=== PATIENT | male | born 1935 | race Caucasian/White ===

== ENCOUNTER 2017-03-30 08:31 | Outpatient (CLI) | payer MEDICARE, OTHER | END 2017-03-30 08:32 | disposition critical access hospital (66) | LOC: EMS 08:31 | PROVIDERS: ATTEND Surgery | DX: R53.1 Weakness (principal) | CPT/HCPCS: A0425; A0429 ==

== ENCOUNTER 2017-03-30 08:58 | Inpatient (IN) | payer MEDICARE, OTHER ==
--- NOTE | 2017-03-30 09:31 | ED Physician Documentation ---
History of Present Illness - Stated complaint Stated Complaint: GLF/WEAKNESS - Chief complaint Chief Complaint: General - Additonal information Additional information: hx from pt 81 male with chronic balance issues on coumadin for a fib fell a week ago this AM awoke on floor beside his bed and does not recall what happened crawled to wall but too weak to get up on his own so slep in the floor until his family found him this AM denies [facility]LIN [facility] OUTSOLE CP AP no fever cough NVD urinary sx bruise to RUE is from prior fall Review of Systems Constitutional: denies: Fever, Chills Throat: denies: Sore throat Cardiac: denies: Chest pain / pressure Respiratory: denies: Dyspnea, Cough GI: denies: Abdominal Pain, Nausea, Vomiting, Diarrhea Neurologic: reports: Generalized weakness. denies: Headache, Head injury Endocrine: reports: Easy bruising / bleeding Immunocompromised: denies: Immunocompromised PD PAST MEDICAL HISTORY - Past Medical History Cardiovascular: Congestive heart failure, Hypertension, Atrial fibrillation Respiratory: Pneumonia Neuro: Peripheral neuropathy Endocrine/Autoimmune: Type 2 diabetes GI: C.difficile : Nocturia Musculoskeletal: Osteoarthritis - Past Surgical History Past Surgical History: Yes General: Cholecystectomy - Present Medications Home Medications: Ambulatory Orders Medication Instructions Recorded Confirmed Atenolol [Tenormin] 50 mg PO QPM 02/25/13 03/30/17 Losartan/Hydrochlorothiazide 1 each PO DAILY 02/25/13 03/30/17 [Losartan-Hctz 100-25 mg Tab] Metformin HCl [Metformin 500 gm PO BID 02/25/13 03/30/17 Hydrochloride] Spironolactone [Aldactone] 25 mg PO DAILY 02/25/13 03/30/17 Warfarin Sodium 5 mg PO SUMOWEFRSA 02/25/13 03/30/17 cloNIDine [Catapres] 0.1 mg PO BID 02/25/13 03/30/17 Atorvastatin [Lipitor] 20 mg ORAL QPM 09/08/14 03/30/17 Aspirin 162.5 mg PO DAILY 03/30/17 03/30/17 Warfarin Sodium [Warfarin Sodium] 7.5 mg PO TUTH 03/30/17 03/30/17 - Allergies Allergies/Adverse Reactions: Allergies Allergy/AdvReac Type Severity Reaction Status Date / Time No Known Drug Allergies Allergy Verified 03/30/17 09:04 - Social History Does the pt smoke?: No Smoking Status: Former smoker Does the pt drink ETOH?: Yes Does the pt have substance abuse?: No - Immunizations Immunizations are current?: No Immunizations: TDAP >10years/unknown - POLST Patient has POLST: No PD ED PE NORMAL - Vitals Vital signs reviewed: Yes - General General: Alert and oriented X 3 - HEENT HEENT: Atraumatic, PERRL - Neck Neck: No bony TTP - Cardiac Cardiac: RRR - Respiratory Respiratory: No respiratory distress, Clear bilaterally - Abdomen Abdomen: Soft, Non tender - Derm Derm: Other (aged bruise to posterior right upper arm no deformity, erythema to elbows from trying to hget up) - Extremities Extremities: No deformity, Other (pelvis stable no hip pain) - Neuro Neuro: Alert and oriented X 3, No motor deficit, No sensory deficit, Normal speech, Other (NIHSS zero) Results - Vitals Vitals: Vital Signs - 24 hr 03/30/17 03/30/17 08:58 12:11 Temperature 36.8 C Heart Rate 84 81 Respiratory 16 18 Rate Blood Pressure 127/68 126/68 O2 Saturation 100 100 Oxygen O2 Source Room air - Labs Labs: Laboratory Tests 03/30/17 03/30/17 03/30/17 09:38 09:38 09:38 WBC 17.2 H RBC 4.17 L Hgb 12.6 L Hct 36.9 L MCV 88.7 MCH 30.2 MCHC 34.0 RDW 13.3 Plt Count 150 MPV 7.7 Neut # 16.2 H Lymph # 0.2 L [place] # 0.7 Eos # 0.0 Baso # 0.1 Absolute Nucleated RBC 0.00 Nucleated RBCs 0.0 PT 26.5 H INR 2.3 H Sodium 134 L Potassium 3.4 L Chloride 98 L Carbon Dioxide 26 Anion Gap 10.0 BUN 24 H Creatinine 1.3 H Estimated GFR (MDRD) 53 L Glucose 165 H Glycated Hemoglobin Estim Average Glucose Calcium 9.0 Total Creatine Kinase 419 H Urine Color Urine Clarity Urine pH Ur Specific [place] Urine Protein Urine Glucose (UA) Urine Ketones Urine Occult Blood Urine Nitrite Urine Bilirubin Urine Urobilinogen Ur Leukocyte Esterase Urine RBC Urine WBC Ur Squamous Epith Cells Urine Bacteria Ur Microscopic Review Urine Culture Comments 03/30/17 03/30/17 09:38 11:50 WBC RBC Hgb Hct MCV MCH MCHC RDW Plt Count MPV Neut # Lymph # [place] # Eos # Baso # Absolute Nucleated RBC Nucleated RBCs PT INR Sodium Potassium Chloride Carbon Dioxide Anion Gap BUN Creatinine Estimated GFR (MDRD) Glucose Glycated Hemoglobin 6.2 Estim Average Glucose 131 H Calcium Total Creatine Kinase Urine Color YELLOW Urine Clarity CLOUDY Urine pH 6.5 Ur Specific [place] 1.020 Urine Protein TRACE Urine Glucose (UA) NEGATIVE Urine Ketones NEGATIVE Urine Occult Blood TRACE-INTA Urine Nitrite POSITIVE H Urine Bilirubin NEGATIVE Urine Urobilinogen 0.2 (NORMAL) Ur Leukocyte Esterase LARGE H Urine RBC 0-5 Urine WBC >25 H Ur Squamous Epith Cells RARE Squamous Urine Bacteria Many H Ur Microscopic Review INDICATED Urine Culture Comments INDICATED - Rads (name of study) CTH Radiology: See rad report (no acute) CXR Radiology: See rad report (no acute) PD MEDICAL DECISION MAKING - ED course ED course: 81 male on coumadin with a UTI and new weakness and several recent falls thankfully without sig injury yet will admit for antibitoics and hopefully pt will be stronger as the infection improves and able to safely return home Departure - Departure Disposition: 66 [facility] DC/Xfer Clinical Impression: Weakness Urinary tract infection Qualifiers: Urinary tract infection type: site unspecified Hematuria presence: without hematuria Qualified Code(s): N39.0 - Urinary tract infection, site not specified Fall Qualifiers: Encounter type: initial encounter Qualified Code(s): W19.XXXA - Unspecified fall, initial encounter Condition: Fair Discharge Date/Time: 03/30/17 14:17
[2017-03-30 09:44] LABS: BASOPHILS # (AUTO) 0.1 10^3/uL (0.0-0.1); BASOPHILS % (AUTO) 0.3 %; HCT - HEMATOCRIT 36.9 % (42.0-52.0); HGB - HEMOGLOBIN 12.6 g/dL (14.0-18.0); LYMPHOCYTES # (AUTO) 0.2 10^3/uL (1.5-3.5); LYMPHOCYTES % (AUTO) 1.4 %; MEAN CORPUSCULAR HEMOGLOBIN 30.2 pg (27.0-31.0); MEAN CORPUSCULAR VOLUME 88.7 fL (80.0-94.0); MEAN PLATELET VOLUME 7.7 fL (7.4-11.4); MONOCYTES # (AUTO) 0.7 10^3/uL (0.0-1.0); MONOCYTES % (AUTO) 4.3 %; NEUTROPHILS # (AUTO) 16.2 10^3/uL (1.5-6.6); RED BLOOD COUNT 4.17 10^6/uL (4.70-6.10); RED CELL DISTRIBUTION WIDTH 13.3 % (12.0-15.0); UNCORRECTED WHITE BLOOD COUNT 17.2 x10^3/uL; WHITE BLOOD COUNT 17.2 x10^3/uL (4.8-10.8)
[2017-03-30 09:51] LABS: INR 2.3 (0.8-1.2); PT - PROTHROMBIN TIME 26.5 secs (9.9-12.6)
[2017-03-30 09:56] LABS: CREATININE 1.3 mg/dL (0.6-1.2); POTASSIUM 3.4 mmol/L (3.5-5.0)
[2017-03-30] MEDS ORDERED: SODIUM CHLORIDE 0.9% 1,000 ML IV ONE (11:19)
--- NOTE | 2017-03-30 11:55 | XRAY Preliminary Report ---
Exam: XR Chest 1 View IMPRESSION: No focal consolidation. [facility] SITE ID: [id number]
--- NOTE | 2017-03-30 11:55 | CT Preliminary Report ---
Exam: CT Head W/O IMPRESSION: Generalized age-related cortical atrophic changes without evidence of acute intracranial abnormality. [facility] SITE ID: [id number]
[2017-03-30 11:57] LABS: BILIRUBIN,URINE NEGATIVE (NEGATIVE); PH,URINE 6.5 PH (5.0-7.5)
--- NOTE | 2017-03-30 11:57 | XRAY Report ---
EXAM: CHEST RADIOGRAPHY EXAM DATE: 03/30/2017 11:28 AM. CLINICAL HISTORY: Weak elevated WBC. COMPARISON: Chest radiograph dated 09/12/2014. TECHNIQUE: 1 view. FINDINGS: Lungs/Pleura: No focal opacities evident. No pleural effusion. No pneumothorax. Mediastinum: Within exam limitations, cardiomediastinal contour is normal. Other: None. IMPRESSION: No focal consolidation. [facility] Referring Provider Line: [phone] SITE ID: [id number]
--- NOTE | 2017-03-30 11:57 | CT Report ---
EXAM: CT HEAD EXAM DATE: 03/30/2017 11:24 AM. CLINICAL HISTORY: Fell on floor on coumadin. COMPARISON: 11/09/2015. TECHNIQUE: Multiaxial CT images were obtained from the foramen magnum to the vertex. IV contrast: Non e. Reformats: Coronal. In accordance with CT protocol optimization, one or more of the following dose reduction techniques w ere utilized for this exam: automated exposure control, adjustment of mA and/or KV based on patient s ize, or use of iterative reconstructive technique. FINDINGS: Parenchyma: No intraparenchymal hemorrhage. No evidence of mass, midline shift, or CT findings of acu te infarction. Black-white differentiation is distinct. Extraaxial Spaces: Normal for age. No subdural or epidural collections identified. Ventricles: The ventricles and cortical sulci are enlarged, consistent with age-related tissue loss. Sinuses: Right maxillary probable retention cyst redemonstrated. There are mild soft tissue thickenin g within some ethmoid air cells bilaterally. Otherwise, the imaged paranasal sinuses, temporal bones and orbits are unremarkable. Bones: No evidence of fracture or calvarial defect. Other: Diffuse chronic microangiopathic white matter changes are evident. IMPRESSION: Generalized age-related cortical atrophic changes without evidence of acute intracranial abnormality. [facility] Referring Provider Line: [phone] SITE ID: [id number]
[2017-03-30 11:59] LABS: UA w/ MICROSCOPIC CHARGE YES
[2017-03-30 12:04] LABS: UR CULTURE IF IND INDICATED; WBC,URINE >25 /HPF (0-3)
[2017-03-30] MEDS ORDERED: CIPROFLOXACIN 400 MG/200 ML 200 ML IV ONE ×2 (12:27→12:37)
[2017-03-30] MEDS ORDERED: SODIUM CHLORIDE FLUSH 0.9% 10 ML SYRINGE IVP PRN (13:42)
[2017-03-30] MEDS ORDERED: ONDANSETRON 4 MG/2 ML VIAL IVP PRN (13:47)
[2017-03-30] MEDS ORDERED: HYDROcod/ACETAM 5/325 MG TABLET PO PRN (13:47)
[2017-03-30] MEDS ORDERED: HYDROcod/ACETAM 10 MG/325 MG TABLET PO PRN (13:47)
[2017-03-30] MEDS: cefTRIAXone 1 GM in SODIUM CHLORIDE 0.9% MINIBAG 100 ML IV SCH (15:13)
[2017-03-30] MEDS: SODIUM CHLORIDE FLUSH 0.9% 10 ML SYRINGE IVP SCH ×2 (15:13→21:34)
[2017-03-30] MEDS: NS W/20 MEQ KCL 1,000 ML IV SCH (15:13)
[2017-03-30 16:22] LABS: HEMOGLOBIN A1C 0.56 g/dL
[2017-03-30] MEDS: ACETAMINOPHEN 325 MG TABLET PO PRN (18:23)
[2017-03-30] MEDS: INSULIN ASPART 300 UNIT/3 ML PEN SUBQ SCH ×2 (18:25→21:34)
[2017-03-30] MEDS: ATENOLOL 25 MG TABLET PO SCH (21:33)
[2017-03-30] MEDS: cloNIDine 0.1 MG TABLET PO SCH (21:34)
[2017-03-30] MEDS: ATORVASTATIN 10 MG TABLET PO SCH (21:34)
[2017-03-31] MEDS: NS W/20 MEQ KCL 1,000 ML IV SCH ×3 (00:55→21:12)
[2017-03-31] MEDS: SODIUM CHLORIDE FLUSH 0.9% 10 ML SYRINGE IVP SCH ×3 (07:20→21:13)
--- NOTE | 2017-03-31 07:30 | HISTORY & PHYSICAL EXAMINATION ---
DATE OF ADMISSION: 03/30/2017 PRIMARY CARE PHYSICIAN: Darwin Salmeron MD CHIEF COMPLAINT: Weakness. IDENTIFYING INFORMATION: The patient is the primary source of his history and is a fair historian. He has some deficits in memory of the night before and minimizes his symptoms. The patient's is darlene mcdaniels, who is also sick but appears to add additional information. Also, there is information obtaincm d in the handoff from Dr. Higuera, the emergency department physician. There was personal review of [facility] medical records, which are summarized below, and data from this visit. All were used in addition t o the examination and evaluation of this person in preparation of this document. HISTORY OF PRESENT ILLNESS: The patient said he felt okay yesterday evening. He went to bed last nigh t and he woke up at 4:00 in the morning. He states that he actually went to the bathroom, sat at the side of the bed, and then he slid down onto the floor. He was too weak to get off the bed so he used the covers to wrap himself up in bed and woke up. The patient denied any breathing problems, fever, h eadache, chest pain. He did say he had a cough, but it was slight. The patient's memory of the event is poor. REVIEW OF SYSTEMS: A complete review of systems is queried. The only significant problem is the gener alized weakness. He also bruises easily. The patient had no diarrhea, no vomiting, no nausea. PAST MEDICAL HISTORY Remarkable for: 1. Diabetes. 2. Hypertension. 3. Atrial fibrillation, on medication for rate control and on Coumadin. 4. Hyperlipidemia. 5. Pneumonia. 6. Peripheral neuropathy. 7. C difficile. 8. Nocturia from BPH. PAST SURGERIES: Cholecystectomy. MEDICATIONS 1. Aspirin half-tab a day. 2. Atenolol 50 mg a day. 3. Losartan/hydrochlorothiazide 100/25 a day. 4. Metformin 500 b.i.d. 5. Aldactone 25 mg a day. 6. Warfarin 5 mg alternating with 7.5 mg a day. 7. Clonidine 0.1 b.i.d. 8. Lipitor 20 mg a day. ALLERGIES: NONE KNOWN. SOCIAL HISTORY: The patient smoked in the past. He does continue to drink alcohol, 1-3 shots of whisk ey and a glass of wine. The patient lives with his in [place]. FAMILY HISTORY: Negative for diabetes, cancer or heart disease. Children are healthy. PHYSICAL EXAMINATION VITAL SIGNS: 36.8, 84, 16, 127/68, O2 saturation is 100% on room air. CONSTITUTIONAL: Appears stated age, interactive. NEURO: Cranial nerves intact as tested. Motor normal. Cognitive intact. Gait was not tested. The katty ent states he is still too weak to be able to stand on his own although it has not been attempted. EYES: EOMs within normal limits. PERRLA. Nonicteric. MOUTH AND THROAT: Somewhat dry mucus membranes. NECK: No lymphadenopathy. No thyromegaly. No bruits. No JVD. CHEST WALL: Nontender, symmetric. HEART: Atrial fibrillation with a 2/6 murmur in the left sternal border. LUNGS: Clear with good air movement bilaterally. ABDOMEN: Thick abdominal wall, soft, nontender. Normal bowel sounds. No hepatosplenomegaly appreciate d. RECTAL/GENITAL: Not done. EXTREMITIES: Trace edema up to the ankles. VASCULAR: Palpable pulses bilaterally posterior tibial. No cyanosis. SKIN: No suspicious lesions or dermatitis. LABORATORY DATA: White count 17,000, 12 and 37 hemoglobin and hematocrit, platelets 150, INR 2.3. Sod ium 134, potassium 3.4, chloride 98, CO2 of 26, BUN 24, creatinine 1.3, glucose 165, CK 419. The urin e is positive for leukocyte esterase, greater than 25 WBCs, rare squamous, many bacteria. Culture is pending. Chest x-ray shows no acute changes. Patient will be given first dose of Cipro. SUMMARY: An 81-year-old gentleman who awoke in the middle of the night, slid out of bed and was unabl e to get back in bed, slept on the floor with blankets around him and was found by . EMS was call ed. The patient's past medical history includes hypertension, diabetes, atrial fibrillation. The [facility] ent was found to have a urinary tract infection and profound weakness, and he was admitted to the [facility]. DIAGNOSES 1. Urinary tract infection. 2. Acute kidney injury on chronic kidney disease. 3. Generalized weakness. 4. Diabetes, type 2, uncertain control. 5. Atrial fibrillation, rate control on Coumadin. 6. Hypertension. DISCUSSION AND DECISION MAKING 1. Urinary tract infection. Will be treated with Rocephin initially and change antibiotics if needed dependent on culture results. 2. Acute kidney injury. Patient will be given additional fluids as he appears dehydrated and kidney f unction will be monitored. If deteriorates, will do further diagnostic interventions. 3. Generalized weakness. Presumed to be part of the clinical findings associated with the urinary tra ct infection, and sepsis is ruled out as he does not have tachypnea, tachycardia or lactate elevation . 4. Diabetes type 2. He has hyperglycemia now and will be started on a diabetic diet with monitoring o f sugars and sliding scale. Metformin will not be continued during his hospitalization. 5. Atrial fibrillation. His rate control medications will be continued. His Coumadin will also be con tinued. 6. Hypertension. Medication will be monitored and medication given from home. HOSPITAL ISSUES 1. Code status. He is FULL CODE. 2. VTE. He is therapeutic on Coumadin and will be maintained. 3. Diet. Will be carb-controlled, four choice. 4. Activity. He will have Physical Therapy guiding his activity and try to get him to be functional a gain hopefully with the receding of his symptoms from his urinary tract infection this will occur. 5. Tubes and lines. He will be on a peripheral IV. No March catheter at this time. 6. Hospital status. Given his complex comorbidities with the generalized weakness and urinary tract i nfection, will take at least 2 nights hospitalization to determine if he is going to be able to be di scharged home or need to go to a [facility] facility. 7. Length of stay is estimated 2 nights. DISPOSITION: Expected to be home but uncertain at this time. JOB #: [id number] EXT JOB #:[id number]
[2017-03-31] MEDS: cloNIDine 0.1 MG TABLET PO SCH ×2 (08:42→21:12)
[2017-03-31] MEDS: ASPIRIN 325 MG TABLET PO SCH (08:42)
[2017-03-31] MEDS: LOSARTAN 50 MG TABLET PO SCH (08:43)
[2017-03-31] MEDS: SPIRONOLACTONE 25 MG TABLET PO SCH (08:43)
[2017-03-31] MEDS: INSULIN ASPART 300 UNIT/3 ML PEN SUBQ SCH ×4 (08:44→21:12)
[2017-03-31] MEDS: hydroCHLOROthiazide 25 MG TABLET PO SCH (08:44)
[2017-03-31] MEDS: POLYETHYLENE GLYCOL 3350 17 GM PACKET PO SCH (08:44)
[2017-03-31] MEDS ORDERED: cefTRIAXone 1 GM VIAL IVP SCH (09:00)
[2017-03-31] MEDS: WARFARIN 5 MG TABLET PO SCH (14:18)
[2017-03-31] MEDS: cefTRIAXone 1 GM in SODIUM CHLORIDE 0.9% MINIBAG 100 ML IV SCH (17:03)
[2017-03-31] MEDS: ATORVASTATIN 10 MG TABLET PO SCH (21:12)
[2017-03-31] MEDS: ATENOLOL 25 MG TABLET PO SCH (21:12)
[2017-04-01] MEDS: ACETAMINOPHEN 325 MG TABLET PO PRN (00:48)
[2017-04-01] MEDS: SODIUM CHLORIDE FLUSH 0.9% 10 ML SYRINGE IVP SCH ×3 (05:47→21:40)
[2017-04-01] MEDS: NS W/20 MEQ KCL 1,000 ML IV SCH ×2 (06:32→18:39)
[2017-04-01] MEDS: LOSARTAN 50 MG TABLET PO SCH (10:11)
[2017-04-01] MEDS: ASPIRIN 325 MG TABLET PO SCH (10:11)
[2017-04-01] MEDS: SPIRONOLACTONE 25 MG TABLET PO SCH (10:12)
[2017-04-01] MEDS: hydroCHLOROthiazide 25 MG TABLET PO SCH (10:12)
[2017-04-01] MEDS: INSULIN ASPART 300 UNIT/3 ML PEN SUBQ SCH ×4 (10:12→21:40)
[2017-04-01] MEDS: POLYETHYLENE GLYCOL 3350 17 GM PACKET PO SCH (10:12)
[2017-04-01] MEDS: cloNIDine 0.1 MG TABLET PO SCH ×2 (10:12→20:17)
[2017-04-01] MEDS: WARFARIN 5 MG TABLET PO SCH (13:04)
[2017-04-01] MEDS ORDERED: WARFARIN 2.5 MG TABLET PO SCH (14:00)
--- NOTE | 2017-04-01 16:42 | PROVIDER PROGRESS NOTE ---
Subjective - Prog Note Date Prog Note Date: 03/31/17 Prog Note Time: 13:00 - Subjective Pt reports feeling: Improved Objective - Vital Signs/Intake & Output Reviewed Vital Signs: Yes Intake & Output: Intake & Output 03/29/17 03/30/17 03/31/17 04/01/17 23:59 23:59 23:59 23:59 Intake Total 240 3064 2078 Output Total 400 Balance 240 3064 1678 - Objective General Appearance: positive: No acute distress, Alert Eyes Bilateral: positive: Normal inspection, PERRL, EOMI ENT: positive: ENT inspection nml, Pharynx nml Neck: positive: Nml inspection, Thyroid nml, No JVD Respiratory: positive: Chest non-tender, No respiratory distress, Breath sounds nml Cardiovascular: positive: Regular rate & rhythm Abdomen: positive: Non-tender Skin: positive: Color nml, No rash, Warm Neurologic/Psychiatric: positive: Oriented x3, CN's nml (2-12), Motor nml - Lab Results Fish Bones: 03/30/17 09:38 03/30/17 09:38 Other Labs: Lab Results x24hrs 04/01/17 04/01/17 03/31/17 Range/Units 16:37 11:35 11:40 POC Whole Bld Glucose 129 H 145 H 180 H (70 - 100) mg/dL 03/31/17 03/30/17 03/30/17 Range/Units 07:49 20:46 17:09 POC Whole Bld Glucose 124 H 125 H 112 H (70 - 100) mg/dL Assessment/Plan - Problem List (1) Urinary tract infection Impression: Orly has UTI and generalized weakness. It may be more chronic than one day. He is to have PT eval today. The culture is pending. He is on Rocephin. Qualifiers: Urinary tract infection type: site unspecified Hematuria presence: without hematuria Qualified Code(s): N39.0 - Urinary tract infection, site not specified (2) Weakness Impression: His PT eval is pending. He may need SNF
--- NOTE | 2017-04-01 16:50 | PROVIDER PROGRESS NOTE ---
Assessment/Plan - Problem List (1) Urinary tract infection Qualifiers: Urinary tract infection type: site unspecified Hematuria presence: without hematuria Qualified Code(s): N39.0 - Urinary tract infection, site not specified Assessment/Plan: He has Gm(-) rods growing. Sens out tomorrow. will change antibiotics if needed. (2) Weakness Assessment/Plan: He has improved modestly. Very impulsive and poor balance. He is agreeable to go to a SNF - Current Meds Current Meds: Current Medications Generic Name Dose Route Start Last Admin Trade Name Freq PRN Reason Stop Dose Admin Acetaminophen 650 mg 03/30/17 13:47 04/01/17 00:48 Tylenol PO 650 mg Q4HR PRN Administration Pain 1 to 4 Aspirin 162.5 mg 03/31/17 08:00 04/01/17 10:11 Arnaud PO 162.5 mg DAILYWM CASANDRA Administration Atenolol 50 mg 03/30/17 21:00 03/31/17 21:12 Tenormin PO 50 mg QPM CASANDRA Administration Atorvastatin Calcium 20 mg 03/30/17 21:00 03/31/17 21:12 Lipitor PO 20 mg QPM CASANDRA Administration Clonidine HCl 0.1 mg 03/30/17 21:00 04/01/17 10:12 Catapres PO 0.1 mg BID CASANDRA Administration Hydrochlorothiazide 25 mg 03/31/17 09:00 04/01/17 10:12 Hydrodiuril PO 25 mg DAILY CASANDRA Administration Potassium Chloride/Sodium Chloride 1,000 mls @ 100 mls/hr 03/30/17 14:00 06:32 Normal Saline 0.9% W/20 Meq Kcl IV 100 mls/hr .Q10H CASANDRA Administration Ceftriaxone Sodium 1 gm/ 100 mls @ 200 mls/hr 03/30/17 16:00 03/31/17 17:03 Sodium Chloride IV 200 mls/hr Q24H CASANDRA Administration Insulin Aspart 1 - 9 unit 03/30/17 17:00 04/01/17 13:03 Novolog SUBQ 1 unit 0800,1200,1700,2100 CASANDRA Administration Protocol Losartan Potassium 100 mg 03/31/17 09:00 04/01/17 10:11 Cozaar PO 100 mg DAILY CASANDRA Administration Polyethylene Glycol 17 gm 03/31/17 09:00 07/20/17 10:12 Miralax PO Not Given DAILY [facility] Sodium Chloride 10 ml 03/30/17 14:00 04/01/17 10:17 Normal Saline Flush 0.9% IVP 10 ml Q8HR CASANDRA Administration Spironolactone 25 mg 03/31/17 09:00 04/01/17 10:12 Aldactone PO 25 mg DAILY CASANDRA Administration Warfarin Sodium 5 mg 03/31/17 14:00 04/01/17 13:04 Coumadin PO 5 mg QDWARFARIN CASANDRA Administration Warfarin Sodium 2.5 mg 04/01/17 14:00 04/01/17 13:04 Coumadin PO 2.5 mg TuTh@1400 CASANDRA Administration - Lab Result Fish Bone Diagrams: 03/30/17 09:38 03/30/17 09:38 - Additional Planning My Orders: My Active Orders 04/01/17 14:00 Warfarin [Coumadin] 2.5 mg PO TuTh@1400 Subjective - Subjective Patient Reports: Feeling Better, Fatigue Nursing Reports: Pain Objective Vital Signs: Vital Signs - 24 hr 03/31/17 04/01/17 04/01/17 21:52 01:26 08:18 Temperature 37.2 C 37.7 C H 37.1 C Heart Rate [ 99 79 76 Brachial] Respiratory 18 16 19 Rate Blood Pressure 160/91 H 154/76 H 175/86 H [Left Brachial artery] O2 Saturation 96 95 98 Oxygen O2 Source Room air I&O (Last 24 Hrs): Intake and Output Totals x24h 03/30/17 03/31/17 04/01/17 23:59 23:59 23:59 Intake Total 240 3064 2078 Output Total 400 Balance 240 3064 1678 General: Alert, Oriented x3, Cooperative HEENT: Atraumatic, PERRLA Neck: Supple, No JVD, No thyromegaly Neuro: Alert, Oriented Times 3 Cardiovascular: Regular rate, No murmurs Respiratory: No respiratory distress, Breath sounds nml Abdomen: Normal bowel sounds, Soft, No tenderness Skin: No rashes, No breakdown - Results Results: Laboratory Results WBC 17.2 x10^3/uL (4.8-10.8) H 03/30/17 09:38 RBC 4.17 10^6/uL (4.70-6.10) L 03/30/17 09:38 Hgb 12.6 g/dL (14.0-18.0) L 03/30/17 09:38 Hct 36.9 % (42.0-52.0) L 03/30/17 09:38 MCV 88.7 fL (80.0-94.0) 03/30/17 09:38 MCH 30.2 pg (27.0-31.0) 03/30/17 09:38 MCHC 34.0 g/dL (32.0-36.0) 03/30/17 09:38 RDW 13.3 % (12.0-15.0) 03/30/17 09:38 Plt Count 150 10^3/uL (130-450) 03/30/17 09:38 MPV 7.7 fL (7.4-11.4) 03/30/17 09:38 Neut # 16.2 10^3/uL (1.5-6.6) H 03/30/17 09:38 Lymph # 0.2 10^3/uL (1.5-3.5) L 03/30/17 09:38 [place] # 0.7 10^3/uL (0.0-1.0) 03/30/17 09:38 Eos # 0.0 10^3/uL (0.0-0.7) 03/30/17 09:38 Baso # 0.1 10^3/uL (0.0-0.1) 03/30/17 09:38 Absolute Nucleated RBC 0.00 x10^3/uL 03/30/17 09:38 Nucleated RBCs 0.0 /100WBC 03/30/17 09:38 PT 26.5 secs (9.9-12.6) H 03/30/17 09:38 INR 2.3 (0.8-1.2) H 03/30/17 09:38 Sodium 134 mmol/L (135-145) L 03/30/17 09:38 Potassium 3.4 mmol/L (3.5-5.0) L 03/30/17 09:38 Chloride 98 mmol/L (101-111) L 03/30/17 09:38 Carbon Dioxide 26 mmol/L (21-32) 03/30/17 09:38 Anion Gap 10.0 (6-13) 03/30/17 09:38 BUN 24 mg/dL (6-20) H 03/30/17 09:38 Creatinine 1.3 mg/dL (0.6-1.2) H 03/30/17 09:38 Estimated GFR (MDRD) 53 (>89) L 03/30/17 09:38 Glucose 165 mg/dL (70-100) H 03/30/17 09:38 POC Whole Bld Glucose 129 mg/dL (70 - 100) H 04/01/17 16:37 Glycated Hemoglobin 6.2 % (4.6-6.2) 03/30/17 09:38 Estim Average Glucose 131 (70-100) H 03/30/17 09:38 Calcium 9.0 mg/dL (8.5-10.3) 03/30/17 09:38 Total Creatine Kinase 419 IU/L (22-269) H 03/30/17 09:38 Urine Color YELLOW 03/30/17 11:50 Urine Clarity CLOUDY (CLEAR) 03/30/17 11:50 Urine pH 6.5 PH (5.0-7.5) 03/30/17 11:50 Ur Specific [place] 1.020 (1.002-1.030) 03/30/17 11:50 Urine Protein TRACE mg/dL (NEGATIVE) 03/30/17 11:50 Urine Glucose (UA) NEGATIVE mg/dL (NEGATIVE) 03/30/17 11:50 Urine Ketones NEGATIVE mg/dL (NEGATIVE) 03/30/17 11:50 Urine Occult Blood TRACE-INTA (NEGATIVE) 03/30/17 11:50 Urine Nitrite POSITIVE (NEGATIVE) H 03/30/17 11:50 Urine Bilirubin NEGATIVE (NEGATIVE) 03/30/17 11:50 Urine Urobilinogen 0.2 (NORMAL) E.U./dL (NORMAL) 03/30/17 11:50 Ur Leukocyte Esterase LARGE (NEGATIVE) H 03/30/17 11:50 Urine RBC 0-5 /HPF (0-5) 03/30/17 11:50 Urine WBC >25 /HPF (0-3) H 03/30/17 11:50 Ur Squamous Epith Cells RARE Squamous (<= Few) 03/30/17 11:50 Urine Bacteria Many /HPF (None Seen) H 03/30/17 11:50 Ur Microscopic Review INDICATED 03/30/17 11:50 Urine Culture Comments INDICATED 03/30/17 11:50
[2017-04-01] MEDS: cefTRIAXone 1 GM in SODIUM CHLORIDE 0.9% MINIBAG 100 ML IV SCH (16:52)
[2017-04-01] MEDS: ATORVASTATIN 10 MG TABLET PO SCH (20:17)
[2017-04-01] MEDS: ATENOLOL 25 MG TABLET PO SCH (20:17)
[2017-04-02] MEDS: NS W/20 MEQ KCL 1,000 ML IV SCH ×2 (02:00→12:09)
[2017-04-02] MEDS: SODIUM CHLORIDE FLUSH 0.9% 10 ML SYRINGE IVP SCH ×3 (08:56→20:44)
[2017-04-02] MEDS: ASPIRIN 325 MG TABLET PO SCH (08:58)
[2017-04-02] MEDS: LOSARTAN 50 MG TABLET PO SCH (08:59)
[2017-04-02] MEDS: SPIRONOLACTONE 25 MG TABLET PO SCH (08:59)
[2017-04-02] MEDS: cloNIDine 0.1 MG TABLET PO SCH ×2 (08:59→20:44)
[2017-04-02] MEDS: hydroCHLOROthiazide 25 MG TABLET PO SCH (08:59)
[2017-04-02] MEDS: POLYETHYLENE GLYCOL 3350 17 GM PACKET PO SCH (09:00)
[2017-04-02] MEDS: INSULIN ASPART 300 UNIT/3 ML PEN SUBQ SCH ×4 (10:11→20:44)
--- NOTE | 2017-04-02 13:27 | PROVIDER PROGRESS NOTE ---
Assessment/Plan - Problem List (1) Urinary tract infection Qualifiers: Urinary tract infection type: site unspecified Hematuria presence: without hematuria Qualified Code(s): N39.0 - Urinary tract infection, site not specified Assessment/Plan: Nitin is growing Klebsiella. The Rocephin is in the sens pattern. He will need 10 day course due to the systemic context of the infection. (2) Weakness Assessment/Plan: Nitin's weakness has improved. He is still limited with bed transfers, and balance. He would benefit with SBF and PT. Will do PT through his PCP. He does not want to go to a SNF - Current Meds Current Meds: Current Medications Generic Name Dose Route Start Last Admin Trade Name Freq PRN Reason Stop Dose Admin Acetaminophen 650 mg 03/30/17 13:47 04/01/17 00:48 Tylenol PO 650 mg Q4HR PRN Administration Pain 1 to 4 Aspirin 162.5 mg 03/31/17 08:00 04/02/17 08:58 Arnaud PO 162.5 mg DAILYWM CASANDRA Administration Atenolol 50 mg 03/30/17 21:00 04/01/17 20:17 Tenormin PO 50 mg QPM CASANDRA Administration Atorvastatin Calcium 20 mg 03/30/17 21:00 04/01/17 20:17 Lipitor PO 20 mg QPM CASANDRA Administration Clonidine HCl 0.1 mg 03/30/17 21:00 04/02/17 08:59 Catapres PO 0.1 mg BID CASANDRA Administration Hydrochlorothiazide 25 mg 03/31/17 09:00 04/02/17 08:59 Hydrodiuril PO 25 mg DAILY CASANDRA Administration Potassium Chloride/Sodium Chloride 1,000 mls @ 100 mls/hr 03/30/17 14:00 12:09 Normal Saline 0.9% W/20 Meq Kcl IV 100 mls/hr .Q10H CASANDRA Administration Ceftriaxone Sodium 1 gm/ 100 mls @ 200 mls/hr 03/30/17 16:00 04/01/17 16:52 Sodium Chloride IV 200 mls/hr Q24H CASANDRA Administration Insulin Aspart 1 - 9 unit 03/30/17 17:00 04/02/17 12:08 Novolog SUBQ 1 unit 0800,1200,1700,2100 CASANDRA Administration Protocol Losartan Potassium 100 mg 03/31/17 09:00 04/02/17 08:59 Cozaar PO 100 mg DAILY CASANDRA Administration Polyethylene Glycol 17 gm 03/31/17 09:00 04/02/17 09:00 Miralax PO Not Given DAILY [facility] Sodium Chloride 10 ml 03/30/17 14:00 04/02/17 08:56 Normal Saline Flush 0.9% IVP Not Given Q8HR [facility] Spironolactone 25 mg 03/31/17 09:00 04/02/17 08:59 Aldactone PO 25 mg DAILY CASANDRA Administration Warfarin Sodium 5 mg 03/31/17 14:00 04/01/17 13:04 Coumadin PO 5 mg QDWARFARIN CASANDRA Administration Warfarin Sodium 2.5 mg 04/01/17 14:00 04/01/17 13:04 Coumadin PO 2.5 mg TuTh@1400 CASANDRA Administration - Lab Result Fish Bone Diagrams: 03/30/17 09:38 03/30/17 09:38 - Additional Planning My Orders: My Active Orders 04/01/17 14:00 Warfarin [Coumadin] 2.5 mg PO TuTh@1400 Subjective - Subjective Patient Reports: Feeling Better, Resting Comfortably Nursing Reports: No Complaints Objective Vital Signs: Vital Signs - 24 hr 04/01/17 04/02/17 20:48 00:30 Temperature 37.1 C 36.9 C Heart Rate [ 68 62 Brachial] Respiratory 18 16 Rate Blood Pressure 159/92 H 132/88 H [Left Brachial artery] O2 Saturation 97 95 Oxygen O2 Source Room air I&O (Last 24 Hrs): Intake and Output Totals x24h 03/31/17 04/01/17 04/02/17 23:59 23:59 23:59 Intake Total 3064 2278 2372 Output Total 700 1250 Balance 3064 1578 1122 General: Alert, Oriented x3, Cooperative HEENT: PERRLA, EOMI Neck: No JVD, No thyromegaly Neuro: Alert, Oriented Times 3 Cardiovascular: Regular rate, No murmurs Respiratory: Chest non-tender, No respiratory distress, Breath sounds nml Extremities: No clubbing, No cyanosis Skin: No rashes, No breakdown - Results Results: Laboratory Results WBC 17.2 x10^3/uL (4.8-10.8) H 03/30/17 09:38 RBC 4.17 10^6/uL (4.70-6.10) L 03/30/17 09:38 Hgb 12.6 g/dL (14.0-18.0) L 03/30/17 09:38 Hct 36.9 % (42.0-52.0) L 03/30/17 09:38 MCV 88.7 fL (80.0-94.0) 03/30/17 09:38 MCH 30.2 pg (27.0-31.0) 03/30/17 09:38 MCHC 34.0 g/dL (32.0-36.0) 03/30/17 09:38 RDW 13.3 % (12.0-15.0) 03/30/17 09:38 Plt Count 150 10^3/uL (130-450) 03/30/17 09:38 MPV 7.7 fL (7.4-11.4) 03/30/17 09:38 Neut # 16.2 10^3/uL (1.5-6.6) H 03/30/17 09:38 Lymph # 0.2 10^3/uL (1.5-3.5) L 03/30/17 09:38 [place] # 0.7 10^3/uL (0.0-1.0) 03/30/17 09:38 Eos # 0.0 10^3/uL (0.0-0.7) 03/30/17 09:38 Baso # 0.1 10^3/uL (0.0-0.1) 03/30/17 09:38 Absolute Nucleated RBC 0.00 x10^3/uL 03/30/17 09:38 Nucleated RBCs 0.0 /100WBC 03/30/17 09:38 PT 26.5 secs (9.9-12.6) H 03/30/17 09:38 INR 2.3 (0.8-1.2) H 03/30/17 09:38 Sodium 134 mmol/L (135-145) L 03/30/17 09:38 Potassium 3.4 mmol/L (3.5-5.0) L 03/30/17 09:38 Chloride 98 mmol/L (101-111) L 03/30/17 09:38 Carbon Dioxide 26 mmol/L (21-32) 03/30/17 09:38 Anion Gap 10.0 (6-13) 03/30/17 09:38 BUN 24 mg/dL (6-20) H 03/30/17 09:38 Creatinine 1.3 mg/dL (0.6-1.2) H 03/30/17 09:38 Estimated GFR (MDRD) 53 (>89) L 03/30/17 09:38 Glucose 165 mg/dL (70-100) H 03/30/17 09:38 POC Whole Bld Glucose 159 mg/dL (70 - 100) H 04/02/17 11:31 Glycated Hemoglobin 6.2 % (4.6-6.2) 03/30/17 09:38 Estim Average Glucose 131 (70-100) H 03/30/17 09:38 Calcium 9.0 mg/dL (8.5-10.3) 03/30/17 09:38 Total Creatine Kinase 419 IU/L (22-269) H 03/30/17 09:38 Urine Color YELLOW 03/30/17 11:50 Urine Clarity CLOUDY (CLEAR) 03/30/17 11:50 Urine pH 6.5 PH (5.0-7.5) 03/30/17 11:50 Ur Specific [place] 1.020 (1.002-1.030) 03/30/17 11:50 Urine Protein TRACE mg/dL (NEGATIVE) 03/30/17 11:50 Urine Glucose (UA) NEGATIVE mg/dL (NEGATIVE) 03/30/17 11:50 Urine Ketones NEGATIVE mg/dL (NEGATIVE) 03/30/17 11:50 Urine Occult Blood TRACE-INTA (NEGATIVE) 03/30/17 11:50 Urine Nitrite POSITIVE (NEGATIVE) H 03/30/17 11:50 Urine Bilirubin NEGATIVE (NEGATIVE) 03/30/17 11:50 Urine Urobilinogen 0.2 (NORMAL) E.U./dL (NORMAL) 03/30/17 11:50 Ur Leukocyte Esterase LARGE (NEGATIVE) H 03/30/17 11:50 Urine RBC 0-5 /HPF (0-5) 03/30/17 11:50 Urine WBC >25 /HPF (0-3) H 03/30/17 11:50 Ur Squamous Epith Cells RARE Squamous (<= Few) 03/30/17 11:50 Urine Bacteria Many /HPF (None Seen) H 03/30/17 11:50 Ur Microscopic Review INDICATED 03/30/17 11:50 Urine Culture Comments INDICATED 03/30/17 11:50
[2017-04-02] MEDS: WARFARIN 5 MG TABLET PO SCH (13:47)
[2017-04-02] MEDS: cefTRIAXone 1 GM in SODIUM CHLORIDE 0.9% MINIBAG 100 ML IV SCH (16:23)
[2017-04-02] MEDS: ATORVASTATIN 10 MG TABLET PO SCH (20:44)
[2017-04-02] MEDS: ATENOLOL 25 MG TABLET PO SCH (20:44)
[2017-04-03 06:17] LABS: BASOPHILS % (AUTO) 0.5 %; EOSINOPHILS # (AUTO) 0.3 10^3/uL (0.0-0.7); EOSINOPHILS % (AUTO) 3.7 %; HCT - HEMATOCRIT 35.8 % (42.0-52.0); HGB - HEMOGLOBIN 12.1 g/dL (14.0-18.0); LYMPHOCYTES # (AUTO) 0.7 10^3/uL (1.5-3.5); LYMPHOCYTES % (AUTO) 8.3 %; MEAN CORPUSCULAR HEMOGLOBIN 30.3 pg (27.0-31.0); MEAN CORPUSCULAR HGB CONC 33.8 g/dL (32.0-36.0); MEAN CORPUSCULAR VOLUME 89.6 fL (80.0-94.0); MEAN PLATELET VOLUME 7.5 fL (7.4-11.4); MONOCYTES # (AUTO) 0.8 10^3/uL (0.0-1.0); MONOCYTES % (AUTO) 9.9 %; NEUTROPHILS # (AUTO) 6.3 10^3/uL (1.5-6.6); NEUTROPHILS % (AUTO) 77.6 %; RED BLOOD COUNT 3.99 10^6/uL (4.70-6.10); RED CELL DISTRIBUTION WIDTH 13.3 % (12.0-15.0); UNCORRECTED WHITE BLOOD COUNT 8.1 x10^3/uL; WHITE BLOOD COUNT 8.1 x10^3/uL (4.8-10.8)
[2017-04-03 06:28] LABS: PT - PROTHROMBIN TIME 22.6 secs (9.9-12.6)
[2017-04-03 06:33] LABS: ALBUMIN/GLOBULIN RATIO 1.1 (1.0-2.2); BILIRUBIN,TOTAL 1.6 mg/dL (0.2-1.0); CALCIUM 8.6 mg/dL (8.5-10.3); CREATININE 0.7 mg/dL (0.6-1.2); POTASSIUM 3.9 mmol/L (3.5-5.0); TOTAL PROTEIN 6.1 g/dL (6.7-8.2)
[2017-04-03] MEDS: SODIUM CHLORIDE FLUSH 0.9% 10 ML SYRINGE IVP SCH ×2 (06:45→12:11)
[2017-04-03] MEDS: INSULIN ASPART 300 UNIT/3 ML PEN SUBQ SCH ×2 (08:51→12:17)
[2017-04-03] MEDS: hydroCHLOROthiazide 25 MG TABLET PO SCH (08:52)
[2017-04-03] MEDS: SPIRONOLACTONE 25 MG TABLET PO SCH (08:52)
[2017-04-03] MEDS: LOSARTAN 50 MG TABLET PO SCH (08:52)
[2017-04-03] MEDS: cloNIDine 0.1 MG TABLET PO SCH (08:52)
[2017-04-03] MEDS: POLYETHYLENE GLYCOL 3350 17 GM PACKET PO SCH (08:53)
[2017-04-03] MEDS ORDERED: ASPIRIN 325 MG TABLET PO SCH (09:00)
--- NOTE | 2017-04-03 10:54 | Discharge Plan ---
Discharge Plan Disposition: 01 Home, Self Care Condition: Good Prescriptions: Ciprofloxacin [Cipro] 500 mg PO BID #14 ml Diet: Regular Activity Restrictions: Activity as Tolerated Shower Restrictions: No Driving Restrictions: Yes (need to be cleared by the PCP Dr. Salmeron) Assistance Devices: Walker Weight Bearing: Full Weight Additional Instructions or Follow Up instructions: Slowly increase your exercise each day doing a small amount more. Make an appt to see Dr. Salmeron. Drink at least 2 pints of water a day. Thank you, Dr. Mccullough No Smoking: If you smoke, Please STOP! Call for help. Follow-up with: Levy Salmeron MD [Primary Care Provider] - 2 Weeks
[2017-04-03 12:10] VITALS: BP 152/73
--- NOTE | 2017-05-01 21:12 | DISCHARGE SUMMARY ---
DATE OF ADMISSION: 03/30/2017 DATE OF DISCHARGE: 04/03/2017 PRIMARY CARE PHYSICIAN: Darwin Salmeron MD DIAGNOSES: 1. Acute urinary tract infection. 2. Acute kidney injury on chronic kidney illness. 3. Generalized weakness. 4. Diabetes type 2, uncertain control. 5. Atrial fibrillation, rate controlled, on Coumadin. 6. Hypertension. SPECIAL PROCEDURES: None. CONSULTATIONS: None. HOSPITAL COURSE AND MANAGEMENT: The initial presentation, hospital evaluation, and hospitalist plan are well described in the history and physical, see copy of same. SUMMARY: The patient is an 81-year-old gentleman who awoke in the middle of the night, slid out of bed and was unable to get back in the bed. He slept on the floor with blankets around him, was found by his in the a.m. EMS was called. The patient's past medical history includes hypertension, diabetes, atrial fibrillation. The patient was found in the emergency department to have a urinary tract infection and profound weakness. He was admitted to the hospital. The patient slowly improved over the next 4 days with the help of physical therapy and nursing. Despite a number of family conferences with Case Management, the patient, his son, his and this physician, he was unwilling to go to a correction facility. The patient has had no fevers. He got some improvement, but clearly was compromised with gait, balance and lower extremity weakness. DISCHARGE PHYSICAL EXAMINATION VITAL SIGNS: On the day of discharge: 36.9, 69, 138/73, 16, 98% room air saturation. EYES: EOM within normal limits, PERRL, nonicteric. GENERAL: Well-developed, well-nourished male. MOUTH AND THROAT: Moist mucous membranes. No other pathology noted. NECK: No lymphadenopathy, no thyromegaly. CHEST WALL: Nontender. Symmetric. HEART: Normal sinus rhythm without murmur. LUNGS: Clear to auscultation. ABDOMEN: Soft, nontender. EXTREMITIES: No suspicious lesions or dermatitis. LABORATORY DATA: On the day of discharge, white count 8.1, 12 and 35 hemoglobin and hematocrit, and 174 is the platelet count. The INR is 2.0. Sodium 132, potassium 3.9, chloride 101, CO2 of 22, BUN 12, creatinine 0.7. The patient's glucose is 144. The calcium is 8.6. Normal liver enzymes. Albumin is 3.2. The urine grew out Klebsiella oxytoca with multiple sensitivities. DISCHARGE MEDICATIONS: The patient is discharged home with the following medications: 1. Warfarin sodium 7.5 Wednesday and , and warfarin the other days of the week. 2. Lipitor 20 mg a day. 3. Atenolol 50 mg q.p.m. 4. Aspirin 162.5 daily. 5. Catapres 0.1 mg b.i.d. 6. Spironolactone 25 mg a day. 7. Metformin 500 mg twice a day. 8. Losartan/HCTZ 100/25 one a day. 9. Ciprofloxacin 500 mg b.i.d. for a week. The patient is to follow up with Dr. Salmeron, repeat urine culture and address blood pressure, blood sugars and his progressing weakness of his lower extremities compromising his ADLs. Time spent in discharge activity was 45 minutes including the family conference noted above, collaboration with nurses and Case Management. The patient was examined on day of discharge. 20:9:00 JOB #: [id number] [facility] JOB #:[id number] MARKOS
== END 2017-04-03 12:57 | disposition home or self-care (01) | DRG 690 ==
LOC: EDUNIT# → ED 08:58 → MS 13:42
PROVIDERS: ADMIT Internal Medicine; ATTEND Internal Medicine
DX: R26.0 Ataxic gait (principal); N39.0 Urinary tract infection, site not specified; I11.0 Hypertensive heart disease with heart failure; I50.9 Heart failure, unspecified; N17.9 Acute kidney failure, unspecified; R26.2 Difficulty in walking, not elsewhere classified; M19.90 Unspecified osteoarthritis, unspecified site; B96.89 Other specified bacterial agents as the cause of diseases classified elsewhere; R53.1 Weakness; R26.89 Other abnormalities of gait and mobility; E11.65 Type 2 diabetes mellitus with hyperglycemia; E11.22 Type 2 diabetes mellitus with diabetic chronic kidney disease; N18.9 Chronic kidney disease, unspecified; E11.42 Type 2 diabetes mellitus with diabetic polyneuropathy; I12.9 Hypertensive chronic kidney disease with stage 1 through stage 4 chronic kidney disease, or unspecified chronic kidney disease; I48.91 Unspecified atrial fibrillation; E86.0 Dehydration; E78.5 Hyperlipidemia, unspecified; N40.1 Benign prostatic hyperplasia with lower urinary tract symptoms; R35.1 Nocturia; Z91.81 History of falling; Z79.01 Long term (current) use of anticoagulants; Z79.84 Long term (current) use of oral hypoglycemic drugs; Z79.82 Long term (current) use of aspirin; Z79.899 Other long term (current) drug therapy; Z87.891 Personal history of nicotine dependence
CPT/HCPCS: 36415; 70450; 71010; 80048; 80053; 81001; 81003; 82550; 83036; 85025; 85610; 87077; 87086; 96361; 96374; 99284

== ENCOUNTER 2017-04-30 10:48 | Outpatient (CLI) | payer MEDICARE, OTHER | END 2017-04-30 10:49 | disposition home or self-care (01) | LOC: LAB.F 10:48 | PROVIDERS: ATTEND Family Medicine | DX: I48.0 Paroxysmal atrial fibrillation (principal) ==

== ENCOUNTER 2017-05-11 11:20 | Outpatient (CLI) | payer MEDICARE, OTHER | END 2017-05-11 11:21 | disposition home or self-care (01) | LOC: LAB.F 11:20 | PROVIDERS: ATTEND Family Medicine | DX: Z79.01 Long term (current) use of anticoagulants (principal) | CPT/HCPCS: 85610 ==

== ENCOUNTER 2017-06-08 19:30 | Outpatient (CLI) | payer MEDICARE, OTHER | END 2017-06-08 19:31 | disposition critical access hospital (66) | LOC: EMS 19:30 | PROVIDERS: ATTEND Surgery | DX: M79.662 Pain in left lower leg (principal); M79.89 Other specified soft tissue disorders | CPT/HCPCS: A0425; A0429 ==

== ENCOUNTER 2017-06-08 19:58 | Emergency (ER) | payer MEDICARE, OTHER ==
[2017-06-08] MEDS ORDERED: HYDROcod/ACETAM 5/325 MG TABLET ONE (22:17)
--- NOTE | 2017-06-08 22:47 | ED Physician Documentation ---
History of Present Illness - Stated complaint Stated Complaint: LOWER EXT PAIN - Chief complaint Chief Complaint: Ext Problem - Additonal information Additional information: SEE PAPER CHART ([facility]) PD PAST MEDICAL HISTORY - Past Medical History Cardiovascular: Congestive heart failure, Hypertension, Atrial fibrillation Respiratory: Pneumonia Neuro: Peripheral neuropathy Endocrine/Autoimmune: Type 2 diabetes GI: C.difficile : Nocturia Musculoskeletal: Osteoarthritis - Past Surgical History Past Surgical History: Yes General: Cholecystectomy - Present Medications Home Medications: Ambulatory Orders Medication Instructions Recorded Confirmed Atenolol [Tenormin] 50 mg PO QPM 02/25/13 06/08/17 Metformin HCl [Metformin 500 gm PO BID 02/25/13 06/08/17 Hydrochloride] Spironolactone [Aldactone] 25 mg PO DAILY 02/25/13 06/08/17 Warfarin Sodium 5 mg PO QPM 02/25/13 06/08/17 cloNIDine [Catapres] 0.1 mg PO BID 02/25/13 06/08/17 Atorvastatin [Lipitor] 20 mg ORAL QPM 09/08/14 06/08/17 Aspirin 162.5 mg PO DAILY 03/30/17 06/08/17 Losartan/Hydrochlorothiazide 1 tab PO DAILY 06/08/17 06/08/17 [Losartan-Hctz 100-25 mg Tab] oxyCODONE/ACET 5/325 [Percocet 5 1 - 2 each PO Q6H PRN #20 tablet 06/09/17 mg/325 mg] - Allergies Allergies/Adverse Reactions: Allergies Allergy/AdvReac Type Severity Reaction Status Date / Time No Known Drug Allergies Allergy Verified 06/08/17 23:47 - Social History Does the pt smoke?: No Smoking Status: Former smoker Does the pt drink ETOH?: Yes Does the pt have substance abuse?: No - Immunizations Immunizations are current?: No Immunizations: TDAP >10years/unknown - POLST Patient has POLST: No Results - Vitals Vitals: Vital Signs - 24 hr 06/08/17 06/08/17 06/09/17 19:59 23:00 00:40 Temperature 36.3 C L 37.2 C 36.7 C Heart Rate 65 83 85 Respiratory 16 16 16 Rate Blood Pressure 169/81 H 186/89 H 160/86 H O2 Saturation 97 98 97 Oxygen O2 Source Room air - Labs Labs: Laboratory Tests 06/08/17 06/08/17 06/08/17 21:55 21:55 21:55 WBC 10.2 RBC 4.52 L Hgb 13.6 L Hct 39.4 L MCV 87.1 MCH 30.1 MCHC 34.6 RDW 13.5 Plt Count 156 MPV 7.6 Neut # 8.3 H Lymph # 1.1 L [place] # 0.6 Eos # 0.1 Baso # 0.0 Absolute Nucleated RBC 0.00 Nucleated RBC % 0.0 ESR 5 PT INR Sodium 134 L Potassium 3.6 Chloride 95 L Carbon Dioxide 28 Anion Gap 11.0 BUN 18 Creatinine 1.0 Estimated GFR (MDRD) 71 L Glucose 130 H Calcium 9.3 C-Reactive Protein < 1.0 06/08/17 21:55 WBC RBC Hgb Hct MCV MCH MCHC RDW Plt Count MPV Neut # Lymph # [place] # Eos # Baso # Absolute Nucleated RBC Nucleated RBC % ESR PT 25.1 H INR 2.2 H Sodium Potassium Chloride Carbon Dioxide Anion Gap BUN Creatinine Estimated GFR (MDRD) Glucose Calcium C-Reactive Protein Departure - Departure Disposition: 01 Home, Self Care Clinical Impression: Swollen L knee Condition: Good Instructions: ED Knee Pain UKO, ED Effusion Knee Follow-Up: Levy Salmeron MD [Primary Care Provider] - (Call to arrange next available appointment) Prescriptions: oxyCODONE/ACET 5/325 [Percocet 5 mg/325 mg] 1 - 2 each PO Q6H PRN #20 tablet PRN Reason: Pain Discharge Date/Time: 06/09/17 00:45
[2017-06-09 00:15] LABS: BASOPHILS % (AUTO) 0.4 %; EOSINOPHILS # (AUTO) 0.1 10^3/uL (0.0-0.7); EOSINOPHILS % (AUTO) 1.4 %; HCT - HEMATOCRIT 39.4 % (42.0-52.0); HGB - HEMOGLOBIN 13.6 g/dL (14.0-18.0); LYMPHOCYTES # (AUTO) 1.1 10^3/uL (1.5-3.5); LYMPHOCYTES % (AUTO) 10.8 %; MEAN CORPUSCULAR HEMOGLOBIN 30.1 pg (27.0-31.0); MEAN CORPUSCULAR HGB CONC 34.6 g/dL (32.0-36.0); MEAN CORPUSCULAR VOLUME 87.1 fL (80.0-94.0); MEAN PLATELET VOLUME 7.6 fL (7.4-11.4); MONOCYTES # (AUTO) 0.6 10^3/uL (0.0-1.0); MONOCYTES % (AUTO) 5.7 %; NEUTROPHILS # (AUTO) 8.3 10^3/uL (1.5-6.6); NEUTROPHILS % (AUTO) 81.7 %; RED BLOOD COUNT 4.52 10^6/uL (4.70-6.10); RED CELL DISTRIBUTION WIDTH 13.5 % (12.0-15.0); UNCORRECTED WHITE BLOOD COUNT 10.2 x10^3/uL; WHITE BLOOD COUNT 10.2 x10^3/uL (4.8-10.8)
[2017-06-09 00:17] LABS: INR 2.2 (0.8-1.2); PT - PROTHROMBIN TIME 25.1 secs (9.9-12.6)
[2017-06-09 00:20] LABS: BUN - BLOOD UREA NITROGEN 18 mg/dL (6-20); CALCIUM 9.3 mg/dL (8.5-10.3); CARBON DIOXIDE - CO2 28 mmol/L (21-32); CHLORIDE 95 mmol/L (101-111); GFR - MDRD 71 (>89); GLUCOSE 130 mg/dL (70-100); POTASSIUM 3.6 mmol/L (3.5-5.0); SODIUM 134 mmol/L (135-145)
[2017-06-09] MEDS ORDERED: oxyCODONE/ACET 5/325 Prepack 4 PO STA (00:35)
[2017-06-09] MEDS ORDERED: oxyCODONE/ACET 5/325 Prepack 4 PO ONE (00:46)
[2017-06-09 00:50] VITALS: BP 160/86
== END 2017-06-09 00:45 | disposition home or self-care (01) ==
LOC: EDUNIT# → ED 19:58
DX: M25.462 Effusion, left knee (principal); E11.42 Type 2 diabetes mellitus with diabetic polyneuropathy; Z79.84 Long term (current) use of oral hypoglycemic drugs; I11.0 Hypertensive heart disease with heart failure; I50.9 Heart failure, unspecified; I48.91 Unspecified atrial fibrillation; Z79.01 Long term (current) use of anticoagulants; M19.90 Unspecified osteoarthritis, unspecified site; Z79.82 Long term (current) use of aspirin; Z87.891 Personal history of nicotine dependence
CPT/HCPCS: 36415; 80048; 85025; 85610; 85651; 86140; 99283; 99284; A9270

== ENCOUNTER 2017-08-12 13:11 | Outpatient (CLI) | payer MEDICARE, OTHER | END 2017-08-12 13:12 | disposition home or self-care (01) | LOC: LAB.F 13:11 | PROVIDERS: ATTEND Family Medicine | DX: Z79.01 Long term (current) use of anticoagulants (principal) | CPT/HCPCS: 85610 ==

== ENCOUNTER 2017-09-17 10:50 | Outpatient (CLI) | payer MEDICARE, OTHER | END 2017-09-17 10:51 | disposition home or self-care (01) | LOC: LAB.F 10:50 | PROVIDERS: ATTEND Family Medicine | DX: Z79.01 Long term (current) use of anticoagulants (principal) | CPT/HCPCS: 85610 ==

== ENCOUNTER 2017-10-01 11:54 | Outpatient (CLI) | payer MEDICARE, OTHER | END 2017-10-01 11:55 | disposition critical access hospital (66) | LOC: EMS 11:54 | PROVIDERS: ATTEND Surgery | DX: R53.1 Weakness (principal) | CPT/HCPCS: A0425; A0429 ==

== ENCOUNTER 2017-10-01 12:24 | Observation (INO) | payer MEDICARE, OTHER ==
[2017-10-01] MEDS ORDERED: SODIUM CHLORIDE 0.9% 1,000 ML IV ONE ×2 (12:46→14:49)
[2017-10-01 13:00] LABS: BASOPHILS # (AUTO) 0.1 10^3/uL (0.0-0.1); BASOPHILS % (AUTO) 0.4 %; EOSINOPHILS % (AUTO) 0.3 %; HGB - HEMOGLOBIN 13.9 g/dL (14.0-18.0); LYMPHOCYTES # (AUTO) 0.4 10^3/uL (1.5-3.5); MEAN CORPUSCULAR HEMOGLOBIN 30.7 pg (27.0-31.0); MEAN CORPUSCULAR HGB CONC 35.1 g/dL (32.0-36.0); MEAN CORPUSCULAR VOLUME 87.3 fL (80.0-94.0); MEAN PLATELET VOLUME 7.4 fL (7.4-11.4); MONOCYTES # (AUTO) 0.6 10^3/uL (0.0-1.0); MONOCYTES % (AUTO) 5.2 %; NEUTROPHILS # (AUTO) 11.2 10^3/uL (1.5-6.6); NEUTROPHILS % (AUTO) 91.1 %; PLT - PLATELET COUNT 154 10^3/uL (130-450); RED BLOOD COUNT 4.54 10^6/uL (4.70-6.10); WHITE BLOOD COUNT 12.3 x10^3/uL (4.8-10.8)
[2017-10-01 13:14] LABS: ALBUMIN 4.1 g/dL (3.2-5.5); ALBUMIN/GLOBULIN RATIO 1.5 (1.0-2.2); BILIRUBIN,TOTAL 2.1 mg/dL (0.2-1.0); CREATININE 0.9 mg/dL (0.6-1.2); TOTAL PROTEIN 6.8 g/dL (6.7-8.2)
--- NOTE | 2017-10-01 13:31 | XRAY Report ---
EXAM: CHEST RADIOGRAPHY EXAM DATE: 10/01/2017 01:06 PM. CLINICAL HISTORY: Fever. COMPARISON: 02/25/2013. 03/30/2017. TECHNIQUE: 1 view. FINDINGS: Lungs/Pleura: No focal opacities evident. No pleural effusion. No pneumothorax. Mediastinum: Heart size upper normal. Aortic tortuosity. Aortic atherosclerosis. Other: No acute osseous abnormalities. Degenerative changes of both shoulders. IMPRESSION: 1. Borderline cardiomegaly. 2. No acute disease. [facility] Referring Provider Line: [phone] SITE ID: [id number]
[2017-10-01 13:48] LABS: BILIRUBIN,URINE NEGATIVE (NEGATIVE); GLUCOSE, URINE (UA) NEGATIVE (NEGATIVE); KETONES,URINE (UA) NEGATIVE (NEGATIVE); LEUKOCYTE ESTERASE, URINE NEGATIVE (NEGATIVE); NITRITE,URINE NEGATIVE (NEGATIVE); OCCULT BLOOD,URINE NEGATIVE (NEGATIVE); PROTEIN,URINE NEGATIVE (NEGATIVE); UROBILINOGEN,URINE 0.2 (NORMAL) E.U./dL (NORMAL)
[2017-10-01 13:50] LABS: CLARITY,URINE CLEAR (CLEAR)
--- NOTE | 2017-10-01 14:51 | ED Physician Documentation ---
History of Present Illness - Stated complaint Stated Complaint: WEAKNESS - Chief complaint Chief Complaint: Neuro - History obtained from History obtained from: Patient, EMS - History of Present Illness Timing: Today Pain level max: 0 Pain level now: 0 Improved by: nothing Worsened by: nothing - Additonal information Additional information: states shaking earlier today and just not feeling well. no cough, fevers, vomiting, diarrhea, urinary symptoms, abd pain, chest pain, shortness of breath. Review of Systems Ten Systems: 10 systems reviewed and negative Constitutional: reports: Chills, Myalgias. denies: Fever Ears: denies: Ear pain Nose: denies: Rhinorrhea / runny nose, Congestion Throat: denies: Sore throat Cardiac: denies: Chest pain / pressure Respiratory: denies: Cough, Wheezing GI: denies: Abdominal Pain, Nausea, Vomiting, Diarrhea : denies: Dysuria, Frequency, Hesitancy Skin: denies: Rash Musculoskeletal: denies: Neck pain, Back pain Neurologic: denies: Headache PD PAST MEDICAL HISTORY - Past Medical History Cardiovascular: Congestive heart failure, Hypertension, Atrial fibrillation Respiratory: Pneumonia Neuro: Peripheral neuropathy Endocrine/Autoimmune: Type 2 diabetes GI: C.difficile : Nocturia Musculoskeletal: Osteoarthritis - Past Surgical History Past Surgical History: Yes General: Cholecystectomy - Present Medications Home Medications: Ambulatory Orders Medication Instructions Recorded Confirmed Metformin HCl [Metformin 500 gm PO BIDWM 02/25/13 10/01/17 Hydrochloride] Spironolactone [Aldactone] 25 mg PO DAILY 02/25/13 10/01/17 Warfarin Sodium 5 mg PO QPM 02/25/13 10/01/17 cloNIDine [Catapres] 0.1 mg PO BID 02/25/13 10/01/17 Atorvastatin [Lipitor] 20 mg PO QPM 09/08/14 10/01/17 Aspirin 162.5 mg PO DAILY 03/30/17 10/01/17 Losartan/Hydrochlorothiazide 1 tab PO DAILY 06/08/17 10/01/17 [Losartan-Hctz 100-25 mg Tab] Metoprolol Succinate [Toprol Xl] 50 mg PO DAILY 10/01/17 10/01/17 - Allergies Allergies/Adverse Reactions: Allergies Allergy/AdvReac Type Severity Reaction Status Date / Time No Known Drug Allergies Allergy Verified 10/01/17 12:40 - Social History Does the pt smoke?: No Smoking Status: Never smoker Does the pt drink ETOH?: Yes Does the pt have substance abuse?: No - Immunizations Immunizations are current?: No Immunizations: TDAP >10years/unknown - POLST Patient has POLST: No PD ED PE NORMAL - Vitals Vital signs reviewed: Yes - General General: Alert and oriented X 3, No acute distress - HEENT HEENT: PERRL, Ears normal, Pharynx benign, Other (dry lips) - Neck Neck: Supple, no meningeal sign, No adenopathy - Cardiac Cardiac: RRR, Strong equal pulses - Respiratory Respiratory: No respiratory distress, Clear bilaterally - Abdomen Abdomen: Soft, Non tender, Non distended - Back Back: No CVA TTP, No spinal TTP - Derm Derm: Warm and dry, No rash - Extremities Extremities: No edema, No calf tenderness / cord - Neuro Neuro: Alert and oriented X 3 - Psych Psych: Normal mood, Normal affect Results - Vitals Vitals: Vital Signs - 24 hr 10/01/17 10/01/17 12:39 15:35 Temperature 38.3 C H 38.0 C H Heart Rate 92 82 Respiratory 18 16 Rate Blood Pressure 147/74 H 165/75 H O2 Saturation 99 99 Oxygen O2 Source Room air - Labs Labs: Laboratory Tests 10/01/17 10/01/17 10/01/17 12:48 12:48 12:48 WBC 12.3 H RBC 4.54 L Hgb 13.9 L Hct 39.7 L MCV 87.3 MCH 30.7 MCHC 35.1 RDW 14.0 Plt Count 154 MPV 7.4 Neut # 11.2 H Lymph # 0.4 L [place] # 0.6 Eos # 0.0 Baso # 0.1 Absolute Nucleated RBC 0.01 Nucleated RBC % 0.1 PT 25.2 H INR 2.3 H Sodium 134 L Potassium 3.7 Chloride 100 L Carbon Dioxide 24 Anion Gap 10.0 BUN 20 Creatinine 0.9 Estimated GFR (MDRD) 81 L Glucose 132 H Lactic Acid Calcium 9.0 Phosphorus Magnesium Total Bilirubin 2.1 H AST 21 ALT 21 Alkaline Phosphatase 59 Total Protein 6.8 Albumin 4.1 Globulin 2.7 Albumin/Globulin Ratio 1.5 Lipase 29 Urine Color Urine Clarity Urine pH Ur Specific [place] Urine Protein Urine Glucose (UA) Urine Ketones Urine Occult Blood Urine Nitrite Urine Bilirubin Urine Urobilinogen Ur Leukocyte Esterase Ur Microscopic Review Urine Culture Comments Influenza A (Rapid) Influenza B (Rapid) Influenza Types A,B Ag 10/01/17 10/01/17 10/01/17 12:48 12:58 13:25 WBC RBC Hgb Hct MCV MCH MCHC RDW Plt Count MPV Neut # Lymph # [place] # Eos # Baso # Absolute Nucleated RBC Nucleated RBC % PT INR Sodium Potassium Chloride Carbon Dioxide Anion Gap BUN Creatinine Estimated GFR (MDRD) Glucose Lactic Acid Calcium Phosphorus 2.9 Magnesium 1.8 Total Bilirubin AST ALT Alkaline Phosphatase Total Protein Albumin Globulin Albumin/Globulin Ratio Lipase Urine Color YELLOW Urine Clarity CLEAR Urine pH 6.0 Ur Specific [place] 1.025 Urine Protein NEGATIVE Urine Glucose (UA) NEGATIVE Urine Ketones NEGATIVE Urine Occult Blood NEGATIVE Urine Nitrite NEGATIVE Urine Bilirubin NEGATIVE Urine Urobilinogen 0.2 (NORMAL) Ur Leukocyte Esterase NEGATIVE Ur Microscopic Review NOT INDICATED Urine Culture Comments NOT INDICATED Influenza A (Rapid) Negative Influenza B (Rapid) Negative Influenza Types A,B Ag - 10/01/17 13:52 WBC RBC Hgb Hct MCV MCH MCHC RDW Plt Count MPV Neut # Lymph # [place] # Eos # Baso # Absolute Nucleated RBC Nucleated RBC % PT INR Sodium Potassium Chloride Carbon Dioxide Anion Gap BUN Creatinine Estimated GFR (MDRD) Glucose Lactic Acid 1.1 Calcium Phosphorus Magnesium Total Bilirubin AST ALT Alkaline Phosphatase Total Protein Albumin Globulin Albumin/Globulin Ratio Lipase Urine Color Urine Clarity Urine pH Ur Specific [place] Urine Protein Urine Glucose (UA) Urine Ketones Urine Occult Blood Urine Nitrite Urine Bilirubin Urine Urobilinogen Ur Leukocyte Esterase Ur Microscopic Review Urine Culture Comments Influenza A (Rapid) Influenza B (Rapid) Influenza Types A,B Ag - Rads (name of study) cxr Radiology: Prelim report reviewed, EMP read contemporaneously, See rad report ( Borderline cardiomegaly. No acute disease) PD MEDICAL DECISION MAKING - ED course Complexity details: reviewed results, re-evaluated patient, considered differential, d/w patient, d/w family, d/w senior analytic consultant ED course: Patient is an 82-year-old gentleman who lives at home with his . He has not had any fevers prior to today, but when he arrived in the emergency department did have a fever. He also had rigors. He continued to feel better in the emergency department after IV fluids, but was unable to stand independently. He does have a cane that he occasionally uses at home, but even with the cane he could not take 1 step in the emergency department. This was after Tylenol and IV fluids. Unclear etiology of his fever, likely viral syndrome. Abdomen was soft, nontender nondistended on serial exam. Due to his inability to stand and care for himself, will place him in observation to see how he progresses overnight. Possible that he is early in his illness and the etiology of his fever will present itself. Discussed the case with Dr. Mena , hospitalist who accepts. This document was made in part using voice recognition software. While efforts are made to proofread this document, sound alike and grammatical errors may occur. Departure - Departure Disposition: ED Place in Observation Clinical Impression: Viral syndrome, Weakness Fever Qualifiers: Fever type: unspecified Qualified Code(s): R50.9 - Fever, unspecified Condition: Stable Discharge Date/Time: 10/01/17 16:49
[2017-10-01] MEDS ORDERED: ACETAMINOPHEN 325 MG TABLET PO STA (15:21)
[2017-10-01] MEDS ORDERED: SODIUM CHLORIDE FLUSH 0.9% 10 ML SYRINGE IVP PRN (16:31)
--- NOTE | 2017-10-01 16:33 | HISTORY & PHYSICAL EXAMINATION ---
Chief Complaint - Chief Complaint Chief Complaint: weakness History of Present Illness - Admitted From Admitted From:: ED - History Obtained From Records Reviewed: yes History obtained from: chart review, patient Exam Limitations: none - History of Present Illness HPI Comment/Other: Nitin Serrano is a well-appearing 82-year old male with a past medical history of DM type 2, HTN, atrial fibrillation, peripheral neuropathy, c-diff, nocturia, chronic BLE ulcers, and osteoarthritis. He woke up feeling "shaky and generally sick". He did not have any other symptoms, but his called 911, so he was brought to the ED for further work up. He was given IVFs, labs show a slightly elevated WBC count. He will be admitted to our observation unit for further investigation as to the cause of his symptoms including continuous telemetry monitoring, echocardiogram, medication review and electrolyte monitoring. 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 - Substance History Use: Uses substance without health or social issues: NONE Abuse: Recurrent use of substance despite neg consequences: NONE Dependence: Experiences withdrawal or developed tolerances: NONE Tobacco Details: Cigarettes (+smoking history from age [age]) - POLST Patient has POLST: No POLST Status: Full Code Meds/Allgy - Home Medications Home Medications: Ambulatory Orders Medication Instructions Recorded Confirmed Metformin HCl [Metformin 500 gm PO BIDWM 02/25/13 10/01/17 Hydrochloride] Spironolactone [Aldactone] 25 mg PO DAILY 02/25/13 10/01/17 Warfarin Sodium 5 mg PO QPM 02/25/13 10/01/17 cloNIDine [Catapres] 0.1 mg PO BID 02/25/13 10/01/17 Atorvastatin [Lipitor] 20 mg PO QPM 09/08/14 10/01/17 Aspirin 162.5 mg PO DAILY 03/30/17 10/01/17 Losartan/Hydrochlorothiazide 1 tab PO DAILY 06/08/17 10/01/17 [Losartan-Hctz 100-25 mg Tab] Metoprolol Succinate [Toprol Xl] 50 mg PO DAILY 10/01/17 10/01/17 Cilostazol [Pletal] 100 mg PO BID #60 tablet 10/02/17 - Allergies Allergies/Adverse Reactions: Allergies Allergy/AdvReac Type Severity Reaction Status Date / Time No Known Drug Allergies Allergy Verified 10/01/17 12:40 Review of Systems - Constitutional Constitutional: reports: Fatigue, Weakness, Poor appetite - Eyes Eyes: reports: Corrective lenses - Ears, Nose & Throat Ears, Nose & Throat: reports: Hearing loss, Dentures - Cardiovascular Cariovascular: reports: Irregular heart rate, Edema, Lightheadedness, Decr. exercise tolerance - Gastrointestinal Gastrointestinal: reports: Nausea, Reflux/heartburn - Genitourinary Genitourinary: reports: Frequency, Urgency, Nocturia - Musculoskeletal Musculoskeletal: reports: Joint swelling - Integumentary Integumentary: reports: Dryness - Neurological Neurological: reports: General weakness - All Other Systems All Other Systems: reports: Reviewed and negative Exam - Vital Signs Reviewed Vital Signs: Yes Vital Signs: Vital Signs x48h Temp Pulse Resp BP Pulse Ox 10/01/17 15:35 38.0 C H 82 16 165/75 H 99 10/01/17 12:39 38.3 C H 92 18 147/74 H 99 - Physical Exam General Appearance: positive: No acute distress, Alert Eyes Bilateral: positive: Normal inspection ENT: positive: ENT inspection nml, Pharynx nml, Dry mucous membranes Neck: positive: Nml inspection, Thyroid nml, No JVD, Trachea midline Respiratory: positive: Chest non-tender, No respiratory distress, Other (slight crackles) Cardiovascular: positive: No gallop, Irregularly irregular, Systolic murmur, Decreased pulse(s) Peripheral Pulses: positive: 1+ Abdomen: positive: Non-tender, Nml bowel sounds, Other (rounded, soft) Back: positive: Nml inspection Skin: positive: No rash, Warm, Dry Extremities: positive: Non-tender, Pedal edema, Joint swelling, Other (chronic wounds BLE, thickened nail beds. Discoloration of BLE) Neurologic/Psychiatric: positive: Oriented x3, CN's nml (2-12), Motor nml, Weakness, Depressed mood/affect Reflexes: Bicep (R): 3+, Bicep (L): 3+ Conclusion/Plan - Problem List (1) Chronic atrial fibrillation Conclusion/Plan: Patient is noted to continue in atrial fibrillation and a controlled rate in the 80's. He is anticoagulated on coumadin. He continues on atenolol for rate control. Plan: Continue with current medications and monitor on telemetry overnight. (2) Type II diabetes mellitus Conclusion/Plan: Patient has been diabetic for several years and has complicating factors of hyperlipidemia, hypertension, and perpiheral neuropathy with chronic small ulcers. He is non-insulin dependent and takes metformin at home. Plan: Continue to monitor blood sugars, put on SSI with lantus coverage and resume metformin upon discharge. Qualifiers: Diabetes mellitus complication status: with circulatory complication Diabetes mellitus complication detail: with peripheral angiopathy without gangrene (3) Polyneuropathy, unspecified Conclusion/Plan: Patient has thickened skin to his BLE, with very little sensation in toes and bottoms of feet. Faint pulses are also noted. Plan: Start cilastizol medication to improve circulation and improve wounds. 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 This is likely due to acute illness and presenting symptoms. Plan: Continue with full work up in observation status. (5) Tremor, unspecified Conclusion/Plan: Patient has never noticed a baseline tremor. This is very mild upon exam today and likely a side effect from electrolyte abnormalities. Exam indicates neuro- intact. Patient denies a history of CVA/TIA. Plan: Monitor mental status. - Lab Results Lab results reviewed: Yes Fish Bones: 10/02/17 05:05 10/02/17 05:05 - Diagnostic Imaging Results Diagnostic Imaging Results: positive: Final report reviewed - EKG Results EKG Interpreted Independently: Yes Core Measures - Anticipated LOS I expect patient to be DC'd or transferred within 96 hours.: Yes - DVT/VTE - Prophylaxis VTE/DVT Device ordered at admit?: Yes VTE/DVT Prophylaxis med ordered at admit?: Yes - Stroke - Rehab Assessment Rehab services assessment to be ordered?: Yes - AMI - Statin at Admit Aspirin Prescribed on Admit: Yes
[2017-10-01 16:41] LABS: MAGNESIUM 1.8 mg/dL (1.7-2.8); PHOSPHORUS 2.9 mg/dL (2.5-4.6)
[2017-10-01 16:42] LABS: INR 2.3 (0.8-1.2); PT - PROTHROMBIN TIME 25.2 secs (9.9-12.6)
[2017-10-01] MEDS: SODIUM CHLORIDE 0.9% 1,000 ML IV SCH (17:47)
[2017-10-01] MEDS ORDERED: WARFARIN 5 MG TABLET PO SCH (21:00)
[2017-10-01] MEDS ORDERED: INSULIN GLARGINE 300 UNIT/3 ML PEN SUBQ SCH (21:00)
[2017-10-01] MEDS: cloNIDine 0.1 MG TABLET PO SCH (21:20)
[2017-10-01] MEDS: INSULIN ASPART 300 UNIT/3 ML PEN SUBQ SCH (21:29)
[2017-10-01] MEDS: SODIUM CHLORIDE FLUSH 0.9% 10 ML SYRINGE IVP SCH (21:32)
[2017-10-02] MEDS: SODIUM CHLORIDE 0.9% 1,000 ML IV SCH (04:12)
[2017-10-02 05:21] LABS: HGB - HEMOGLOBIN 12.8 g/dL (14.0-18.0); LYMPHOCYTES # (AUTO) 0.4 10^3/uL (1.5-3.5); WHITE BLOOD COUNT 6.3 x10^3/uL (4.8-10.8)
[2017-10-02 05:29] LABS: ALBUMIN 3.3 g/dL (3.2-5.5); ALBUMIN/GLOBULIN RATIO 1.4 (1.0-2.2); BILIRUBIN,TOTAL 2.7 mg/dL (0.2-1.0); CALCIUM 8.6 mg/dL (8.5-10.3); MAGNESIUM 1.7 mg/dL (1.7-2.8); PHOSPHORUS 2.9 mg/dL (2.5-4.6); TOTAL PROTEIN 5.7 g/dL (6.7-8.2)
[2017-10-02 05:35] LABS: BASOPHILS % (AUTO) 0.7 %; EOSINOPHILS % (AUTO) 0.7 %; LYMPHOCYTES % (AUTO) 7.1 %; MEAN CORPUSCULAR HEMOGLOBIN 30.1 pg (27.0-31.0); MEAN CORPUSCULAR HGB CONC 33.1 g/dL (32.0-36.0); MEAN CORPUSCULAR VOLUME 90.9 fL (80.0-94.0); MEAN PLATELET VOLUME 7.9 fL (7.4-11.4); MONOCYTES # (AUTO) 0.4 10^3/uL (0.0-1.0); MONOCYTES % (AUTO) 6.3 %; NEUTROPHILS # (AUTO) 5.4 10^3/uL (1.5-6.6); NEUTROPHILS % (AUTO) 85.2 %; PLT - PLATELET COUNT 144 10^3/uL (130-450); RED BLOOD COUNT 4.26 10^6/uL (4.70-6.10); RED CELL DISTRIBUTION WIDTH 13.8 % (12.0-15.0)
[2017-10-02 05:53] LABS: HB2 TOTAL 13.6 g/dL; HEMOGLOBIN A1C 0.58 g/dL; HEMOGLOBIN A1C % 6.1 % (4.6-6.2)
[2017-10-02 06:04] LABS: INR 1.6 (0.8-1.2); PT - PROTHROMBIN TIME 18.2 secs (9.9-12.6)
[2017-10-02] MEDS: SODIUM CHLORIDE FLUSH 0.9% 10 ML SYRINGE IVP SCH (06:12)
[2017-10-02 07:08] LABS: % IRON SATURATION 10 % (20-50); IRON 30 ug/dL (45-182); TOTAL IRON BINDING CAPACITY 300 ug/dL (250-450); TRANSFERRIN 214 mg/dL (180-329)
[2017-10-02 07:57] VITALS: BP 146/82
[2017-10-02] MEDS ORDERED: FUROSEMIDE 40 MG TABLET PO ONE (08:48)
--- NOTE | 2017-10-02 08:52 | Discharge Plan ---
Discharge Plan Disposition: Home, Self Care Condition: Good Prescriptions: Cilostazol [Pletal] 100 mg PO BID #60 tablet Diet: Diabetic Activity Restrictions: No Restrictions Shower Restrictions: No Driving Restrictions: No Weight Bearing: Full Weight Additional Instructions or Follow Up instructions: You came to the hospital after you had complaints of feeling shaky at home. A few explanations for this is electrolyte abnormalities, changes in blood sugar, low fluid status or a viral cause. Your INR today was too low at 1.2. I gave you a blood thinner injection into your stomach fat to keep your blood a little thinner during the time you are low. Please increase your dose by 1/2 for Wednesday and Wednesday's dose. (7.5mg from 5mg). Get your INR checked on Wednesday to make sure your levels are headed in the right direction. Your bilirubin lab is elevated, which could be a result of your heart failure, or liver disease. All of your other liver lab tests were normal. A blood test called BNP was elevated, which indicated heart failure worsening. You received a one time dose of lasix to take care of fluid overload. An Echocardiogram was obtained-results are that there are no significant changes from your previous exam. During your admission exam, I noticed you had thickened skin on both of your lower legs, and a few very slow healing sores. Also your sensation was not very good, so I have started you on cilastizol, which will directly help out with improved blood flow to your legs and feet. You may notice improved sensation and improved wound healing. Rest when you are tired and take of your medications as directed. Please see you PCP within one week as a follow up to this hospital stay. No Smoking: If you smoke, Please STOP! Call for help. Follow-up with: Levy Salmeron MD [Primary Care Provider] -
[2017-10-02] MEDS ORDERED: SPIRONOLACTONE 25 MG TABLET PO SCH (09:00)
[2017-10-02] MEDS ORDERED: ENOXAPARIN 100 MG/ML SYRINGE SUBQ SCH (09:00)
[2017-10-02] MEDS ORDERED: MAGNESIUM OXIDE 400 MG TABLET PO SCH (09:00)
[2017-10-02] MEDS ORDERED: METOPROLOL SUCCINATE 50 MG TABLET PO SCH (09:00)
[2017-10-02] MEDS ORDERED: POLYETHYLENE GLYCOL 3350 17 GM PACKET PO SCH (09:00)
[2017-10-02] MEDS ORDERED: FUROSEMIDE 40 MG/4 ML VIAL IVP SCH (09:00)
[2017-10-02] MEDS ORDERED: CILOSTAZOL 100 MG TABLET PO SCH (10:00)
[2017-10-02] MEDS: INSULIN ASPART 300 UNIT/3 ML PEN SUBQ SCH (10:26)
[2017-10-02] MEDS: cloNIDine 0.1 MG TABLET PO SCH (10:28)
--- NOTE | 2017-10-02 10:59 | DISCHARGE SUMMARY ---
Discharge Summary Admit Date: 10/01/17 Discharge Date: 10/02/17 Discharging Provider: LATRICE Shaikh Primary Care Provider: Darwin Salmeron Code Status: Attempt Resuscitation Condition at Discharge: Good Discharge Disposition: Home, Self Care - DIAGNOSES Admission Diagnoses: Atrial fibrillation, chronic (I48.2) Diabetes mellitus type 2 with complications (E11.8) Peripheral neuropathy (G62.9) Weakness (R53.1) Tremors of nervous system (R25.1) Discharge Diagnoses with Status of Each Condition: Diabetes mellitus type 2 with complications (E11.8) chronic, stable. Peripheral neuropathy (G62.9) chronic, newly prescribed medication. Atrial fibrillation, chronic (I48.2) chronic, stable. Weakness (R53.1) improved. Tremors of nervous system (R25.1) resolved. - HPI History of Present Illness: Nitin Serrano is a well-appearing 82-year old male with a past medical history of DM type 2, HTN, atrial fibrillation, peripheral neuropathy, c-diff, nocturia, chronic BLE ulcers, and osteoarthritis. He woke up feeling "shaky and generally sick". He did not have any other symptoms, but his called 911, so he was brought to the ED for further work up. He was given IVFs, labs show a slightly elevated WBC count. He will be admitted to our observation unit for further investigation as to the cause of his symptoms including continuous telemetry monitoring, echocardiogram, medication review and electrolyte monitoring. - HOSPITAL COURSE Hospital Course: Patient had a non-eventful hospital course and was discharged in stable condition. The cause of his weakness was not definitively determined, but patient was advised to follow up with PCP. - ALLERGIES Allergies/Adverse Reactions: Allergies Allergy/AdvReac Type Severity Reaction Status Date / Time No Known Drug Allergies Allergy Verified 10/01/17 12:40 - MEDICATIONS Home Medications: Ambulatory Orders Medication Instructions Recorded Confirmed Metformin HCl [Metformin 500 gm PO BIDWM 02/25/13 10/01/17 Hydrochloride] Spironolactone [Aldactone] 25 mg PO DAILY 02/25/13 10/01/17 Warfarin Sodium 5 mg PO QPM 02/25/13 10/01/17 cloNIDine [Catapres] 0.1 mg PO BID 02/25/13 10/01/17 Atorvastatin [Lipitor] 20 mg PO QPM 09/08/14 10/01/17 Aspirin 162.5 mg PO DAILY 03/30/17 10/01/17 Losartan/Hydrochlorothiazide 1 tab PO DAILY 06/08/17 10/01/17 [Losartan-Hctz 100-25 mg Tab] Metoprolol Succinate [Toprol Xl] 50 mg PO DAILY 10/01/17 10/01/17 Cilostazol [Pletal] 100 mg PO BID #60 tablet 10/02/17 - PHYSICAL EXAM AT DISCHARGE General Appearance: positive: No acute distress, Alert Eyes Bilateral: positive: Normal inspection ENT: positive: ENT inspection nml, Pharynx nml, Dry mucous membranes Neck: positive: Nml inspection, Thyroid nml, No JVD, Stiff neck Respiratory: positive: Chest non-tender, No respiratory distress, Other ( crackles) Peripheral Pulses: positive: 1+ Abdomen: positive: Non-tender, Nml bowel sounds, Other (rounded, soft) Back: positive: Nml inspection Skin: positive: Color nml, No rash, Warm, Dry Extremities: positive: Non-tender, Full ROM, Pedal edema, Joint swelling, Other (chronic BLE wounds, sees a staff respiratory therapist. Discoloration to BLE, thickened toe nails bilaterally. Decreased sensation BLE) Neurologic/Psychiatric: positive: Oriented x3, CN's nml (2-12), Motor nml, Sensation nml, Depressed mood/affect Reflexes: Bicep (R): 3+, Bicep (L): 3+ - LABS Result Diagrams: 10/02/17 05:05 10/02/17 05:05 - DIAGNOSTIC IMAGING Diagnostic Imaging Results: Final report reviewed Diagnostic Imaging Results Comments: A bedside echocardiogram was completed. - FOLLOW UP Follow Up: Disposition: Home, Self Care Condition: Good Prescriptions: Cilostazol [Pletal] 100 mg PO BID #60 tablet Diet: Diabetic Activity Restrictions: No Restrictions Shower Restrictions: No Driving Restrictions: No Weight Bearing: Full Weight Additional Instructions or Follow Up instructions: You came to the hospital after you had complaints of feeling shaky at home. A few explanations for this is electrolyte abnormalities, changes in blood sugar, low fluid status or a viral cause. Your INR today was too low at 1.2. I gave you a blood thinner injection into your stomach fat to keep your blood a little thinner during the time you are low. Please increase your dose by 1/2 for Wednesday and Wednesday's dose. (7.5mg from 5mg). Get your INR checked on Wednesday to make sure your levels are headed in the right direction. Your bilirubin lab is elevated, which could be a result of your heart failure, or liver disease. All of your other liver lab tests were normal. A blood test called BNP was elevated, which indicated heart failure worsening. You received a one time dose of lasix to take care of fluid overload. An Echocardiogram was obtained-results are that there are no significant changes from your previous exam. During your admission exam, I noticed you had thickened skin on both of your lower legs, and a few very slow healing sores. Also your sensation was not very good, so I have started you on cilastizol, which will directly help out with improved blood flow to your legs and feet. You may notice improved sensation and improved wound healing. Rest when you are tired and take of your medications as directed. Please see you PCP within one week as a follow up to this hospital stay. - TIME SPENT Time Spent in Discharge (Minutes): 60
== END 2017-10-02 11:00 | disposition home or self-care (01) ==
LOC: ED 12:24 → OBS 16:31
PROVIDERS: ADMIT Nurse Practitioner; ATTEND Nurse Practitioner
DX: E11.51 Type 2 diabetes mellitus with diabetic peripheral angiopathy without gangrene (principal); E11.42 Type 2 diabetes mellitus with diabetic polyneuropathy; R25.1 Tremor, unspecified; R53.1 Weakness; I11.0 Hypertensive heart disease with heart failure; I50.9 Heart failure, unspecified; I48.91 Unspecified atrial fibrillation; Z87.01 Personal history of pneumonia (recurrent); Z86.19 Personal history of other infectious and parasitic diseases; Z79.84 Long term (current) use of oral hypoglycemic drugs; Z79.01 Long term (current) use of anticoagulants; Z79.82 Long term (current) use of aspirin; I48.2 Chronic atrial fibrillation; E11.622 Type 2 diabetes mellitus with other skin ulcer; L97.929 Non-pressure chronic ulcer of unspecified part of left lower leg with unspecified severity; L97.919 Non-pressure chronic ulcer of unspecified part of right lower leg with unspecified severity; I25.10 Atherosclerotic heart disease of native coronary artery without angina pectoris; J44.9 Chronic obstructive pulmonary disease, unspecified; K21.9 Gastro-esophageal reflux disease without esophagitis; Z87.891 Personal history of nicotine dependence; E78.5 Hyperlipidemia, unspecified
CPT/HCPCS: 36415; 71045; 80053; 81003; 83036; 83540; 83605; 83690; 83735; 83880; 84100; 84443; 84466; 84484; 85025; 85610; 85730; 87275; 87276; 93306; 96360; 96361; 99284; 99285; A9270; G0378; J1650; J1815; 81001; 87086; 99283

== ENCOUNTER 2017-10-11 15:26 | Outpatient (CLI) | payer MEDICARE | END 2017-10-11 15:27 | disposition short-term general hospital (02) | LOC: EMS 15:26 | PROVIDERS: ATTEND Surgery | DX: R53.81 Other malaise (principal); R53.1 Weakness; R41.0 Disorientation, unspecified | CPT/HCPCS: A0425; A0427 ==

== ENCOUNTER 2017-11-18 10:03 | Outpatient (CLI) | payer MEDICARE | END 2017-11-18 10:04 | disposition home or self-care (01) | LOC: LAB.F 10:03 | PROVIDERS: ATTEND Family Medicine | DX: Z79.01 Long term (current) use of anticoagulants (principal) | CPT/HCPCS: 85610 ==

== ENCOUNTER 2017-11-29 13:06 | Outpatient (CLI) | payer MEDICARE, OTHER ==
[2017-11-29 18:02] LABS: BASOPHILS # (AUTO) 0.1 10^3/uL (0.0-0.1); EOSINOPHILS # (AUTO) 0.2 10^3/uL (0.0-0.7); EOSINOPHILS % (AUTO) 2.5 %; HGB - HEMOGLOBIN 13.1 g/dL (14.0-18.0); LYMPHOCYTES % (AUTO) 15.7 %; MEAN CORPUSCULAR HEMOGLOBIN 30.4 pg (27.0-31.0); MEAN CORPUSCULAR HGB CONC 33.9 g/dL (32.0-36.0); MEAN CORPUSCULAR VOLUME 89.7 fL (80.0-94.0); MEAN PLATELET VOLUME 7.9 fL (7.4-11.4); MONOCYTES # (AUTO) 0.5 10^3/uL (0.0-1.0); MONOCYTES % (AUTO) 7.9 %; NEUTROPHILS # (AUTO) 4.6 10^3/uL (1.5-6.6); NEUTROPHILS % (AUTO) 72.9 %; PLT - PLATELET COUNT 178 10^3/uL (130-450); RED CELL DISTRIBUTION WIDTH 16.2 % (12.0-15.0); WHITE BLOOD COUNT 6.3 x10^3/uL (4.8-10.8)
[2017-11-29 18:23] LABS: % IRON SATURATION 23 % (20-50); IRON 84 ug/dL (45-182); TOTAL IRON BINDING CAPACITY 365 ug/dL (250-450); TRANSFERRIN 261 mg/dL (180-329)
[2017-11-29 18:28] LABS: FERRITIN 90.6 ng/mL (23.9-336.2)
== END 2017-11-29 13:07 | disposition home or self-care (01) ==
LOC: LAB.F 13:06
PROVIDERS: ATTEND Nurse Practitioner Family
DX: G62.9 Polyneuropathy, unspecified (principal)
CPT/HCPCS: 36415; 82607; 82728; 83540; 84466; 85025

== ENCOUNTER 2017-12-28 10:17 | Outpatient (CLI) | payer MEDICARE, OTHER | END 2017-12-28 10:18 | disposition home or self-care (01) | LOC: LAB.F 10:17 | PROVIDERS: ATTEND Family Medicine | DX: Z79.01 Long term (current) use of anticoagulants (principal) | CPT/HCPCS: 85610 ==

== ENCOUNTER 2018-02-09 10:56 | Outpatient (CLI) | payer MEDICARE, OTHER | END 2018-02-09 10:57 | disposition home or self-care (01) | LOC: LAB.F 10:56 | PROVIDERS: ATTEND Family Medicine | DX: Z79.01 Long term (current) use of anticoagulants (principal) | CPT/HCPCS: 85610 ==

== ENCOUNTER 2018-02-15 10:57 | Outpatient (CLI) | payer MEDICARE, OTHER | END 2018-02-15 10:58 | disposition home or self-care (01) | LOC: LAB.F 10:57 | PROVIDERS: ATTEND Family Medicine | DX: Z79.01 Long term (current) use of anticoagulants (principal) | CPT/HCPCS: 85610 ==

== ENCOUNTER 2018-02-23 11:01 | Outpatient (CLI) | payer MEDICARE, OTHER | END 2018-02-23 11:02 | disposition home or self-care (01) | LOC: LAB.F 11:01 | PROVIDERS: ATTEND Family Medicine | DX: Z79.01 Long term (current) use of anticoagulants (principal) | CPT/HCPCS: 85610 ==

== ENCOUNTER 2018-02-28 | Outpatient (CLI) | END 2018-02-28 12:23 | disposition critical access hospital (66) | CPT/HCPCS: A0425; A0427 ==

== ENCOUNTER 2018-02-28 13:14 | Inpatient (IN) | payer MEDICARE, OTHER ==
[2018-02-28] MEDS ORDERED: SODIUM CHLORIDE 0.9% 1,000 ML IV ONE ×2 (13:32→14:39)
[2018-02-28 14:17] LABS: BILIRUBIN,URINE NEGATIVE (NEGATIVE); GLUCOSE, URINE (UA) NEGATIVE (NEGATIVE); KETONES,URINE (UA) TRACE mg/dL (NEGATIVE); LEUKOCYTE ESTERASE, URINE NEGATIVE (NEGATIVE); NITRITE,URINE NEGATIVE (NEGATIVE); OCCULT BLOOD,URINE NEGATIVE (NEGATIVE); PROTEIN,URINE NEGATIVE (NEGATIVE); UROBILINOGEN,URINE 0.2 (NORMAL) E.U./dL (NORMAL)
[2018-02-28 14:20] LABS: CLARITY,URINE CLEAR (CLEAR)
[2018-02-28 14:20] LABS: BASOPHILS % (AUTO) 0.5 %; EOSINOPHILS % (AUTO) 0.3 %; HGB - HEMOGLOBIN 12.9 g/dL (14.0-18.0); LYMPHOCYTES # (AUTO) 0.4 10^3/uL (1.5-3.5); LYMPHOCYTES % (AUTO) 4.6 %; MEAN CORPUSCULAR HEMOGLOBIN 30.9 pg (27.0-31.0); MEAN CORPUSCULAR HGB CONC 33.7 g/dL (32.0-36.0); MEAN CORPUSCULAR VOLUME 91.8 fL (80.0-94.0); MEAN PLATELET VOLUME 7.6 fL (7.4-11.4); MONOCYTES # (AUTO) 0.5 10^3/uL (0.0-1.0); MONOCYTES % (AUTO) 6.1 %; NEUTROPHILS # (AUTO) 7.3 10^3/uL (1.5-6.6); NEUTROPHILS % (AUTO) 88.5 %; PLT - PLATELET COUNT 147 10^3/uL (130-450); RED BLOOD COUNT 4.16 10^6/uL (4.70-6.10); RED CELL DISTRIBUTION WIDTH 13.5 % (12.0-15.0); WHITE BLOOD COUNT 8.2 x10^3/uL (4.8-10.8)
[2018-02-28 14:26] LABS: INR 2.1 (0.8-1.2); PT - PROTHROMBIN TIME 23.5 secs (9.9-12.6)
[2018-02-28 14:33] LABS: ALBUMIN 3.4 g/dL (3.2-5.5); ALBUMIN/GLOBULIN RATIO 1.2 (1.0-2.2); BILIRUBIN,TOTAL 2.1 mg/dL (0.2-1.0); CALCIUM 8.5 mg/dL (8.5-10.3); TOTAL PROTEIN 6.3 g/dL (6.7-8.2)
[2018-02-28 15:10] LABS: PHOSPHORUS 2.6 mg/dL (2.5-4.6)
--- NOTE | 2018-02-28 15:43 | ED Physician Documentation ---
History of Present Illness - Stated complaint Stated Complaint: WEAK - Chief complaint Chief Complaint: General - History obtained from History obtained from: Patient, EMS - History of Present Illness Timing: Today Pain level max: 0 Pain level now: 0 Improved by: rest Worsened by: standing - Additonal information Additional information: Patient is an 82-year-old male who states he feels like he cannot walk today. States he feels weak. This is been an ongoing issue for several years now. He states that this occurs every few months. No cause found. Lives at home with his . Does not use any assistive devices normally. Review of Systems Ten Systems: 10 systems reviewed and negative Constitutional: denies: Fever, Chills Ears: denies: Ear pain Nose: denies: Rhinorrhea / runny nose, Congestion Cardiac: denies: Chest pain / pressure Respiratory: denies: Dyspnea, Cough GI: denies: Abdominal Pain, Nausea, Vomiting, Diarrhea Skin: denies: Rash Musculoskeletal: denies: Neck pain, Back pain Neurologic: reports: Generalized weakness. 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 : Benign prostate hypertrophy, Chronic bladder infection, Nocturia HEENT: Chronic vision loss, Chronic hearing loss Psych: None Musculoskeletal: Osteoarthritis Derm: Other - Past Surgical History Past Surgical History: Yes General: Cholecystectomy - Present Medications Home Medications: Ambulatory Orders Medication Instructions Recorded Confirmed Aspirin 162.5 mg PO DAILY 02/28/18 02/28/18 Atorvastatin Calcium 20 mg PO QPM 02/28/18 02/28/18 Losartan/Hydrochlorothiazide 0.5 tab PO DAILY 02/28/18 02/28/18 [Losartan-Hctz 100-25 mg Tab] Metformin HCl 500 mg PO BIDWM 02/28/18 02/28/18 Metoprolol Succinate [Metoprolol 25 mg PO QPM 02/28/18 02/28/18 Succinate] Spironolactone 25 mg PO DAILY 02/28/18 02/28/18 Warfarin Sodium 5 mg PO [id number]/28/18 02/28/18 Warfarin Sodium 7.5 mg PO TUTH@2100 02/28/18 02/28/18 cloNIDine HCl [Clonidine HCl] 0.1 mg PO BID 02/28/18 02/28/18 - Allergies Allergies/Adverse Reactions: Allergies Allergy/AdvReac Type Severity Reaction Status Date / Time No Known Drug Allergies Allergy Verified 02/28/18 13:31 - Social History Does the pt smoke?: No Smoking Status: Never smoker Does the pt drink ETOH?: Yes Does the pt have substance abuse?: No - Immunizations Immunizations are current?: No Immunizations: TDAP >10years/unknown - POLST Patient has POLST: No POLST Status: Full Code PD ED PE NORMAL - Vitals Vital signs reviewed: Yes - General General: Alert and oriented X 3, No acute distress, Well developed/nourished - HEENT HEENT: Atraumatic, PERRL, EOMI, Ears normal, Moist mucous membranes, Pharynx benign - Neck Neck: Supple, no meningeal sign - Cardiac Cardiac: RRR, Strong equal pulses - Respiratory Respiratory: No respiratory distress, Clear bilaterally - Abdomen Abdomen: Soft, Non tender, Non distended - Back Back: No spinal TTP - Derm Derm: Warm and dry - Extremities Extremities: Other (R LE - swelling, erythema, warmth to the anterior R edwards ( 14x6cm). no abscess. also swelling over the dorsum of the R foot and an open wound on the tip of the 2nd toe. 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, No motor deficit, No sensory deficit, Normal speech, Other (unsteady gait, but improved with walker) - Psych Psych: Normal mood, Normal affect Results - Vitals Vitals: Vital Signs - 24 hr 02/28/18 02/28/18 13:18 13:55 Temperature 37.3 C 37.0 C Heart Rate 84 91 Respiratory 18 14 Rate Blood Pressure 160/93 H 168/89 H O2 Saturation 96 96 Oxygen O2 Source Room air - Labs Labs: Laboratory Tests 02/28/18 02/28/18 02/28/18 14:00 14:10 14:10 WBC 8.2 RBC 4.16 L Hgb 12.9 L Hct 38.2 L MCV 91.8 MCH 30.9 MCHC 33.7 RDW 13.5 Plt Count 147 MPV 7.6 Neut # (Auto) 7.3 H Lymph # (Auto) 0.4 L Sutton # (Auto) 0.5 Eos # (Auto) 0.0 Baso # (Auto) 0.0 Absolute Nucleated RBC 0.00 Nucleated RBC % 0.0 ESR PT INR Sodium 134 L Potassium 3.6 Chloride 102 Carbon Dioxide 23 Anion Gap 9.0 BUN 20 Creatinine 1.0 Estimated GFR (MDRD) 71 L Glucose 112 H Lactic Acid Calcium 8.5 Phosphorus Magnesium Total Bilirubin 2.1 H AST 20 ALT 17 Alkaline Phosphatase 58 C-Reactive Protein Total Protein 6.3 L Albumin 3.4 Globulin 2.9 Albumin/Globulin Ratio 1.2 Lipase 38 Urine Color YELLOW Urine Clarity CLEAR Urine pH 6.0 Ur Specific [place] 1.020 Urine Protein NEGATIVE Urine Glucose (UA) NEGATIVE Urine Ketones TRACE Urine Occult Blood NEGATIVE Urine Nitrite NEGATIVE Urine Bilirubin NEGATIVE Urine Urobilinogen 0.2 (NORMAL) Ur Leukocyte Esterase NEGATIVE Ur Microscopic Review NOT INDICATED Urine Culture Comments NOT INDICATED 02/28/18 02/28/18 02/28/18 14:10 14:10 14:10 WBC RBC Hgb Hct MCV MCH MCHC RDW Plt Count MPV Neut # (Auto) Lymph # (Auto) Sutton # (Auto) Eos # (Auto) Baso # (Auto) Absolute Nucleated RBC Nucleated RBC % ESR PT 23.5 H INR 2.1 H Sodium Potassium Chloride Carbon Dioxide Anion Gap BUN Creatinine Estimated GFR (MDRD) Glucose Lactic Acid 1.2 Calcium Phosphorus 2.6 Magnesium 2.0 Total Bilirubin AST ALT Alkaline Phosphatase C-Reactive Protein Total Protein Albumin Globulin Albumin/Globulin Ratio Lipase Urine Color Urine Clarity Urine pH Ur Specific [place] Urine Protein Urine Glucose (UA) Urine Ketones Urine Occult Blood Urine Nitrite Urine Bilirubin Urine Urobilinogen Ur Leukocyte Esterase Ur Microscopic Review Urine Culture Comments 02/28/18 02/28/18 14:10 14:10 WBC RBC Hgb Hct MCV MCH MCHC RDW Plt Count MPV Neut # (Auto) Lymph # (Auto) Sutton # (Auto) Eos # (Auto) Baso # (Auto) Absolute Nucleated RBC Nucleated RBC % ESR 17 PT INR Sodium Potassium Chloride Carbon Dioxide Anion Gap BUN Creatinine Estimated GFR (MDRD) Glucose Lactic Acid Calcium Phosphorus Magnesium Total Bilirubin AST ALT Alkaline Phosphatase C-Reactive Protein < 1.0 Total Protein Albumin Globulin Albumin/Globulin Ratio Lipase Urine Color Urine Clarity Urine pH Ur Specific [place] Urine Protein Urine Glucose (UA) Urine Ketones Urine Occult Blood Urine Nitrite Urine Bilirubin Urine Urobilinogen Ur Leukocyte Esterase Ur Microscopic Review Urine Culture Comments - Rads (name of study) R foot xray Radiology: Prelim report reviewed, EMP read contemporaneously, See rad report ( No acute bone findings are seen. Dorsal foot soft tissue swelling, second digit mid to distal soft tissue swelling. Degenerative changes as above.) PD MEDICAL DECISION MAKING - ED course Complexity details: reviewed results, re-evaluated patient, considered differential (No necrotizing infection), d/w patient, d/w network systems consultant ED course: Patient is an 82-year-old diabetic male who presents to the emergency department with weakness today. He appears to have a significant cellulitis to the right lower extremity from the second toe up to just proximal to the knee. No abscess. Does have an open wound on the tip of the second digit on the right foot. Has decreased sensation over the bilateral feet consistent with neuropathy. Given IV antibiotics here. We also attempted to walk the patient in the emergency department and he required significant assistance to ambulate. Discussed the case with Dr. Ortiz, hospitalist who accepts. This document was made in part using voice recognition software. While efforts are made to proofread this document, sound alike and grammatical errors may occur. - Sepsis Event Vital Signs: Vital Signs - 24 hr 02/28/18 02/28/18 13:18 13:55 Temperature 37.3 C 37.0 C Heart Rate 84 91 Respiratory 18 14 Rate Blood Pressure 160/93 H 168/89 H O2 Saturation 96 96 Oxygen O2 Source Room air Departure - Departure Disposition: [facility] DC/Xfer Clinical Impression: Diabetic infection of right foot, Weakness Cellulitis Qualifiers: Site of cellulitis: extremity Site of cellulitis of extremity: lower extremity Laterality: right Qualified Code(s): L03.115 - Cellulitis of right lower limb Condition: Stable Discharge Date/Time: 02/28/18 17:03
[2018-02-28] MEDS ORDERED: AMPICILLIN/SULBACTAM 3 GM in SODIUM CHLORIDE 0.9% MINIBAG 100 ML IV STA (15:49)
[2018-02-28] MEDS ORDERED: VANCOMYCIN INJ 1 GM in SODIUM CHLORIDE 0.9% 500 ML IV STA (15:49)
--- NOTE | 2018-02-28 16:47 | XRAY Report ---
Procedure Date: 02/28/2018 Accession Number: [id number] / [id number] Procedure: XR - Foot 3 View RT CPT Code: FULL RESULT: EXAM: RIGHT FOOT RADIOGRAPHY EXAM DATE: 02/28/2018 04:18 PM. CLINICAL HISTORY: Right foot swelling, redness, infection to 2nd toe. COMPARISON: None. TECHNIQUE: 3 views. FINDINGS: There appears to be second digit mid to distal soft tissue swelling. [id number] diffuse dorsal soft tissue swelling. No acute bone findings are seen. No lytic lesions or periosteal reaction. No evidence for acute fracture. Bone island seen at the first distal phalanx. Mild diffuse interphalangeal osteoarthritis at the first, second, and third digits. Mild first metatarsophalangeal osteoarthritis. Calcaneal bone spurs. Tibiotalar degenerative joint disease. Arterial calcifications. IMPRESSION: 1. No acute bone findings are seen. 2. Dorsal foot soft tissue swelling. Second digit mid to distal soft tissue swelling. 3. Degenerative changes as above. RADIA
[2018-02-28] MEDS ORDERED: VANCOMYCIN INJ 1 GM in SODIUM CHLORIDE 0.9% 250 ML IV STA (17:24)
[2018-02-28] MEDS ORDERED: TEMAZEPAM 15 MG CAPSULE PO PRN (18:04)
[2018-02-28] MEDS ORDERED: HYDROcod/ACETAM 5/325 MG TABLET PO PRN (18:04)
[2018-02-28] MEDS ORDERED: ACETAMINOPHEN 325 MG TABLET PO PRN (18:04)
[2018-02-28] MEDS ORDERED: PROCHLORPERAZINE 10 MG/2 ML VIAL IVP PRN (18:04)
[2018-02-28] MEDS ORDERED: VANCOMYCIN PER PHARMACY 100 GM in SODIUM CHLORIDE 0.9% 250 ML IV SCH (19:00)
[2018-02-28] MEDS ORDERED: WARFARIN 5 MG TABLET PO SCH (21:00)
[2018-02-28] MEDS: cloNIDine 0.1 MG TABLET PO SCH (22:02)
[2018-02-28] MEDS: METOPROLOL SUCCINATE 50 MG TABLET PO SCH (22:02)
[2018-02-28] MEDS: ATORVASTATIN 40 MG TABLET PO SCH (22:03)
[2018-02-28] MEDS: FAMOTIDINE 20 MG TABLET PO SCH (22:03)
[2018-02-28] MEDS: SODIUM CHLORIDE FLUSH 0.9% 10 ML SYRINGE IVP PRN (22:04)
[2018-02-28] MEDS: INSULIN ASPART 300 UNIT/3 ML PEN SUBQ SCH (22:09)
--- NOTE | 2018-03-01 01:28 | HISTORY & PHYSICAL EXAMINATION ---
DATE OF SERVICE: 02/28/18 Physician: Jennie Vargas MD HISTORY OF PRESENT ILLNESS: This is an 82-year-old white male with history of insulin-dependent diabetes, hypertension, chronic atrial fibrillation on Coumadin, PVD, COPD, GERD, BPH, osteoarthritis and hearing loss. The patient has had weakness for several years. It waxes and wanes. Today, he felt like he "could not walk." He normally walks without any assistance devices. He was simply too weak to even stand and therefore came to the emergency room. He denied a fever, cough, chest pain, syncope. He states he goes to a critical care nurse who helps him with any diabetic foot complications. He has had venous stasis problems in the past. In the emergency room, he was found to have a red, hot right edwards as well as dry ulcer of the right second toe and is being admitted for cellulitis and diabetic toe ulcer. PAST MEDICAL HISTORY 1. Diabetes on insulin. 2. COPD. 3. Chronic atrial fibrillation on Coumadin. 4. Hypertension. 5. PVD, 6. GERD. 7. BPH. 8. Hearing loss. 9. Osteoarthritis. MEDICATIONS 1. Metformin 500 mg b.i.d. 2. Spironolactone 25 mg daily. 3. Lipitor 20 mg at bedtime. 4. Warfarin 5 alternating with 7.5 mg daily. 5. Losartan/HCTZ 100/25 mg daily. 6. Toprol-XL 25 mg every evening. 7. Two baby aspirin daily. 8. Unknown Insulin dose. REVIEW OF SYSTEMS: A comprehensive review of systems was performed and the pertinent positives are listed in the HPI, the rest are negative. SOCIAL HISTORY: The patient lives with his . He is retired. He continues to drive. He is an ex-smoker who quit many years ago, drinks social alcohol. Denies illicit drug use. FAMILY HISTORY: No inherited diseases. PHYSICAL EXAMINATION GENERAL: Elderly white male. He is in no distress, sitting in bed. VITAL SIGNS: Blood pressure 160/93, pulse of 84 in atrial fibrillation, afebrile, room air saturation 96%, respiratory rate 18. HEENT: Unremarkable. NECK: Without JVD or carotid bruits. LUNGS: Clear, but there is a prolonged expiratory phase. HEART: Heart sounds are irregular. No murmur is heard. ABDOMEN: Soft with positive bowel sounds. Nontender. No organomegaly. EXTREMITIES: Bilateral venous stasis changes of the shins. There is 2+ edema on the right to the knee, left has 1+ edema to the mid edwards. The right lower extremity is warm and red in the edwards and calf area. He has decreased dorsalis pedis pulses bilaterally. There is a dry black ulcer of the distal tip of his right second toe. NEUROLOGIC: Intact. LABORATORY DATA: Sodium 134, otherwise normal electrolytes. Normal BUN and creatinine. Glucose 112. Lactic acid normal at 1.2. Normal magnesium at 2.0. Normal liver tests. Normal C-reactive protein. Normal lipase. INR therapeutic at 2.1. White count 8.2 with a left shift, hemoglobin 12.9 with a normal MCV, platelet count 147. Urinalysis was unremarkable, except for trace ketones. IMAGING STUDIES: Foot x-ray showed no acute bony findings. Soft tissue swelling of the dorsal foot. The second digit had distal soft tissue swelling. No EKG done. No chest x-ray done. IMPRESSION/DIAGNOSES 1. Weakness, which could be multifactorial, related to his diabetes if there is poor control, new infection with cellulitis and diabetic toe ulcer. 2. Cellulitis of the right leg. 3. Ulcer of the right second toe in a diabetic. 4. Diabetes on insulin. 5. Hypertension. 6. Elevated cholesterol history. 7. Peripheral vascular disease history. 8. Chronic atrial fibrillation, on Coumadin. 9. Benign prostatic hypertrophy history. PLAN 1. Admit the patient to a med/surg bed. 2. Continue with his diabetic management including carbohydrate-controlled diet, sliding scale insulin, but stop the Glucophage as he may need testing requiring dye. 3. Blood culture the patient. 4. Begin empiric antibiotics using Unasyn and vancomycin. 5. Request a [facility] clinic wound consult. The patient has no significant complaints of pain in the edwards or toe at this time. 6. Continue with his blood pressure medications Lipitor and Coumadin, follow daily INR. 7. Obtain an MRI to evaluate the extent of infection and especially to rule out osteomyelitis. DEEP VENOUS THROMBOSIS PROPHYLAXIS: He is therapeutically anticoagulated on Coumadin. CODE STATUS: FULL CODE. ATTESTATION: The patient is expected to be discharged or transferred to another facility within 96 hours: Yes. TD: 02/28/2018 20:16 MARKOS
[2018-03-01] MEDS: VANCOMYCIN INJ 1 GM in SODIUM CHLORIDE 0.9% 250 ML IV SCH ×2 (05:25→18:17)
[2018-03-01] MEDS: SODIUM CHLORIDE FLUSH 0.9% 10 ML SYRINGE IVP SCH ×3 (05:26→18:17)
[2018-03-01 06:07] LABS: INR 1.9 (0.8-1.2); PT - PROTHROMBIN TIME 20.7 secs (9.9-12.6)
[2018-03-01 06:10] LABS: BASOPHILS % (AUTO) 0.6 %; EOSINOPHILS % (AUTO) 0.6 %; HGB - HEMOGLOBIN 12.3 g/dL (14.0-18.0); LYMPHOCYTES # (AUTO) 0.4 10^3/uL (1.5-3.5); LYMPHOCYTES % (AUTO) 8.5 %; MEAN CORPUSCULAR HEMOGLOBIN 31.3 pg (27.0-31.0); MEAN CORPUSCULAR HGB CONC 34.5 g/dL (32.0-36.0); MEAN CORPUSCULAR VOLUME 90.8 fL (80.0-94.0); MEAN PLATELET VOLUME 7.7 fL (7.4-11.4); MONOCYTES # (AUTO) 0.4 10^3/uL (0.0-1.0); MONOCYTES % (AUTO) 7.6 %; NEUTROPHILS # (AUTO) 4.1 10^3/uL (1.5-6.6); NEUTROPHILS % (AUTO) 82.7 %; PLT - PLATELET COUNT 132 10^3/uL (130-450); RED BLOOD COUNT 3.93 10^6/uL (4.70-6.10); RED CELL DISTRIBUTION WIDTH 13.5 % (12.0-15.0)
[2018-03-01 06:15] LABS: BUN - BLOOD UREA NITROGEN 15 mg/dL (6-20); CALCIUM 8.1 mg/dL (8.5-10.3); CARBON DIOXIDE - CO2 22 mmol/L (21-32); CHLORIDE 102 mmol/L (101-111); CREATININE 0.9 mg/dL (0.6-1.2); GFR - MDRD 81 (>89); GLUCOSE 167 mg/dL (70-100); SODIUM 132 mmol/L (135-145)
[2018-03-01 06:20] LABS: VBG PH 7.42 (7.31-7.41)
[2018-03-01 06:24] LABS: HB2 TOTAL 12.9 g/dL; HEMOGLOBIN A1C 0.53 g/dL; HEMOGLOBIN A1C % 5.9 % (4.6-6.2)
[2018-03-01] MEDS: INSULIN ASPART 300 UNIT/3 ML PEN SUBQ SCH ×4 (08:16→21:55)
[2018-03-01] MEDS: SPIRONOLACTONE 25 MG TABLET PO SCH (08:17)
[2018-03-01] MEDS: POTASSIUM CHLORIDE 20 MEQ TABLET PO SCH (08:17)
[2018-03-01] MEDS: LOSARTAN 50 MG TABLET PO SCH (08:17)
[2018-03-01] MEDS: cloNIDine 0.1 MG TABLET PO SCH ×2 (08:17→21:53)
[2018-03-01] MEDS: ASPIRIN 325 MG TABLET PO SCH (08:17)
[2018-03-01] MEDS: hydroCHLOROthiazide 12.5 MG CAPSULE PO SCH (08:18)
[2018-03-01] MEDS: FAMOTIDINE 20 MG TABLET PO SCH ×2 (08:18→21:55)
[2018-03-01] MEDS: POLYETHYLENE GLYCOL 3350 17 GM PACKET PO SCH (08:21)
[2018-03-01] MEDS ORDERED: ENOXAPARIN 40 MG/0.4 ML SYRINGE SUBQ SCH (09:00)
--- NOTE | 2018-03-01 13:16 | PROVIDER PROGRESS NOTE ---
Assessment/Plan - Problem List (1) Cellulitis Qualifiers: Site of cellulitis: extremity Site of cellulitis of extremity: lower extremity Laterality: right Qualified Code(s): L03.115 - Cellulitis of right lower limb Assessment/Plan: Neg blood cultures to date. Continue empiric antibiotics (2) Diabetic infection of right foot Assessment/Plan: The patient was seen by [facility] Wound cassandra consultant and had foot debrided and instructions for dressing changes. He will qualify to come to [facility] wound clinic after [facility] was advised, to start to reach his PCP for orders. (3) Weakness Assessment/Plan: Patient says he feels much more strength compared to admission. It was likely the infection. Will plan for PT, once infections and surgical interventions finished. (4) Type II diabetes mellitus Qualifiers: Diabetes mellitus complication status: with circulatory complication Diabetes mellitus complication detail: with peripheral angiopathy without gangrene Assessment/Plan: Continue carb-controlled diet and ss Insulin. Continue to monitor glu. (5) Chronic atrial fibrillation Assessment/Plan: HR is well controlled and INR is therapeutic on Coumadin. Watch daily INR which may go up on antibiotics. (6) HTN (hypertension) Qualifiers: Hypertension type: essential hypertension Qualified Code(s): I10 - Essential (primary) hypertension Assessment/Plan: Continue present meds. - Current Meds Current Meds: Current Medications Generic Name Dose Route Start Last Admin Trade Name Freq PRN Reason Stop Dose Admin Aspirin 162.5 mg 03/01/18 09:00 03/01/18 08:17 Arnaud PO 162.5 mg DAILY CASANDRA Administration Atorvastatin Calcium 20 mg 02/28/18 21:00 02/28/18 22:03 Lipitor PO 20 mg QPM CASANDRA Administration Clonidine HCl 0.1 mg 02/28/18 21:00 03/01/18 08:17 Catapres PO 0.1 mg BID CASANDRA Administration Famotidine 20 mg 02/28/18 21:00 03/01/18 08:18 Pepcid PO 20 mg BID CASANDRA Administration Hydrochlorothiazide 12.5 mg 03/01/18 09:00 03/01/18 08:18 Hydrodiuril PO 12.5 mg DAILY CASANDRA Administration Vancomycin HCl 1 gm/ Sodium 250 mls @ 167 mls/hr 03/01/18 06:00 03/01/18 11: 38 Chloride IV Infused Q12H CASANDRA Infusion Insulin Aspart 1 - 5 unit 02/28/18 21:00 03/01/18 08:16 Novolog SUBQ Not Given 0800,1200,1700,2100 [facility] Protocol Losartan Potassium 50 mg 03/01/18 09:00 03/01/18 08:17 Cozaar PO 50 mg DAILY CASANDRA Administration Metoprolol Succinate 25 mg 02/28/18 21:00 02/28/18 22:02 Toprol Xl PO 25 mg QPM CASANDRA Administration Polyethylene Glycol 17 gm 03/01/18 09:00 03/01/18 08:21 Miralax PO Not Given DAILY CASANDRA Potassium Chloride 20 meq 03/01/18 09:00 03/01/18 08:17 K-Dur PO 20 meq DAILYWM CASANDRA Administration Sodium Chloride 10 ml 02/28/18 18:04 02/28/18 22:04 Normal Saline Flush 0.9% IVP 10 ml PRN PRN Administration NEEDED PER PROVIDER ORDERS Sodium Chloride 10 ml 03/01/18 01:00 03/01/18 08:21 Normal Saline Flush 0.9% IVP 10 ml 0100,0900,1700 [facility] Administration Spironolactone 25 mg 03/01/18 09:00 03/01/18 08:17 Aldactone PO 25 mg DAILY CASANDRA Administration Warfarin Sodium 5 mg 02/28/18 21:00 02/28/18 22:02 Coumadin PO 5 mg MOWEFRSA@2100 [facility] Administration - Lab Result Fish Bone Diagrams: 03/02/18 05:50 03/02/18 05:50 - Additional Planning My Orders: My Active Orders 02/28/18 18:04 Activity Orders [RC] Routine IO [RC] IOSHIFT Initiate Bowel Care Protocol [RC] .protocol Initiate Line Care Protocol [RC] .protocol Initiate Personal Care Protoco [RC] .protocol Oxygen Therapy [RC] PRN Vital Signs [RC] 0800,1600,0000 Acetaminophen [Tylenol] 650 mg PO Q4HR PRN HYDROcod/ACETAM 5/325 [[place] 5/325] 1 tab PO Q4HR PRN Prochlorperazine Inj [Compazine Inj] 10 mg IVP Q6HR PRN Sodium Chloride Flush 0.9% [Normal Saline Flush 0.9%] 10 ml IVP PRN PRN Temazepam [Restoril] 15 mg PO QPM PRN Code Status [OTHERS] Routine Condition of Patient [OTHERS] Routine DVT Prophylaxis [OTHERS] Routine 02/28/18 18:05 Daily Weight [RC] 0600 IV Insert [RC] .ONCE 02/28/18 18:21 CULTURE, BLOOD #1 [RM] Routine 02/28/18 18:23 CULTURE, BLOOD #2 [RM] Routine 02/28/18 18:53 Blood Glucose Checks - Eating [RC] 0800,1200,1700,2100 Initiate Hypoglycemia Protocol [RC] .protocol 02/28/18 21:00 Atorvastatin [Lipitor] 20 mg PO QPM Famotidine [Pepcid] 20 mg PO BID Insulin Aspart [NovoLOG] 1 - 5 unit SUBQ 0800,1200,1700,2100 Metoprolol Succinate [Toprol Xl] 25 mg PO QPM Warfarin [Coumadin] 5 mg PO MOWEFRSA@2100 cloNIDine [Catapres] 0.1 mg PO BID 03/01/18 Foot RT W/WO [MRI] Routine 03/01/18 01:00 Sodium Chloride Flush 0.9% [Normal Saline Flush 0.9%] 10 ml IVP 0100,0900, 1700 03/01/18 06:00 Vancomycin Inj [Vancomycin] 1 gm Sodium Chloride 0.9% [Normal Saline 0.9%] 250 ml IV Q12H 03/01/18 09:00 Aspirin [Arnaud] 162.5 mg PO DAILY Losartan [Cozaar] 50 mg PO DAILY Polyethylene Glycol 3350 [Miralax] 17 gm PO DAILY Potassium Chloride [K-Dur] 20 meq PO DAILYWM Spironolactone [Aldactone] 25 mg PO DAILY hydroCHLOROthiazide [Hydrodiuril] 12.5 mg PO DAILY 03/01/18 21:00 Warfarin [Coumadin] 7.5 mg PO TUTH@2100 03/01/18 22:00 Ampicillin/Sulbactam [Unasyn] 1.5 gm Sodium Chloride 0.9% Minibag [Normal Saline 0.9% Minibag] 100 ml IV Q6H 03/01/18 Breakfast DIET [Carb-controlled Diet] [DIET] 03/02/18 05:00 BMP, RFLX TO IONIZED CA IF [CHEM] DAILYLAB CBC - COMP BLD CT W/AUTO DIFF [HEME] DAILYLAB PT WITH INR [COAG] DAILYLAB 03/02/18 05:30 VANCOMYCIN TROUGH [CHEM] Timed 03/03/18 05:00 BMP, RFLX TO IONIZED CA IF [CHEM] DAILYLAB CBC - COMP BLD CT W/AUTO DIFF [HEME] DAILYLAB PT WITH INR [COAG] DAILYLAB Subjective - Subjective Patient Reports: Other (Same "weakness") Nursing Reports: No Complaints Objective Vital Signs: Vital Signs - 24 hr 02/28/18 02/28/18 02/28/18 17:00 18:00 22:00 Temperature 37.2 C Heart Rate [ 90 96 78 Brachial] Respiratory 16 Rate Blood Pressure 185/103 H 149/75 H 149/79 H [Right Brachial artery] O2 Saturation 99 02/28/18 03/01/18 23:45 08:00 Temperature 37.4 C 37.0 C Heart Rate [ 76 70 Brachial] Respiratory 18 16 Rate Blood Pressure 134/75 H 131/97 H [Right Brachial artery] O2 Saturation 96 97 Oxygen O2 Source Room air I&O (Last 24 Hrs): Intake and Output Totals x24h 02/27/18 02/28/18 03/01/18 23:59 23:59 23:59 Intake Total 2400 850 Output Total 201 250 Balance 2199 600 General: Alert, Oriented x3 HEENT: Mucous membr. moist/pink Neck: Supple, No JVD Neuro: Non Focal Cardiovascular: No murmurs Respiratory: No respiratory distress, Breath sounds nml Abdomen: Soft Extremities: Other (Less swelling of R leg and less redness, R 2nd toe bandaged) - Results Results: Laboratory Results WBC 5.0 x10^3/uL (4.8-10.8) 03/01/18 05:44 RBC 3.93 10^6/uL (4.70-6.10) L 03/01/18 05:44 Hgb 12.3 g/dL (14.0-18.0) L 03/01/18 05:44 Hct 35.7 % (42.0-52.0) L 03/01/18 05:44 MCV 90.8 fL (80.0-94.0) 03/01/18 05:44 MCH 31.3 pg (27.0-31.0) H 03/01/18 05:44 MCHC 34.5 g/dL (32.0-36.0) 03/01/18 05:44 RDW 13.5 % (12.0-15.0) 03/01/18 05:44 Plt Count 132 10^3/uL (130-450) 03/01/18 05:44 MPV 7.7 fL (7.4-11.4) 03/01/18 05:44 Neut # (Auto) 4.1 10^3/uL (1.5-6.6) 03/01/18 05:44 Lymph # (Auto) 0.4 10^3/uL (1.5-3.5) L 03/01/18 05:44 [place] # (Auto) 0.4 10^3/uL (0.0-1.0) 03/01/18 05:44 Eos # (Auto) 0.0 10^3/uL (0.0-0.7) 03/01/18 05:44 Baso # (Auto) 0.0 10^3/uL (0.0-0.1) 03/01/18 05:44 Absolute Nucleated RBC 0.00 x10^3/uL 03/01/18 05:44 Nucleated RBC % 0.0 /100WBC 03/01/18 05:44 ESR 17 mm/Hr (0-20) 02/28/18 14:10 PT 20.7 secs (9.9-12.6) H 03/01/18 05:44 INR 1.9 (0.8-1.2) H 03/01/18 05:44 VBG pH 7.420 (7.31-7.41) H 03/01/18 05:44 Ionized Calcium 1.08 mmol/L (1.15-1.33) L 03/01/18 05:44 Sodium 132 mmol/L (135-145) L 03/01/18 05:44 Potassium 3.4 mmol/L (3.5-5.0) L 03/01/18 05:44 Chloride 102 mmol/L (101-111) 03/01/18 05:44 Carbon Dioxide 22 mmol/L (21-32) 03/01/18 05:44 Anion Gap 8.0 (6-13) 03/01/18 05:44 BUN 15 mg/dL (6-20) 03/01/18 05:44 Creatinine 0.9 mg/dL (0.6-1.2) 03/01/18 05:44 Estimated GFR (MDRD) 81 (>89) L 03/01/18 05:44 Glucose 167 mg/dL (70-100) H 03/01/18 05:44 Glycated Hemoglobin 5.9 % (4.6-6.2) 03/01/18 05:44 Estim Average Glucose 123 (70-100) H 03/01/18 05:44 Lactic Acid 1.2 mmol/L (0.5-2.2) 02/28/18 14:10 Calcium 8.1 mg/dL (8.5-10.3) L 03/01/18 05:44 Ionized Calcium YES 03/01/18 05:44 Phosphorus 2.6 mg/dL (2.5-4.6) 02/28/18 14:10 Magnesium 2.0 mg/dL (1.7-2.8) 02/28/18 14:10 Total Bilirubin 2.1 mg/dL (0.2-1.0) H 02/28/18 14:10 AST 20 IU/L (10-42) 02/28/18 14:10 ALT 17 IU/L (10-60) 02/28/18 14:10 Alkaline Phosphatase 58 IU/L (42-121) 02/28/18 14:10 C-Reactive Protein < 1.0 mg/dL (0-1.0) 02/28/18 14:10 Total Protein 6.3 g/dL (6.7-8.2) L 02/28/18 14:10 Albumin 3.4 g/dL (3.2-5.5) 02/28/18 14:10 Globulin 2.9 g/dL (2.1-4.2) 02/28/18 14:10 Albumin/Globulin Ratio 1.2 (1.0-2.2) 02/28/18 14:10 Lipase 38 U/L (22-51) 02/28/18 14:10 Urine Color YELLOW 02/28/18 14:00 Urine Clarity CLEAR (CLEAR) 02/28/18 14:00 Urine pH 6.0 PH (5.0-7.5) 02/28/18 14:00 Ur Specific [place] 1.020 (1.002-1.030) 02/28/18 14:00 Urine Protein NEGATIVE mg/dL (NEGATIVE) 02/28/18 14:00 Urine Glucose (UA) NEGATIVE mg/dL (NEGATIVE) 02/28/18 14:00 Urine Ketones TRACE mg/dL (NEGATIVE) 02/28/18 14:00 Urine Occult Blood NEGATIVE (NEGATIVE) 02/28/18 14:00 Urine Nitrite NEGATIVE (NEGATIVE) 02/28/18 14:00 Urine Bilirubin NEGATIVE (NEGATIVE) 02/28/18 14:00 Urine Urobilinogen 0.2 (NORMAL) E.U./dL (NORMAL) 02/28/18 14:00 Ur Leukocyte Esterase NEGATIVE (NEGATIVE) 02/28/18 14:00 Ur Microscopic Review NOT INDICATED 02/28/18 14:00 Urine Culture Comments NOT INDICATED 02/28/18 14:00 ABX Reporting Has patient been on IV antibiotics over the past 48 hours?: Yes
[2018-03-01] MEDS ORDERED: GADOBUTROL 10 MMOL/10 ML VIAL ONE (13:43)
[2018-03-01] MEDS: CADEXOMER IODINE GEL 40 GM TUBE TOP SCH ×2 (16:06→21:55)
--- NOTE | 2018-03-01 18:20 | MRI Report ---
Procedure Date: 03/01/2018 Accession Number: [id number] / [id number] Procedure: MRI - Foot RT W/WO CPT Code: FULL RESULT: EXAM: RIGHT FOREFOOT MRI WITHOUT AND WITH CONTRAST EXAM DATE: 03/01/2018 12:29 PM. CLINICAL HISTORY: Evaluate for osteomyelitis. COMPARISON: FOOT 3 VIEW RT 02/28/2018. TECHNIQUE: Multiplanar, multisequence T1-weighted and fluid-sensitive sequences of the forefoot before and after administration of intravenous contrast. IV contrast: 10 mL Gadavist given IV, no reaction. Other: None. FINDINGS: Bones: The distal portion of the second distal metatarsal shows some increased T2 signal and enhancement. Small amount of decreased T1 signal is also noted. Series 601 image 16, series 701 image 15, series 901 image 14, and series 1601 image 18. No other similar areas of bony abnormality. Joints: No subluxations. No effusions. The [id number] complex is unremarkable. The visualized plantar plates are unremarkable. Articular Cartilage: Unremarkable. Ligaments: The visualized collateral ligaments are intact. Tendons: The flexor and extensor tendons are unremarkable. Musculature: Extensive fatty atrophy with a small amount of residual edema seen in the intrinsic muscles of the forefoot. Other: No Mortons neuroma. No intermetatarsal bursitis. Significant subcutaneous edema over the dorsal forefoot and into the toes. No abscesses or drainable fluid collections. IMPRESSION: 1. Second distal phalanx shows signs of osteomyelitis. No abscess or drainable fluid collection. 2. Extensive fatty atrophy and edematous change is seen in the intrinsic muscles of the forefoot. 3. Significant subcutaneous edema and swelling is seen over the forefoot and extends into the toes. RADIA MUSCULOSKELETAL RADIOLOGY SECTION
[2018-03-01] MEDS ORDERED: VANCOMYCIN PER PHARMACY 100 GM in SODIUM CHLORIDE 0.9% 250 ML IV SCH (19:00)
[2018-03-01] MEDS ORDERED: WARFARIN 5 MG TABLET PO SCH (21:00)
[2018-03-01] MEDS: METOPROLOL SUCCINATE 50 MG TABLET PO SCH (21:53)
[2018-03-01] MEDS: ATORVASTATIN 40 MG TABLET PO SCH (21:53)
[2018-03-01] MEDS: AMPICILLIN/SULBACTAM 1.5 GM in SODIUM CHLORIDE 0.9% MINIBAG 100 ML IV SCH (21:55)
[2018-03-01] MEDS: SODIUM CHLORIDE FLUSH 0.9% 10 ML SYRINGE IVP PRN (21:56)
[2018-03-02] MEDS: SODIUM CHLORIDE FLUSH 0.9% 10 ML SYRINGE IVP SCH ×2 (00:53→08:42)
[2018-03-02] MEDS: AMPICILLIN/SULBACTAM 1.5 GM in SODIUM CHLORIDE 0.9% MINIBAG 100 ML IV SCH ×2 (03:41→09:29)
[2018-03-02] MEDS: SODIUM CHLORIDE FLUSH 0.9% 10 ML SYRINGE IVP PRN (03:42)
[2018-03-02 06:23] LABS: BASOPHILS % (AUTO) 0.7 %; EOSINOPHILS # (AUTO) 0.2 10^3/uL (0.0-0.7); EOSINOPHILS % (AUTO) 4.5 %; HGB - HEMOGLOBIN 12.7 g/dL (14.0-18.0); LYMPHOCYTES # (AUTO) 0.7 10^3/uL (1.5-3.5); LYMPHOCYTES % (AUTO) 15.8 %; MEAN CORPUSCULAR HEMOGLOBIN 30.6 pg (27.0-31.0); MEAN CORPUSCULAR HGB CONC 33.7 g/dL (32.0-36.0); MEAN CORPUSCULAR VOLUME 90.7 fL (80.0-94.0); MEAN PLATELET VOLUME 7.8 fL (7.4-11.4); MONOCYTES # (AUTO) 0.7 10^3/uL (0.0-1.0); MONOCYTES % (AUTO) 14.2 %; NEUTROPHILS % (AUTO) 64.8 %; PLT - PLATELET COUNT 146 10^3/uL (130-450); RED BLOOD COUNT 4.17 10^6/uL (4.70-6.10); RED CELL DISTRIBUTION WIDTH 13.5 % (12.0-15.0); WHITE BLOOD COUNT 4.6 x10^3/uL (4.8-10.8)
[2018-03-02 06:26] LABS: VANCOMYCIN,TROUGH 10.7 ug/mL (10.0-20.0)
[2018-03-02 06:27] LABS: INR 1.9 (0.8-1.2); PT - PROTHROMBIN TIME 20.6 secs (9.9-12.6)
[2018-03-02 06:29] LABS: BUN - BLOOD UREA NITROGEN 13 mg/dL (6-20); CALCIUM 8.7 mg/dL (8.5-10.3); CARBON DIOXIDE - CO2 25 mmol/L (21-32); CHLORIDE 103 mmol/L (101-111); CREATININE 0.9 mg/dL (0.6-1.2); GFR - MDRD 81 (>89); GLUCOSE 140 mg/dL (70-100); SODIUM 137 mmol/L (135-145)
[2018-03-02] MEDS: VANCOMYCIN INJ 1 GM in SODIUM CHLORIDE 0.9% 250 ML IV SCH (06:36)
[2018-03-02 07:43] VITALS: BP 149/77
[2018-03-02] MEDS: INSULIN ASPART 300 UNIT/3 ML PEN SUBQ SCH ×2 (08:39→11:30)
[2018-03-02] MEDS: cloNIDine 0.1 MG TABLET PO SCH (08:41)
[2018-03-02] MEDS: POTASSIUM CHLORIDE 20 MEQ TABLET PO SCH (08:41)
[2018-03-02] MEDS: POLYETHYLENE GLYCOL 3350 17 GM PACKET PO SCH (08:41)
[2018-03-02] MEDS: LOSARTAN 50 MG TABLET PO SCH (08:41)
[2018-03-02] MEDS: hydroCHLOROthiazide 12.5 MG CAPSULE PO SCH (08:41)
[2018-03-02] MEDS: ASPIRIN 325 MG TABLET PO SCH (08:41)
[2018-03-02] MEDS: SPIRONOLACTONE 25 MG TABLET PO SCH (08:42)
[2018-03-02] MEDS: CADEXOMER IODINE GEL 40 GM TUBE TOP SCH (08:42)
[2018-03-02] MEDS: FAMOTIDINE 20 MG TABLET PO SCH (08:47)
--- NOTE | 2018-03-02 11:35 | PROVIDER PROGRESS NOTE ---
Subjective - Prog Note Date Prog Note Date: 03/02/18 Prog Note Time: 11:32 - Subjective Pt reports feeling: No change (Patient with minimally symptomatic right second toe noted to have a positive MRI scan of the foot indicating probable right second distal phalangeal toe osteomyelitis in this diabetic man.) Objective - Vital Signs/Intake & Output Vital Signs: Vital Signs x48h Temp Pulse Resp BP Pulse Ox 03/02/18 07:42 36.4 C L 57 L 16 149/77 H 99 Intake & Output: Intake & Output 02/27/18 02/28/18 03/01/18 03/02/18 23:59 23:59 23:59 23:59 Intake Total 2400 1880 660 Output Total 201 250 Balance 2199 1630 660 - Lab Results Fish Bones: 03/02/18 05:50 03/02/18 05:50 Other Labs: Lab Results x24hrs 03/02/18 03/02/18 03/02/18 Range/Units 05:50 05:50 05:50 WBC 4.6 L (4.8-10.8) x10^3/uL RBC 4.17 L (4.70-6.10) 10^6/uL Hgb 12.7 L (14.0-18.0) g/dL Hct 37.8 L (42.0-52.0) % MCV 90.7 (80.0-94.0) fL MCH 30.6 (27.0-31.0) pg MCHC 33.7 (32.0-36.0) g/dL RDW 13.5 (12.0-15.0) % Plt Count 146 (130-450) 10^3/uL MPV 7.8 (7.4-11.4) fL Neut # (Auto) 3.0 (1.5-6.6) 10^3/uL Lymph # (Auto) 0.7 L (1.5-3.5) 10^3/uL [place] # (Auto) 0.7 (0.0-1.0) 10^3/uL Eos # (Auto) 0.2 (0.0-0.7) 10^3/uL Baso # (Auto) 0.0 (0.0-0.1) 10^3/uL Absolute Nucleated RBC 0.01 x10^3/uL Nucleated RBC % 0.2 /100WBC PT (9.9-12.6) secs INR (0.8-1.2) Sodium 137 (135-145) mmol/L Potassium 3.6 (3.5-5.0) mmol/L Chloride 103 (101-111) mmol/L Carbon Dioxide 25 (21-32) mmol/L Anion Gap 9.0 (6-13) BUN 13 (6-20) mg/dL Creatinine 0.9 (0.6-1.2) mg/dL Estimated GFR (MDRD) 81 L (>89) Glucose 140 H (70-100) mg/dL Calcium 8.7 (8.5-10.3) mg/dL Ionized Calcium NO Last Dose Date UNK Last Dose Time UNK Vancomycin Trough 10.7 (10.0-20.0) ug/mL 03/02/18 Range/Units 05:50 WBC (4.8-10.8) x10^3/uL RBC (4.70-6.10) 10^6/uL Hgb (14.0-18.0) g/dL Hct (42.0-52.0) % MCV (80.0-94.0) fL MCH (27.0-31.0) pg MCHC (32.0-36.0) g/dL RDW (12.0-15.0) % Plt Count (130-450) 10^3/uL MPV (7.4-11.4) fL Neut # (Auto) (1.5-6.6) 10^3/uL Lymph # (Auto) (1.5-3.5) 10^3/uL [place] # (Auto) (0.0-1.0) 10^3/uL Eos # (Auto) (0.0-0.7) 10^3/uL Baso # (Auto) (0.0-0.1) 10^3/uL Absolute Nucleated RBC x10^3/uL Nucleated RBC % /100WBC PT 20.6 H (9.9-12.6) secs INR 1.9 H (0.8-1.2) Sodium (135-145) mmol/L Potassium (3.5-5.0) mmol/L Chloride (101-111) mmol/L Carbon Dioxide (21-32) mmol/L Anion Gap (6-13) BUN (6-20) mg/dL Creatinine (0.6-1.2) mg/dL Estimated GFR (MDRD) (>89) Glucose (70-100) mg/dL Calcium (8.5-10.3) mg/dL Ionized Calcium Last Dose Date Last Dose Time Vancomycin Trough (10.0-20.0) ug/mL - Diagnostic Imaging Diagnostic Imaging Comments: XR show no acute bony changes CT scan suggests osteomyeitis of right second toe distal phalanx - Other Results/Comments Other Results/Comments: EXAM: Right second toe: 1+ swollen and 1+ red. Nontender (has peripheral neuropathy). No lymphangitis. Decreased sensation to lite touch. No active drainage from medial distal toe wound. Assessment/Plan - Problem List (1) Diabetic infection of right foot Impression: Probable associated with osteomyelitis of right second toe distal phalanx per exam and MRI scan findings. PLAN: Spoke at length with patient re: treatment options. He wants to pursue oral antibiotic course (not IV antibiotics), knowing that this would likely be only suppressive and curative. Should condition worsens in the future, would likely go for surgical toe amputation. Does not want the procedure now.
--- NOTE | 2018-03-02 12:04 | Discharge Plan ---
Discharge Plan Disposition: 01 Home, Self Care Condition: Fair Prescriptions: Clindamycin HCl [Clindamycin 300MG CAP] 300 mg PO Q6HR #168 capsule Levofloxacin [Levaquin] 750 mg PO DAILY #42 tablet Diet: Diabetic Activity Restrictions: Activity as Tolerated Shower Restrictions: No Driving Restrictions: No Weight Bearing: Full Weight Additional Instructions or Follow Up instructions: You came into the emergency department with weakness. We found that you had infection of the bone in your right foot second toe. Our recommendation was for you to have the toe amputated however you preferred conservative management. We did explain to you that the best option for conservative management would be to give IV antibiotics however you chose to take oral antibiotics and see how things go. We would recommend if you notice any worsening of your infection that you return to the emergency department. It is likely that despite receiving antibiotics you will still require amputation of the toe at some point. We recommend you continuing the antibiotics for at least 6 weeks and recommend that you follow-up with your primary care physician within the next 1-2 weeks. No Smoking: If you smoke, Please STOP! Call for help. Follow-up with: Levy Salmeron MD [Primary Care Provider] -
--- NOTE | 2018-03-02 12:10 | DISCHARGE SUMMARY ---
Discharge Summary Admit Date: 02/28/18 Discharge Date: 03/02/18 Discharging Provider: Christopher Andrea MD Primary Care Provider: Darwin Salmeron MD Code Status: Attempt Resuscitation Condition at Discharge: Fair Discharge Disposition: 01 Home, Self Care - DIAGNOSES Admission Diagnoses: 1. Generalized weakness 2. Cellulitis of the right foot 3. Ulcer of the right second toe in a diabetic 4. Insulin-dependent diabetes type 2 5. Hypertension 6. Hyperlipidemia 7. History of peripheral vascular disease 8. Chronic atrial fibrillation 9. Benign prostatic hyperplasia Discharge Diagnoses with Status of Each Condition: 1. 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 Generalized weakness: Resolved 3. Insulin-dependent diabetes type 2: Stable 4. Hypertension: Stable 5. History of peripheral vascular disease: Stable 6. Chronic atrial fibrillation: Stable - HPI History of Present Illness: Patient is an 82-year-old gentleman with a past medical history significant for insulin-dependent diabetes, hypertension, chronic atrial fibrillation on Coumadin, peripheral vascular disease, COPD, GERD, BPH, osteoarthritis and hearing loss who presented to the emergency department with chief complaint of generalized weakness. Patient states that he has been weak for several years now and this waxes and wanes. He states that on the day of admission he felt so weak that he could not walk. He states he normally walks without any assistance device. He was simply so weak he could not even stand and therefore came to the emergency department. In the emergency department the patient was found to have red, hot right edwards as well as a dry ulcer of the right second toe and was admitted to the hospital with cellulitis and diabetic foot ulcer. - HOSPITAL COURSE Hospital Course: While hospitalized the patient underwent a x-ray and MRI of the right second toe of his foot and was found to have right foot second distal phalanx osteomyelitis. The patient was initially placed on IV vancomycin and Unasyn for treatment of cellulitis and osteomyelitis. We consulted orthopedic surgery who recommended to the patient that he have amputation of the second toe on his right foot. The patient preferred not to have surgery at this time. It was expressed to him that the best course of medical management would be to get a PICC line and have IV antibiotics for 6 weeks in an attempt to treat the osteomyelitis. It was also explained to him that even with optimal treatment it is likely that the osteomyelitis would not completely heal and he would still need an amputation at some point. The patient stated that he did not want IV antibiotics and would rather just take oral antibiotics and if symptoms did worsen he would come back to the hospital or see orthopedic surgery and have an amputation. I explained to him the risks involved with just taking oral antibiotics and that this was not optimal treatment for his osteomyelitis and the patient understood but still wanted oral antibiotics at this time. The patient was not septic and appeared to be otherwise stable. The patient was discharged home on oral Levaquin and oral clindamycin to cover both gram- positive and gram-negative bacteria. The patient was told that if he has any noticeable changes or decline that he should return to the emergency department immediately as he is at risk for progressing to sepsis if this infection spreads. The patient seemed to understand and expressed that he would return if he had any notion that he was getting worse. The patient was discharged home in stable condition. - ALLERGIES Allergies/Adverse Reactions: Allergies Allergy/AdvReac Type Severity Reaction Status Date / Time No Known Drug Allergies Allergy Verified 02/28/18 13:31 - MEDICATIONS Home Medications: Ambulatory Orders Medication Instructions Recorded Confirmed Aspirin 162.5 mg PO DAILY 02/28/18 02/28/18 Atorvastatin Calcium 20 mg PO QPM 02/28/18 02/28/18 Losartan/Hydrochlorothiazide 0.5 tab PO DAILY 02/28/18 02/28/18 [Losartan-Hctz 100-25 mg Tab] Metformin HCl 500 mg PO BIDWM 02/28/18 02/28/18 Metoprolol Succinate 25 mg PO QPM 02/28/18 02/28/18 Spironolactone 25 mg PO DAILY 02/28/18 02/28/18 Warfarin Sodium 5 mg PO [id number]@209902/28/18 02/28/18 Warfarin Sodium 7.5 mg PO TUTH@209902/28/18 02/28/18 cloNIDine HCl [Clonidine HCl] 0.1 mg PO BID 02/28/18 02/28/18 Clindamycin HCl [Clindamycin 300MG 300 mg PO Q6HR #168 capsule 03/02/18 CAP] Levofloxacin [Levaquin] 750 mg PO DAILY #42 tablet 03/02/18 - PHYSICAL EXAM AT DISCHARGE General Appearance: positive: No acute distress, Alert Eyes Bilateral: positive: Normal inspection, PERRL, EOMI, No lid inflammation, Conjunctivae nml, No scleral icterus ENT: positive: ENT inspection nml, Pharynx nml, No signs of dehydration. negative: Purulent nasal drainage, Pharyngeal erythema, Oral lesions Neck: positive: Nml inspection, Thyroid nml, No JVD. negative: Trachea midline , Thyromegaly, Lymphadenopathy (R), Lymphadenopathy (L), Stiff neck, Carotid bruit, Tracheal deviation Respiratory: positive: Chest non-tender, No respiratory distress, Breath sounds nml. negative: Wheezes, Rales, Rhonchi Cardiovascular: positive: No murmur, No gallop, Irregularly irregular Peripheral Pulses: positive: 2+ Abdomen: positive: Non-tender, No organomegaly, Nml bowel sounds, No distention. negative: Guarding, Rebound, Hepatomegaly Back: positive: Nml inspection. negative: CVA tenderness (R), CVA tenderness (L ) Skin: positive: Other (Right foot second toe with dried up ulcer which appears necrotic with mild surrounding erythema and warmth but no tenderness.). negative: Cyanosis, Diaphoresis, Pallor Extremities: positive: Full ROM, No pedal edema, Other (Right foot second toe with dried up ulcer which appears necrotic with mild surrounding erythema and warmth but no tenderness.) Neurologic/Psychiatric: positive: Oriented x3, CN's nml (2-12), Motor nml, Sensation nml, Mood/affect nml - LABS Result Diagrams: 03/02/18 05:50 03/02/18 05:50 Other Lab Results: Laboratory Results WBC 4.6 x10^3/uL (4.8-10.8) L 03/02/18 05:50 RBC 4.17 10^6/uL (4.70-6.10) L 03/02/18 05:50 Hgb 12.7 g/dL (14.0-18.0) L 03/02/18 05:50 Hct 37.8 % (42.0-52.0) L 03/02/18 05:50 MCV 90.7 fL (80.0-94.0) 03/02/18 05:50 MCH 30.6 pg (27.0-31.0) 03/02/18 05:50 MCHC 33.7 g/dL (32.0-36.0) 03/02/18 05:50 RDW 13.5 % (12.0-15.0) 03/02/18 05:50 Plt Count 146 10^3/uL (130-450) 03/02/18 05:50 MPV 7.8 fL (7.4-11.4) 03/02/18 05:50 Neut # (Auto) 3.0 10^3/uL (1.5-6.6) 03/02/18 05:50 Lymph # (Auto) 0.7 10^3/uL (1.5-3.5) L 03/02/18 05:50 [place] # (Auto) 0.7 10^3/uL (0.0-1.0) 03/02/18 05:50 Eos # (Auto) 0.2 10^3/uL (0.0-0.7) 03/02/18 05:50 Baso # (Auto) 0.0 10^3/uL (0.0-0.1) 03/02/18 05:50 Absolute Nucleated RBC 0.01 x10^3/uL 03/02/18 05:50 Nucleated RBC % 0.2 /100WBC 03/02/18 05:50 ESR 17 mm/Hr (0-20) 02/28/18 14:10 PT 20.6 secs (9.9-12.6) H 03/02/18 05:50 INR 1.9 (0.8-1.2) H 03/02/18 05:50 VBG pH 7.420 (7.31-7.41) H 03/01/18 05:44 Ionized Calcium 1.08 mmol/L (1.15-1.33) L 03/01/18 05:44 Sodium 137 mmol/L (135-145) 03/02/18 05:50 Potassium 3.6 mmol/L (3.5-5.0) 03/02/18 05:50 Chloride 103 mmol/L (101-111) 03/02/18 05:50 Carbon Dioxide 25 mmol/L (21-32) 03/02/18 05:50 Anion Gap 9.0 (6-13) 03/02/18 05:50 BUN 13 mg/dL (6-20) 03/02/18 05:50 Creatinine 0.9 mg/dL (0.6-1.2) 03/02/18 05:50 Estimated GFR (MDRD) 81 (>89) L 03/02/18 05:50 Glucose 140 mg/dL (70-100) H 03/02/18 05:50 Glycated Hemoglobin 5.9 % (4.6-6.2) 03/01/18 05:44 Estim Average Glucose 123 (70-100) H 03/01/18 05:44 Lactic Acid 1.2 mmol/L (0.5-2.2) 02/28/18 14:10 Calcium 8.7 mg/dL (8.5-10.3) 03/02/18 05:50 Ionized Calcium NO 03/02/18 05:50 Phosphorus 2.6 mg/dL (2.5-4.6) 02/28/18 14:10 Magnesium 2.0 mg/dL (1.7-2.8) 02/28/18 14:10 Total Bilirubin 2.1 mg/dL (0.2-1.0) H 02/28/18 14:10 AST 20 IU/L (10-42) 02/28/18 14:10 ALT 17 IU/L (10-60) 02/28/18 14:10 Alkaline Phosphatase 58 IU/L (42-121) 02/28/18 14:10 C-Reactive Protein < 1.0 mg/dL (0-1.0) 02/28/18 14:10 Total Protein 6.3 g/dL (6.7-8.2) L 02/28/18 14:10 Albumin 3.4 g/dL (3.2-5.5) 02/28/18 14:10 Globulin 2.9 g/dL (2.1-4.2) 02/28/18 14:10 Albumin/Globulin Ratio 1.2 (1.0-2.2) 02/28/18 14:10 Lipase 38 U/L (22-51) 02/28/18 14:10 Urine Color YELLOW 02/28/18 14:00 Urine Clarity CLEAR (CLEAR) 02/28/18 14:00 Urine pH 6.0 PH (5.0-7.5) 02/28/18 14:00 Ur Specific [place] 1.020 (1.002-1.030) 02/28/18 14:00 Urine Protein NEGATIVE mg/dL (NEGATIVE) 02/28/18 14:00 Urine Glucose (UA) NEGATIVE mg/dL (NEGATIVE) 02/28/18 14:00 Urine Ketones TRACE mg/dL (NEGATIVE) 02/28/18 14:00 Urine Occult Blood NEGATIVE (NEGATIVE) 02/28/18 14:00 Urine Nitrite NEGATIVE (NEGATIVE) 02/28/18 14:00 Urine Bilirubin NEGATIVE (NEGATIVE) 02/28/18 14:00 Urine Urobilinogen 0.2 (NORMAL) E.U./dL (NORMAL) 02/28/18 14:00 Ur Leukocyte Esterase NEGATIVE (NEGATIVE) 02/28/18 14:00 Ur Microscopic Review NOT INDICATED 02/28/18 14:00 Urine Culture Comments NOT INDICATED 02/28/18 14:00 Last Dose Date UNK 03/02/18 05:50 Last Dose Time UNK 03/02/18 05:50 Vancomycin Trough 10.7 ug/mL (10.0-20.0) 03/02/18 05:50 - DIAGNOSTIC IMAGING Diagnostic Imaging Results: Final report reviewed Diagnostic Imaging Results Comments: X-ray right foot Impression: 1. No acute bony findings are seen. 2. Dorsal foot soft tissue swelling. Second digit mid to distal soft tissue swelling. 3. Degenerative changes as above. Foot MRI Impression: 1. Second distal phalanx show signs of osteomyelitis. No abscess or drainable fluid collection. 2. Extensive fatty atrophy and edematous change is seen in the intrinsic muscles of the forefoot. 3. Significant subcutaneous edema and swelling is seen over the forefoot and extends into the toes. - FOLLOW UP Follow Up: Patient was admitted with right foot cellulitis and found to have osteomyelitis of the right second toe. The patient was seen by orthopedic surgery and offered amputation of the right second toe however the patient refused at this time. The patient was also offered IV antibiotic treatment for optimal medical management of osteomyelitis. The patient also refused IV antibiotics and asked to be treated with oral antibiotics. The patient was discharged home with oral Levaquin and oral clindamycin. We were not able to obtain any cultures of the right foot however blood cultures were negative after 1 day and patient did not appear to be septic. The patient was in stable condition at the time of discharge and was given 6 weeks of oral antibiotics. It was explained to him that oral antibiotics were suboptimal treatment for osteomyelitis and he did understand this. The patient stated that if his foot does not get better or worsens that he would then elect to do surgery but was not ready for surgery at this time. He also stated that he did not want IV antibiotics. The patient will follow up with his primary care physician in the next 1-2 weeks and will need to have continued monitoring of his right foot osteomyelitis. - TIME SPENT Time Spent in Discharge (Minutes): 45
--- NOTE | 2018-03-02 12:10 | CONSULTATION NOTE ---
DATE OF SERVICE: 03/02/2018 Physician: Dilip Mcdonald MD REFERRING PHYSICIAN: Christopher Andrea M.D. CHIEF COMPLAINT: "My right second toe was bleeding." HISTORY OF PRESENT ILLNESS: Patient is an 82-year-old male, diabetic, who presented to the hospital several days ago with a swollen, red right second toe. Associated with this swelling was a small wound over the medial aspect of the tip of the toe, which had some bloody drainage. While here in the hospital, this has cleared up and is currently not actively draining. The patient has had no fever. His white count and sedimentation rate have been within normal range. Because of his clinical presentation and the fact that he has peripheral neuropathy from his diabetes. His workup included a recent MRI scan of the foot. This was consistent with osteomyelitis to the distal phalanx of his right second toe. We were consulted to see if any surgical intervention was indicated. Speaking with the patient today, he is not complaining of any discomfort or pain. He has had no fevers or chills. Has no prior foot infections. Has been a known diabetic, controlled only with metformin for the past 8 years. He is aware that his peripheral neuropathy is likely due to his diabetes. PHYSICAL EXAMINATION: On exam, his right second toe was inspected. He has dried blood over a very small wound over the medial distal tip of his second toe. This is nontender and nonfluctuant on palpation. The patient has 1+ swelling and 1+ redness around the toe. There is no extension proximally. No lymphangitis noted. IMAGING STUDIES: X-rays that were taken of the foot on admission show no acute bony changes seen. MRI scan of the foot was taken recently was reviewed. It did show some evidence of edema and hyperemia of the distal phalanx of the right second toe consistent with osteomyelitis. ASSESSMENT: Diabetic right foot infection - likely involving osteomyelitis of his right second toe distal phalanx. PLAN: I discussed at length with the patient his diagnosis and likely the fact that he likely has osteomyelitis of his second toe. The patient is clinically not toxic or septic. The patient is otherwise not aware of his toe problem except for the residual swelling and redness. After answering all his questions, he has opted to have nonsurgical treatment and just observation. I have suggested IV antibiotics for 6 weeks, but he wants to just pursue oral antibiotics. Would likely recommend a general broad spectrum oral antibiotics for 4-6 weeks orally. He is aware that IV antibiotics or oral antibiotics are likely only going to be suppressive and not curative with regards to his osteomyelitis. Despite that, he wishes to pursue this and will consider a partial toe amputation in the future, should his condition worsens. At this point, he does not want to have an amputation on this admission. Should he change his mind, he will let us know and we can always schedule the partial toe amputation in the future as per his wishes. TD: 03/02/2018 11:54
[2018-03-02] MEDS ORDERED: VANCOMYCIN INJ 1.5 GM in SODIUM CHLORIDE 0.9% 500 ML IV SCH (18:00)
== END 2018-03-02 13:31 | disposition home or self-care (01) | DRG 638 ==
LOC: EDUNIT# → ED 13:14 → MS2 16:17
PROVIDERS: ADMIT Internal Medicine; ATTEND Internal Medicine
DX: E11.628 Type 2 diabetes mellitus with other skin complications (principal); E11.69 Type 2 diabetes mellitus with other specified complication; I11.0 Hypertensive heart disease with heart failure; I50.9 Heart failure, unspecified; E78.00 Pure hypercholesterolemia, unspecified; M86.9 Osteomyelitis, unspecified; I48.91 Unspecified atrial fibrillation; L03.115 Cellulitis of right lower limb; E11.621 Type 2 diabetes mellitus with foot ulcer; L97.519 Non-pressure chronic ulcer of other part of right foot with unspecified severity; E11.51 Type 2 diabetes mellitus with diabetic peripheral angiopathy without gangrene; I25.10 Atherosclerotic heart disease of native coronary artery without angina pectoris; J44.9 Chronic obstructive pulmonary disease, unspecified; I48.2 Chronic atrial fibrillation; I10 Essential (primary) hypertension; E78.5 Hyperlipidemia, unspecified; K21.9 Gastro-esophageal reflux disease without esophagitis; N40.1 Benign prostatic hyperplasia with lower urinary tract symptoms; R35.1 Nocturia; H91.90 Unspecified hearing loss, unspecified ear; M19.90 Unspecified osteoarthritis, unspecified site; Z79.4 Long term (current) use of insulin; Z79.82 Long term (current) use of aspirin; Z79.01 Long term (current) use of anticoagulants; Z87.440 Personal history of urinary (tract) infections; Z86.19 Personal history of other infectious and parasitic diseases; Z87.891 Personal history of nicotine dependence
CPT/HCPCS: 36415; 80048; 80053; 80202; 81001; 81003; 82330; 83036; 83605; 83690; 83735; 84100; 85025; 85610; 85651; 86140; 87040; 87086; 93306; 99284; 99285

== ENCOUNTER 2018-03-07 14:16 | Outpatient (CLI) | END 2018-03-07 14:17 | disposition home or self-care (01) ==

== ENCOUNTER 2018-03-31 11:14 | Outpatient (CLI) | payer MEDICARE, OTHER | END 2018-03-31 11:15 | disposition home or self-care (01) | LOC: LAB.F 11:14 | PROVIDERS: ATTEND Family Medicine | DX: Z79.01 Long term (current) use of anticoagulants (principal) | CPT/HCPCS: 85610 ==

== ENCOUNTER 2018-05-02 11:00 | Outpatient (CLI) | payer MEDICARE, OTHER | END 2018-05-02 11:01 | disposition home or self-care (01) | LOC: LAB.F 11:00 | PROVIDERS: ATTEND Family Medicine | DX: Z79.01 Long term (current) use of anticoagulants (principal) | CPT/HCPCS: 85610 ==

== ENCOUNTER 2018-05-18 08:40 | Outpatient (CLI) | payer MEDICARE, OTHER | END 2018-05-18 08:41 | disposition home or self-care (01) | LOC: LAB.F 08:40 | PROVIDERS: ATTEND Nurse Practitioner Family | DX: I48.91 Unspecified atrial fibrillation (principal) | CPT/HCPCS: 85610 ==

== ENCOUNTER 2018-06-16 11:33 | Outpatient (CLI) | payer MEDICARE, OTHER | END 2018-06-16 11:34 | disposition home or self-care (01) | LOC: LAB.F 11:33 | PROVIDERS: ATTEND Nurse Practitioner Family | DX: I48.91 Unspecified atrial fibrillation (principal) | CPT/HCPCS: 85610 ==

== ENCOUNTER 2018-06-21 11:34 | Outpatient (CLI) | payer MEDICARE, OTHER | END 2018-06-21 11:35 | disposition home or self-care (01) | LOC: LAB.F 11:34 | PROVIDERS: ATTEND Nurse Practitioner Family | DX: I48.91 Unspecified atrial fibrillation (principal) | CPT/HCPCS: 85610 ==

== ENCOUNTER 2018-07-05 11:34 | Outpatient (CLI) | payer MEDICARE, OTHER | END 2018-07-05 11:35 | disposition home or self-care (01) | LOC: LAB.F 11:34 | PROVIDERS: ATTEND Nurse Practitioner Family | DX: I48.91 Unspecified atrial fibrillation (principal) | CPT/HCPCS: 85610 ==

== ENCOUNTER 2018-07-12 13:07 | Outpatient (CLI) | payer MEDICARE, OTHER | END 2018-07-12 13:08 | disposition home or self-care (01) | LOC: LAB.F 13:07 | PROVIDERS: ATTEND Nurse Practitioner Family | DX: I48.91 Unspecified atrial fibrillation (principal) | CPT/HCPCS: 85610 ==

== ENCOUNTER 2018-07-25 09:31 | Outpatient (CLI) | payer MEDICARE, OTHER ==
[2018-07-25 18:05] LABS: INR 2.9 (0.8-1.2); PT - PROTHROMBIN TIME 32.6 secs (9.9-12.6)
== END 2018-07-25 09:32 | disposition home or self-care (01) ==
LOC: LAB.F 09:31
PROVIDERS: ATTEND Nurse Practitioner Family
DX: I48.91 Unspecified atrial fibrillation (principal)
CPT/HCPCS: 36415; 85610

== ENCOUNTER 2018-08-12 10:46 | Outpatient (CLI) | payer MEDICARE, OTHER | END 2018-08-12 10:47 | disposition home or self-care (01) | LOC: LAB.F 10:46 | PROVIDERS: ATTEND Nurse Practitioner Family | DX: I48.91 Unspecified atrial fibrillation (principal) | CPT/HCPCS: 85610 ==

== ENCOUNTER 2018-08-23 10:56 | Outpatient (CLI) | payer MEDICARE, OTHER | END 2018-08-23 10:57 | disposition home or self-care (01) | LOC: LAB.F 10:56 | PROVIDERS: ATTEND Nurse Practitioner Family | DX: I48.91 Unspecified atrial fibrillation (principal) | CPT/HCPCS: 85610 ==

== ENCOUNTER 2018-09-21 10:59 | Outpatient (CLI) | payer MEDICARE, OTHER | END 2018-09-21 11:00 | disposition home or self-care (01) | LOC: LAB.F 10:59 | PROVIDERS: ATTEND Nurse Practitioner Family | DX: I48.91 Unspecified atrial fibrillation (principal) | CPT/HCPCS: 85610 ==

== ENCOUNTER 2018-10-06 12:39 | Outpatient (CLI) | payer MEDICARE, OTHER | END 2018-10-06 12:40 | disposition home or self-care (01) | LOC: LAB.F 12:39 | PROVIDERS: ATTEND Nurse Practitioner Family | DX: I48.91 Unspecified atrial fibrillation (principal) | CPT/HCPCS: 85610 ==

== ENCOUNTER 2018-11-11 08:00 | Outpatient (CLI) | payer MEDICARE, OTHER ==
[2018-11-11 18:53] LABS: BASOPHILS % (AUTO) 0.6 %; EOSINOPHILS # (AUTO) 0.1 10^3/uL (0.0-0.7); EOSINOPHILS % (AUTO) 2.1 %; HGB - HEMOGLOBIN 14.2 g/dL (14.0-18.0); LYMPHOCYTES % (AUTO) 13.9 %; MEAN CORPUSCULAR HEMOGLOBIN 30.3 pg (27.0-31.0); MEAN CORPUSCULAR HGB CONC 34.3 g/dL (32.0-36.0); MEAN CORPUSCULAR VOLUME 88.4 fL (80.0-94.0); MEAN PLATELET VOLUME 7.6 fL (7.4-11.4); MONOCYTES # (AUTO) 0.7 10^3/uL (0.0-1.0); MONOCYTES % (AUTO) 9.3 %; NEUTROPHILS # (AUTO) 5.3 10^3/uL (1.5-6.6); NEUTROPHILS % (AUTO) 74.1 %; PLT - PLATELET COUNT 174 10^3/uL (130-450); RED BLOOD COUNT 4.68 10^6/uL (4.70-6.10); RED CELL DISTRIBUTION WIDTH 13.3 % (12.0-15.0); WHITE BLOOD COUNT 7.2 x10^3/uL (4.8-10.8)
[2018-11-11 19:11] LABS: MICROALBUM/CREATININE RATIO,UR 46.5 ug/mg (<30.0); MICROALBUMIN,URINE 12.1 mg/dL (0-300.0)
[2018-11-11 19:17] LABS: ALBUMIN 3.8 g/dL (3.2-5.5); ALBUMIN/GLOBULIN RATIO 1.2 (1.0-2.2); ALKALINE PHOSPHATASE 72 IU/L (42-121); ALT ALANINE AMINOTRANSFERASE 16 IU/L (10-60); AST ASPARTATE AMINOTRANSFERASE 20 IU/L (10-42); BILIRUBIN,TOTAL 2.2 mg/dL (0.2-1.0); BUN - BLOOD UREA NITROGEN 22 mg/dL (6-20); CALCIUM 9.1 mg/dL (8.5-10.3); CARBON DIOXIDE - CO2 24 mmol/L (21-32); CHLORIDE 108 mmol/L (101-111); CHOL/HDL RATIO 3.9 (<5.0); CHOLESTEROL 217 mg/dL; CREATININE 1.1 mg/dL (0.6-1.2); GFR - MDRD 64 (>89); GLUCOSE 127 mg/dL (70-100); HDL CHOLESTEROL 56 mg/dL; LDL CHOLESTEROL,CALCULATED 98 mg/dL; LDL/HDL RATIO 1.8 (<3.6); SODIUM 141 mmol/L (135-145); TOTAL PROTEIN 6.9 g/dL (6.7-8.2); VLDL CHOLESTEROL 63 mg/dL
[2018-11-11 20:02] LABS: HB2 TOTAL 15.3 g/dL; HEMOGLOBIN A1C 0.71 g/dL; HEMOGLOBIN A1C % 6.4 % (4.6-6.2)
== END 2018-11-11 23:59 | disposition home or self-care (01) ==
LOC: LAB.WCP 08:00
PROVIDERS: ATTEND Family Medicine
DX: I25.10 Atherosclerotic heart disease of native coronary artery without angina pectoris (principal); E78.5 Hyperlipidemia, unspecified; E11.9 Type 2 diabetes mellitus without complications
CPT/HCPCS: 36415; 80053; 80061; 82043; 82570; 83036; 83721; 85025

== ENCOUNTER 2018-12-02 08:00 | Outpatient (CLI) | payer MEDICARE, OTHER | END 2018-12-02 23:59 | disposition home or self-care (01) | LOC: LAB.WCP 08:00 | PROVIDERS: ATTEND Family Medicine | DX: I48.91 Unspecified atrial fibrillation (principal); Z79.01 Long term (current) use of anticoagulants | CPT/HCPCS: 81025 ==

== ENCOUNTER 2018-12-08 08:00 | Outpatient (CLI) | payer MEDICARE, OTHER | END 2018-12-08 23:59 | disposition home or self-care (01) | LOC: LAB.WCP 08:00 | PROVIDERS: ATTEND Family Medicine | DX: Z51.81 Encounter for therapeutic drug level monitoring (principal); Z79.01 Long term (current) use of anticoagulants ==

== ENCOUNTER 2019-01-18 08:00 | Outpatient (CLI) | payer MEDICARE, OTHER | END 2019-01-18 23:59 | disposition home or self-care (01) | LOC: LAB.WCP 08:00 | PROVIDERS: ATTEND Physician Assistant | DX: I48.91 Unspecified atrial fibrillation (principal); Z79.01 Long term (current) use of anticoagulants ==

== ENCOUNTER 2019-02-22 21:47 | Outpatient (CLI) | payer MEDICARE, OTHER | END 2019-02-22 21:48 | disposition critical access hospital (66) | LOC: EMS 21:47 | PROVIDERS: ATTEND Surgery | DX: S09.90XA Unspecified injury of head, initial encounter (principal); S51.811A Laceration without foreign body of right forearm, initial encounter; S61.411A Laceration without foreign body of right hand, initial encounter; W19.XXXA Unspecified fall, initial encounter; Y92.099 Unspecified place in other non-institutional residence as the place of occurrence of the external cause; Z79.01 Long term (current) use of anticoagulants | CPT/HCPCS: A0425; A0429 ==

== ENCOUNTER 2019-02-22 22:05 | Emergency (ER) | payer MEDICARE, OTHER ==
--- NOTE | 2019-02-22 22:18 | ED Physician Documentation ---
History of Present Illness - Stated complaint Stated Complaint: GLF/ETOH - Chief complaint Chief Complaint: General - History obtained from History obtained from: Patient - History of Present Illness Timing: Prior to arrival (This is an 83-year-old man who presents from an assisted living where he lives with his complaints that he must do stumbled in the house today and fell. He does not remember this but he did have 2 vodkas and drinks some wine tonight. He denies back or neck pain. He says he did not black out. He does not have a headache or feel dizzy. He says the only pain he is having right now is the pain in his heels because of this backboard. Denies palpitations or chest pain. No shortness of breath.) - Additonal information Additional information: This is an 83-year-old man who presents from the assisted living where he lives with his after he fell. He says he must of stumbled inside he does not remember actually falling but does not believe he passed out. No headache he does not feel dizzy. He did drink 2 vodkas tonight and some wine. He says he did not black out. He does not have a headache or feel dizzy. He says the only pain he is having right now is the pain in his heels because of this backboard. Denies palpitations or chest pain. No shortness of breath. Patient reports that he does take Coumadin but he initially told me he was uncertain why and then it did know that he had atrial fibrillation. Does not know when his last tetanus vaccine was. Review of Systems Constitutional: denies: Fever Throat: denies: Sore throat Cardiac: denies: Chest pain / pressure, Palpitations Respiratory: denies: Cough GI: denies: Nausea, Vomiting : denies: Dysuria Musculoskeletal: denies: Neck pain, Back pain Neurologic: denies: Generalized weakness, Focal weakness PD PAST MEDICAL HISTORY - Past Medical History Cardiovascular: Congestive heart failure, Hypertension, High cholesterol, Coronary artery disease, Peripheral Vascular Disease, Atrial fibrillation Respiratory: COPD Endocrine/Autoimmune: Type 2 diabetes GI: GERD, C.difficile DERMATOPATHOLOGIST: None : Benign prostate hypertrophy, Chronic bladder infection, Nocturia HEENT: Chronic vision loss, Chronic hearing loss Psych: None Musculoskeletal: Osteoarthritis Derm: Other - Past Surgical History Past Surgical History: Yes General: Cholecystectomy - Present Medications Home Medications: Ambulatory Orders Medication Instructions Recorded Confirmed RX: Aspirin 162.5 mg PO DAILY 02/28/18 02/28/18 RX: Atorvastatin Calcium 20 mg PO QPM 02/28/18 02/28/18 RX: Losartan/Hydrochlorothiazide 0.5 tab PO DAILY 02/28/18 02/28/18 [Losartan-Hctz 100-25 mg Tab] RX: Metformin HCl 500 mg PO BIDWM 02/28/18 02/28/18 RX: Metoprolol Succinate 25 mg PO QPM 02/28/18 02/28/18 RX: Spironolactone 25 mg PO DAILY 02/28/18 02/28/18 RX: Warfarin Sodium 5 mg PO [id number]@209902/28/18 02/28/18 RX: Warfarin Sodium 7.5 mg PO TUTH@209902/28/18 02/28/18 RX: cloNIDine HCl [Clonidine HCl] 0.1 mg PO BID 02/28/18 02/28/18 Clindamycin HCl [Clindamycin 300MG 300 mg PO Q6HR #168 capsule 03/02/18 CAP] Levofloxacin [Levaquin] 750 mg PO DAILY #42 tablet 03/02/18 - Allergies Allergies/Adverse Reactions: Allergies Allergy/AdvReac Type Severity Reaction Status Date / Time No Known Drug Allergies Allergy Verified 02/28/18 13:31 - Social History Does the pt smoke?: No Smoking Status: Never smoker Does the pt drink ETOH?: Yes Does the pt have substance abuse?: No - Immunizations Immunizations are current?: No Immunizations: TDAP >10years/unknown - POLST Patient has POLST: No POLST Status: Full Code PD ED PE NORMAL - Vitals Vital signs reviewed: Yes (In a c-collar and on a backboard. He does smell of alcohol.) - General General: Alert and oriented X 3, No acute distress, Well developed/nourished - HEENT HEENT: Other (Abrasion over the right forehead) - Neck Neck: Other (Remained in the cervical collar until imaging could be obtainedRemained in the cervical collar until imaging could be obtained) - Cardiac Cardiac: RRR, Strong equal pulses, Other (Patient does have peripheral edema worse in the right foot than the left.) - Respiratory Respiratory: No respiratory distress, Clear bilaterally - Abdomen Abdomen: Normal bowel sounds, Soft, Non tender, Non distended - Derm Derm: Other (There are some small hematomas and superficial lacerations that are not deep enough to suture on the right forearm. There is a large skin tear on the dorsal aspect of the right hand.) - Extremities Extremities: No deformity, Normal ROM s pain - Neuro Neuro: Alert and oriented X 3, configurator 2-12 intact, No motor deficit, No sensory deficit, Normal speech - Psych Psych: Normal mood, Normal affect Results - Vitals Vitals: Vital Signs - 24 hr 02/22/19 02/22/19 02/23/19 22:14 22:51 00:34 Temperature 36.4 C L Heart Rate 77 67 85 Respiratory 20 17 17 Rate Blood Pressure 165/101 H 174/102 H 170/84 H O2 Saturation 95 98 02/23/19 02/23/19 01:40 01:47 Temperature Heart Rate 86 84 Respiratory 17 17 Rate Blood Pressure 173/112 H 170/105 H O2 Saturation 98 98 Oxygen O2 Source Room air - Labs Labs: Laboratory Tests 02/22/19 02/22/19 02/22/19 22:14 22:14 22:14 WBC 5.8 RBC 4.48 L Hgb 13.3 L Hct 39.8 L MCV 88.8 MCH 29.7 MCHC 33.5 RDW 14.3 Plt Count 170 MPV 7.5 Neut # (Auto) 3.8 Lymph # (Auto) 1.3 L [place] # (Auto) 0.5 Eos # (Auto) 0.2 Baso # (Auto) 0.1 Absolute Nucleated RBC 0.00 Nucleated RBC % 0.0 PT 44.4 H INR 4.0 H Sodium 140 Potassium 3.4 L Chloride 103 Carbon Dioxide 21 Anion Gap 16.0 H BUN 21 H Creatinine 0.9 Estimated GFR (MDRD) 80 L Glucose 127 H Calcium 9.0 Total Bilirubin 1.2 H AST 23 ALT 19 Alkaline Phosphatase 57 Total Protein 6.5 L Albumin 3.9 Globulin 2.6 Albumin/Globulin Ratio 1.5 Lipase 245 H Ethyl Alcohol 138.8 - Rads (name of study) CT head Radiology: See rad report CT c-spine Radiology: See rad report PD MEDICAL DECISION MAKING - ED course Complexity details: re-evaluated patient, d/w patient, d/w family ED course: Patient CBC is normal. He has a mild elevation of his BUN at 21 blood sugar was 127. His lipase is high at 245 but he denies any abdominal pain in his abdomen is soft. He has had elevated lipase in the past but never this high. His alcohol level is 138. Departure - Departure Disposition: 01 Home, Self Care Clinical Impression: Abrasion of forehead, Skin tear of right hand without complication, Abrasion forearm, Intoxication Condition: Good Instructions: ED Abrasion, ED Head Injury Closed, ED Contusion Upper Extr Ch Follow-Up: Yue Baptiste MD [Primary Care Provider] - Comments: Keep the wounds clean and covered. You should hold your Coumadin dose tomorrow because your INR is 4.0 contact your primary care provider about when to resume dosing. If you develop abdominal pain or are vomiting you should be reevaluated. Discuss with your primary care provider about retesting the lipase. Discharge Date/Time: 02/23/19 02:04
[2019-02-22 22:26] LABS: BASOPHILS # (AUTO) 0.1 10^3/uL (0.0-0.1); BASOPHILS % (AUTO) 0.9 %; EOSINOPHILS # (AUTO) 0.2 10^3/uL (0.0-0.7); EOSINOPHILS % (AUTO) 3.7 %; HGB - HEMOGLOBIN 13.3 g/dL (14.0-18.0); LYMPHOCYTES # (AUTO) 1.3 10^3/uL (1.5-3.5); LYMPHOCYTES % (AUTO) 21.6 %; MEAN CORPUSCULAR HEMOGLOBIN 29.7 pg (27.0-31.0); MEAN CORPUSCULAR HGB CONC 33.5 g/dL (32.0-36.0); MEAN CORPUSCULAR VOLUME 88.8 fL (80.0-94.0); MEAN PLATELET VOLUME 7.5 fL (7.4-11.4); MONOCYTES # (AUTO) 0.5 10^3/uL (0.0-1.0); MONOCYTES % (AUTO) 8.4 %; NEUTROPHILS # (AUTO) 3.8 10^3/uL (1.5-6.6); NEUTROPHILS % (AUTO) 65.4 %; PLT - PLATELET COUNT 170 10^3/uL (130-450); RED BLOOD COUNT 4.48 10^6/uL (4.70-6.10); RED CELL DISTRIBUTION WIDTH 14.3 % (12.0-15.0); WHITE BLOOD COUNT 5.8 x10^3/uL (4.8-10.8)
[2019-02-22 22:36] LABS: ALBUMIN 3.9 g/dL (3.2-5.5); ALBUMIN/GLOBULIN RATIO 1.5 (1.0-2.2); BILIRUBIN,TOTAL 1.2 mg/dL (0.2-1.0); CREATININE 0.9 mg/dL (0.6-1.2); TOTAL PROTEIN 6.5 g/dL (6.7-8.2)
--- NOTE | 2019-02-22 22:58 | CT Report ---
Reason: trauma; intoxicated Procedure Date: 02/22/2019 Accession Number: [id number] / [id number] Procedure: CT - HEAD WO CPT Code: FULL RESULT: EXAM: CT HEAD EXAM DATE: 02/22/2019 10:35 PM. CLINICAL HISTORY: Trauma; intoxicated. COMPARISON: CT HEAD W/O 03/30/2017 11:13 AM. TECHNIQUE: Multiaxial CT images were obtained from the foramen magnum to the vertex. Reformats: Sagittal and coronal. IV contrast: None. In accordance with CT protocol optimization, one or more of the following dose reduction techniques were utilized for this exam: automated exposure control, adjustment of mA and/or KV based on patient size, or use of iterative reconstructive technique. FINDINGS: Parenchyma: No intraparenchymal hemorrhage. No evidence of mass, midline shift, or CT findings of infarction. Black-white differentiation is distinct. Moderate chronic microvascular change in the deep white matter appears stable. Extraaxial Spaces: Moderate age-related generalized cerebral volume loss is stable. No subdural or epidural collections identified. Ventricles: Mild ventricular prominence is in proportion to the degree of atrophy and unchanged. No evidence of hydrocephalus. Sinuses and Orbits: A small retention cyst or polyp in the inferior right maxillary sinus is unchanged. No sinus fluid levels. Mild ethmoid air cell mucosal thickening. Bones: No evidence of fracture or calvarial defect. Other: None. IMPRESSION: 1. No acute intracranial abnormality. No significant change compared to prior head CT 03/30/2017. 2. Moderate age-related generalized cerebral volume loss and chronic microvascular change is stable. RADIA
--- NOTE | 2019-02-22 23:18 | CT Report ---
Reason: trauma; intoxicated Procedure Date: 02/22/2019 Accession Number: [id number] / [id number] Procedure: CT - CERVICAL SPINE WO CPT Code: FULL RESULT: EXAM: CT CERVICAL SPINE WITHOUT CONTRAST DATE: 02/22/2019 10:38 PM. HISTORY: Trauma; intoxicated. COMPARISONS: None. TECHNIQUE: Thin-section axial images were acquired of the cervical spine without contrast. Post-processing: Coronal and sagittal reformats. Other: None. In accordance with CT protocol optimization, one or more of the following dose reduction techniques were utilized for this exam: automated exposure control, adjustment of mA and/or KV based on patient size, or use of iterative reconstructive technique. FINDINGS: Alignment: There is a 2 mm degenerative anterolisthesis at C4-C5. Alignment is otherwise maintained. Bones: No fracture or bone lesion. There is ankylosis of the cervical vertebral bodies from C2-C4 and from C5-T1. The C4-C5 level does not appear fused. However, there is no evidence of an acute fracture. Interspace Levels/Facets: C1-C2: There is mild degenerative change. Predental space is normal. No canal stenosis. C2-C3: There is prominent right greater than left facet hypertrophy. Moderate right foraminal stenosis. No significant canal or left foraminal stenosis. C3-C4: Prominent bilateral facet hypertrophy results in moderate to severe right and severe left foraminal stenosis. No significant central canal stenosis. C4-C5: There is a 2 mm degenerative anterolisthesis. Prominent anterior osteophyte formation is noted. Posterior osseous ridging mildly narrows the central canal. There is moderate to severe bilateral foraminal stenosis due to uncovertebral and facet hypertrophy. C5-C6: Posterior osseous ridging causes mild to moderate central canal stenosis. Moderate right and severe left foraminal stenosis due to uncovertebral and facet hypertrophy. C6-C7: Mild bilateral foraminal narrowing. No central canal stenosis. C7-T1: Mild bilateral foraminal narrowing. No significant canal stenosis. Musculature: Normal. No fatty atrophy. Other: The paravertebral and prevertebral soft tissues are unremarkable. The lung apices are clear. IMPRESSION: 1. There is no acute osseous abnormality of the cervical spine. No evidence of a fracture or acute subluxation. 2. There is multilevel cervical spondylosis with ankylosis of the cervical vertebral bodies from C2-C4 and from C5-T1. The C4-C5 level appears under fused. There is a 2 mm degenerative anterolisthesis at C4-C5. 3. Spondylosis results in a mild degree of canal stenosis at C4-C5 and mild to moderate canal stenosis at C5-C6. There is multilevel bilateral foraminal stenosis as detailed above. RADIA
[2019-02-23 01:16] LABS: PT - PROTHROMBIN TIME 44.4 secs (9.9-12.6)
[2019-02-23 01:48] VITALS: BP 170/105
== END 2019-02-23 02:04 | disposition home or self-care (01) ==
LOC: EDUNIT# → ED 22:05
DX: S61.411A Laceration without foreign body of right hand, initial encounter (principal); S00.81XA Abrasion of other part of head, initial encounter; S50.811A Abrasion of right forearm, initial encounter; F10.129 Alcohol abuse with intoxication, unspecified; Y90.6 Blood alcohol level of 120-199 mg/100 ml; W01.0XXA Fall on same level from slipping, tripping and stumbling without subsequent striking against object, initial encounter; Y92.099 Unspecified place in other non-institutional residence as the place of occurrence of the external cause; I11.0 Hypertensive heart disease with heart failure; I50.9 Heart failure, unspecified; I25.10 Atherosclerotic heart disease of native coronary artery without angina pectoris; I48.91 Unspecified atrial fibrillation; E11.9 Type 2 diabetes mellitus without complications; N40.1 Benign prostatic hyperplasia with lower urinary tract symptoms; R35.1 Nocturia; H54.7 Unspecified visual loss; H91.90 Unspecified hearing loss, unspecified ear; M19.90 Unspecified osteoarthritis, unspecified site; Z79.01 Long term (current) use of anticoagulants; Z79.82 Long term (current) use of aspirin; Z79.84 Long term (current) use of oral hypoglycemic drugs; Z87.440 Personal history of urinary (tract) infections
CPT/HCPCS: 70450; 72125; 80053; 80320; 83690; 85025; 85610; 99283

== ENCOUNTER 2019-02-28 17:32 | Outpatient (CLI) | payer MEDICARE, OTHER | END 2019-02-28 23:59 | disposition home or self-care (01) | LOC: LAB.R 17:32 | PROVIDERS: ATTEND Family Medicine | DX: S60.511A Abrasion of right hand, initial encounter (principal) | CPT/HCPCS: 87070; 87181; 87205 ==

== ENCOUNTER 2019-03-07 15:44 | Outpatient (CLI) | payer MEDICARE, OTHER | END 2019-03-07 23:59 | disposition home or self-care (01) | LOC: LAB.R 15:44 | PROVIDERS: ATTEND Family Medicine | DX: S40.819A Abrasion of unspecified upper arm, initial encounter (principal) | CPT/HCPCS: 87070; 87077; 87181; 87205 ==

== ENCOUNTER 2019-07-24 08:00 | Outpatient (CLI) | payer MEDICARE, MEDICAID | END 2019-07-24 23:59 | disposition home or self-care (01) | LOC: LAB.WCP 08:00 | PROVIDERS: ATTEND Physician Assistant Medical | DX: Z79.01 Long term (current) use of anticoagulants (principal); I48.91 Unspecified atrial fibrillation ==

== ENCOUNTER 2019-08-23 08:00 | Outpatient (CLI) | payer MEDICARE, MEDICAID | END 2019-08-23 23:59 | disposition home or self-care (01) | LOC: LAB.WCP 08:00 | PROVIDERS: ATTEND Family Medicine | DX: Z79.01 Long term (current) use of anticoagulants (principal); I48.91 Unspecified atrial fibrillation ==

== ENCOUNTER 2019-09-21 08:00 | Outpatient (CLI) | payer MEDICARE, MEDICAID | END 2019-09-21 23:59 | disposition home or self-care (01) | LOC: LAB.WCP 08:00 | PROVIDERS: ATTEND Family Medicine | DX: Z79.01 Long term (current) use of anticoagulants (principal); I48.91 Unspecified atrial fibrillation ==

== ENCOUNTER 2019-10-04 08:00 | Outpatient (CLI) | payer MEDICARE, MEDICAID | END 2019-10-04 23:59 | disposition home or self-care (01) | LOC: LAB.WCP 08:00 | PROVIDERS: ATTEND Family Medicine | DX: Z79.01 Long term (current) use of anticoagulants (principal); I48.91 Unspecified atrial fibrillation ==

== ENCOUNTER 2019-10-19 08:00 | Outpatient (CLI) | payer MEDICARE, MEDICAID | END 2019-10-19 23:59 | disposition home or self-care (01) | LOC: LAB.WCP 08:00 | PROVIDERS: ATTEND Family Medicine | DX: Z79.01 Long term (current) use of anticoagulants (principal); I48.91 Unspecified atrial fibrillation ==

== ENCOUNTER 2019-10-27 08:00 | Outpatient (CLI) | payer MEDICARE, MEDICAID | END 2019-10-27 23:59 | disposition home or self-care (01) | LOC: LAB.WCP 08:00 | PROVIDERS: ATTEND Family Medicine | DX: Z79.01 Long term (current) use of anticoagulants (principal); I48.91 Unspecified atrial fibrillation ==

== ENCOUNTER 2019-11-03 08:00 | Outpatient (CLI) | payer MEDICARE, MEDICAID | END 2019-11-03 23:59 | disposition home or self-care (01) | LOC: LAB.WCP 08:00 | PROVIDERS: ATTEND Family Medicine | DX: I48.91 Unspecified atrial fibrillation (principal); Z79.01 Long term (current) use of anticoagulants ==

== ENCOUNTER 2020-08-16 09:47 | Outpatient (CLI) | payer MEDICARE, MEDICAID | END 2020-08-16 09:48 | disposition home or self-care (01) | LOC: DI 09:47 | PROVIDERS: ATTEND Family Medicine | DX: I48.91 Unspecified atrial fibrillation (principal); I51.7 Cardiomegaly; I87.8 Other specified disorders of veins | CPT/HCPCS: 93306 ==

== ENCOUNTER 2021-04-01 08:00 | Outpatient (CLI) | payer MEDICARE, MEDICAID ==
[2021-04-01 18:42] LABS: BASOPHILS % (AUTO) 0.6 %; EOSINOPHILS # (AUTO) 0.1 10^3/uL (0.0-0.7); EOSINOPHILS % (AUTO) 1.5 %; HCT - HEMATOCRIT 37.7 % (42.0-52.0); HGB - HEMOGLOBIN 12.2 g/dL (14.0-18.0); LYMPHOCYTES # (AUTO) 1.2 10^3/uL (1.5-3.5); LYMPHOCYTES % (AUTO) 16.1 %; MEAN CORPUSCULAR HEMOGLOBIN 29.6 pg (27.0-31.0); MEAN CORPUSCULAR HGB CONC 32.4 g/dL (32.0-36.0); MEAN CORPUSCULAR VOLUME 91.5 fL (80.0-94.0); MEAN PLATELET VOLUME 10.6 fL (7.4-11.4); MONOCYTES # (AUTO) 0.6 10^3/uL (0.0-1.0); MONOCYTES % (AUTO) 8.5 %; NEUTROPHILS # (AUTO) 5.3 10^3/uL (1.5-6.6); NEUTROPHILS % (AUTO) 72.9 %; PLT - PLATELET COUNT 164 10^3/uL (130-450); RED BLOOD COUNT 4.12 10^6/uL (4.70-6.10); RED CELL DISTRIBUTION WIDTH 14.2 % (12.0-15.0); WHITE BLOOD COUNT 7.2 x10^3/uL (4.8-10.8)
[2021-04-01 18:45] LABS: ALBUMIN 4.1 g/dL (3.2-5.5); ALBUMIN/GLOBULIN RATIO 1.7 (1.0-2.2); ALKALINE PHOSPHATASE 52 IU/L (42-121); ALT ALANINE AMINOTRANSFERASE 12 IU/L (10-60); AST ASPARTATE AMINOTRANSFERASE 17 IU/L (10-42); BILIRUBIN,TOTAL 1.6 mg/dL (0.2-1.0); BUN - BLOOD UREA NITROGEN 24 mg/dL (6-20); CARBON DIOXIDE - CO2 28 mmol/L (21-32); CHLORIDE 100 mmol/L (101-111); CHOL/HDL RATIO 2.7 (<5.0); CHOLESTEROL 168 mg/dL; CREATININE 1.1 mg/dL (0.6-1.2); GFR - MDRD 63 (>89); GLUCOSE 111 mg/dL (70-100); HDL CHOLESTEROL 63 mg/dL; LDL CHOLESTEROL,CALCULATED 78 mg/dL; LDL/HDL RATIO 1.2 (<3.6); POTASSIUM 3.8 mmol/L (3.5-5.0); SODIUM 139 mmol/L (135-145); TOTAL PROTEIN 6.5 g/dL (6.7-8.2); TRIGLYCERIDES 134 mg/dL; VLDL CHOLESTEROL 27 mg/dL
[2021-04-01 18:52] LABS: CREATININE,URINE 117.3 mg/dL; MICROALBUM/CREATININE RATIO,UR 18.8 ug/mg (<30.0); MICROALBUMIN,URINE 2.2 mg/dL (0-300.0)
[2021-04-01 20:52] LABS: ESTIMATED AVERAGE GLUCOSE 131 mg/dL (70-100); HEMOGLOBIN A1c% 6.2 % (4.27-6.07)
== END 2021-04-01 23:59 | disposition home or self-care (01) ==
LOC: LAB.WCP 08:00
PROVIDERS: ATTEND Family Medicine
DX: E11.9 Type 2 diabetes mellitus without complications (principal)
CPT/HCPCS: 36415; 80053; 80061; 82043; 82570; 83036; 83721; 85025

== ENCOUNTER 2021-09-19 08:00 | Outpatient (CLI) | payer MEDICARE, MEDICAID | END 2021-09-19 23:59 | disposition home or self-care (01) | LOC: LAB.WCP 08:00 | PROVIDERS: ATTEND Nurse Practitioner Family | DX: I48.91 Unspecified atrial fibrillation (principal); Z79.01 Long term (current) use of anticoagulants ==

== ENCOUNTER 2022-01-09 14:56 | Outpatient (CLI) | payer MEDICARE, MEDICAID | END 2022-01-09 14:57 | disposition critical access hospital (66) | LOC: EMS 14:56 | DX: R53.83 Other fatigue (principal); R53.1 Weakness | CPT/HCPCS: A0425; A0429 ==

== ENCOUNTER 2022-01-09 15:13 | Inpatient (IN) | payer MEDICARE, MEDICAID ==
[2022-01-09] MEDS ORDERED: SODIUM CHLORIDE 0.9% 1,000 ML IV STA (15:23)
--- NOTE | 2022-01-09 15:25 | ED Physician Documentation ---
History of Present Illness - Stated complaint Stated Complaint: WEAKNESS - History obtained from History obtained from: Patient, EMS - Additonal information Additional information: 86-year-old gentleman with history of peripheral vascular disease, type 2 diabetes, A. fib presents from assisted living by ambulance for generalized weakness. He is a vague historian, and does not know how long its been going on. It was noted today by the assisted living staff though. Patient is generally without complaint. When asked why he is here he basically just says he feels weak. When asked the timeframe of how long he has felt weak he larisa peace says forever. He denies any other specific complaints. No chest pain, trouble breathing, GI issues, trouble urinating. He has chronic wounds which look like they are related to peripheral vascular disease to the lower extremities. Review of Systems Ten Systems: 10 systems reviewed and negative Constitutional: reports: Fatigue. 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 : Benign prostate hypertrophy, Chronic bladder infection, Nocturia HEENT: Chronic vision loss, Chronic hearing loss Psych: None Musculoskeletal: Osteoarthritis Derm: Other - Past Surgical History Past Surgical History: Yes General: Cholecystectomy - Present Medications Home Medications: Ambulatory Orders Medication Instructions Recorded Confirmed Metformin HCl 500 mg PO BIDWM 02/28/18 01/09/22 Metoprolol Succinate 25 mg PO DAILY 02/28/18 01/09/22 Spironolactone 25 mg PO DAILY 02/28/18 01/09/22 cloNIDine HCL [Clonidine HCl] 0.1 mg PO BID 02/28/18 01/09/22 Aspirin [[place] Aspirin] 81 mg PO DAILY 01/09/22 01/09/22 Atorvastatin [Lipitor] 20 mg PO QPM 01/09/22 01/09/22 Telmisartan 80 mg PO DAILY 01/09/22 01/09/22 hydroCHLOROthiazide [Hydrodiuril] 25 mg PO DAILY 01/09/22 01/09/22 - Allergies Allergies/Adverse Reactions: Allergies Allergy/AdvReac Type Severity Reaction Status Date / Time No Known Drug Allergies Allergy Verified 01/09/22 15:25 - Social History Does the pt smoke?: No Smoking Status: Never smoker Does the pt drink ETOH?: Yes Does the pt have substance abuse?: No - Immunizations Immunizations are current?: No Immunizations: TDAP >10years/unknown - POLST Patient has POLST: No POLST Status: Full Code PD ED PE NORMAL - Vitals Vital signs reviewed: Yes - General General: No acute distress - HEENT HEENT: PERRL, EOMI - Neck Neck: Supple, no meningeal sign, No bony TTP - Cardiac Cardiac: Other (Irregularly irregular with distant heart sounds; Limited bedside echocardiography demonstrates no pericardial effusion) - Respiratory Respiratory: No respiratory distress, Clear bilaterally - Abdomen Abdomen: Normal bowel sounds, Soft, Non tender - Back Back: No CVA TTP, No spinal TTP - Derm Derm: Normal color, Warm and dry - Extremities Extremities: Other (Venous stasis changes and some small noninfected ulcers on both lower extremities) - Neuro Eye Opening: Spontaneous Motor: Obeys Commands Verbal: Oriented GCS Score: 15 Results - Vitals Vitals: Vital Signs - 24 hr 01/09/22 01/09/22 15:20 15:25 Temperature 36.4 C L 36.5 C Heart Rate 83 83 Respiratory 14 14 Rate Blood Pressure 105/77 105/77 O2 Saturation 99 99 Oxygen O2 Source Room air - EKG (time done) 1533 Rate: Rate (enter#) (93) Rhythm: Atrial fibrillation (w pvc) QRS: Low voltage Ischemia: Normal ST segments - Labs Labs: Laboratory Tests 01/09/22 01/09/22 16:25 16:25 WBC 12.9 H RBC 4.20 L Hgb 12.6 L Hct 37.6 L MCV 89.5 MCH 30.0 MCHC 33.5 RDW 13.1 Plt Count 312 MPV 9.6 Neut # (Auto) 11.3 H Lymph # (Auto) 0.9 L Izard # (Auto) 0.4 Eos # (Auto) 0.0 Baso # (Auto) 0.0 Absolute Nucleated RBC 0.00 Nucleated RBC % 0.0 Sodium 137 Potassium 3.5 Chloride 96 L Carbon Dioxide 25 Anion Gap 16.0 H BUN 44 H Creatinine 2.0 H Estimated GFR (MDRD) 32 L Glucose 134 H Calcium 9.0 Magnesium 1.8 Total Bilirubin 1.3 H AST 16 ALT 11 Alkaline Phosphatase 65 Total Protein 6.4 L Albumin 3.3 Globulin 3.1 Albumin/Globulin Ratio 1.1 Ethyl Alcohol < 5.0 Procedures - General procedure General procedure: He was difficult for IV access, the nurses had tried and failed. I tried several times in the right arm with real-time ultrasound guidance without success. Subsequently was able to place a 22-gauge IV in the left cephalic vein using real-time ultrasound guidance and blood was drawn. PD MEDICAL DECISION MAKING - ED course ED course: 86-year-old gentleman presents with nonspecific complaints. Prehospital he had a low blood pressure at 90/50. Work-up here demonstrates that he has acute appearing kidney injury. Usual creatinine is right around 1.0 and his usual BUN is in the low 20s. An IV was placed and he was given a first and after labs a second liter of IV crystalloid. Presented to Dr. Irwin for obs at 5:15 PM. I tried to call his by phone and left a voicemail without call back during my shift. Departure - Departure Disposition: ED Place in Observation Clinical Impression: Weakness, LYLE (acute kidney injury), Dehydration Condition: Stable Discharge Date/Time: 01/09/22 18:25
[2022-01-09 16:33] LABS: BASOPHILS % (AUTO) 0.2 %; EOSINOPHILS % (AUTO) 0.1 %; HCT - HEMATOCRIT 37.6 % (42.0-52.0); HGB - HEMOGLOBIN 12.6 g/dL (14.0-18.0); LYMPHOCYTES # (AUTO) 0.9 10^3/uL (1.5-3.5); LYMPHOCYTES % (AUTO) 6.6 %; MEAN CORPUSCULAR HGB CONC 33.5 g/dL (32.0-36.0); MEAN CORPUSCULAR VOLUME 89.5 fL (80.0-94.0); MEAN PLATELET VOLUME 9.6 fL (7.4-11.4); MONOCYTES # (AUTO) 0.4 10^3/uL (0.0-1.0); MONOCYTES % (AUTO) 3.4 %; NEUTROPHILS # (AUTO) 11.3 10^3/uL (1.5-6.6); PLT - PLATELET COUNT 312 10^3/uL (130-450); RED CELL DISTRIBUTION WIDTH 13.1 % (12.0-15.0); WHITE BLOOD COUNT 12.9 x10^3/uL (4.8-10.8)
[2022-01-09 16:53] LABS: ALBUMIN 3.3 g/dL (3.2-5.5); ALBUMIN/GLOBULIN RATIO 1.1 (1.0-2.2); ALKALINE PHOSPHATASE 65 IU/L (42-121); ALT ALANINE AMINOTRANSFERASE 11 IU/L (10-60); AST ASPARTATE AMINOTRANSFERASE 16 IU/L (10-42); BILIRUBIN,TOTAL 1.3 mg/dL (0.2-1.0); BUN - BLOOD UREA NITROGEN 44 mg/dL (6-20); CARBON DIOXIDE - CO2 25 mmol/L (21-32); CHLORIDE 96 mmol/L (101-111); ETOH - ETHANOL < 5.0 mg/dL; GFR - MDRD 32 (>89); GLUCOSE 134 mg/dL (70-100); MAGNESIUM 1.8 mg/dL (1.7-2.8); POTASSIUM 3.5 mmol/L (3.5-5.0); SODIUM 137 mmol/L (135-145); TOTAL PROTEIN 6.4 g/dL (6.7-8.2)
[2022-01-09] MEDS ORDERED: LACTATED RINGERS 1,000 ML IV STA (16:56)
[2022-01-09] MEDS ORDERED: ONDANSETRON 4 MG/2 ML VIAL IVP PRN (17:13)
[2022-01-09] MEDS ORDERED: SODIUM CHLORIDE FLUSH 0.9% 10 ML SYRINGE IVP PRN (17:13)
[2022-01-09] MEDS ORDERED: oxyCODONE 5 MG TABLET PO PRN (17:13)
[2022-01-09] MEDS ORDERED: ONDANSETRON ODT 4 MG TABLET TL PRN (17:13)
[2022-01-09] MEDS ORDERED: ACETAMINOPHEN 325 MG TABLET PO PRN (17:13)
--- NOTE | 2022-01-09 17:29 | PHARMACY PROGRESS NOTE ---
- Best Possible Medication History Admit Date and Time: Processed by: Pharmacy Medication History completed: Yes Secondary Source(s): Facility MAR as ONLY source As the person ultimately responsible for medication therapy, providers are able to order a medication from an existing home medication list in [facility] via the "Reconcile Routine" prior to Confirmation of that medication by it desktop support technician. Such practice is discouraged except when the physician, in their clinical judgment, deems that a medical need exists for a medication without regard to previous use.
[2022-01-09] MEDS: SODIUM CHLORIDE 0.9% 1,000 ML IV SCH (19:03)
[2022-01-09] MEDS ORDERED: ZINC OXIDE 20% OINT 30 GM TUBE TOP PRN (21:40)
[2022-01-09] MEDS ORDERED: ZINC OXIDE 20% OINT 30 GM TUBE TOP ONE (22:06)
[2022-01-10] MEDS: SODIUM CHLORIDE FLUSH 0.9% 10 ML SYRINGE IVP SCH ×3 (04:17→16:49)
[2022-01-10] MEDS: SODIUM CHLORIDE 0.9% 1,000 ML IV SCH ×2 (04:17→14:40)
[2022-01-10 06:47] LABS: CALCIUM 8.4 mg/dL (8.5-10.3); POTASSIUM 3.1 mmol/L (3.5-5.0)
--- NOTE | 2022-01-10 10:15 | HISTORY & PHYSICAL EXAMINATION ---
Chief Complaint - Chief Complaint Chief Complaint: Generalized Weakness History of Present Illness - Admitted From Admitted From:: Senior Living Facility - History Obtained From History obtained from: ED eval; patient records Exam Limitations: Pt is poor historian - History of Present Illness HPI Comment/Other: Pt is a pleasant 86 year old man who is being admitted for generalized weakness. Pt has a hx of DM II, afib, CHF, CAD, PVD, and GERD. Pt is oriented to place, time, person, but disoriented to situation. Pt currently resides at [facility]. When asked, pt is unsure why he is currently admitted, but reports improvement in condition. Pt is a poor historian and denies any medical or surgical history. Pt endorses that both his parents are still living. In the ED the patient was found to be hypotensive with an elevated BUN and creatinine. Pt continues to have volume repletion via IV and electrolyte replacement PO at this time. 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 Pt unable to recollect for how long. Pt has lived on [facility] for the past 25 years and lived in [place] prior to that. Pt lived with until her 5 months ago. Pt has four kids, two boys and two girls. Both sons and one daughter live on [facility]. The other daughter lives on the [facility]. 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 Living arrangement: Assisted living ([facility]) - Substance History Use: Uses substance without health or social issues: NONE - POLST Patient has POLST: No POLST Status: Full Code Meds/Allgy - Home Medications Home Medications: Ambulatory Orders Medication Instructions Recorded Confirmed Metformin HCl 500 mg PO BIDWM 02/28/18 01/09/22 Metoprolol Succinate 25 mg PO DAILY 02/28/18 01/09/22 Spironolactone 25 mg PO DAILY 02/28/18 01/09/22 cloNIDine HCL [Clonidine HCl] 0.1 mg PO BID 02/28/18 01/09/22 Aspirin [[place] Aspirin] 81 mg PO DAILY 01/09/22 01/09/22 Atorvastatin [Lipitor] 20 mg PO QPM 01/09/22 01/09/22 Telmisartan 80 mg PO DAILY 01/09/22 01/09/22 hydroCHLOROthiazide [Hydrodiuril] 25 mg PO DAILY 01/09/22 01/09/22 - Allergies Allergies/Adverse Reactions: Allergies Allergy/AdvReac Type Severity Reaction Status Date / Time No Known Drug Allergies Allergy Verified 01/09/22 15:25 Review of Systems - Constitutional Constitutional: reports: Weakness (feels improved) - Eyes Eyes: reports: Corrective lenses - Gastrointestinal Gastrointestinal: reports: Reflux/heartburn - Integumentary Integumentary: reports: Other (Chronic wounds on shins bilaterally) - All Other Systems All Other Systems: reports: Reviewed and negative Exam - Vital Signs Reviewed Vital Signs: Yes Vital Signs: Vital Signs x48h Temp Pulse Resp BP Pulse Ox 01/10/22 07:45 36.5 C 97 18 117/64 100 - Physical Exam General Appearance: positive: No acute distress Eyes Bilateral: positive: Normal inspection, PERRL ENT: positive: ENT inspection nml Neck: positive: Nml inspection Respiratory: positive: Chest non-tender, No respiratory distress, Other (Inspiratory wheezing) Cardiovascular: positive: Irregularly irregular Abdomen: positive: Non-tender, No organomegaly, Nml bowel sounds, No distention Back: positive: Nml inspection Skin: positive: Warm, Dry (Pt has ecchymosis on hands bilaterally. Bilateral chronic wounds on shins. Pt has no recollection of how long they have been there.), Other Extremities: positive: Non-tender, No pedal edema Neurologic/Psychiatric: positive: Other (Oriented to self, location, and time. Disoriented to situation. Unable to recound past medical history, if parents are still living.) Conclusion/Plan - Problem List (1) LYLE (acute kidney injury) Conclusion/Plan: Pt has received a total of ~1500mL of IV fluids and has only yielded an output of 300mL. Pt's BUN in the ED was 44 and has improved to 42 as of 01/10 @0600. Creatinine drawn in the ED was 2.0 and still remains 2.0 01/10 @0600. Anion gap in ED was 16, has improved to 13 @01/10 0600 Plan: 1. Continue IV fluids 2. Encourage PO fluids 3. Monitor I/Os, repeat BMP 4. Check renal US for obstruction (2) Hypokalemia Conclusion/Plan: Pt's initial serum K was WNL, most recent serum K on 01/10 600 is 3.1. Plan: 1. PO electrolyte replacement 2. Recheck BMP (3) Weakness Conclusion/Plan: Pt is a vague historian. Pt reports ambulating independently at SNF with walker and is able to do the same here Plan: 1. Encourage PO intake 2. Continue to monitor mobility and assess for changes (4) Dementia Conclusion/Plan: Pt is oriented x3, disoriented to situation. Pt is able to recall parts of family history. However was unsure of 's cause of and whether his parents were still living. Pt was also unable to tell me how many siblings he had and details of his condition including medical history and pas surgical history. Qualifiers: Dementia type: unspecified type Dementia behavioral disturbance: without behavioral disturbance Qualified Code(s): F03.90 - Unspecified dementia without behavioral disturbance - Lab Results Fish Bones: 01/09/22 16:25 01/10/22 06:12 Core Measures - DVT/VTE - Prophylaxis VTE/DVT Device ordered at admit?: Yes VTE/DVT Prophylaxis med ordered at admit?: Yes
[2022-01-10] MEDS ORDERED: POTASSIUM CHLORIDE 20 MEQ TABLET PO ONE (10:26)
[2022-01-10] MEDS ORDERED: LACTATED RINGERS 500 ML IV ONE (11:47)
[2022-01-10 14:13] LABS: BILIRUBIN,URINE NEGATIVE (NEGATIVE); GLUCOSE, URINE (UA) NEGATIVE (NEGATIVE); KETONES,URINE (UA) NEGATIVE (NEGATIVE); LEUKOCYTE ESTERASE, URINE NEGATIVE (NEGATIVE); NITRITE,URINE NEGATIVE (NEGATIVE); OCCULT BLOOD,URINE NEGATIVE (NEGATIVE); PROTEIN,URINE NEGATIVE (NEGATIVE); UROBILINOGEN,URINE 0.2 (NORMAL) E.U./dL (NORMAL)
[2022-01-10 14:22] LABS: CLARITY,URINE CLEAR (CLEAR)
--- NOTE | 2022-01-10 17:29 | HISTORY & PHYSICAL EXAMINATION ---
History and Physical - History and Physical This is a brief admission note on this patient. He lives in a assisted living facility. Has moderate to severe dementia. He will be seen for a full history and physical within 24 hours according to our bylaws. She presents from assisted living facility for generalized weakness. Because of his dementia he is not really able to share much with us. He was brought in by EMS because of fatigue, weakness, and was "slow to follow commands". Because the patient is a poor historian I do not trust him with regards to chest pain, shortness of breath denial. He walks with a walker at bedtime. Temperature 36.4. Heart rate 83. Blood pressure 105/77. Respirations 14. 99% on room air. Past medical history of peripheral vascular disease, type 2 diabetes, chronic atrial fibrillation not on formal anticoagulation. He is an alert, oriented gentleman and that he knows that he is in the hospital but he does not know why. Irregularly irregular heart rate. Lungs are clear bilaterally. No crackles or rhonchi. No JVD. Extremities are remarkable for chronic venous stasis changes and some skin wounds. Sodium 137. Potassium 3.5. BUN 44. Creatinine 2.0. Baseline creatinine is 0.9-1.1 in this gentleman. White cell count 12.9. Hemoglobin 12.6. Assessment/plan elderly gentleman with dementia, diabetes, peripheral vascular disease that presents with generalized weakness and the only thing we can find is an elevated BUN and creatinine and must assume dehydration. He is stable. Will be seen for full history and physical tomorrow.
--- NOTE | 2022-01-10 19:08 | Ultrasound Report ---
PROCEDURE: Retroperitoneal INDICATIONS: renal failure TECHNIQUE: Real-time scanning was performed of the retroperitoneal organs, with image documentation. COMPARISON: None. FINDINGS: Kidneys: Kidneys are normal in size. Right kidney measures 10.1 cm long; left kidney measures 10.2 cm long. Right renal cortical thickness is 1.5 cm; left renal cortical thickness is 1.3 cm. No caitlin d masses, hydronephrosis, or nephrolithiasis. There is overall appearance of increased echogenicity bilaterally. Simple right renal cyst is present measuring 1.3 x 1.2 cm as well as parapelvic cysts. Bladder: Pre-void bladder volume is 155 mL. Post-void residual is 155 mL. Pre-void images demonstr ate no intraluminal masses or stones. On pre-void images, bilateral ureteral jets are noted with col or Doppler interrogation. (Of note, ureteral jets may not be detectable in up to 25% of cases due to insufficient differences in specific gravity between ureteral and bladder urine). Resting gland is enlarged. Miscellaneous: No free abdominal fluid. IMPRESSION: Mild increased echogenicity of the kidneys suggestive of medical renal disease. No obstruction. Prostate hypertrophy is present. Large post void residual as patient was unable to void. Reviewed by: Flora Luis MD on 01/10/2022 7:07 PM PDT Approved by: Flora Luis MD on 01/10/2022 7:07 PM PDT Station ID: [id number]
[2022-01-11] MEDS: SODIUM CHLORIDE 0.9% 1,000 ML IV SCH (01:06)
[2022-01-11] MEDS: SODIUM CHLORIDE FLUSH 0.9% 10 ML SYRINGE IVP SCH (01:07)
[2022-01-11 05:24] LABS: BASOPHILS % (AUTO) 0.7 %; EOSINOPHILS # (AUTO) 0.1 10^3/uL (0.0-0.7); EOSINOPHILS % (AUTO) 1.3 %; HCT - HEMATOCRIT 32.2 % (42.0-52.0); HGB - HEMOGLOBIN 10.9 g/dL (14.0-18.0); LYMPHOCYTES % (AUTO) 16.7 %; MEAN CORPUSCULAR HEMOGLOBIN 30.5 pg (27.0-31.0); MEAN CORPUSCULAR HGB CONC 33.9 g/dL (32.0-36.0); MEAN CORPUSCULAR VOLUME 90.2 fL (80.0-94.0); MEAN PLATELET VOLUME 9.5 fL (7.4-11.4); MONOCYTES # (AUTO) 0.4 10^3/uL (0.0-1.0); MONOCYTES % (AUTO) 6.8 %; NEUTROPHILS # (AUTO) 4.4 10^3/uL (1.5-6.6); PLT - PLATELET COUNT 220 10^3/uL (130-450); RED BLOOD COUNT 3.57 10^6/uL (4.70-6.10); RED CELL DISTRIBUTION WIDTH 13.1 % (12.0-15.0); WHITE BLOOD COUNT 6.1 x10^3/uL (4.8-10.8)
[2022-01-11 05:33] LABS: CALCIUM 8.3 mg/dL (8.5-10.3); CREATININE 1.4 mg/dL (0.6-1.2); POTASSIUM 3.2 mmol/L (3.5-5.0)
[2022-01-11] MEDS ORDERED: POTASSIUM CHLORIDE 20 MEQ TABLET PO ONE (07:25)
[2022-01-11 07:33] VITALS: BP 125/88
--- NOTE | 2022-01-11 08:49 | Discharge Plan ---
"Discharge Plan for SNF / [facility] - Discharge Plan And Transition Orders Problem Reviewed?: Yes - SNF / [facility] Transition Orders Admit to (Facility): [facility] Under the care of (Name): Mikaela Abdalla Discharge Diagnosis: LYLE, hypokalemia, weakness, dementia Weight on admission and: Monthly Call PCP immediately if weight increases by: 5 kg Other Notification Orders: Call PCP immediately if patient develops dyspnea, chest pain/tightness or edema. House Bowel Program: Yes Additional Bowel Program Orders: If no BM after 2 days, nurse may give M.O.M. 30ml PO PRN and/or ducolax Supp 1 [place] and/or MAYI 250mg P.O., and/or senna 1-2 tabs PO. On day 3 nurse may give repeat above order until residents constipation is resolved. Annual Influenza Vaccine (between May 14 and December 11): Yes Two-step PPD per [facility] [phone] or approved exception documents: Yes Lab Tests or X-ray Orders: [facility] 01/13 Medication Orders: PLEASE REFER TO THE DISCHARGE MEDICATION LIST. Insulin Orders?: No - Diet Type: No added salt Texture: Regular Liquids: Thin May have monthly special meal: Yes - Therapies | Activity Activity: No Restrictions <Yue Wood - Last Filed: 01/11/22 08:45> - SNF / [facility] Transition Orders Other Notification Orders: Call PCP immediately if patient develops dyspnea, chest pain/tightness or edema. Additional Bowel Program Orders: If no BM after 2 days, nurse may give M.O.M. 30ml PO PRN and/or ducolax Supp 1 [place] and/or MAYI 250mg P.O., and/or senna 1-2 tabs PO. On day 3 nurse may give repeat above order until residents constipation is resolved. Medication Orders: PLEASE REFER TO THE DISCHARGE MEDICATION LIST. Follow Up: Orin Abdalla MD <Laila Irwin - Last Filed: 01/11/22 10:35> - Discharge Plan And Transition Orders Disposition: [facility] DC/Xfer Condition: Good Allergies and Adverse Reactions: Allergies Allergy/AdvReac Type Severity Reaction Status Date / Time No Known Drug Allergies Allergy Verified 01/09/22 15:25 Health Concerns: Per report pt was catatonic and was weaker than baseline. Upon exam pt presented at baseline. Alert and appropriate with care team. Pt was admitted for confusion and generalized weakness from [facility]. Both likely to be from dehydration. Plan of Treatment: While pt was inpatient patient received IV fluids and some potassium replacement. He is on diuretic therapy for history of hypertension. There is no history of congestive heart failure. Because of his dehydration, and electrolyte changes, I have stopped spironolactone. I would asked that his primary care provider see him in follow-up and a BMP and blood pressure be checked next week. Care Goals: Goals of care were to improve serum potassium, monitor I/Os, BUN, and creatinine labs. Assessment: Pt's labs have improved after potassium replacement and IV fluids. Pt's PO intake is good, urine output is appropriate."
--- NOTE | 2022-01-11 11:03 | DISCHARGE SUMMARY ---
"Discharge Summary Admit Date: 01/09/22 Discharge Date: 01/11/22 Discharging Provider: Laila Irwin MD Primary Care Provider: Orin Abdalla Code Status: Attempt Resuscitation Condition at Discharge: Good Discharge Disposition: 03 SNF DC/Xfer Discharge Facility Name: [facility] - DIAGNOSES Admission Diagnoses: LYLE, hypokalemia, weakness, dementia Discharge Diagnoses with Status of Each Condition: LYLE - Improved. See creatinine and BUN hypokalemia - improved see creatinine and BUN weakness - resolved, pt at baseline mentation and mobility dementia- chronic - HPI History of Present Illness: Pt is a pleasant 86 year old man who is being admitted for generalized weakness. Pt has a hx of DM II, afib, CHF, CAD, PVD, and GERD. Pt is oriented to place, time, person, but disoriented to situation. Pt currently resides at [facility]. When asked, pt is unsure why he is currently admitted, but reports improvement in condition. Pt is a poor historian and denies any medical or surgical history. Pt endorses that both his parents are still living. In the ED the patient was found to be hypotensive with an elevated BUN and creatinine. Pt received volume repletion with IV fluids and electrolyte replacement PO. - CONSULTS | PROCEDURES Procedures: EKG - afib per baseline Retroperitoneum US- No obstruction; prostate hypertrophy BMP - bun, creatinine were elevated UA - NEG - HOSPITAL COURSE Hospital Course: Pt was admitted from [facility] with report of altered mental status and ge neralized weakness. Upon exam, patient is at baseline. He is pleasant and mildly confused. He is oriented to self, location, and time, however is disoriented to situation. Some components of fci memory intact such as time spent on [place], other fci components are not. Memories such as if parents are still living and cause of of . During his hospital stay he was found to be dehydrated as evidenced by elevated BUN and creatinine. Anion gap closed after fluids given. Throughout stay patient was given potassium replacement PO. Pt has remained at baseline with mentation and mobility. Discontinued spironolactone. Pt needs to reassess weight, lung exam, and BMP rechecked in about a week - ALLERGIES Allergies/Adverse Reactions: Allergies Allergy/AdvReac Type Severity Reaction Status Date / Time No Known Drug Allergies Allergy Verified 01/09/22 15:25 - MEDICATIONS Home Medications: Ambulatory Orders Medication Instructions Recorded Confirmed Metformin HCl 500 mg PO BIDWM 02/28/18 01/09/22 Metoprolol Succinate 25 mg PO DAILY 02/28/18 01/09/22 cloNIDine HCL [Clonidine HCl] 0.1 mg PO BID 02/28/18 01/09/22 Aspirin [[place] Aspirin] 81 mg PO DAILY 01/09/22 01/09/22 Atorvastatin [Lipitor] 20 mg PO QPM 01/09/22 01/09/22 Telmisartan 80 mg PO DAILY 01/09/22 01/09/22 hydroCHLOROthiazide [Hydrodiuril] 25 mg PO DAILY 01/09/22 01/09/22 - PHYSICAL EXAM AT DISCHARGE General Appearance: positive: No acute distress, Alert Eyes Bilateral: positive: Normal inspection, PERRL Neck: positive: Nml inspection Respiratory: positive: Chest non-tender, No respiratory distress Cardiovascular: positive: Irregularly irregular Abdomen: positive: Non-tender, No organomegaly, Nml bowel sounds, No distention Skin: positive: Warm, Dry, Other (t has ecchymosis on hands bilaterally. Bilateral chronic wounds on shinns that are dressed) Extremities: positive: Non-tender Neurologic/Psychiatric: positive: Other (iented to self, location, and time. Disoriented to situation. Unable to recound past medical history, if parents are still living) - LABS Result Diagrams: 01/11/22 05:09 01/11/22 05:09 - QUALITY (Female Hip Fx Only) Was patient sent home on osteoporosis medication?: No - TIME SPENT Time Spent in Discharge (Minutes): 15"
== END 2022-01-11 11:41 | DRG 684 ==
LOC: EDUNIT# → ED 15:13 → MS2 17:13 → OBSVTOIN 01-10 14:58
PROVIDERS: ADMIT Specialist; ATTEND Specialist
DX: N17.9 Acute kidney failure, unspecified (principal); I11.0 Hypertensive heart disease with heart failure; I25.10 Atherosclerotic heart disease of native coronary artery without angina pectoris; I48.91 Unspecified atrial fibrillation; I50.9 Heart failure, unspecified; I49.3 Ventricular premature depolarization; E11.51 Type 2 diabetes mellitus with diabetic peripheral angiopathy without gangrene; E78.00 Pure hypercholesterolemia, unspecified; E86.0 Dehydration; E87.6 Hypokalemia; E11.622 Type 2 diabetes mellitus with other skin ulcer; L98.499 Non-pressure chronic ulcer of skin of other sites with unspecified severity; J44.9 Chronic obstructive pulmonary disease, unspecified; K21.9 Gastro-esophageal reflux disease without esophagitis; F03.90 Unspecified dementia, unspecified severity, without behavioral disturbance, psychotic disturbance, mood disturbance, and anxiety; H54.7 Unspecified visual loss; H91.90 Unspecified hearing loss, unspecified ear; N40.1 Benign prostatic hyperplasia with lower urinary tract symptoms; R35.1 Nocturia; M19.90 Unspecified osteoarthritis, unspecified site; Z20.822 Contact with and (suspected) exposure to COVID-19; Z79.82 Long term (current) use of aspirin; Z79.84 Long term (current) use of oral hypoglycemic drugs; Z79.899 Other long term (current) drug therapy; Z82.49 Family history of ischemic heart disease and other diseases of the circulatory system; Z90.49 Acquired absence of other specified parts of digestive tract
CPT/HCPCS: 36415; 76770; 80048; 80053; 81003; 83735; 85025; 87635; 93005; 96360; 96361; 99284; 99285; A9270; G0480; J7120; 80320; 81001; 87086

== ENCOUNTER 2023-04-11 16:02 | Outpatient (CLI) | payer MEDICARE, MEDICAID | END 2023-04-11 23:59 | disposition critical access hospital (66) | LOC: EMS 16:02 | DX: R00.1 Bradycardia, unspecified (principal) | CPT/HCPCS: A0425; A0427 ==

== ENCOUNTER 2023-04-11 16:21 | Emergency (ER) | payer MEDICARE, MEDICAID ==
--- NOTE | 2023-04-11 16:39 | ED Physician Documentation ---
History of Present Illness - Stated complaint Stated Complaint: LOW HR - Chief complaint Chief Complaint: Cardiac - Additonal information Additional information: Very pleasant 88-year-old male is brought to the emergency department by EMS for evaluation of bradycardia. While getting routine vital signs completed at [facility] they noted that he had a very low heart rate in the 20s to 40s. He was asymptomatic. He was not complaining of feeling lightheaded, near fainting, vertigo, chest pain or shortness of air. Patient does have a history of diabetes type 2, atrial fibrillation, congestive heart failure, coronary artery disease, peripheral vascular disease and GERD. He does take metoprolol succinate 25 mg daily. A POLST that accompanies the patient indicates he is a DNAR with limited interventions. Meds: Aspirin 81 mg, clonidine 0.1 mg twice daily, hydrochlorothiazide, metformin 500 mg, metoprolol 25 mg daily, telmisartan 80 mg daily, atorvastatin 20 mg daily Review of Systems Constitutional: denies: Fever Throat: reports: Reviewed and negative Cardiac: reports: Reviewed and negative Respiratory: reports: Reviewed and negative GI: reports: Reviewed and negative : reports: Reviewed and negative PD PAST MEDICAL HISTORY - Past Medical History Cardiovascular: Congestive heart failure, Hypertension, High cholesterol, Coronary artery disease, Peripheral Vascular Disease, Atrial fibrillation Respiratory: COPD Endocrine/Autoimmune: Type 2 diabetes GI: GERD, C.difficile SAUSAGE CUTTER: None : Benign prostate hypertrophy, Chronic bladder infection, Nocturia HEENT: Chronic vision loss, Chronic hearing loss Psych: None Musculoskeletal: Osteoarthritis Derm: Other - Past Surgical History Past Surgical History: Yes General: Cholecystectomy - Present Medications Home Medications: Ambulatory Orders Medication Instructions Recorded Confirmed Metformin HCl 500 mg PO BIDWM 02/28/18 04/11/23 Metoprolol Succinate 25 mg PO DAILY 02/28/18 04/11/23 cloNIDine HCL [Clonidine HCl] 0.1 mg PO BID 02/28/18 04/11/23 Aspirin [[place] Aspirin] 81 mg PO DAILY 01/09/22 04/11/23 Atorvastatin [Lipitor] 20 mg PO QPM 01/09/22 04/11/23 Telmisartan 80 mg PO DAILY 01/09/22 04/11/23 hydroCHLOROthiazide [Hydrodiuril] 25 mg PO DAILY 01/09/22 04/11/23 - Allergies Allergies/Adverse Reactions: Allergies Allergy/AdvReac Type Severity Reaction Status Date / Time No Known Drug Allergies Allergy Verified 04/11/23 16:27 - Social History Does the pt smoke?: No Smoking Status: Never smoker Does the pt drink ETOH?: Yes Does the pt have substance abuse?: No - Immunizations Immunizations are current?: No Immunizations: TDAP >10years/unknown - POLST Patient has POLST: No POLST Status: Full Code PD ED PE NORMAL - General General: No: Alert and oriented X 3 (Mild dementia at baseline. Oriented to situation and self. Aware that he has a low heart rate.) - Cardiac Cardiac: No: RRR (afib with bradycardia; rate 40 on monitor) - Respiratory Respiratory: No respiratory distress, Clear bilaterally - Abdomen Abdomen: Normal bowel sounds, Soft - Back Back: No CVA TTP - Derm Derm: Normal color, Warm and dry, No rash - Extremities Extremities: No edema (2+ pitting edema bilateral lower extremities.) - Neuro Neuro: sausage mixer 2-12 intact. No: Alert and oriented X 3 Eye Opening: Spontaneous Motor: Obeys Commands Verbal: Oriented GCS Score: 15 Results - Vitals Vitals: Vital Signs - 24 hr 04/11/23 04/11/23 04/11/23 16:25 17:02 17:34 Temperature 37.0 C Heart Rate 40 L 34 L 50 L Respiratory 16 16 16 Rate Blood Pressure 152/77 H 85/59 L 178/88 H O2 Saturation 100 98 98 04/11/23 18:32 Temperature Heart Rate 62 Respiratory 16 Rate Blood Pressure 200/88 H O2 Saturation 98 Oxygen O2 Source Room air - EKG (time done) 1635 EKG releavant findings:: EKG personally interpreted by author of this note. Relevant findings are: Rate: Rate (enter#) (40), Tono Rhythm: Atrial fibrillation Intervals: No: Prolonged QT Ischemia: Non specific changes Compare to prior EKG: Changed from prior EKG Computer interpretation: Agree with computer (Now showing atrial fibrillation with slow ventricular rate 40.) - Labs Labs: Laboratory Tests 04/11/23 04/11/23 17:07 17:07 WBC 4.6 L RBC 2.89 L Hgb 8.4 L Hct 26.6 L MCV 92.0 MCH 29.1 MCHC 31.6 L RDW 14.0 Plt Count 122 L MPV 9.9 Neut # (Auto) 3.2 Lymph # (Auto) 0.7 L [place] # (Auto) 0.4 Eos # (Auto) 0.3 Baso # (Auto) 0.0 Absolute Nucleated RBC 0.00 Nucleated RBC % 0.0 Sodium 140 Potassium 2.7 L Chloride 114 H Carbon Dioxide 25 Anion Gap 1.0 L BUN 25 H Creatinine 1.1 Estimated GFR (MDRD) 63 L Glucose 99 Calcium 6.8 L Phosphorus 2.7 L Magnesium 1.4 L Total Bilirubin 1.1 H AST 66 H ALT 177 H Alkaline Phosphatase 54 Total Protein 4.3 L Albumin 2.8 L Globulin 1.5 L Albumin/Globulin Ratio 1.9 Lipase 24 - Rads (name of study) cxr Relevant Findings:: Final report received (Mild cardiomegaly. No acute cardiopulmonary process.) PD Medical Decision Making - ED course Complexity details: reviewed results, re-evaluated patient, d/w patient, d/w family ED course: 88-year-old male presents the emergency department via EMS from [facility] for evaluation of bradycardia. Nursing staff was taking his vital signs today when they noted that he had a heart rate in the 30s. Patient does have a history of atrial fibrillation, congestive heart failure as well as dementia. A POLST that accompanies the formal patient indicates that he is a DNR with limited interventions. On presentation to the emergency department he is alert and well-appearing. Nonfocal. Mildly confused which appears to be baseline for his dementia. He appears to have bradycardia on the monitor with atrial fibrillation. He however has a blood pressure that is normotensive or hypertensive. I did obtain CBC, electrolytes magnesium and phosphorus. Per my interpretation he does have a worsening anemia with a hemoglobin of 8.4. No thrombocytopenia or leukocytosis. He does have some moderate electrolyte derangement which could be contributing to the bradycardia. His potassium is 2.7. His magnesium was 1.4 and his calcium was 6.8. He also has hypophosphatemia. For this I repleted him with 50 of potassium citrate orally, 2 g of magnesium and 2 g of calcium gluconate and 250 meq of K-phos. He does not appear significantly dehydrated and he has normal renal function at this time. Subsequently I spoke on the phone at length with the patient's son and KEITH Serrano. I discussed with him his father's medical condition including bradycardia as well as his advanced directive indicating a DNR. After lengthy discussion he agrees that his father should remain DNR with no CPR or infusions to help support to the heart rate. He discussed with his siblings and they all agree that they would not want their father to receive a pacemaker or transfer for further evaluation and management. As such at this time we will continue to try and correct the electrolyte imbalances, hold his Metroprolol and see if his bradycardia does not improve over time. I have ordered the patient's routine daily medications holding the metoprolol. I have ordered losartan in favor of telmisartan as it is available on hospital formulary. While here in the emergency department and being monitored we have noted that his heart rates have slowly trended up words now in the 60s remaining A-fib. The improved heart rates occurred after we began electrolyte supplementation. Unfortunately there are no beds available for admission at [facility] and he will continue to board in the emergency department pending bed availability. Patient will be signed out to my nighttime colleague to follow-up in any acute overnight events. Departure - Departure Disposition: 66 [facility] DC/Xfer Clinical Impression: Bradycardia, Hypokalemia, Hypocalcemia, Hypomagnesemia, History of atrial fibrillation, Hypophosphatemia Forms: PCP List
--- NOTE | 2023-04-11 17:09 | XRAY Report ---
PROCEDURE: Chest 1 View X-Ray INDICATIONS: Chest Pain TECHNIQUE: One view of the chest was acquired. COMPARISON: 10/01/2017 FINDINGS: Surgical changes and devices: None. Lungs and pleura: No pleural effusions or pneumothorax. Lungs are clear. Mediastinum: Mediastinal contours appear normal. Mild cardiomegaly. Bones and chest wall: No suspicious bony lesions. Overlying soft tissues appear unremarkable. IMPRESSION: Mild cardiomegaly. No acute cardiopulmonary process. Reviewed by: Alok Garrett MD on 04/11/2023 5:08 PM PDT Approved by: Alok Garrett MD on 04/11/2023 5:08 PM PDT Station ID: [id number]
[2023-04-11 17:12] LABS: BASOPHILS % (AUTO) 0.7 %; EOSINOPHILS # (AUTO) 0.3 10^3/uL (0.0-0.7); EOSINOPHILS % (AUTO) 5.9 %; HCT - HEMATOCRIT 26.6 % (42.0-52.0); HGB - HEMOGLOBIN 8.4 g/dL (14.0-18.0); LYMPHOCYTES # (AUTO) 0.7 10^3/uL (1.5-3.5); MEAN CORPUSCULAR HEMOGLOBIN 29.1 pg (27.0-31.0); MEAN CORPUSCULAR HGB CONC 31.6 g/dL (32.0-36.0); MEAN PLATELET VOLUME 9.9 fL (7.4-11.4); MONOCYTES # (AUTO) 0.4 10^3/uL (0.0-1.0); MONOCYTES % (AUTO) 8.1 %; NEUTROPHILS # (AUTO) 3.2 10^3/uL (1.5-6.6); NEUTROPHILS % (AUTO) 69.1 %; PLT - PLATELET COUNT 122 10^3/uL (130-450); RED BLOOD COUNT 2.89 10^6/uL (4.70-6.10); WHITE BLOOD COUNT 4.6 x10^3/uL (4.8-10.8)
[2023-04-11 17:26] LABS: ALBUMIN 2.8 g/dL (3.2-5.5); ALBUMIN/GLOBULIN RATIO 1.9 (1.0-2.2); BILIRUBIN,TOTAL 1.1 mg/dL (0.2-1.0); CALCIUM 6.8 mg/dL (8.5-10.3); CREATININE 1.1 mg/dL (0.6-1.3); MAGNESIUM 1.4 mg/dL (1.7-2.3); PHOSPHORUS 2.7 mg/dL (3.7-7.2); POTASSIUM 2.7 mmol/L (3.5-4.5); TOTAL PROTEIN 4.3 g/dL (6.4-8.9)
[2023-04-11] MEDS ORDERED: POTASSIUM BICARB 25 MEQ TABLET PO STA (17:33)
[2023-04-11] MEDS ORDERED: CALCIUM GLUCONATE IN NS 0.9% 2,000 MG/100 ML BAG IV STA (17:34)
[2023-04-11] MEDS ORDERED: MAGNESIUM SULFATE 2 GRAM 2 GM/50 ML BAG IV ONE (17:34)
[2023-04-11] MEDS ORDERED: NEUTRA-PHOS 250 MG TABLET PO STA ×2 (18:57→19:02)
[2023-04-11] MEDS ORDERED: cloNIDine 0.1 MG TABLET PO STA (18:59)
[2023-04-11] MEDS ORDERED: ONDANSETRON 4 MG/2 ML VIAL IVP PRN (19:00)
[2023-04-11] MEDS ORDERED: ACETAMINOPHEN 500 MG TABLET PO PRN (19:00)
[2023-04-11] MEDS: metFORMIN 500 MG TABLET PO SCH (19:52)
[2023-04-11 21:14] LABS: ALBUMIN/GLOBULIN RATIO 1.9 (1.0-2.2); BILIRUBIN,TOTAL 1.7 mg/dL (0.2-1.0); CALCIUM 9.7 mg/dL (8.5-10.3); CREATININE 1.4 mg/dL (0.6-1.3); MAGNESIUM 2.2 mg/dL (1.7-2.3); POTASSIUM 3.6 mmol/L (3.5-4.5); TOTAL PROTEIN 6.1 g/dL (6.4-8.9)
[2023-04-11] MEDS ORDERED: LOSARTAN 50 MG TABLET PO STA (21:56)
[2023-04-12] MEDS ORDERED: PANTOPRAZOLE 40 MG TABLET PO SCH (07:00)
[2023-04-12] MEDS: metFORMIN 500 MG TABLET PO SCH (08:53)
[2023-04-12] MEDS ORDERED: ENOXAPARIN 40 MG/0.4 ML SYRINGE SUBQ SCH (09:00)
[2023-04-12] MEDS ORDERED: hydroCHLOROthiazide 25 MG TABLET PO SCH (09:00)
[2023-04-12] MEDS ORDERED: LOSARTAN 50 MG TABLET PO SCH (09:00)
[2023-04-12] MEDS ORDERED: ASPIRIN CHEW 81 MG TABLET PO SCH (09:00)
[2023-04-12] MEDS ORDERED: cloNIDine 0.1 MG TABLET PO SCH (09:00)
[2023-04-12] MEDS ORDERED: ATORVASTATIN 40 MG TABLET PO SCH (09:00)
[2023-04-12 09:24] LABS: BASOPHILS # (AUTO) 0.1 10^3/uL (0.0-0.1); BASOPHILS % (AUTO) 0.7 %; EOSINOPHILS # (AUTO) 0.3 10^3/uL (0.0-0.7); EOSINOPHILS % (AUTO) 2.7 %; HCT - HEMATOCRIT 37.5 % (42.0-52.0); HGB - HEMOGLOBIN 11.7 g/dL (14.0-18.0); LYMPHOCYTES # (AUTO) 1.1 10^3/uL (1.5-3.5); LYMPHOCYTES % (AUTO) 10.6 %; MEAN CORPUSCULAR HGB CONC 31.2 g/dL (32.0-36.0); MEAN CORPUSCULAR VOLUME 92.8 fL (80.0-94.0); MONOCYTES # (AUTO) 0.7 10^3/uL (0.0-1.0); MONOCYTES % (AUTO) 6.8 %; NEUTROPHILS # (AUTO) 8.2 10^3/uL (1.5-6.6); NEUTROPHILS % (AUTO) 78.9 %; PLT - PLATELET COUNT 192 10^3/uL (130-450); RED BLOOD COUNT 4.04 10^6/uL (4.70-6.10); RED CELL DISTRIBUTION WIDTH 13.7 % (12.0-15.0); WHITE BLOOD COUNT 10.4 x10^3/uL (4.8-10.8)
[2023-04-12 09:46] LABS: CALCIUM 9.5 mg/dL (8.5-10.3); CREATININE 1.3 mg/dL (0.6-1.3); MAGNESIUM 2.1 mg/dL (1.7-2.3); PHOSPHORUS 3.4 mg/dL (3.7-7.2); POTASSIUM 3.9 mmol/L (3.5-4.5)
[2023-04-12] MEDS ORDERED: NEUTRA-PHOS 250 MG TABLET PO STA ×2 (10:11→10:13)
[2023-04-12] MEDS: POTASSIUM CHLOR 10 MEQ/100 ML 10 MEQ/100 ML BAG IV SCH ×2 (10:37→11:03)
[2023-04-12 11:29] VITALS: BP 180/84
--- NOTE | 2023-04-12 11:47 | ED Physician Documentation ---
ED Addendum - Addendum Addendum: 04/12/23 11:47 In brief this is an 88-year-old gentleman who has a history of A-fib, congestive heart failure who presented to the emergency department yesterday from [facility] when they were checking routine vital signs and found that he was bradycardic. He was asymptomatic with no reports of chest pain or shortness of air. Presentation the emergency department he was in A-fib with a slow ventricular rate of 40. Electrolytes were checked and he was found to be hypokalemic, hypomagnesia TIMMY, decreased phosphorus, hypocalcemic. His electrolytes were replaced over the course of the evening yesterday. Unfortunately no beds were available for admission. As his electrolytes began to be replaced his heart rates slowly improved into the 70s to 90s. Though he remained in A-fib. He has been modestly hypertensive through the course of this ED visit. I spoken with his son, Yosvany, DURABLE POWER OF EMAIL MARKETING MANAGER yesterday. He confirmed the patient is a DNR and would prefer no escalation of care including inotropes or even transfer for consideration of pacemaker. On reevaluation this morning the patient's son, Yosvany, DURABLE POWER OF EMAIL MARKETING MANAGER yesterday. He confirmed the patient is a DNR and would prefer no escalation of care including inotropes or even transfer for consideration of pacemaker. On reevaluation this morning the patient's electrolyte derangement has markedly improved and he has remained otherwise hemodynamically stable. At this point in time he is can be discharged back to [facility]. The recommendation is going to be to hold his metoprolol for now. His primary care doctor should reevaluate his electrolytes over the next week and also make other recommendations for blood pressure and/or heart rate control management.
== END 2023-04-12 13:15 | disposition home or self-care (01) ==
LOC: EDUNIT# → ED 16:21
DX: R00.1 Bradycardia, unspecified (principal); I48.91 Unspecified atrial fibrillation; E87.6 Hypokalemia; E83.51 Hypocalcemia; E83.42 Hypomagnesemia; E83.39 Other disorders of phosphorus metabolism; I10 Essential (primary) hypertension; Z66 Do not resuscitate
CPT/HCPCS: 36415; 71045; 80048; 80053; 83690; 83735; 84100; 85025; 93005; 96365; 96368; 96372; 99284; A9270; J1650; 84484

== ENCOUNTER 2023-04-12 13:34 | Outpatient (CLI) | payer MEDICARE, MEDICAID | END 2023-04-12 23:59 | disposition home or self-care (01) | LOC: EMS 13:34 | PROVIDERS: ATTEND Registered Nurse | DX: R00.1 Bradycardia, unspecified (principal); R41.0 Disorientation, unspecified | CPT/HCPCS: A0425; A0428 ==

== ENCOUNTER 2023-04-19 12:15 | Outpatient (CLI) | payer MEDICARE, MEDICAID ==
[2023-04-19 12:24] LABS: BASOPHILS % (AUTO) 0.8 %; EOSINOPHILS # (AUTO) 0.2 10^3/uL (0.0-0.7); EOSINOPHILS % (AUTO) 4.3 %; HGB - HEMOGLOBIN 10.1 g/dL (14.0-18.0); LYMPHOCYTES % (AUTO) 20.4 %; MEAN CORPUSCULAR HEMOGLOBIN 28.6 pg (27.0-31.0); MEAN CORPUSCULAR HGB CONC 32.6 g/dL (32.0-36.0); MEAN CORPUSCULAR VOLUME 87.8 fL (80.0-94.0); MEAN PLATELET VOLUME 10.3 fL (7.4-11.4); MONOCYTES # (AUTO) 0.4 10^3/uL (0.0-1.0); MONOCYTES % (AUTO) 7.9 %; NEUTROPHILS # (AUTO) 3.3 10^3/uL (1.5-6.6); NEUTROPHILS % (AUTO) 66.4 %; PLT - PLATELET COUNT 192 10^3/uL (130-450); RED BLOOD COUNT 3.53 10^6/uL (4.70-6.10); RED CELL DISTRIBUTION WIDTH 13.8 % (12.0-15.0); WHITE BLOOD COUNT 4.9 x10^3/uL (4.8-10.8)
[2023-04-19 14:37] LABS: CALCIUM 9.3 mg/dL (8.5-10.3); CREATININE 1.5 mg/dL (0.6-1.3); MAGNESIUM 1.7 mg/dL (1.7-2.3); PHOSPHORUS 3.9 mg/dL (3.7-7.2); POTASSIUM 3.1 mmol/L (3.5-4.5)
== END 2023-04-19 12:16 | disposition home or self-care (01) ==
LOC: LAB.R 12:15
PROVIDERS: ATTEND Physician Assistant
DX: E87.6 Hypokalemia (principal); E83.42 Hypomagnesemia; E83.39 Other disorders of phosphorus metabolism
CPT/HCPCS: 80048; 83735; 84100; 85025

== ENCOUNTER 2023-05-04 11:10 | Outpatient (CLI) | payer MEDICARE, MEDICAID ==
[2023-05-04 18:03] LABS: BASOPHILS % (AUTO) 0.8 %; EOSINOPHILS # (AUTO) 0.1 10^3/uL (0.0-0.7); EOSINOPHILS % (AUTO) 2.7 %; HCT - HEMATOCRIT 34.9 % (42.0-52.0); HGB - HEMOGLOBIN 11.1 g/dL (14.0-18.0); LYMPHOCYTES # (AUTO) 0.9 10^3/uL (1.5-3.5); LYMPHOCYTES % (AUTO) 16.9 %; MEAN CORPUSCULAR HEMOGLOBIN 28.8 pg (27.0-31.0); MEAN CORPUSCULAR HGB CONC 31.8 g/dL (32.0-36.0); MEAN CORPUSCULAR VOLUME 90.6 fL (80.0-94.0); MONOCYTES # (AUTO) 0.4 10^3/uL (0.0-1.0); MONOCYTES % (AUTO) 6.8 %; NEUTROPHILS # (AUTO) 3.8 10^3/uL (1.5-6.6); NEUTROPHILS % (AUTO) 72.4 %; PLT - PLATELET COUNT 191 10^3/uL (130-450); RED BLOOD COUNT 3.85 10^6/uL (4.70-6.10); RED CELL DISTRIBUTION WIDTH 13.9 % (12.0-15.0); WHITE BLOOD COUNT 5.3 x10^3/uL (4.8-10.8)
[2023-05-04 18:04] LABS: CALCIUM 9.4 mg/dL (8.5-10.3); CREATININE 1.4 mg/dL (0.6-1.3); MAGNESIUM 1.9 mg/dL (1.7-2.3); PHOSPHORUS 3.2 mg/dL (2.5-5.0); POTASSIUM 3.4 mmol/L (3.5-4.5)
== END 2023-05-04 11:11 | disposition home or self-care (01) ==
LOC: LAB.N 11:10
PROVIDERS: ATTEND Physician Assistant
DX: E87.6 Hypokalemia (principal); E83.42 Hypomagnesemia; E83.39 Other disorders of phosphorus metabolism; D64.9 Anemia, unspecified
CPT/HCPCS: 36415; 80048; 83735; 84100; 85025

== ENCOUNTER 2023-05-07 18:48 | Outpatient (CLI) | payer MEDICARE, MEDICAID | END 2023-05-07 18:49 | disposition critical access hospital (66) | LOC: EMS 18:48 | DX: R50.9 Fever, unspecified (principal); R11.0 Nausea; R15.9 Full incontinence of feces; R32 Unspecified urinary incontinence | CPT/HCPCS: A0425; A0429 ==

== ENCOUNTER 2023-05-07 19:05 | Inpatient (IN) | payer MEDICARE, MEDICAID ==
[2023-05-07] MEDS ORDERED: AZITHROMYCIN INJ 500 MG in SODIUM CHLORIDE 0.9% 250 ML IV STA (19:26)
[2023-05-07] MEDS ORDERED: cefTRIAXone 1 GM VIAL IVP STA (19:26)
[2023-05-07] MEDS ORDERED: AMPICILLIN/SULBACTAM 3 GM in SODIUM CHLORIDE 0.9% MINIBAG 100 ML IV STA (19:29)
--- NOTE | 2023-05-07 19:31 | ED Physician Documentation ---
History of Present Illness - Stated complaint Stated Complaint: SOA - Chief complaint Chief Complaint: Resp - History obtained from History obtained from: Patient, EMS - Additonal information Additional information: 88-year-old gentleman with history of mild dementia presents from assisted living with fever, respiratory difficulty and cough. History is limited from the patient because of either dementia or delirium. I was able to talk with the son after initial evaluation who agrees that he is demented. There is a report of potential aspiration. Son confirms that he is DNR/DNI. 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 : Benign prostate hypertrophy, Chronic bladder infection, Nocturia HEENT: Chronic vision loss, Chronic hearing loss Psych: None Musculoskeletal: Osteoarthritis Derm: Other - Past Surgical History Past Surgical History: Yes General: Cholecystectomy - Present Medications Home Medications: Ambulatory Orders Medication Instructions Recorded Confirmed Metformin HCl 500 mg PO BIDWM 02/28/18 04/11/23 Metoprolol Succinate 25 mg PO DAILY 02/28/18 04/11/23 cloNIDine HCL [Clonidine HCl] 0.1 mg PO BID 02/28/18 04/11/23 Aspirin [[place] Aspirin] 81 mg PO DAILY 01/09/22 04/11/23 Atorvastatin [Lipitor] 20 mg PO QPM 01/09/22 04/11/23 Telmisartan 80 mg PO DAILY 01/09/22 04/11/23 hydroCHLOROthiazide [Hydrodiuril] 25 mg PO DAILY 01/09/22 04/11/23 - Allergies Allergies/Adverse Reactions: Allergies Allergy/AdvReac Type Severity Reaction Status Date / Time No Known Drug Allergies Allergy Verified 04/11/23 16:27 - Social History Does the pt smoke?: No Smoking Status: Never smoker Does the pt drink ETOH?: Yes Does the pt have substance abuse?: No - Immunizations Immunizations are current?: No Immunizations: TDAP >10years/unknown - POLST Patient has POLST: No POLST Status: Full Code PD ED PE NORMAL - Vitals Vital signs reviewed: Yes (Tachypneic, tachycardic, pulse ox 93 on 6 L) - General General: Other (Alert and oriented to person but not place or time.) - Neck Neck: Supple, no meningeal sign, No bony TTP - Cardiac Cardiac: Other (Tachycardic with frequent extrasystoles) - Respiratory Respiratory: Other (Tachypneic with crackles on the left) - Abdomen Abdomen: Non tender - Extremities Extremities: No edema, No calf tenderness / cord - Psych Psych: Normal mood, Normal affect Results - Vitals Vitals: Vital Signs - 24 hr 05/07/23 19:10 Temperature 37.9 C Heart Rate 102 H Respiratory 35 H Rate Blood Pressure 160/90 H O2 Saturation 93 Oxygen O2 Source Nasal cannula - EKG (time done) 1935 EKG releavant findings:: EKG personally interpreted by author of this note. Relevant findings are: Rate: Rate (enter#) (101) Rhythm: Atrial fibrillation [place]: Normal QRS: Normal Ischemia: ST depression (LATERAL) Computer interpretation: Agree with computer - Labs Labs: Laboratory Tests 05/07/23 05/07/23 05/07/23 19:29 19:29 19:29 WBC 6.7 RBC 4.20 L Hgb 11.8 L Hct 37.2 L MCV 88.6 MCH 28.1 MCHC 31.7 L RDW 14.1 Plt Count 164 MPV 9.9 Neut # (Auto) 5.9 Lymph # (Auto) 0.3 L [place] # (Auto) 0.5 Eos # (Auto) 0.0 Baso # (Auto) 0.0 Absolute Nucleated RBC 0.00 Nucleated RBC % 0.0 Sodium 137 Potassium 3.2 L Chloride 97 L Carbon Dioxide 26 Anion Gap 14.0 H BUN 31 H Creatinine 1.5 H Estimated GFR (MDRD) 44 L Glucose 185 H Lactic Acid 4.1 H* Calcium 9.0 Total Bilirubin 2.4 H AST 58 H ALT 21 Alkaline Phosphatase 61 Total Protein 6.5 Albumin 4.0 Globulin 2.5 Albumin/Globulin Ratio 1.6 Nasal Adenovirus (PCR) Nasal B. parapertussis DNA (PCR) Nasal Coronavir 229E PCR Nasal Coronavir HKU1 PCR Nasal Coronavir NL63 PCR Nasal Coronavir OC43 PCR Nasal Enterovir/Rhinovir PCR Nasal Influenza B PCR Nasal Influenza A PCR Nasal Parainfluen 1 PCR Nasal Parainfluen 2 PCR Nasal Parainfluen 3 PCR Nasal Parainfluen 4 PCR Nasal RSV (PCR) Nasal B.pertussis DNA PCR Nasal C.pneumoniae (PCR) Kilo Human Metapneumo PCR Nasal M.pneumoniae (PCR) Nasal SARS-CoV-2 (PCR) 05/07/23 19:35 WBC RBC Hgb Hct MCV MCH MCHC RDW Plt Count MPV Neut # (Auto) Lymph # (Auto) [place]cl[place] # (Auto) Eos # (Auto) Baso # (Auto) Absolute Nucleated RBC Nucleated RBC % Sodium Potassium Chloride Carbon Dioxide Anion Gap BUN Creatinine Estimated GFR (MDRD) Glucose Lactic Acid Calcium Total Bilirubin AST ALT Alkaline Phosphatase Total Protein Albumin Globulin Albumin/Globulin Ratio Nasal Adenovirus (PCR) NOT DETECTED Nasal B. parapertussis DNA (PCR) NOT DETECTED Nasal Coronavir 229E PCR NOT DETECTED Nasal Coronavir HKU1 PCR NOT DETECTED Nasal Coronavir NL63 PCR NOT DETECTED Nasal Coronavir OC43 PCR NOT DETECTED Nasal Enterovir/Rhinovir PCR NOT DETECTED Nasal Influenza B PCR NOT DETECTED Nasal Influenza A PCR NOT DETECTED Nasal Parainfluen 1 PCR NOT DETECTED Nasal Parainfluen 2 PCR NOT DETECTED Nasal Parainfluen 3 PCR NOT DETECTED Nasal Parainfluen 4 PCR NOT DETECTED Nasal RSV (PCR) NOT DETECTED Nasal B.pertussis DNA PCR NOT DETECTED Nasal C.pneumoniae (PCR) NOT DETECTED Kilo Human Metapneumo PCR NOT DETECTED Nasal M.pneumoniae (PCR) NOT DETECTED Nasal SARS-CoV-2 (PCR) DETECTED A PD Medical Decision Making - ED course ED course: 88-year-old gentleman has a clear pneumonia on x-ray and has respiratory failure with fever. Per son there was a concern for an aspiration episode so Unasyn and Zithromax were ordered. Son confirms that he is DNR and DNI but is okay with admission for IV antibiotics. Call to the hospitalist for admission at 8:13 PM. Lactate 4.1 so sepsis fluids ordered. Spoke with Dr. Lagos for admit at 8:19 PM. - Critical Care Time(min): 40 Time Includes: Direct patient care, Review records, Reassess patient, Document care, Coordinate care, Medical consult, Family consult for tx dec Data interpretation: Labs, Pulse ox Procedures included in critical care time: Peripheral IV Procedures excluded from critical care time: EKG Departure - Departure Disposition: 66 [facility] DC/Xfer Clinical Impression: Chronic atrial fibrillation, DNR (do not resuscitate), DNI (do not intubate), Septic shock CAP (community acquired pneumonia) Qualifiers: Laterality: left Lung location: lower lobe of lung Qualified Code(s): J18.9 - Pneumonia, unspecified organism Respiratory failure Qualifiers: Chronicity: acute Respiratory failure complication: hypoxia Qualified Code(s): J96.01 - Acute respiratory failure with hypoxia Condition: Serious Discharge Date/Time: 05/07/23 21:22
[2023-05-07 19:42] LABS: BASOPHILS % (AUTO) 0.2 %; HCT - HEMATOCRIT 37.2 % (42.0-52.0); HGB - HEMOGLOBIN 11.8 g/dL (14.0-18.0); LYMPHOCYTES # (AUTO) 0.3 10^3/uL (1.5-3.5); MEAN CORPUSCULAR HEMOGLOBIN 28.1 pg (27.0-31.0); MEAN CORPUSCULAR HGB CONC 31.7 g/dL (32.0-36.0); MEAN CORPUSCULAR VOLUME 88.6 fL (80.0-94.0); MEAN PLATELET VOLUME 9.9 fL (7.4-11.4); MONOCYTES # (AUTO) 0.5 10^3/uL (0.0-1.0); MONOCYTES % (AUTO) 6.8 %; NEUTROPHILS # (AUTO) 5.9 10^3/uL (1.5-6.6); NEUTROPHILS % (AUTO) 87.7 %; PLT - PLATELET COUNT 164 10^3/uL (130-450); RED CELL DISTRIBUTION WIDTH 14.1 % (12.0-15.0); WHITE BLOOD COUNT 6.7 x10^3/uL (4.8-10.8)
[2023-05-07 19:57] LABS: ALBUMIN/GLOBULIN RATIO 1.6 (1.0-2.2); BILIRUBIN,TOTAL 2.4 mg/dL (0.2-1.0); CREATININE 1.5 mg/dL (0.6-1.3); LACTIC ACID, VENOUS 4.1 mmol/L (0.5-2.2); POTASSIUM 3.2 mmol/L (3.5-4.5); TOTAL PROTEIN 6.5 g/dL (6.4-8.9)
[2023-05-07] MEDS ORDERED: SODIUM CHLORIDE 0.9% IV STA (19:57)
[2023-05-07] MEDS ORDERED: POTASSIUM CHLOR 10 MEQ/100 ML 10 MEQ/100 ML BAG IV STA (19:58)
--- NOTE | 2023-05-07 20:11 | XRAY Report ---
PROCEDURE: Chest 1 View X-Ray INDICATIONS: fever TECHNIQUE: One view of the chest was acquired. COMPARISON: 04/11/2023 FINDINGS: Surgical changes and devices: Hyperdensity projecting over the left upper chest. Lungs and pleura: Moderate lung disease, most confluent in the left midlung. Possible trace effusion . Mediastinum: Borderline enlarged heart. Bones and chest wall: No acute or suspicious abnormality. Degenerative changes. IMPRESSION: Moderate lung disease most confluent in the left midlung, suspicious for infection. Consider future i maging surveillance to assess for resolution. Reviewed by: Donnie Lopez MD on 05/07/2023 8:10 PM PDT Approved by: Donnie Lopez MD on 05/07/2023 8:10 PM PDT Station ID: [id number]
[2023-05-07] MEDS ORDERED: SODIUM CHLORIDE FLUSH 0.9% 10 ML SYRINGE IVP PRN (20:25)
[2023-05-07] MEDS ORDERED: ONDANSETRON 4 MG/2 ML VIAL IVP PRN (20:25)
[2023-05-07 20:43] LABS: B. PARAPERTUSSIS- RESP PCR PAN NOT DETECTED; B. PERTUSSIS- RESP PCR PANEL NOT DETECTED; C. PNEUMONIAE- RESP PCR PANEL NOT DETECTED; CORONAVIRUS 229E-RESP PCR NOT DETECTED; CORONAVIRUS HKU1-RESP PCR NOT DETECTED; CORONAVIRUS NL63-RESP PCR NOT DETECTED; CORONAVIRUS OC43-RESP PCR NOT DETECTED; HUMAN METAPNEUMOVIRUS NOT DETECTED; INFLUENZA A- RESP PCR PANEL NOT DETECTED; INFLUENZA B - RESP PCR PANEL NOT DETECTED; M. PNEUMONIAE- RESP PCR PANEL NOT DETECTED; PARAINFLUENZA VIRUS 1 NOT DETECTED; PARAINFLUENZA VIRUS 2 NOT DETECTED; PARAINFLUENZA VIRUS 3 NOT DETECTED; PARAINFLUENZA VIRUS 4 NOT DETECTED; RHINOVIRUS/ENTEROVIRUS NOT DETECTED; RSV- RESP PCR PANEL NOT DETECTED
[2023-05-07 20:45] LABS: SARS-CoV-2 -RESP PCR PANEL DETECTED
--- NOTE | 2023-05-07 20:50 | HISTORY & PHYSICAL EXAMINATION ---
Chief Complaint - Chief Complaint Chief Complaint: Cough History of Present Illness - History of Present Illness HPI Comment/Other: 88 y old male with PMH HTN, DM2, HLP, CAD, CHF, Afib, brought in from assisted living due to cough, shortness of breath and fever for 1 day. Denies chest pain, nausea, vomiting, diarrhea, constipation On presentaion, temp 37.7. tachycardic and tachypnic Labs showed normal WBC, K 3.2, Core Carrier 1.5. Lactic acid 1.5 CXR showed left lung infiltrate In ER, Pt received unasyn and zithromax As per ER physician (Dr Castaneda), he talked to patients son who wanted him DNR/DNI Patient is admitted due to Pneumonia, acute respiratory failure, hypokalemia, dehydration, lactic acidosis History - Past Medical History Cardiovascular: reports: Congestive heart failure, Hypertension, High cholesterol, Coronary artery disease, Peripheral Vascular Disease, Atrial fib rillation Respiratory: reports: COPD Endocrine/Autoimmune: reports: Type 2 diabetes GI: reports: GERD, C.difficile NAPPER RUNNER: reports: None : reports: Benign prostate hypertrophy, Chronic bladder infection, Nocturia HEENT: reports: Chronic vision loss, Chronic hearing loss Psych: reports: None Musculoskeletal: reports: Osteoarthritis Derm: reports: Other MRSA Hx?: No - Past Surgical History General: reports: Cholecystectomy - Family & Social History Family History: Mother: , Father: , CAD, Brother: Family History Comment/Other: Pt currently resides at [facility]. Pt unable to recollect for how long. Pt has lived on [facility] for the past 25 years and lived in [place] [facility] prior to that. Pt lived with until her 5 months ago. Pt has four kids, two boys and two girls. Both sons and one daughter live on [facility]. The other daughter lives on the [facility]. 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 - Substance History Use: Uses substance without health or social issues: NONE - POLST Patient has POLST: No POLST Status: Full Code Meds/Allgy - Home Medications Home Medications: Ambulatory Orders Medication Instructions Recorded Confirmed Metformin HCl 500 mg PO BIDWM 02/28/18 04/11/23 Metoprolol Succinate 25 mg PO DAILY 02/28/18 04/11/23 cloNIDine HCL [Clonidine HCl] 0.1 mg PO BID 02/28/18 04/11/23 Aspirin [Jennings Aspirin] 81 mg PO DAILY 01/09/22 04/11/23 Atorvastatin [Lipitor] 20 mg PO QPM 01/09/22 04/11/23 Telmisartan 80 mg PO DAILY 01/09/22 04/11/23 hydroCHLOROthiazide [Hydrodiuril] 25 mg PO DAILY 01/09/22 04/11/23 - Allergies Allergies/Adverse Reactions: Allergies Allergy/AdvReac Type Severity Reaction Status Date / Time No Known Drug Allergies Allergy Verified 04/11/23 16:27 Review of Systems - Other Findings Other Findings: 10 points systems were reviewed and were negative except mentioned in HPI Exam - Vital Signs Vital Signs: Vital Signs x48h Temp Pulse Resp BP Pulse Ox 05/07/23 19:10 37.9 C 102 H 35 H 160/90 H 93 - Physical Exam General Appearance: positive: No acute distress Eyes Bilateral: positive: Normal inspection, PERRL ENT: positive: ENT inspection nml Neck: positive: Nml inspection Respiratory: positive: Breath sounds nml Cardiovascular: positive: Tachycardia Abdomen: positive: Non-tender, Nml bowel sounds Skin: positive: No rash Extremities: positive: No pedal edema Neurologic/Psychiatric: positive: Motor nml, Disoriented to place Conclusion/Plan - Lab Results Fish Bones: 05/07/23 19:29 05/07/23 19:29 - Other Other Results/Comments: A; Pneumonia, possible aspiration Acute respiratory failure with hypoxia Hypokalemia Lactic acidosis Anemia of chronic disease HTN DM 2 HLP CAD H/O CHF H/O afib, not on anticoagulation Plan; Admit in tele Oxygen via [place]. Keep Felicia > 95% NPO Swallow screen by RN Follow cultures Start zosyn Duo neb q6h Repllace k and monitor Monitor lactoic acid Cont metoprolol Sliding scale insulin Cont aspirin and lipitor DVT prophylaxic: SCD Code status: DNR/DNI (As per Dr castaneda, he talked to patients son) Pt is admitted as inpatient as more than 2 midnight stay is expected
[2023-05-07] MEDS: INSULIN LISPRO 300 UNIT/3 ML PEN SUBQ SCH (22:08)
[2023-05-07] MEDS: ZINC OXIDE 20% OINT 30 GM TUBE TOP PRN (22:17)
[2023-05-07] MEDS: METOPROLOL TARTRATE 50 MG TABLET PO SCH (22:26)
[2023-05-07 23:57] LABS: CRP - C-REACTIVE PROTEIN 4.3 mg/dL (0-1.0)
[2023-05-08 00:02] LABS: LACTIC ACID, VENOUS 3.5 mmol/L (0.5-2.2)
[2023-05-08] MEDS: DEXAMETHASONE 4 MG/ML VIAL IVP SCH ×2 (00:33→08:41)
[2023-05-08] MEDS: FUROSEMIDE 20 MG/2 ML VIAL IVP SCH ×2 (00:34→08:45)
[2023-05-08] MEDS: SODIUM CHLORIDE FLUSH 0.9% 10 ML SYRINGE IVP SCH ×2 (00:38→15:48)
[2023-05-08] MEDS ORDERED: PIPERACILLIN/TAZOBACTAM 3.375 GM in SODIUM CHLORIDE 0.9% MINIBAG 100 ML IV ONE (02:00)
[2023-05-08] MEDS: IPRATROPIUM/ALBUTEROL 3 ML NEB INH SCH ×2 (02:41→07:29)
[2023-05-08 03:20] LABS: LACTIC ACID, VENOUS 3.2 mmol/L (0.5-2.2)
[2023-05-08 05:19] LABS: BASOPHILS % (AUTO) 0.5 %; HCT - HEMATOCRIT 34.4 % (42.0-52.0); HGB - HEMOGLOBIN 11.4 g/dL (14.0-18.0); LYMPHOCYTES # (AUTO) 0.3 10^3/uL (1.5-3.5); LYMPHOCYTES % (AUTO) 5.3 %; MEAN CORPUSCULAR HEMOGLOBIN 28.9 pg (27.0-31.0); MEAN CORPUSCULAR HGB CONC 33.1 g/dL (32.0-36.0); MEAN CORPUSCULAR VOLUME 87.3 fL (80.0-94.0); MEAN PLATELET VOLUME 10.7 fL (7.4-11.4); MONOCYTES # (AUTO) 0.4 10^3/uL (0.0-1.0); MONOCYTES % (AUTO) 5.9 %; NEUTROPHILS # (AUTO) 5.2 10^3/uL (1.5-6.6); NEUTROPHILS % (AUTO) 88.1 %; PLT - PLATELET COUNT 139 10^3/uL (130-450); RED BLOOD COUNT 3.94 10^6/uL (4.70-6.10); WHITE BLOOD COUNT 5.9 x10^3/uL (4.8-10.8)
[2023-05-08 05:24] LABS: SLIDE REVIEW? Indicated
[2023-05-08] MEDS: PIPERACILLIN/TAZOBACTAM 3.375 GM in SODIUM CHLORIDE 0.9% MINIBAG 100 ML IV SCH ×3 (05:24→21:32)
[2023-05-08 05:35] LABS: CALCIUM 8.6 mg/dL (8.5-10.3); CREATININE 1.5 mg/dL (0.6-1.3); POTASSIUM 3.2 mmol/L (3.5-4.5)
[2023-05-08 05:52] LABS: LACTIC ACID, VENOUS 2.9 mmol/L (0.5-2.2)
[2023-05-08 06:01] LABS: DIFFERENTIAL COMMENT MANUAL=AUTO DIFF; PLATELET ESTIMATE, MANUAL NORMAL (130-450,000) (NORMAL); PLATELET MORPHOLOGY NORMAL APPEARANCE (NORMAL); WBC MORPHOLOGY (MULTIPLE) NORMAL APPEARANCE (NORMAL)
[2023-05-08 07:24] LABS: BILIRUBIN,URINE NEGATIVE (NEGATIVE); GLUCOSE, URINE (UA) NEGATIVE (NEGATIVE); KETONES,URINE (UA) NEGATIVE (NEGATIVE); LEUKOCYTE ESTERASE, URINE NEGATIVE (NEGATIVE); NITRITE,URINE NEGATIVE (NEGATIVE); OCCULT BLOOD,URINE SMALL (NEGATIVE); PH,URINE 5.5 PH (5.0-7.5); PROTEIN,URINE 100 mg/dL (NEGATIVE); UROBILINOGEN,URINE 0.2 (NORMAL) E.U./dL (NORMAL)
[2023-05-08 07:29] LABS: BACTERIA,URINE Few /HPF (None Seen); CASTS, URINE 3-5 Hyaline Casts /LPF; CLARITY,URINE CLEAR (CLEAR); MUCUS,URINE Few Strands; RBC,URINE 0-5 /HPF (0-5); SQUAMOUS EPITHELIAL CELL,UR FEW Squamous (<= Few); WBC,URINE 0-3 /HPF (0-3)
[2023-05-08] MEDS ORDERED: IPRATROPIUM/ALBUTEROL 3 ML NEB INH PRN (07:54)
[2023-05-08] MEDS: INSULIN LISPRO 300 UNIT/3 ML PEN SUBQ SCH ×4 (08:46→20:58)
[2023-05-08] MEDS: ENOXAPARIN 40 MG/0.4 ML SYRINGE SUBQ SCH (08:48)
[2023-05-08] MEDS: ATORVASTATIN 40 MG TABLET PO SCH (08:52)
[2023-05-08] MEDS: ASPIRIN 325 MG TABLET PO SCH (08:53)
[2023-05-08] MEDS: METOPROLOL TARTRATE 50 MG TABLET PO SCH ×2 (08:53→20:55)
--- NOTE | 2023-05-08 10:48 | PHARMACY PROGRESS NOTE ---
- Best Possible Medication History Admit Date and Time: 05/07/232024 Processed by: Pharmacy Medication History completed: Yes Patient Interview: Pt unable to participate Secondary Source(s): Caregiver As the person ultimately responsible for medication therapy, providers are able to order a medication from an existing home medication list in [facility] via the "Reconcile Routine" prior to Confirmation of that medication by direct support worker. Such practice is discouraged except when the physician, in their clinical judgment, deems that a medical need exists for a medication without regard to previous use. Verified patient home med list via phone call to [facility] 05/08/2023 1045, via [facility] Snow.
--- NOTE | 2023-05-08 11:26 | PROVIDER PROGRESS NOTE ---
Assessment/Plan - Problem List (1) Respiratory failure Qualifiers: Chronicity: acute Respiratory failure complication: hypoxia Qualified Code(s): J96.01 - Acute respiratory failure with hypoxia Assessment/Plan: * Patient with history of dementia admitted from facility due to ongoing respiratory failure with hypoxia, progressively worsened over the past week * Patient diagnosed with community-acquired pneumonia as well as COVID at the time of admission * Patient met sepsis criteria due to hypoxia, tachypnea, and tachycardia and lactic acidosis (persistent with most recent measured at 2.9) * Continue oxygen as needed with current settings on high flow 2% 3 L, wean as able (2) COVID Assessment/Plan: Patient with acute respiratory failure with hypoxia likely secondary to comm unity-acquired pneumonia and/or COVID Oxygen support as above Continue Decadron IV until able to take p.o. Initiate remdesivir,5-day treatment course Unless able to discharge prior discussed with pharmacy, appreciate assistance Continue isolation per protocol (3) Sepsis due to pneumonia Assessment/Plan: * Patient with history of dementia * Cannot rule out aspiration * Continue IV antibiotic therapy * Zosyn and azithromycin * Monitor labs - Check lactic acid until normal * Oxygen support as above (4) Dementia Qualifiers: Dementia type: unspecified type Qualified Code(s): F03.90 - Unspecified dementia, unspecified severity, without behavioral disturbance, psychotic disturbance, mood disturbance, and anxiety Assessment/Plan: * Patient with baseline dementia residing in long-term care facility * Appears to be at baseline * Requiring assistance for ADLs, eating, etc. * Likely will DC back to facility once off oxygen (5) Type II diabetes mellitus Qualifiers: Diabetes mellitus complication status: with circulatory complication Diabetes mellitus complication detail: with peripheral angiopathy without gangrene Assessment/Plan: * Blood sugars currently elevated * On diabetic diet and sliding scale * Anticipate blood sugars will increase with administration of Decadron * Pending blood sugar results consider adding basal insulin (6) HTN (hypertension) Qualifiers: Hypertension type: essential hypertension Qualified Code(s): I10 - Essential (primary) hypertension Assessment/Plan: * BP moderately well controlled * Continue home meds minus losartan and HCTZ due to kidney function (8) History of atrial fibrillation Assessment/Plan: * Currently rate controlled in A-fib * Apparently not anticoagulated at home * Continue home metoprolol * Given current COVID infection, prophylactic Lovenox ordered - continue - Current Meds Current Meds: Current Medications Generic Name Dose Route Start Last Admin Trade Name Freq PRN Reason Stop Dose Admin Aspirin 325 mg 05/08/23 09:00 05/08/23 08:53 Aspirin 325 Mg Tablet PO 325 mg DAILY CASANDRA Administration Atorvastatin Calcium 40 mg 05/08/23 09:00 05/08/23 08:52 Atorvastatin 40 Mg Tablet PO 40 mg DAILY CASANDRA Administration Dexamethasone 6 mg 05/07/23 23:25 05/08/23 08:41 Dexamethasone 4 Mg/Ml Vial IVP 6 mg DAILY CASANDRA Administration Enoxaparin Sodium 40 mg 05/08/23 09:00 05/08/23 08:48 Enoxaparin 40 Mg/0.4 Ml Syringe SUBQ 40 mg DAILY CASANDRA Administration Furosemide 20 mg 05/07/23 23:24 05/08/23 08:45 Furosemide 20 Mg/2 Ml Vial IVP 20 mg DAILY CASANDRA Administration Piperacillin Sod/Tazobactam 100 mls @ 25 mls/hr 05/08/23 06:00 05/08/23 05:24 Sod 3.375 gm/ Sodium Chloride IV 25 mls/hr Q8H CASANDRA Administration Insulin Human Lispro 1 - 5 unit 05/07/23 21:00 05/08/23 08:46 Insulin Lispro 300 Unit/3 Ml Pen SUBQ 1 unit 0800,1200,1700,2100 [facility] Administration Protocol Metoprolol Tartrate 50 mg 05/07/23 21:00 05/08/23 08:53 Metoprolol Tartrate 50 Mg Tablet PO 50 mg BID CASANDRA Administration Multi-Ingredient Ointment 1 applic 05/07/23 21:24 05/07/23 22:17 Zinc Oxide 20% Oint 30 Gm Tube TOP 1 applic PRN PRN Administration Skin Care Sodium Chloride 10 ml 05/08/23 01:00 05/08/23 00:38 Sodium Chloride Flush 0.9% 10 Ml Syringe IVP 10 ml 0100,0900,1700 [facility] Administration - Lab Result Fish Bone Diagrams: 05/08/23 05:10 05/08/23 05:10 - EKG Results EKG Interpreted Independently: Yes - Diagnostic Imaging Results Diagnostic Imaging Results: Final report reviewed, Read independently - Additional Planning Condition/Complexity: Improved My Orders: My Active Orders 05/08/23 07:54 Ipratropium/Albuterol [Duoneb] 3 ml INH RTQ6H PRN 05/08/23 Lunch Carb-controlled Diet [DIET] Plan Discussed with:: Case Management Time Spent: 31-60 minutes Subjective - Subjective Patient Reports: Feeling Better Nursing Reports: No Complaints, Confused Objective Vital Signs: Vital Signs - 24 hr 05/07/23 05/07/23 05/07/23 19:10 20:48 21:28 Temperature 37.9 C 37.2 C Heart Rate 102 H 100 Heart Rate [ Brachial] Heart Rate [ 101 H Monitoring electrodes] Respiratory 35 H 24 35 H Rate Blood Pressure 160/90 H 142/68 H Blood Pressure 163/86 H [Left Brachial artery] O2 Saturation 93 91 L 85 L If not protocol 6 : Oxygen Flow, liters/minute 05/07/23 05/07/23 05/07/23 22:00 22:26 22:45 Temperature Heart Rate Heart Rate [ Brachial] Heart Rate [ 90 Monitoring electrodes] Respiratory 35 H Rate Blood Pressure 163/86 H Blood Pressure 105/62 [Left Brachial artery] O2 Saturation 100 If not protocol 40 40 : Oxygen Flow, liters/minute 05/07/23 05/08/23 05/08/23 23:19 00:27 05:04 Temperature 36.8 C 36.8 C Heart Rate Heart Rate [ 83 Brachial] Heart Rate [ 94 Monitoring electrodes] Respiratory 35 H 20 Rate Blood Pressure Blood Pressure 134/80 H 123/75 [Left Brachial artery] O2 Saturation 96 98 If not protocol 40 30 30 : Oxygen Flow, liters/minute 05/08/23 05/08/23 05/08/23 07:31 08:00 08:53 Temperature 37.5 C Heart Rate 49 L Heart Rate [ 89 Brachial] Heart Rate [ Monitoring electrodes] Respiratory 22 20 Rate Blood Pressure 137/87 H Blood Pressure 138/87 H [Left Brachial artery] O2 Saturation 96 If not protocol 20 31 : Oxygen Flow, liters/minute Oxygen O2 Source [facility]NC Oxygen Flow Rate 6 I&O (Last 24 Hrs): Intake and Output Totals x24h 05/06/23 05/07/23 05/08/23 23:59 23:59 23:59 Intake Total 100 240 Output Total 250 Balance 100 -10 General: Alert, No acute distress HEENT: Atraumatic Neuro: Disoriented, Non Focal, CN 2-12 Grossly Intact Cardiovascular: Normal S1, Normal S2, Other (Irregularly irregular) Respiratory: Chest non-tender, No respiratory distress, Rhonchi Abdomen: Normal bowel sounds Extremities: No clubbing, No cyanosis, No edema Comments/Notes: Bilateral onychomycosis - Results Results: Laboratory Results WBC 5.9 x10^3/uL (4.8-10.8) 05/08/23 05:10 RBC 3.94 10^6/uL (4.70-6.10) L 05/08/23 05:10 Hgb 11.4 g/dL (14.0-18.0) L 05/08/23 05:10 Hct 34.4 % (42.0-52.0) L 05/08/23 05:10 MCV 87.3 fL (80.0-94.0) 05/08/23 05:10 MCH 28.9 pg (27.0-31.0) 05/08/23 05:10 MCHC 33.1 g/dL (32.0-36.0) 05/08/23 05:10 RDW 14.0 % (12.0-15.0) 05/08/23 05:10 Plt Count 139 10^3/uL (130-450) 05/08/23 05:10 MPV 10.7 fL (7.4-11.4) 05/08/23 05:10 Neut # (Auto) 5.2 10^3/uL (1.5-6.6) 05/08/23 05:10 Lymph # (Auto) 0.3 10^3/uL (1.5-3.5) L 05/08/23 05:10 Coos # (Auto) 0.4 10^3/uL (0.0-1.0) 05/08/23 05:10 Eos # (Auto) 0.0 10^3/uL (0.0-0.7) 05/08/23 05:10 Baso # (Auto) 0.0 10^3/uL (0.0-0.1) 05/08/23 05:10 Absolute Nucleated RBC 0.00 x10^3/uL 05/08/23 05:10 Band Neuts % (Manual) Not Reportable 05/08/23 05:10 Abnorm Lymph % (Manual) Not Reportable 05/08/23 05:10 Nucleated RBC % 0.0 /100WBC 05/08/23 05:10 Neutrophils # (Manual) Not Reportable 05/08/23 05:10 Lymphocytes # (Manual) Not Reportable 05/08/23 05:10 Monocytes # (Manual) Not Reportable 05/08/23 05:10 Eosinophils # (Manual) Not Reportable 05/08/23 05:10 Basophils # (Manual) Not Reportable 05/08/23 05:10 Differential Comment MANUAL=AUTO DIFF 05/08/23 05:10 Manual Slide Review Indicated 05/08/23 05:10 WBC Morphology NORMAL APPEARANCE (NORMAL) 05/08/23 05:10 Platelet Estimate NORMAL (130-450,000) (NORMAL) 05/08/23 05:10 Platelet Morphology NORMAL APPEARANCE (NORMAL) 05/08/23 05:10 RBC Morph Micro Appear 1+ POIKILOCYTOSIS (NORMAL) 1+ ANISOCYTOSIS (NORMAL) 1+ WILLARD CELLS (NORMAL) 2+ ACANTHOCYTES (NORMAL) 05/08/23 05:10 RBC Morph Micro Appear 1+ POIKILOCYTOSIS (NORMAL) 1+ ANISOCYTOSIS (NORMAL) 1+ WILLARD CELLS (NORMAL) 2+ ACANTHOCYTES (NORMAL) 05/08/23 05:10 RBC Morph Micro Appear 1+ POIKILOCYTOSIS (NORMAL) 1+ ANISOCYTOSIS (NORMAL) 1+ WILLARD CELLS (NORMAL) 2+ ACANTHOCYTES (NORMAL) 05/08/23 05:10 RBC Morph Micro Appear 1+ POIKILOCYTOSIS (NORMAL) 1+ ANISOCYTOSIS (NORMAL) 1+ WILLARD CELLS (NORMAL) 2+ ACANTHOCYTES (NORMAL) 05/08/23 05:10 D-Dimer 1032.6 ng/mL (200.0-255.0) H 05/07/23 19:49 Sodium 138 mmol/L (135-145) 05/08/23 05:10 Potassium 3.2 mmol/L (3.5-4.5) L 05/08/23 05:10 Chloride 101 mmol/L (101-111) 05/08/23 05:10 Carbon Dioxide 24 mmol/L (21-32) 05/08/23 05:10 Anion Gap 13.0 (6-13) 05/08/23 05:10 BUN 34 mg/dL (6-20) H 05/08/23 05:10 Creatinine 1.5 mg/dL (0.6-1.3) H 05/08/23 05:10 Estimated GFR (MDRD) 44 (>89) L 05/08/23 05:10 Glucose 185 mg/dL (74-104) H 05/08/23 05:10 POC Whole Bld Glucose 180 mg/dL (70 - 100) H 05/08/23 08:46 Lactic Acid 2.9 mmol/L (0.5-2.2) H 05/08/23 05:35 Calcium 8.6 mg/dL (8.5-10.3) 05/08/23 05:10 Total Bilirubin 2.4 mg/dL (0.2-1.0) H 05/07/23 19:29 AST 58 IU/L (10-42) H 05/07/23 19:29 ALT 21 IU/L (10-60) 05/07/23 19:29 Alkaline Phosphatase 61 IU/L (42-121) 05/07/23 19:29 Lactate Dehydrogenase 269 IU/L (91-225) H 05/07/23 19:29 Total Creatine Kinase 197 IU/L (22-269) 05/07/23 19:29 C-Reactive Protein 4.3 mg/dL (0-1.0) H 05/07/23 19:29 Total Protein 6.5 g/dL (6.4-8.9) 05/07/23 19:29 Albumin 4.0 g/dL (3.2-5.5) 05/07/23 19:29 Globulin 2.5 g/dL (2.1-4.2) 05/07/23 19:29 Albumin/Globulin Ratio 1.6 (1.0-2.2) 05/07/23 19:29 Urine Color YELLOW 05/08/23 06:40 Urine Clarity CLEAR (CLEAR) 05/08/23 06:40 Urine pH 5.5 PH (5.0-7.5) 05/08/23 06:40 Ur Specific [place] 1.025 (1.002-1.030) 05/08/23 06:40 Urine Protein 100 mg/dL (NEGATIVE) H 05/08/23 06:40 Urine Glucose (UA) NEGATIVE mg/dL (NEGATIVE) 05/08/23 06:40 Urine Ketones NEGATIVE mg/dL (NEGATIVE) 05/08/23 06:40 Urine Occult Blood SMALL (NEGATIVE) H 05/08/23 06:40 Urine Nitrite NEGATIVE (NEGATIVE) 05/08/23 06:40 Urine Bilirubin NEGATIVE (NEGATIVE) 05/08/23 06:40 Urine Urobilinogen 0.2 (NORMAL) E.U./dL (NORMAL) 05/08/23 06:40 Ur Leukocyte Esterase NEGATIVE (NEGATIVE) 05/08/23 06:40 Urine RBC 0-5 /HPF (0-5) 05/08/23 06:40 Urine WBC 0-3 /HPF (0-3) 05/08/23 06:40 Ur Squamous Epith Cells FEW Squamous (<= Few) 05/08/23 06:40 Urine Bacteria Few /HPF (None Seen) 05/08/23 06:40 Urine Casts 3-5 Hyaline Casts /LPF 05/08/23 06:40 Urine Mucus Few Strands 05/08/23 06:40 Urine Culture Comments NOT INDICATED 05/08/23 06:40 Nasal Adenovirus (PCR) NOT DETECTED 05/07/23 19:35 Nasal B. parapertussis DNA (PCR) NOT DETECTED 05/07/23 19:35 Nasal Coronavir 229E PCR NOT DETECTED 05/07/23 19:35 Nasal Coronavir HKU1 PCR NOT DETECTED 05/07/23 19:35 Nasal Coronavir NL63 PCR NOT DETECTED 05/07/23 19:35 Nasal Coronavir OC43 PCR NOT DETECTED 05/07/23 19:35 Nasal Enterovir/Rhinovir PCR NOT DETECTED 05/07/23 19:35 Nasal Influenza B PCR NOT DETECTED 05/07/23 19:35 Nasal Influenza A PCR NOT DETECTED 05/07/23 19:35 Nasal Parainfluen 1 PCR NOT DETECTED 05/07/23 19:35 Nasal Parainfluen 2 PCR NOT DETECTED 05/07/23 19:35 Nasal Parainfluen 3 PCR NOT DETECTED 05/07/23 19:35 Nasal Parainfluen 4 PCR NOT DETECTED 05/07/23 19:35 Nasal RSV (PCR) NOT DETECTED 05/07/23 19:35 Nasal B.pertussis DNA PCR NOT DETECTED 05/07/23 19:35 Nasal C.pneumoniae (PCR) NOT DETECTED 05/07/23 19:35 Kilo Human Metapneumo PCR NOT DETECTED 05/07/23 19:35 Nasal M.pneumoniae (PCR) NOT DETECTED 05/07/23 19:35 Nasal SARS-CoV-2 (PCR) DETECTED A 05/07/23 19:35 ABX Reporting Has patient been on IV antibiotics over the past 48 hours?: Yes Current Medications - Current Medications Current Medications: Current Medications Generic Name Dose Route Start Last Admin Trade Name Freq PRN Reason Stop Dose Admin Aspirin 325 mg 05/08/23 09:00 05/08/23 08:53 Aspirin 325 Mg Tablet PO 325 mg DAILY CASANDRA Administration Atorvastatin Calcium 40 mg 05/08/23 09:00 05/08/23 08:52 Atorvastatin 40 Mg Tablet PO 40 mg DAILY CASANDRA Administration Dexamethasone 6 mg 05/07/23 23:25 05/08/23 08:41 Dexamethasone 4 Mg/Ml Vial IVP 6 mg DAILY CASANDRA Administration Enoxaparin Sodium 40 mg 05/08/23 09:00 05/08/23 08:48 Enoxaparin 40 Mg/0.4 Ml Syringe SUBQ 40 mg DAILY CASANDRA Administration Piperacillin Sod/Tazobactam 100 mls @ 25 mls/hr 05/08/23 06:00 05/08/23 09:25 Sod 3.375 gm/ Sodium Chloride IV Infused Q8H CASANDRA Titration Insulin Human Lispro 1 - 5 unit 05/07/23 21:00 05/08/23 08:46 Insulin Lispro 300 Unit/3 Ml Pen SUBQ 1 unit 0800,1200,1700,2100 [facility] Administration Protocol Metoprolol Tartrate 50 mg 05/07/23 21:00 05/08/23 08:53 Metoprolol Tartrate 50 Mg Tablet PO 50 mg BID CASANDRA Administration Multi-Ingredient Ointment 1 applic 05/07/23 21:24 05/07/23 22:17 Zinc Oxide 20% Oint 30 Gm Tube TOP 1 applic PRN PRN Administration Skin Care Sodium Chloride 10 ml 05/08/23 01:00 05/08/23 00:38 Sodium Chloride Flush 0.9% 10 Ml Syringe IVP 10 ml 0100,0900,1700 CASANDRA Administration
[2023-05-08] MEDS ORDERED: REMDESIVIR 200 MG in SODIUM CHLORIDE 0.9% 250 ML IV ONE (12:00)
[2023-05-08] MEDS ORDERED: AZITHROMYCIN INJ 500 MG in SODIUM CHLORIDE 0.9% 250 ML IV SCH (19:00)
[2023-05-09] MEDS: SODIUM CHLORIDE FLUSH 0.9% 10 ML SYRINGE IVP SCH ×4 (06:01→23:54)
[2023-05-09] MEDS: PIPERACILLIN/TAZOBACTAM 3.375 GM in SODIUM CHLORIDE 0.9% MINIBAG 100 ML IV SCH (06:02)
[2023-05-09] MEDS: METOPROLOL TARTRATE 50 MG TABLET PO SCH ×2 (08:31→20:35)
[2023-05-09] MEDS: DEXAMETHASONE 4 MG/ML VIAL IVP SCH (08:31)
[2023-05-09] MEDS: ATORVASTATIN 40 MG TABLET PO SCH (08:31)
[2023-05-09] MEDS: ASPIRIN 325 MG TABLET PO SCH (08:31)
[2023-05-09] MEDS: ENOXAPARIN 40 MG/0.4 ML SYRINGE SUBQ SCH (08:32)
[2023-05-09] MEDS: INSULIN LISPRO 300 UNIT/3 ML PEN SUBQ SCH ×4 (08:35→20:36)
[2023-05-09] MEDS: REMDESIVIR 100 MG in SODIUM CHLORIDE 0.9% 100ML 100 ML IV SCH (09:26)
--- NOTE | 2023-05-09 11:57 | PROVIDER PROGRESS NOTE ---
Assessment/Plan - Problem List (1) Respiratory failure Qualifiers: Chronicity: acute Respiratory failure complication: hypoxia Qualified Code(s): J96.01 - Acute respiratory failure with hypoxia Assessment/Plan: * Patient with history of dementia admitted from facility due to ongoing respiratory failure with hypoxia, progressively worsened over the past week * Patient diagnosed with community-acquired pneumonia as well as COVID at the time of admission * Patient met sepsis criteria due to hypoxia, tachypnea, and tachycardia and lactic acidosis (persistent with most recent measured at 2.9) * He has improved overnight and is now on room air since the night monitor * We will transition to p.o. antibiotics (2) COVID Assessment/Plan: Patient with acute respiratory failure with hypoxia likely secondary to community-acquired pneumonia and/or COVID Now on RA Decadron PO Cont remdesivir,5-day treatment course, or until DC Continue isolation per protocol (3) Sepsis due to pneumonia Assessment/Plan: * Patient with history of dementia * Cannot rule out aspiration * Doing well, now on room air * Antibiotics transitioned to p.o., stop Zosyn add Augmentin (4) Dementia Qualifiers: Dementia type: unspecified type Qualified Code(s): F03.90 - Unspecified dementia, unspecified severity, without behavioral disturbance, psychotic disturbance, mood disturbance, and anxiety Assessment/Plan: Patient is back at baseline (5) Type II diabetes mellitus Qualifiers: Diabetes mellitus complication status: with circulatory complication Diabetes mellitus complication detail: with peripheral angiopathy without gangrene Assessment/Plan: * Patient with baseline dementia residing in long-term care facility * Appears to be at baseline * Requiring assistance for ADLs, eating, etc. * Likely will DC back to facility once off oxygen (6) HTN (hypertension) Qualifiers: Hypertension type: essential hypertension Qualified Code(s): I10 - Essential (primary) hypertension Assessment/Plan: BP moderately well controlled Continue home meds minus losartan and HCTZ due to kidney function (8) History of atrial fibrillation Assessment/Plan: * Currently rate controlled in A-fib * Apparently not anticoagulated at home * Continue home metoprolol * Given current COVID infection, prophylactic Lovenox ordered - continue - Current Meds Current Meds: Current Medications Generic Name Dose Route Start Last Admin Trade Name Freq PRN Reason Stop Dose Admin Aspirin 325 mg 05/08/23 09:00 05/09/23 08:31 Aspirin 325 Mg Tablet PO 325 mg DAILY CASANDRA Administration Atorvastatin Calcium 40 mg 05/08/23 09:00 05/09/23 08:31 Atorvastatin 40 Mg Tablet PO 40 mg DAILY CASANDRA Administration Enoxaparin Sodium 40 mg 05/08/23 09:00 05/09/23 08:32 Enoxaparin 40 Mg/0.4 Ml Syringe SUBQ 40 mg DAILY CASANDRA Administration Piperacillin Sod/Tazobactam 100 mls @ 25 mls/hr 05/08/23 06:00 05/09/23 06:02 Sod 3.375 gm/ Sodium Chloride IV 25 mls/hr Q8H CASANDRA Administration Azithromycin 500 mg/ Sodium 250 mls @ 250 mls/hr 05/08/23 19:00 05/08/23 20:41 Chloride IV 05/09/23 19:59 Infused 1900 [facility] Infusion Remdesivir 100 mg/ Sodium 100 mls @ 200 mls/hr 05/09/23 09:00 05/09/23 09:26 Chloride IV 05/12/23 09:29 200 mls/hr DAILY ACSANDRA Administration Insulin Human Lispro 1 - 9 unit 05/08/23 21:00 05/09/23 08:35 Insulin Lispro 300 Unit/3 Ml Pen SUBQ Not Given 0800,1200,1700,2100 [facility] Protocol Metoprolol Tartrate 50 mg 05/07/23 21:00 05/09/23 08:31 Metoprolol Tartrate 50 Mg Tablet PO 50 mg BID CASANDRA Administration Multi-Ingredient Ointment 1 applic 05/07/23 21:24 05/07/23 22:17 Zinc Oxide 20% Oint 30 Gm Tube TOP 1 applic PRN PRN Administration Skin Care Sodium Chloride 10 ml 05/08/23 01:00 05/09/23 08:36 Sodium Chloride Flush 0.9% 10 Ml Syringe IVP Not Given 0100,0900,1700 [facility] - Lab Result Lab results reviewed: Yes Fish Bone Diagrams: 05/08/23 05:10 05/08/23 05:10 - Additional Planning My Orders: My Active Orders 05/08/23 Lunch Carb-controlled Diet [DIET] 05/08/23 19:00 Azithromycin Inj [Zithromax Inj] 500 mg Sodium Chloride 0.9% [Normal Saline 0.9%] 250 ml IV 1900 05/08/23 21:00 Insulin Lispro [Humalog Kwikpen U-100] 1 - 9 unit SUBQ 0800,1200,1700,2100 05/09/23 09:00 Remdesivir [Veklury] 100 mg Sodium Chloride 0.9% 100Ml [Normal Saline 0.9% 100Ml] 100 ml IV DAILY Subjective - Subjective Patient Reports: Resting Comfortably Objective Vital Signs: Vital Signs - 24 hr 05/08/23 05/08/23 05/08/23 12:17 12:32 15:41 Temperature 36.8 C 36.7 C Heart Rate [ 74 70 Brachial] Respiratory 20 20 Rate Blood Pressure Blood Pressure 122/61 139/83 H [Left Brachial artery] O2 Saturation 98 99 If not protocol 9 9 3 : Oxygen Flow, liters/minute 05/08/23 05/08/23 05/08/23 15:48 20:55 20:58 Temperature 36.2 C L Heart Rate [ 66 Brachial] Respiratory 20 Rate Blood Pressure 124/69 Blood Pressure 124/69 [Left Brachial artery] O2 Saturation 96 94 If not protocol : Oxygen Flow, liters/minute 05/09/23 05/09/23 05/09/23 00:00 08:00 08:31 Temperature 36.6 C 36.3 C L Heart Rate [ 57 L 89 Brachial] Respiratory 20 20 Rate Blood Pressure 131/80 H Blood Pressure 124/75 131/80 H [Left Brachial artery] O2 Saturation 100 94 If not protocol : Oxygen Flow, liters/minute Oxygen O2 Source Room air Oxygen Flow Rate 6 I&O (Last 24 Hrs): Intake and Output Totals x24h 05/07/23 05/08/23 05/09/23 23:59 23:59 23:59 Intake Total 100 4986 440 Output Total 250 Balance 100 4736 440 General: Alert, Oriented x3 HEENT: Atraumatic Neuro: Alert, CN 2-12 Grossly Intact Cardiovascular: Normal S1, Normal S2, No murmurs Respiratory: Chest non-tender, No respiratory distress, Breath sounds nml Extremities: No clubbing, No cyanosis, No edema - Results Results: Laboratory Results WBC 5.9 x10^3/uL (4.8-10.8) 05/08/23 05:10 RBC 3.94 10^6/uL (4.70-6.10) L 05/08/23 05:10 Hgb 11.4 g/dL (14.0-18.0) L 05/08/23 05:10 Hct 34.4 % (42.0-52.0) L 05/08/23 05:10 MCV 87.3 fL (80.0-94.0) 05/08/23 05:10 MCH 28.9 pg (27.0-31.0) 05/08/23 05:10 MCHC 33.1 g/dL (32.0-36.0) 05/08/23 05:10 RDW 14.0 % (12.0-15.0) 05/08/23 05:10 Plt Count 139 10^3/uL (130-450) 05/08/23 05:10 MPV 10.7 fL (7.4-11.4) 05/08/23 05:10 Neut # (Auto) 5.2 10^3/uL (1.5-6.6) 05/08/23 05:10 Lymph # (Auto) 0.3 10^3/uL (1.5-3.5) L 05/08/23 05:10 Fannin # (Auto) 0.4 10^3/uL (0.0-1.0) 05/08/23 05:10 Eos # (Auto) 0.0 10^3/uL (0.0-0.7) 05/08/23 05:10 Baso # (Auto) 0.0 10^3/uL (0.0-0.1) 05/08/23 05:10 Absolute Nucleated RBC 0.00 x10^3/uL 05/08/23 05:10 Band Neuts % (Manual) Not Reportable 05/08/23 05:10 Abnorm Lymph % (Manual) Not Reportable 05/08/23 05:10 Nucleated RBC % 0.0 /100WBC 05/08/23 05:10 Neutrophils # (Manual) Not Reportable 05/08/23 05:10 Lymphocytes # (Manual) Not Reportable 05/08/23 05:10 Monocytes # (Manual) Not Reportable 05/08/23 05:10 Eosinophils # (Manual) Not Reportable 05/08/23 05:10 Basophils # (Manual) Not Reportable 05/08/23 05:10 Differential Comment MANUAL=AUTO DIFF 05/08/23 05:10 Manual Slide Review Indicated 05/08/23 05:10 WBC Morphology NORMAL APPEARANCE (NORMAL) 05/08/23 05:10 Platelet Estimate NORMAL (130-450,000) (NORMAL) 05/08/23 05:10 Platelet Morphology NORMAL APPEARANCE (NORMAL) 05/08/23 05:10 RBC Morph Micro Appear 1+ POIKILOCYTOSIS (NORMAL) 1+ ANISOCYTOSIS (NORMAL) 1+ WILLARD CELLS (NORMAL) 2+ ACANTHOCYTES (NORMAL) 05/08/23 05:10 RBC Morph Micro Appear 1+ POIKILOCYTOSIS (NORMAL) 1+ ANISOCYTOSIS (NORMAL) 1+ WILLARD CELLS (NORMAL) 2+ ACANTHOCYTES (NORMAL) 05/08/23 05:10 RBC Morph Micro Appear 1+ POIKILOCYTOSIS (NORMAL) 1+ ANISOCYTOSIS (NORMAL) 1+ WILLARD CELLS (NORMAL) 2+ ACANTHOCYTES (NORMAL) 05/08/23 05:10 RBC Morph Micro Appear 1+ POIKILOCYTOSIS (NORMAL) 1+ ANISOCYTOSIS (NORMAL) 1+ WILLARD CELLS (NORMAL) 2+ ACANTHOCYTES (NORMAL) 05/08/23 05:10 D-Dimer 1032.6 ng/mL (200.0-255.0) H 05/07/23 19:49 Sodium 138 mmol/L (135-145) 05/08/23 05:10 Potassium 3.2 mmol/L (3.5-4.5) L 05/08/23 05:10 Chloride 101 mmol/L (101-111) 05/08/23 05:10 Carbon Dioxide 24 mmol/L (21-32) 05/08/23 05:10 Anion Gap 13.0 (6-13) 05/08/23 05:10 BUN 34 mg/dL (6-20) H 05/08/23 05:10 Creatinine 1.5 mg/dL (0.6-1.3) H 05/08/23 05:10 Estimated GFR (MDRD) 44 (>89) L 05/08/23 05:10 Glucose 185 mg/dL (74-104) H 05/08/23 05:10 POC Whole Bld Glucose 140 mg/dL (70 - 100) H 05/09/23 08:19 Lactic Acid 2.0 mmol/L (0.5-2.2) 05/08/23 12:00 Calcium 8.6 mg/dL (8.5-10.3) 05/08/23 05:10 Total Bilirubin 2.4 mg/dL (0.2-1.0) H 05/07/23 19:29 AST 58 IU/L (10-42) H 05/07/23 19:29 ALT 21 IU/L (10-60) 05/07/23 19:29 Alkaline Phosphatase 61 IU/L (42-121) 05/07/23 19:29 Lactate Dehydrogenase 269 IU/L (91-225) H 05/07/23 19:29 Total Creatine Kinase 197 IU/L (22-269) 05/07/23 19: C-Reactive Protein 4.3 mg/dL (0-1.0) H 05/07/23 19: Total Protein 6.5 g/dL (6.4-8.9) 05/07/23 19: Albumin 4.0 g/dL (3.2-5.5) 05/07/23 19: Globulin 2.5 g/dL (2.1-4.2) 05/07/23 19: Albumin/Globulin Ratio 1.6 (1.0-2.2) 05/07/23 19:29 Urine Color YELLOW 05/08/23 06:40 Urine Clarity CLEAR (CLEAR) 05/08/23 06:40 Urine pH 5.5 PH (5.0-7.5) 05/08/23 06:40 Ur Specific [place] 1.025 (1.002-1.030) 05/08/23 06:40 Urine Protein 100 mg/dL (NEGATIVE) H 05/08/23 06:40 Urine Glucose (UA) NEGATIVE mg/dL (NEGATIVE) 05/08/23 06:40 Urine Ketones NEGATIVE mg/dL (NEGATIVE) 05/08/23 06:40 Urine Occult Blood SMALL (NEGATIVE) H 05/08/23 06:40 Urine Nitrite NEGATIVE (NEGATIVE) 05/08/23 06:40 Urine Bilirubin NEGATIVE (NEGATIVE) 05/08/23 06:40 Urine Urobilinogen 0.2 (NORMAL) E.U./dL (NORMAL) 05/08/23 06:40 Ur Leukocyte Esterase NEGATIVE (NEGATIVE) 05/08/23 06:40 Urine RBC 0-5 /HPF (0-5) 05/08/23 06:40 Urine WBC 0-3 /HPF (0-3) 05/08/23 06:40 Ur Squamous Epith Cells FEW Squamous (<= Few) 05/08/23 06:40 Urine Bacteria Few /HPF (None Seen) 05/08/23 06:40 Urine Casts 3-5 Hyaline Casts /LPF 05/08/23 06:40 Urine Mucus Few Strands 05/08/23 06:40 Urine Culture Comments NOT INDICATED 05/08/23 06:40 Nasal Adenovirus (PCR) NOT DETECTED 05/07/23 19:35 Nasal B. parapertussis DNA (PCR) NOT DETECTED 05/07/23 19:35 Nasal Coronavir 229E PCR NOT DETECTED 05/07/23 19:35 Nasal Coronavir HKU1 PCR NOT DETECTED 05/07/23 19:35 Nasal Coronavir NL63 PCR NOT DETECTED 05/07/23 19:35 Nasal Coronavir OC43 PCR NOT DETECTED 05/07/23 19:35 Nasal Enterovir/Rhinovir PCR NOT DETECTED 05/07/23 19:35 Nasal Influenza B PCR NOT DETECTED 05/07/23 19:35 Nasal Influenza A PCR NOT DETECTED 05/07/23 19:35 Nasal Parainfluen 1 PCR NOT DETECTED 05/07/23 19:35 Nasal Parainfluen 2 PCR NOT DETECTED 05/07/23 19:35 Nasal Parainfluen 3 PCR NOT DETECTED 05/07/23 19:35 Nasal Parainfluen 4 PCR NOT DETECTED 05/07/23 19:35 Nasal RSV (PCR) NOT DETECTED 05/07/23 19:35 Nasal B.pertussis DNA PCR NOT DETECTED 05/07/23 19:35 Nasal C.pneumoniae (PCR) NOT DETECTED 05/07/23 19:35 Kilo Human Metapneumo PCR NOT DETECTED 05/07/23 19:35 Nasal M.pneumoniae (PCR) NOT DETECTED 05/07/23 19:35 Nasal SARS-CoV-2 (PCR) DETECTED A 05/07/23 19:35 ABX Reporting Has patient been on IV antibiotics over the past 48 hours?: Yes Current Medications - Current Medications Current Medications: Current Medications Generic Name Dose Route Start Last Admin Trade Name Freq PRN Reason Stop Dose Admin Aspirin 325 mg 05/08/23 09:00 05/09/23 08:31 Aspirin 325 Mg Tablet PO 325 mg DAILY CASANDRA Administration Atorvastatin Calcium 40 mg 05/08/23 09:00 05/09/23 08:31 Atorvastatin 40 Mg Tablet PO 40 mg DAILY CASANDRA Administration Enoxaparin Sodium 40 mg 05/08/23 09:00 05/09/23 08:32 Enoxaparin 40 Mg/0.4 Ml Syringe SUBQ 40 mg DAILY [facility] Administration Remdesivir 100 mg/ Sodium 100 mls @ 200 mls/hr 05/09/23 09:00 05/09/23 09:26 Chloride IV 05/12/23 09:29 200 mls/hr DAILY CASANDRA Administration Insulin Human Lispro 1 - 9 unit 05/08/23 21:00 05/09/23 08:35 Insulin Lispro 300 Unit/3 Ml Pen SUBQ Not Given 0800,1200,1700,2100 [facility] Protocol Metoprolol Tartrate 50 mg 05/07/23 21:00 05/09/23 08:31 Metoprolol Tartrate 50 Mg Tablet PO 50 mg BID CASANDRA Administration Multi-Ingredient Ointment 1 applic 05/07/23 21:24 05/07/23 22:17 Zinc Oxide 20% Oint 30 Gm Tube TOP 1 applic PRN PRN Administration Skin Care Sodium Chloride 10 ml 05/08/23 01:00 05/09/23 08:36 Sodium Chloride Flush 0.9% 10 Ml Syringe IVP Not Given 0100,0900,1700 [facility]
[2023-05-09] MEDS ORDERED: AZITHROMYCIN 250 MG TABLET PO ONE (15:00)
[2023-05-09] MEDS: AMOX/CLAV 875 MG/125 MG TABLET PO SCH (20:35)
[2023-05-09] MEDS: ZINC OXIDE 20% OINT 30 GM TUBE TOP PRN ×2 (20:35→23:54)
[2023-05-10 08:16] VITALS: O2SAT 93
--- NOTE | 2023-05-10 08:42 | Discharge Plan ---
Discharge Plan Problem Reviewed?: Yes Disposition: Home, Self Care Condition: Stable Prescriptions: Amox/Clav 875/125 [Augmentin 875/125 Tab] 1 tab PO BID 7 Days #14 tab Diet: Diabetic Activity Restrictions: Activity as Tolerated No Smoking: If you smoke, Please STOP! Call for help. Follow-up with: Orin Abdalla DO [Provider Admit Priv/Credential] -
--- NOTE | 2023-05-10 08:48 | DISCHARGE SUMMARY ---
Discharge Summary Admit Date: 05/07/23 Discharge Date: 05/10/23 Discharging Provider: Dr. Fam Canela Primary Care Provider: Dr. Orin Abdalla Code Status: Do Not Attempt Resuscitation Condition at Discharge: Stable Discharge Disposition: 01 Home, Self Care Discharge Facility Name: [facility] - DIAGNOSES Admission Diagnoses: Pneumonia, possible aspiration Acute respiratory failure with hypoxia Hypokalemia Lactic acidosis Anemia of chronic disease HTN DM 2 HLP CAD H/O CHF H/O afib, not on anticoagulation Discharge Diagnoses with Status of Each Condition: Acute respiratory failure with hypoxiaresolved COVID-pneumoniaimproved Sepsis due to pneumoniaresolved Community-acquired pneumoniaimproved Dementiastable Type 2 diabetes mellitusstable Hypertensionstable History of atrial fibrillationstable - HPI History of Present Illness: 88 y old male with PMH HTN, DM2, HLP, CAD, CHF, Afib, brought in from assisted living due to cough, shortness of breath and fever for 1 day. Denies chest pain, nausea, vomiting, diarrhea, constipation On presentaion, temp 37.7. tachycardic and tachypnic Labs showed normal WBC, K 3.2, Testing Lead 1.5. Lactic acid 1.5 CXR showed left lung infiltrate In ER, Pt received unasyn and zithromax As per ER physician (Dr Tubbs), he talked to patients son who wanted him DNR/DNI Patient is admitted due to Pneumonia, acute respiratory failure, hypokalemia, dehydration, lactic acidosis - HOSPITAL COURSE Hospital Course: [facility] He was requiring oxygen by nasal cannula initially, and was started on azithromycin and ceftriaxone for community-acquired pneumonia. He was also started on dexamethasone on admission and remdesivir on the following morning. The patient had a progressive hospital course and was able to wean off oxygen by day 2 of hospital stay. He was tolerating the remdesivir, dexamethasone and antibiotics well.This lactic acidosis resolved. He had no significant events with respect to grossly abnormal labs (Cr improved to 1.5, likely his baseline) or vital signs and did very well with supportive care and return to his baseline level of health and he spent the last 48 hours of hospital stay on room air, and was deemed to be medically stable for discharge on 05/10/23 - ALLERGIES Allergies/Adverse Reactions: Allergies Allergy/AdvReac Type Severity Reaction Status Date / Time No Known Drug Allergies Allergy Verified 04/11/23 16:27 - MEDICATIONS Home Medications: Ambulatory Orders Medication Instructions Recorded Confirmed Metformin HCl 500 mg PO BIDWM 02/28/18 05/08/23 cloNIDine HCL [Clonidine HCl] 0.1 mg PO BID 02/28/18 05/08/23 Aspirin [[place] Aspirin] 81 mg PO DAILY 01/09/22 05/08/23 Atorvastatin [Lipitor] 20 mg PO QPM 01/09/22 05/08/23 Telmisartan 80 mg PO DAILY 01/09/22 05/08/23 hydroCHLOROthiazide [Hydrodiuril] 25 mg PO DAILY 01/09/22 05/08/23 Metoprolol Succinate [Toprol Xl] 50 mg PO DAILY 05/08/23 05/08/23 Potassium Chloride [Klor-Con 10] 10 meq PO DAILY 05/08/23 05/08/23 Sertraline [Zoloft] 25 mg PO DAILY 05/08/23 05/08/23 Amox/Clav 875/125 [Augmentin 1 tab PO BID 7 Days #14 tab 05/10/23 875/125 Tab] - PHYSICAL EXAM AT DISCHARGE General Appearance: positive: No acute distress Eyes Bilateral: positive: Normal inspection Respiratory: positive: No respiratory distress Cardiovascular: positive: Regular rate & rhythm Abdomen: positive: No distention Skin: positive: Color nml Neurologic/Psychiatric: positive: CN's nml (2-12), Disoriented to place, Disoriented to time - LABS Result Diagrams: 05/08/23 05:10 05/08/23 05:10 - DIAGNOSTIC IMAGING Diagnostic Imaging Results: Final report reviewed - SEPSIS Current Stage of Sepsis: Resolved Confirmed Source and Organism (if known) of Sepsis: Pulmonary source with organism unknown - FOLLOW UP Follow Up: Follow-up with PCP, Dr. Orin Abdalla in 1 to 2 weeks - TIME SPENT Time Spent in Discharge (Minutes): 32
[2023-05-10] MEDS ORDERED: CHOLECALCIFEROL 25 MCG TABLET PO SCH (09:00)
[2023-05-10] MEDS ORDERED: dexAMETHasone 4 MG TABLET PO SCH (09:00)
[2023-05-10] MEDS ORDERED: CYANOCOBALAMIN 500 MCG TABLET PO SCH (09:00)
[2023-05-10] MEDS: ASPIRIN 325 MG TABLET PO SCH (09:06)
[2023-05-10] MEDS: ATORVASTATIN 40 MG TABLET PO SCH (09:06)
[2023-05-10] MEDS: SODIUM CHLORIDE FLUSH 0.9% 10 ML SYRINGE IVP SCH (09:07)
[2023-05-10] MEDS: ENOXAPARIN 40 MG/0.4 ML SYRINGE SUBQ SCH (09:07)
[2023-05-10] MEDS: AMOX/CLAV 875 MG/125 MG TABLET PO SCH (09:07)
[2023-05-10] MEDS: INSULIN LISPRO 300 UNIT/3 ML PEN SUBQ SCH ×2 (09:08→12:30)
[2023-05-10] MEDS: METOPROLOL TARTRATE 50 MG TABLET PO SCH (09:09)
[2023-05-10 09:14] VITALS: BP 167/102
[2023-05-10] MEDS: REMDESIVIR 100 MG in SODIUM CHLORIDE 0.9% 100ML 100 ML IV SCH (09:44)
== END 2023-05-10 16:44 | disposition home or self-care (01) | DRG 871 ==
LOC: EDUNIT# → ED 19:05 → MS2 20:25
PROVIDERS: ADMIT Internal Medicine; ATTEND Family Medicine Sports Medicine
PROC: XW033E5 Introduction of Remdesivir Anti-infective into Peripheral Vein, Percutaneous Approach, New Technology Group 5 (ICD-10-PCS; principal; 2023-05-08)
DX: A41.9 Sepsis, unspecified organism (principal); R65.21 Severe sepsis with septic shock; A41.89 Other specified sepsis; J18.9 Pneumonia, unspecified organism; J44.0 Chronic obstructive pulmonary disease with (acute) lower respiratory infection; J12.82 Pneumonia due to coronavirus disease 2019; J96.01 Acute respiratory failure with hypoxia; E11.9 Type 2 diabetes mellitus without complications; I48.20 Chronic atrial fibrillation, unspecified; Z20.822 Contact with and (suspected) exposure to COVID-19; Z66 Do not resuscitate; U07.1 COVID-19; E87.20 Acidosis, unspecified; R65.20 Severe sepsis without septic shock; F03.90 Unspecified dementia, unspecified severity, without behavioral disturbance, psychotic disturbance, mood disturbance, and anxiety; I48.91 Unspecified atrial fibrillation; I11.0 Hypertensive heart disease with heart failure; I50.9 Heart failure, unspecified; I25.10 Atherosclerotic heart disease of native coronary artery without angina pectoris; E78.00 Pure hypercholesterolemia, unspecified; E11.51 Type 2 diabetes mellitus with diabetic peripheral angiopathy without gangrene; K21.9 Gastro-esophageal reflux disease without esophagitis; N40.1 Benign prostatic hyperplasia with lower urinary tract symptoms; H54.7 Unspecified visual loss; H91.90 Unspecified hearing loss, unspecified ear; M19.90 Unspecified osteoarthritis, unspecified site; R35.1 Nocturia; Z79.82 Long term (current) use of aspirin; Z79.84 Long term (current) use of oral hypoglycemic drugs; Z79.899 Other long term (current) drug therapy; Z82.49 Family history of ischemic heart disease and other diseases of the circulatory system; Z90.49 Acquired absence of other specified parts of digestive tract
CPT/HCPCS: 36415; 71045; 80048; 80053; 81001; 82550; 83605; 83615; 85025; 85379; 86140; 87040; 87633; 93005; 94640; 96365; 99285; 99291; A9270; J1650; J8540; 87086

== ENCOUNTER 2023-07-02 14:06 | Outpatient (CLI) | payer MEDICARE, MEDICAID | END 2023-07-02 14:07 | disposition critical access hospital (66) | LOC: EMS 14:06 | DX: S00.03XA Contusion of scalp, initial encounter (principal); W18.30XA Fall on same level, unspecified, initial encounter; Y92.129 Unspecified place in nursing home as the place of occurrence of the external cause | CPT/HCPCS: A0425; A0429 ==

== ENCOUNTER 2023-07-02 14:18 | Emergency (ER) | payer MEDICARE, MEDICAID ==
--- NOTE | 2023-07-02 14:22 | ED Physician Documentation ---
PD HPI Fall - Stated complaint Stated Complaint: GLF/HEAD INJ - History obtained from History obtained from: Patient, EMS (Medics report the patient reportedly fell in the hallway backwards striking his head. He is having some headache neck pain and lower back pain. Not on blood thinners.), Caregiver - History of Present Illness Mechanism of injury: Lost balance, Unknown Fall distance: Standing position Where injury occurred: Other ([facility]) Timing - onset: How many minutes ago (30), Today Injury(ies) location: Head, Back (lower aspect) Associated symptoms: No: LOC, Neck pain, Weakness, Paresthesias Worsens with: Movement, Palpation (left occiput and lower left back) Contributing factors: No: Anticoagulated Similar symptoms before: Has not had sx before Review of Systems Cardiac: denies: Chest pain / pressure GI: denies: Abdominal Pain Neurologic: reports: Headache (posterior). denies: Focal weakness, Numbness, Altered mental status, LOC PD PAST MEDICAL HISTORY - Past Medical History Cardiovascular: Congestive heart failure, Hypertension, High cholesterol, Coronary artery disease, Peripheral Vascular Disease, Atrial fibrillation Respiratory: COPD Endocrine/Autoimmune: Type 2 diabetes GI: GERD, C.difficile [employer]: None : Benign prostate hypertrophy, Chronic bladder infection, Nocturia HEENT: Chronic vision loss, Chronic hearing loss Psych: None Musculoskeletal: Osteoarthritis Derm: Other - Past Surgical History Past Surgical History: Yes General: Cholecystectomy - Present Medications Home Medications: Ambulatory Orders Medication Instructions Recorded Confirmed Metformin HCl 500 mg PO BIDWM 02/28/18 05/08/23 cloNIDine HCL [Clonidine HCl] 0.1 mg PO BID 02/28/18 05/08/23 Aspirin [[place] Aspirin] 81 mg PO DAILY 01/09/22 05/08/23 Atorvastatin [Lipitor] 20 mg PO QPM 01/09/22 05/08/23 Telmisartan 80 mg PO DAILY 01/09/22 05/08/23 hydroCHLOROthiazide [Hydrodiuril] 25 mg PO DAILY 01/09/22 05/08/23 Metoprolol Succinate [Toprol Xl] 50 mg PO DAILY 05/08/23 05/08/23 Potassium Chloride [Klor-Con 10] 10 meq PO DAILY 05/08/23 05/08/23 Sertraline [Zoloft] 25 mg PO DAILY 05/08/23 05/08/23 Amox/Clav 875/125 [Augmentin 1 tab PO BID 7 Days #14 tab 05/10/23 875/125 Tab] - Allergies Allergies/Adverse Reactions: Allergies Allergy/AdvReac Type Severity Reaction Status Date / Time No Known Drug Allergies Allergy Verified 07/02/23 14:28 - Social History Does the pt smoke?: No Smoking Status: Unknown if ever smoked Does the pt drink ETOH?: Yes Does the pt have substance abuse?: No - Immunizations Immunizations are current?: No Immunizations: TDAP >10years/unknown - POLST Patient has POLST: No POLST Status: Full Code PD ED PE NORMAL - Vitals Vital signs reviewed: Yes - General General: Alert and oriented X 3, Well developed/nourished - HEENT HEENT: Other (Left occiput with localized contusion and swelling. Locally tender.) - Neck Neck: Supple, no meningeal sign, No adenopathy, Other (Mild tenderness without complaint of pain in the lower cervical area. No deformity noted.) - Cardiac Cardiac: Other (No chest wall tenderness.) - Respiratory Respiratory: No respiratory distress, Clear bilaterally - Abdomen Abdomen: Soft, Non tender - Back Back: Other (Tenderness in the left paralumbar muscle area and iliac crest. No obvious deformity.) - Derm Derm: Normal color, Warm and dry - Extremities Extremities: Normal ROM s pain, Other (Bandage on the left elbow with reported abrasion there. Full range of motion without any bony tenderness nor effusion.) - Neuro Neuro: No motor deficit, No sensory deficit. No: Alert and oriented X 3 (person and place) Results - Vitals Vitals: Vital Signs - 24 hr 07/02/23 14:28 Temperature 36.5 C Heart Rate 74 Respiratory 16 Rate Blood Pressure 140/80 H O2 Saturation 100 Oxygen O2 Source Room air - Rads (name of study) head CT Relevant Findings:: Prelim report reviewed (no ICH nor acute injury), EMP independent interpretation of test cervical CT Relevant Findings:: Prelim report reviewed (no fractures), EMP independent interpretation of test thoracolumbar CT Relevant Findings:: Prelim report reviewed (No fractures identified. There is some widening of the anterior disc space at the T10-11 and L3-4 areas. The posterior elements appear normal. If clinically indicated, concern could be for ligamentous injury.), EMP independent interpretation of test PD Medical Decision Making - ED course Complexity details: reviewed results (No ICH nor spinal fractures. Clinically I do not suspect ligamentous injury of low back. ), considered differential (Patient had an apparent fall due to imbalance. He denies loss of consc iousness. He is having some pain in the back of the head and also lower back. No numbness or tingling. Sent from regions for evaluation. No blood thinners.), d/w patient Reviewed Lab Results: The patient is not on any blood thinners but by age criteria he would hard to eliminate concern for injury. He does have some tenderness in the neck and some pain in the lumbar area. He does have a area of contusion on the head. Some headache. No neurologic changes. There is baseline dementia though so disoriented to time. At this point I feel it appropriate to obtain imaging for his neck and back and also the head. Age would place him at higher risk for bleeding injury. Departure - Departure Disposition: 01 Home, Self Care Clinical Impression: Fall due to stumbling, Head contusion, Lumbar strain Condition: Stable Record reviewed to determine appropriate education?: Yes Instructions: ED Sprain Strain Lumbar Comments: Your CT scans of the head neck and back do not show any acute fractures or bleeding or acute injury. There is arthritic changes noted in the mid to lower back and they certainly could be hurting from the fall. I would suggest aside from continuing your usual medications to take some Tylenol 650 mg 4 times daily for the next several days to help with the pains. Activity as tolerated. Recheck if not improved over the next several days to week.
[2023-07-02] MEDS ORDERED: ACETAMINOPHEN 325 MG TABLET PO STA (14:23)
[2023-07-02 14:38] VITALS: O2SAT 100
--- NOTE | 2023-07-02 16:30 | CT Report ---
PROCEDURE: CERVICAL SPINE WO INDICATIONS: fall, pain head/neck/back TECHNIQUE: Noncontrast 3 mm thick sections acquired from the skull base to the T4 level. Sagittal and coronal r eformats were then constructed. For radiation dose reduction, the following was used: automated exp osure control, adjustment of mA and/or kV according to patient size. COMPARISON: 02/22/[address] FINDINGS: Image quality: Excellent. Bones: No fractures or dislocations. Visualized superior ribs are intact. Moderately severe chroni c appearing degenerative disc disease and facet osteoarthritis is present but no fracture or traumati c subluxation is found. Soft tissues: Prevertebral soft tissues are normal in thickness. No paravertebral hematomas. No ap ical pneumothoraces. IMPRESSION: Prominent degenerative changes without acute trauma identified. Reviewed by: aCrlos Andrade MD on 07/02/2023 4:28 PM PDT Approved by: Carlos Andrade MD on 07/02/2023 4:28 PM PDT Station ID: [id number]
--- NOTE | 2023-07-02 16:32 | CT Report ---
PROCEDURE: HEAD WO INDICATIONS: fall - pain head, neck, back TECHNIQUE: Noncontrast 4.5 mm thick angled axial sections acquired from the foramen magnum to the vertex. For r adiation dose reduction, the following was used: automated exposure control, adjustment of mA and/or kV according to patient size. COMPARISON: 02/22/[address] FINDINGS: Image quality: Excellent. CSF spaces: Basal cisterns are patent. No extra-axial fluid collections. Ventricles are normal in size and shape. Brain: No midline shift. No intracranial masses or hemorrhage. Black-white matter interface is norm al. There is moderate microvascular atherosclerotic change seen within the deep white matter of each hemisphere, expected for advanced age, but no acute trauma is found. Skull and face: Calvarium and visualized facial bones are intact, without suspicious lesions. Sinuses: Visualized sinuses and mastoids are clear. IMPRESSION: No acute intracranial pathology. Moderate age related microvascular atherosclerotic change in the deep white matter of each hemisphere again noted. Reviewed by: Carlos Andrade MD on 07/02/2023 4:31 PM PDT Approved by: Carlos Andrade MD on 07/02/2023 4:31 PM PDT Station ID: [id number]
--- NOTE | 2023-07-02 16:45 | CT Report ---
PROCEDURE: LUMBAR SPINE WO INDICATIONS: fall - pain head, neck, back TECHNIQUE: Noncontrast 3 mm thick sections acquired from the T12 level to the sacrum. Sagittal and coronal refo rmats were constructed. For radiation dose reduction, the following was used: automated exposure co ntrol, adjustment of mA and/or kV according to patient size. COMPARISON: 03/22/2014 lumbosacral spine plain film imaging and also CT imaging of the abdomen/pelvis from 09/12/2014 was reviewed. FINDINGS: Image quality: Excellent. Bones: There is normal bony alignment except at L3-L4 where the anterior disc space is widened when compared to the posterior disc space and also widened when compared to the sagittal reformatting shou ld imaging from the CT study from August 2014. A less prominent degree of anterior angulation abnor mality is seen at T11-T12 also not present on the prior abdomen/pelvis CT scanning from 2013. This ra ises concern for anterior longitudinal ligament injury, chronicity uncertain. No acute vertebral bod y compression fractures. No suspicious lytic or blastic bony lesions. Central spinal caliber is of normal overall caliber. No pars defects. Extensive degenerative disc disease and facet osteoarthrit is with bridging osteophytes are noted Soft tissues: No retroperitoneal masses or hematomas. Visualized aorta is normal in caliber. IMPRESSION: The patient demonstrates no identifiable vertebral compression fracture but as discussed above when c ompared to the 2013 abdomen/pelvis CT scanning there is an anterior angulation abnormality with widen ing of the anterior endplate interspace at T11-T12 and to a somewhat greater degree at L3-L4. This ra ises concern for possible anterior longitudinal ligament disruption which would be most accurately de tected by MR scanning is clinically indicated. The degenerative changes and bridging osteophytes present causes increased rigidity of the spine nohemi lar to that seen in the setting of ankylosing spondylitis which does increase the risk of such injuri es in the setting of trauma. Unstable spine injury can result. Reviewed by: Carlos Andrade MD on 07/02/2023 4:44 PM PDT Approved by: Carlos Andrade MD on 07/02/2023 4:44 PM PDT Station ID: [id number]
--- NOTE | 2023-07-02 16:51 | CT Report ---
PROCEDURE: THORACIC SPINE WO INDICATIONS: fall - head, neck, back TECHNIQUE: Noncontrast 3 mm thick sections acquired through the region of interest in the thoracic spine. Sagit radha and coronal reformats were then constructed. For radiation dose reduction, the following was used : automated exposure control, adjustment of mA and/or kV according to patient size. COMPARISON: None. FINDINGS: Image quality: Excellent. Bones: There is normal overall bony alignment except at T11-T12 where the anterior endplate interspa ce is abnormally widened when compared to the appearance of the posterior endplate interspace (which appears normal). Additionally this same area on prior CT scanning from August 2014 have not shown t his morphology. There is extensive bridging osteophytes and some degree of ankylosis extending over t he upper and middle thirds of the thoracic spine anteriorly as was also present in 2013. No acute ve rtebral body compression fractures. No suspicious sclerotic or lytic bony lesions. Central spinal c anal is of normal overall caliber. Soft tissues: No paravertebral masses or hematomas. Visualized posteromedial lungs appear moderatel y atelectatic and there appears to be small bilateral posterior pleural effusions. IMPRESSION: As was seen on lumbosacral spine CT scanning same day there is abnormal widening of the interspace at T11-T12 anteriorly in the setting of extensive bridging osteophytes and some degree of ankylosis ove r the upper and middle thirds of the thoracic spine. This raises concern for traumatic injury to the anterior longitudinal ligament along the spine centered on T11-T12, allowing that abnormal widening o f the disc space to develop. MR scanning would provide the most accurate assessment for presence of a cute trauma in this area. If present spine instability may result. Reviewed by: Carlos Andrade MD on 07/02/2023 4:49 PM PDT Approved by: Carlos Andrade MD on 07/02/2023 4:49 PM PDT Station ID: [id number]
[2023-07-02] MEDS ORDERED: HYDROcod/ACETAM 5/325 MG TABLET PO STA (17:03)
[2023-07-02] MEDS ORDERED: KETOROLAC 30 MG/ML VIAL IM STA (17:03)
[2023-07-02 18:15] VITALS: BP 130/80
== END 2023-07-02 18:14 | disposition home or self-care (01) ==
LOC: EDUNIT# → ED 14:18
DX: S39.012A Strain of muscle, fascia and tendon of lower back, initial encounter (principal); S00.93XA Contusion of unspecified part of head, initial encounter; W01.10XA Fall on same level from slipping, tripping and stumbling with subsequent striking against unspecified object, initial encounter; Y92.128 Other place in nursing home as the place of occurrence of the external cause; I11.0 Hypertensive heart disease with heart failure; I50.9 Heart failure, unspecified; E78.00 Pure hypercholesterolemia, unspecified; I48.91 Unspecified atrial fibrillation; E11.9 Type 2 diabetes mellitus without complications; J44.9 Chronic obstructive pulmonary disease, unspecified; Z79.84 Long term (current) use of oral hypoglycemic drugs; Z79.899 Other long term (current) drug therapy; Z79.82 Long term (current) use of aspirin
CPT/HCPCS: 70450; 72125; 72128; 72131; 96372; 99283; 99284; A9270

== ENCOUNTER 2023-07-02 18:16 | Outpatient (CLI) | payer MEDICARE, MEDICAID | END 2023-07-02 18:17 | LOC: EMS 18:16 | PROVIDERS: ATTEND Emergency Medicine | DX: R41.0 Disorientation, unspecified (principal); F03.90 Unspecified dementia, unspecified severity, without behavioral disturbance, psychotic disturbance, mood disturbance, and anxiety; S39.012A Strain of muscle, fascia and tendon of lower back, initial encounter; X58.XXXA Exposure to other specified factors, initial encounter | CPT/HCPCS: A0425; A0428 ==

== ENCOUNTER 2023-08-03 08:00 | Outpatient (CLI) | payer OTHER ==
[2023-08-03 17:30] LABS: BILIRUBIN,URINE NEGATIVE (NEGATIVE); CLARITY,URINE CLEAR (CLEAR); GLUCOSE, URINE (UA) NEGATIVE (NEGATIVE); KETONES,URINE (UA) NEGATIVE (NEGATIVE); LEUKOCYTE ESTERASE, URINE NEGATIVE (NEGATIVE); NITRITE,URINE NEGATIVE (NEGATIVE); OCCULT BLOOD,URINE NEGATIVE (NEGATIVE); PROTEIN,URINE NEGATIVE (NEGATIVE); UROBILINOGEN,URINE 0.2 (NORMAL) E.U./dL (NORMAL)
== END 2023-08-03 23:59 | disposition home or self-care (01) ==
LOC: LAB.R 08:00
DX: R41.0 Disorientation, unspecified (principal); R30.0 Dysuria; I10 Essential (primary) hypertension; D64.9 Anemia, unspecified; R94.6 Abnormal results of thyroid function studies; E08.9 Diabetes mellitus due to underlying condition without complications
CPT/HCPCS: 80053; 81001; 81003; 83036; 84443; 85025; 87086

== ENCOUNTER 2023-08-03 16:18 | Outpatient (CLI) | payer OTHER ==
[2023-08-03 16:38] LABS: BASOPHILS % (AUTO) 0.6 %; EOSINOPHILS # (AUTO) 0.2 10^3/uL (0.0-0.7); EOSINOPHILS % (AUTO) 2.8 %; HCT - HEMATOCRIT 34.4 % (42.0-52.0); HGB - HEMOGLOBIN 10.8 g/dL (14.0-18.0); LYMPHOCYTES # (AUTO) 1.1 10^3/uL (1.5-3.5); MEAN CORPUSCULAR HGB CONC 31.4 g/dL (32.0-36.0); MEAN CORPUSCULAR VOLUME 89.1 fL (80.0-94.0); MEAN PLATELET VOLUME 9.9 fL (7.4-11.4); MONOCYTES # (AUTO) 0.5 10^3/uL (0.0-1.0); MONOCYTES % (AUTO) 7.5 %; NEUTROPHILS # (AUTO) 5.1 10^3/uL (1.5-6.6); NEUTROPHILS % (AUTO) 72.7 %; PLT - PLATELET COUNT 207 10^3/uL (130-450); RED BLOOD COUNT 3.86 10^6/uL (4.70-6.10); RED CELL DISTRIBUTION WIDTH 14.1 % (12.0-15.0); WHITE BLOOD COUNT 7.1 x10^3/uL (4.8-10.8)
[2023-08-03 17:07] LABS: THYROID STIMULATING HORMONE 2.95 uIU/mL (0.34-5.60)
[2023-08-03 17:46] LABS: ALBUMIN 3.6 g/dL (3.2-5.5); ALBUMIN/GLOBULIN RATIO 1.9 (1.0-2.2); BILIRUBIN,TOTAL 0.6 mg/dL (0.2-1.0); CALCIUM 9.1 mg/dL (8.5-10.3); CREATININE 1.3 mg/dL (0.6-1.3); POTASSIUM 3.2 mmol/L (3.5-4.5); TOTAL PROTEIN 5.5 g/dL (6.4-8.9)
[2023-08-03 21:13] LABS: ESTIMATED AVERAGE GLUCOSE 108 mg/dL (70-100); HEMOGLOBIN A1c% 5.4 % (4.27-6.07)
== END 2023-08-03 16:19 | disposition home or self-care (01) ==
LOC: LAB.R 16:18
PROVIDERS: ATTEND Registered Nurse
DX: I10 Essential (primary) hypertension (principal); R94.6 Abnormal results of thyroid function studies; E08.9 Diabetes mellitus due to underlying condition without complications; D64.9 Anemia, unspecified
CPT/HCPCS: 80053; 83036; 84443; 85025

== ENCOUNTER 2023-08-04 21:01 | Outpatient (CLI) | payer MEDICARE, MEDICAID | END 2023-08-04 23:59 | disposition critical access hospital (66) | LOC: EMS 21:01 | DX: N36.8 Other specified disorders of urethra (principal) | CPT/HCPCS: A0425; A0429 ==

== ENCOUNTER 2023-08-04 21:09 | Emergency (ER) | payer MEDICARE, MEDICAID ==
--- NOTE | 2023-08-04 21:26 | ED Physician Documentation ---
History of Present Illness - Stated complaint Stated Complaint: - Chief complaint Chief Complaint: General - History obtained from History obtained from: EMS - Additonal information Additional information: Patient is an 88-year-old male with a history of dementia coming from [facility] for penile bleeding. Per EMS staff this morning did a straight cath for urine sample and at this evening noticed that he was bleeding from his penis. He is on aspirin but does not take other anticoagulants. EMS was unsure of the results of the urine analysis and whether patient was started on an antibiotic. Patient has a history of dementia and is not able to provide any meaningful history. He is pleasant and cooperative and knows his name. Per EMS this is his baseline. 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 : Benign prostate hypertrophy, Chronic bladder infection, Nocturia HEENT: Chronic vision loss, Chronic hearing loss Psych: None Musculoskeletal: Osteoarthritis Derm: Other - Past Surgical History Past Surgical History: Yes General: Cholecystectomy - Present Medications Home Medications: Ambulatory Orders Medication Instructions Recorded Confirmed Metformin HCl 500 mg PO BIDWM 02/28/18 05/08/23 cloNIDine HCL [Clonidine HCl] 0.1 mg PO BID 02/28/18 05/08/23 Aspirin [[place] Aspirin] 81 mg PO DAILY 01/09/22 05/08/23 Atorvastatin [Lipitor] 20 mg PO QPM 01/09/22 05/08/23 Telmisartan 80 mg PO DAILY 01/09/22 05/08/23 hydroCHLOROthiazide [Hydrodiuril] 25 mg PO DAILY 01/09/22 05/08/23 Metoprolol Succinate [Toprol Xl] 50 mg PO DAILY 05/08/23 05/08/23 Potassium Chloride [Klor-Con 10] 10 meq PO DAILY 05/08/23 05/08/23 Sertraline [Zoloft] 25 mg PO DAILY 05/08/23 05/08/23 Amox/Clav 875/125 [Augmentin 1 tab PO BID 7 Days #14 tab 05/10/23 875/125 Tab] cephALEXin [Keflex] 500 mg PO Q6H #24 cap 08/04/23 - Allergies Allergies/Adverse Reactions: Allergies Allergy/AdvReac Type Severity Reaction Status Date / Time No Known Drug Allergies Allergy Verified 08/04/23 21:20 - Social History Does the pt smoke?: No Smoking Status: Never smoker Does the pt drink ETOH?: Yes Does the pt have substance abuse?: No - Immunizations Immunizations are current?: No Immunizations: TDAP >10years/unknown - POLST Patient has POLST: No POLST Status: Full Code PD ED PE NORMAL - General General: No acute distress, Well developed/nourished. 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 (Joseph CATES), Other (Blood coming from Urethral meatus) - Derm Derm: Warm and dry - Neuro Neuro: Normal speech Results - Vitals Vitals: Vital Signs - 24 hr 08/04/23 08/04/23 21:14 23:48 Temperature 37 C Heart Rate 89 79 Respiratory 18 18 Rate Blood Pressure 178/83 H 173/85 H O2 Saturation 100 96 Oxygen O2 Source Room air - Labs Labs: Laboratory Tests 08/04/23 08/04/23 08/04/23 21:24 21:24 21:44 WBC 11.8 H RBC 4.07 L Hgb 11.3 L Hct 36.0 L MCV 88.5 MCH 27.8 MCHC 31.4 L RDW 14.2 Plt Count 192 MPV 9.1 Neut # (Auto) 10.1 H Lymph # (Auto) 0.9 L [place] # (Auto) 0.6 Eos # (Auto) 0.1 Baso # (Auto) 0.0 Absolute Nucleated RBC 0.00 Nucleated RBC % 0.0 Sodium 140 Potassium 3.3 L Chloride 103 Carbon Dioxide 29 Anion Gap 8.0 BUN 26 H Creatinine 1.1 Estimated GFR (MDRD) 63 L Glucose 166 H Calcium 9.3 Urine Color RED/BLOODY Urine Clarity TURBID Urine pH 7.0 Ur Specific [place] 1.020 Urine Protein >=300 H Urine Glucose (UA) NEGATIVE Urine Ketones TRACE Urine Occult Blood LARGE H Urine Nitrite POSITIVE H Urine Bilirubin NEGATIVE Urine Urobilinogen 1 (NORMAL) Ur Leukocyte Esterase SMALL H Urine RBC TNTC H Urine WBC 11-25 H Ur Squamous Epith Cells NONE SEEN Urine Bacteria None Seen Ur Microscopic Review INDICATED Urine Culture Comments INDICATED PD Medical Decision Making - ED course Complexity details: reviewed results, re-evaluated patient ED course: Patient is an 88-year-old male with a history of dementia from [facility] presenting for evaluation of blood from urethral meatus after straight catheterization earlier today. Patient has stable vital signs. Abdominal exam is benign. No indications of urinary retention. Patient does have blood coming from the urethral meatus. A March catheter was placed which drained bloody urine. His nurse also did some manual irrigation and there is a few small clots and subsequently the urine was more pink-tinged. There is no signs of retention. Urine is positive with nitrates and other markers for infection so we will treat with antibiotics. He was given a dose of Rocephin. Labs were reviewed. Mild hypokalemia which was replaced orally. At this time I feel that patient does not require continuous bladder irrigation and thus does not need admission to the hospital at this time. He was given a prepack for antibiotics to last through the and a prescription was sent to pharmacy that is listed. Patient was transported back to [facility] in stable condition. Departure - Departure Disposition: 01 Home, Self Care Clinical Impression: UTI (urinary tract infection), Hematuria Condition: Stable Instructions: ED Hematuria, ED UTI Cystitis Male Follow-Up: Dayron Oates MD [Provider Admit Priv/Credential] - Prescriptions: cephALEXin [Keflex] 500 mg PO Q6H #24 cap Comments: We have placed a March catheter to help with the bleeding. Your urine also shows signs of an infection I have started you on an antibiotic. The antibiotic prescription was sent to [facility] in [place]. As pharmacies are closed tomorrow I have also sent you back to your facility with enough pills for tomorrow's doses. I would recommend follow-up with urology and have listed the info for Dr. Dayron Oates who is a local urologist. Return to the emergency department if you develop any issues with your catheter Or have any other concerns. Forms: PCP List Discharge Date/Time: 08/05/23 00:00
[2023-08-04 21:31] LABS: BASOPHILS % (AUTO) 0.3 %; EOSINOPHILS # (AUTO) 0.1 10^3/uL (0.0-0.7); EOSINOPHILS % (AUTO) 0.8 %; HGB - HEMOGLOBIN 11.3 g/dL (14.0-18.0); LYMPHOCYTES # (AUTO) 0.9 10^3/uL (1.5-3.5); LYMPHOCYTES % (AUTO) 7.2 %; MEAN CORPUSCULAR HEMOGLOBIN 27.8 pg (27.0-31.0); MEAN CORPUSCULAR HGB CONC 31.4 g/dL (32.0-36.0); MEAN CORPUSCULAR VOLUME 88.5 fL (80.0-94.0); MEAN PLATELET VOLUME 9.1 fL (7.4-11.4); MONOCYTES # (AUTO) 0.6 10^3/uL (0.0-1.0); MONOCYTES % (AUTO) 5.3 %; NEUTROPHILS # (AUTO) 10.1 10^3/uL (1.5-6.6); NEUTROPHILS % (AUTO) 86.1 %; PLT - PLATELET COUNT 192 10^3/uL (130-450); RED BLOOD COUNT 4.07 10^6/uL (4.70-6.10); RED CELL DISTRIBUTION WIDTH 14.2 % (12.0-15.0); WHITE BLOOD COUNT 11.8 x10^3/uL (4.8-10.8)
[2023-08-04 21:49] LABS: CALCIUM 9.3 mg/dL (8.5-10.3); CREATININE 1.1 mg/dL (0.6-1.3); POTASSIUM 3.3 mmol/L (3.5-4.5)
[2023-08-04] MEDS ORDERED: POTASSIUM BICARB 25 MEQ TABLET PO ONE (21:49)
[2023-08-04 21:58] LABS: BILIRUBIN,URINE NEGATIVE (NEGATIVE); GLUCOSE, URINE (UA) NEGATIVE (NEGATIVE); KETONES,URINE (UA) TRACE mg/dL (NEGATIVE); LEUKOCYTE ESTERASE, URINE SMALL (NEGATIVE); NITRITE,URINE POSITIVE (NEGATIVE); OCCULT BLOOD,URINE LARGE (NEGATIVE); PROTEIN,URINE >=300 mg/dL (NEGATIVE); UROBILINOGEN,URINE 1 (NORMAL) E.U./dL (NORMAL)
[2023-08-04 22:01] LABS: CLARITY,URINE TURBID (CLEAR)
[2023-08-04 22:02] LABS: BACTERIA,URINE None Seen /HPF (None Seen); RBC,URINE TNTC /HPF (0-5); SQUAMOUS EPITHELIAL CELL,UR NONE SEEN (<= Few)
[2023-08-04] MEDS ORDERED: cefTRIAXone 1 GM in SODIUM CHLORIDE 0.9% MINIBAG 100 ML IV STA (22:05)
[2023-08-04] MEDS ORDERED: cefTRIAXone 1 GM VIAL ONE (22:40)
[2023-08-04] MEDS ORDERED: CEPHALEXIN 250 MG Prepack 8 CAP BOTTLE PO STA (23:28)
[2023-08-04 23:58] VITALS: BP 173/85; O2SAT 96
== END 2023-08-05 | disposition home or self-care (01) ==
LOC: EDUNIT# → ED 21:09
DX: N39.0 Urinary tract infection, site not specified (principal); R31.9 Hematuria, unspecified; E87.6 Hypokalemia; R41.0 Disorientation, unspecified
CPT/HCPCS: 36415; 51702; 80048; 81001; 85025; 87077; 87086; 87181; 96365; 99283; 99284; A9270; 81003

== ENCOUNTER 2023-08-04 23:51 | Outpatient (CLI) | payer MEDICARE, MEDICAID | END 2023-08-04 23:59 | LOC: EMS 23:51 | PROVIDERS: ATTEND Emergency Medicine | DX: R41.0 Disorientation, unspecified (principal); N39.0 Urinary tract infection, site not specified; F03.90 Unspecified dementia, unspecified severity, without behavioral disturbance, psychotic disturbance, mood disturbance, and anxiety | CPT/HCPCS: A0425; A0428 ==

== ENCOUNTER 2023-08-09 08:16 | Outpatient (CLI) | payer MEDICARE, MEDICAID | END 2023-08-09 08:17 | disposition critical access hospital (66) | LOC: EMS 08:16 | DX: N48.89 Other specified disorders of penis (principal); I10 Essential (primary) hypertension; R45.1 Restlessness and agitation; N39.0 Urinary tract infection, site not specified; Z96.0 Presence of urogenital implants | CPT/HCPCS: A0425; A0429 ==

== ENCOUNTER 2023-08-09 08:21 | Emergency (ER) | payer MEDICARE, MEDICAID ==
[2023-08-09 08:30] VITALS: O2SAT 99
--- NOTE | 2023-08-09 08:56 | ED Physician Documentation ---
History of Present Illness - Stated complaint Stated Complaint: CATH ISSUE - Chief complaint Chief Complaint: General - History obtained from History obtained from: EMS - Additonal information Additional information: Patient is an 88-year-old male presenting for evaluation of his March catheter. He was seen in the emergency department 5 days ago after having a traumatic straight cath at his senior living and having hematuria. He has had a catheter in place since while he is being treated for urinary tract infection. This morning reportedly he tried to pull out his catheter and staff was concerned as there was some bleeding around the catheter tube. It has still been draining orange-tinged urine. Patient is reportedly on Pyridium. He does have a history of dementia and is not able to provide any meaningful history. He denies any pain. He knows his name Which is reportedly his baseline per EMS. 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 : Benign prostate hypertrophy, Chronic bladder infection, Nocturia HEENT: Chronic vision loss, Chronic hearing loss Psych: None Musculoskeletal: Osteoarthritis Derm: Other - Past Surgical History Past Surgical History: Yes General: Cholecystectomy - Present Medications Home Medications: Ambulatory Orders Medication Instructions Recorded Confirmed Metformin HCl 500 mg PO BIDWM 02/28/18 05/08/23 cloNIDine HCL [Clonidine HCl] 0.1 mg PO BID 02/28/18 05/08/23 Aspirin [[place] Aspirin] 81 mg PO DAILY 01/09/22 05/08/23 Atorvastatin [Lipitor] 20 mg PO QPM 01/09/22 05/08/23 Telmisartan 80 mg PO DAILY 01/09/22 05/08/23 hydroCHLOROthiazide [Hydrodiuril] 25 mg PO DAILY 01/09/22 05/08/23 Metoprolol Succinate [Toprol Xl] 50 mg PO DAILY 05/08/23 05/08/23 Potassium Chloride [Klor-Con 10] 10 meq PO DAILY 05/08/23 05/08/23 Sertraline [Zoloft] 25 mg PO DAILY 05/08/23 05/08/23 Amox/Clav 875/125 [Augmentin 1 tab PO BID 7 Days #14 tab 08/28/23 875/125 Tab] cephALEXin [Keflex] 500 mg PO Q6H #24 cap 08/04/23 - Allergies Allergies/Adverse Reactions: Allergies Allergy/AdvReac Type Severity Reaction Status Date / Time No Known Drug Allergies Allergy Verified 08/04/23 21:20 - Social History Does the pt smoke?: No Smoking Status: Never smoker Does the pt drink ETOH?: Yes Does the pt have substance abuse?: No - Immunizations Immunizations are current?: No Immunizations: TDAP >10years/unknown - POLST Patient has POLST: No POLST Status: Full Code PD ED PE NORMAL - General General: No acute distress. No: Alert and oriented X 3 (Alert and oriented to person) - HEENT HEENT: Atraumatic - Neck Neck: Supple, no meningeal sign - Cardiac Cardiac: RRR, No murmur - Respiratory Respiratory: No respiratory distress, Clear bilaterally - Abdomen Abdomen: Normal bowel sounds, Soft, Non tender, Non distended - Male Male : Epic Director present (Ayad RN), Other (March catheter in place, there is some blood that is dried on his diaper but no visible bleeding from urethral meatus, orange-tinged urine in catheter tubing; No clots) - Derm Derm: Warm and dry - Neuro Neuro: Normal speech Results - Vitals Vitals: Vital Signs - 24 hr 08/09/23 08/09/23 08/09/23 08:25 09:10 10:09 Temperature 36.4 C L Heart Rate 89 56 L 66 Respiratory 16 15 15 Rate Blood Pressure 174/122 H 152/84 H 135/74 H O2 Saturation 99 99 99 Oxygen O2 Source Room air PD Medical Decision Making - ED course ED course: Patient is an 88-year-old male with a history of dementia presenting for evaluation of issue with his March. Patient reportedly tried to pull it out. It does appear to be draining well. It was flushed without issue per the RN and a new StatLock was placed. There is no blood in the tubing. Patient does not have any abdominal discomfort or any signs of distress. Blood pressure did improve without any intervention. Patient transferred back to his senior living with instructions to follow-up with urology. Departure - Departure Disposition: 01 Home, Self Care Clinical Impression: March catheter problem Condition: Stable Instructions: ED Catheter Care March Follow-Up: Dayron Oates MD [Provider Admit Priv/Credential] - Comments: Your catheter is in the correct place and is draining properly. Please have close follow-up with your primary care provider or urology this week to discuss removing the catheter. Forms: PCP List Discharge Date/Time: 08/09/23 10:11
[2023-08-09 10:19] VITALS: BP 135/74
== END 2023-08-09 10:11 | disposition home or self-care (01) ==
LOC: EDUNIT# → ED 08:21 → SUPCPDRO 08:21 → ED 10:11
DX: T83.9XXA Unspecified complication of genitourinary prosthetic device, implant and graft, initial encounter (principal); I10 Essential (primary) hypertension; I48.91 Unspecified atrial fibrillation; E11.9 Type 2 diabetes mellitus without complications; Z79.84 Long term (current) use of oral hypoglycemic drugs
CPT/HCPCS: 99283

== ENCOUNTER 2023-08-09 10:06 | Outpatient (CLI) | payer MEDICARE, MEDICAID | END 2023-08-09 10:07 | LOC: EMS 10:06 | PROVIDERS: ATTEND Emergency Medicine | DX: Z46.82 Encounter for fitting and adjustment of non-vascular catheter (principal); I10 Essential (primary) hypertension; R41.0 Disorientation, unspecified; F03.90 Unspecified dementia, unspecified severity, without behavioral disturbance, psychotic disturbance, mood disturbance, and anxiety | CPT/HCPCS: A0425; A0428 ==

== ENCOUNTER 2023-08-13 07:25 | Outpatient (CLI) | payer MEDICARE, MEDICAID | END 2023-08-13 23:59 | disposition critical access hospital (66) | LOC: EMS 07:25 | DX: M54.50 Low back pain, unspecified (principal); W01.198A Fall on same level from slipping, tripping and stumbling with subsequent striking against other object, initial encounter; Y92.092 Bedroom in other non-institutional residence as the place of occurrence of the external cause; R29.6 Repeated falls | CPT/HCPCS: A0425; A0429 ==

== ENCOUNTER 2023-08-13 07:32 | Emergency (ER) | payer MEDICARE, MEDICAID ==
[2023-08-13 07:53] VITALS: BP 199/85; O2SAT 100
--- NOTE | 2023-08-13 07:57 | ED Physician Documentation ---
PD HPI HEAD INJURY - Stated complaint Stated Complaint: FALL/HEAD INJ - Chief complaint Chief Complaint: Trauma Hd/Nk - History obtained from History obtained from: Patient, EMS - History of Present Illness Mechanism of head injury: Fell (reportedly lost balance trying to get up. Usually needs assistance.) Where head injury occurred: Other (nursing care facility) Timing - onset: How many hours ago (1), Today Location of injury: Right, Front Quality of pain: Dull (he states just mild pain on scalp. No general headache.) Associated symptoms: No: LOC, AMS, Nausea / vomiting, Neck pain Symptoms worsen with: Palpation. 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 : Benign prostate hypertrophy, Chronic bladder infection, Nocturia HEENT: Chronic vision loss, Chronic hearing loss Psych: None Musculoskeletal: Osteoarthritis Derm: Other - Past Surgical History Past Surgical History: Yes General: Cholecystectomy - Present Medications Home Medications: Ambulatory Orders Medication Instructions Recorded Confirmed Metformin HCl 500 mg PO BIDWM 02/28/18 05/08/23 cloNIDine HCL [Clonidine HCl] 0.1 mg PO BID 02/28/18 05/08/23 Aspirin [[place] Aspirin] 81 mg PO DAILY 01/09/22 05/08/23 Atorvastatin [Lipitor] 20 mg PO QPM 01/09/22 05/08/23 Telmisartan 80 mg PO DAILY 01/09/22 05/08/23 hydroCHLOROthiazide [Hydrodiuril] 25 mg PO DAILY 01/09/22 05/08/23 Metoprolol Succinate [Toprol Xl] 50 mg PO DAILY 05/08/23 05/08/23 Potassium Chloride [Klor-Con 10] 10 meq PO DAILY 05/08/23 05/08/23 Sertraline [Zoloft] 25 mg PO DAILY 05/08/23 05/08/23 Amox/Clav 875/125 [Augmentin 1 tab PO BID 7 Days #14 tab 05/10/23 875/125 Tab] cephALEXin [Keflex] 500 mg PO Q6H #24 cap 08/04/23 - Allergies Allergies/Adverse Reactions: Allergies Allergy/AdvReac Type Severity Reaction Status Date / Time No Known Drug Allergies Allergy Verified 08/04/23 21:20 - Social History Does the pt smoke?: No Smoking Status: Never smoker Does the pt drink ETOH?: Yes Does the pt have substance abuse?: No - Immunizations Immunizations are current?: No Immunizations: TDAP >10years/unknown - POLST Patient has POLST: No POLST Status: Full Code PD ED PE NORMAL - Vitals Vital signs reviewed: Yes - General General: No acute distress, Well developed/nourished, Other (orientd to person and somewhat place ("hospital"). He states just mild scalp/head pain. ) - HEENT HEENT: Other (mild scalp tender right parietal. ) - Neck Neck: Supple, no meningeal sign, No bony TTP, No adenopathy - Respiratory Respiratory: Clear bilaterally, Other (no chestwall tenderness) - Abdomen Abdomen: Soft, Non tender - Derm Derm: Normal color, Warm and dry - Extremities Extremities: Other (toes dorsally at distal aspect with abrasions on most of them. Bottoms without injuryies. ) - Neuro Neuro: Alert and oriented X 3, No motor deficit, No sensory deficit, Normal speech Results - Vitals Vitals: Vital Signs - 24 hr 08/13/23 07:44 Temperature 36.7 C Heart Rate 63 Respiratory 18 Rate Blood Pressure 199/85 H O2 Saturation 100 Oxygen O2 Source Room air - Rads (name of study) feet bilateralyy Relevant Findings:: Prelim report reviewed, EMP independent interpretation of test (arthritic changes. no noted fractures. ) PD Medical Decision Making - ED course Complexity details: reviewed results (he has decreased sensitivity of feet/toes, so hard to tell. Britton abrasions mostly and no noted bony tenderness but can get xrays. Abrasions were cleansed and dressed by nursing. Unusual location - seems more like he kicked at object or such. ), d/w patient (patient with dementia about memory of event, but is present in the moment with current symptoms. We discussed head CT since fell, but he declined. He does not have ocncussive symptoms and only minimal scalp tender. This seems reasonable shared decision.) Departure - Departure Disposition: 01 Home, Self Care Clinical Impression: Fall, Head contusion, Toe abrasion Condition: Stable Record reviewed to determine appropriate education?: Yes Comments: Tylenol 650 mg 4 times daily as needed for pains. Continue other usual medicines. For the toe abrasions, cleanse daily with just soap and water and apply some ointment to them. Bandaging as needed. Recheck if signs of infection. You are not having any concussive type symptoms at this point. You preferred not getting a head CT scan, which is reasonable. Return if increasing headache or other symptoms develop. Forms: PCP List Discharge Date/Time: 08/13/23 10:29
[2023-08-13] MEDS ORDERED: ACETAMINOPHEN 325 MG TABLET PO STA (08:12)
[2023-08-13] MEDS ORDERED: BACITRACIN ZINC OINT 1 PACKET TOP STA (08:12)
--- NOTE | 2023-08-13 08:50 | XRAY Report ---
PROCEDURE: Foot 3 View BILAT INDICATIONS: fall with toes abrasions/bent TECHNIQUE: 3 views of the foot were acquired. COMPARISON: None. FINDINGS: Positioning is suboptimal with some digits remaining flexed, limiting evaluation. Bones: There is suspicion for fracture at the base of the proximal fourth phalanx No suspicious bony lesions. Diffuse IP degenerative narrowing. Soft tissues: No suspicious soft tissue calcifications or masses. IMPRESSION: Suboptimal evaluation although suspicion for fracture at the fourth proximal phalanx. Repeat views in 7-10 days is recommended. Reviewed by: Flora Luis MD on 08/13/2023 8:49 AM [facility] Approved by: Flora Luis MD on 08/13/2023 8:49 AM [facility] Station ID: [id number]
== END 2023-08-13 10:29 | disposition home or self-care (01) ==
LOC: EDUNIT# → ED 07:32
DX: S90.416A Abrasion, unspecified lesser toe(s), initial encounter (principal); S00.93XA Contusion of unspecified part of head, initial encounter; W18.39XA Other fall on same level, initial encounter; Y93.89 Activity, other specified; Y92.129 Unspecified place in nursing home as the place of occurrence of the external cause
CPT/HCPCS: 73630; 99283; A9270

== ENCOUNTER 2023-08-13 10:19 | Outpatient (CLI) | payer MEDICARE, MEDICAID | END 2023-08-13 23:59 | LOC: EMS 10:19 | PROVIDERS: ATTEND Emergency Medicine | DX: R41.0 Disorientation, unspecified (principal); F03.90 Unspecified dementia, unspecified severity, without behavioral disturbance, psychotic disturbance, mood disturbance, and anxiety; Z74.01 Bed confinement status | CPT/HCPCS: A0425; A0428 ==

== ENCOUNTER 2023-09-23 08:00 | Outpatient (CLI) | payer MEDICARE, MEDICAID ==
[2023-09-23 07:07] LABS: BILIRUBIN,URINE NEGATIVE (NEGATIVE); GLUCOSE, URINE (UA) NEGATIVE (NEGATIVE); KETONES,URINE (UA) NEGATIVE (NEGATIVE); LEUKOCYTE ESTERASE, URINE SMALL (NEGATIVE); NITRITE,URINE POSITIVE (NEGATIVE); OCCULT BLOOD,URINE TRACE-INTA (NEGATIVE); PH,URINE 6.5 PH (5.0-7.5); PROTEIN,URINE TRACE mg/dL (NEGATIVE); UROBILINOGEN,URINE 0.2 (NORMAL) E.U./dL (NORMAL)
[2023-09-23 07:22] LABS: CLARITY,URINE SL. CLOUDY (CLEAR)
[2023-09-23 07:56] LABS: BACTERIA,URINE Moderate /HPF (None Seen); RBC,URINE 0-5 /HPF (0-5); SQUAMOUS EPITHELIAL CELL,UR RARE Squamous (<= Few); WBC CLUMPS,URINE PRESENT; WBC,URINE >25 /HPF (0-3)
== END 2023-09-23 23:59 | disposition home or self-care (01) ==
LOC: LAB.R 08:00
PROVIDERS: ATTEND Registered Nurse
DX: N30.20 Other chronic cystitis without hematuria (principal)
CPT/HCPCS: 81001; 81003

== ENCOUNTER 2023-09-27 08:05 | Outpatient (CLI) | payer MEDICARE, MEDICAID ==
[2023-09-27 08:32] LABS: CHOL/HDL RATIO 2.8 (<5.0); CHOLESTEROL 130 mg/dL; HDL CHOLESTEROL 46 mg/dL; LDL CHOLESTEROL,CALCULATED 65 mg/dL; LDL/HDL RATIO 1.4 (<3.6); TRIGLYCERIDES 93 mg/dL (48-352); VLDL CHOLESTEROL 19 mg/dL
[2023-09-27 08:46] LABS: THYROID STIMULATING HORMONE 3.08 uIU/mL (0.34-5.60)
[2023-09-27 10:25] LABS: ESTIMATED AVERAGE GLUCOSE 126 mg/dL (70-100)
== END 2023-09-27 08:06 | disposition home or self-care (01) ==
LOC: LAB.R 08:05
PROVIDERS: ATTEND Registered Nurse
DX: E03.8 Other specified hypothyroidism (principal); E11.9 Type 2 diabetes mellitus without complications; D64.9 Anemia, unspecified; E55.9 Vitamin D deficiency, unspecified
CPT/HCPCS: 80061; 82306; 83036; 83721; 84436; 84443

== ENCOUNTER 2023-11-05 14:01 | Outpatient (CLI) | payer MEDICARE, MEDICAID ==
[2023-11-05 14:24] LABS: CALCIUM 8.9 mg/dL (8.5-10.3); CREATININE 1.3 mg/dL (0.6-1.3); POTASSIUM 3.6 mmol/L (3.5-4.5)
== END 2023-11-05 14:02 | disposition home or self-care (01) ==
LOC: LAB.R 14:01
PROVIDERS: ATTEND Registered Nurse
DX: Z13.228 Encounter for screening for other metabolic disorders (principal)
CPT/HCPCS: 80048

== ENCOUNTER 2023-12-03 11:27 | Outpatient (CLI) | payer MEDICARE, MEDICAID ==
[2023-12-03 11:51] LABS: CALCIUM 9.9 mg/dL (8.5-10.3); CREATININE 1.2 mg/dL (0.6-1.3); POTASSIUM 3.2 mmol/L (3.5-4.5)
== END 2023-12-03 11:28 | disposition home or self-care (01) ==
LOC: LAB 11:27
PROVIDERS: ATTEND Registered Nurse
DX: I50.9 Heart failure, unspecified (principal); I48.20 Chronic atrial fibrillation, unspecified
CPT/HCPCS: 36415; 80048

== ENCOUNTER 2024-01-11 13:30 | Outpatient (CLI) | payer MEDICARE, MEDICAID | END 2024-01-11 23:50 | disposition critical access hospital (66) | LOC: EMS 13:30 | DX: R40.4 Transient alteration of awareness (principal); R00.1 Bradycardia, unspecified | CPT/HCPCS: A0425; A0427 ==

== ENCOUNTER 2024-01-11 13:43 | Inpatient (IN) | payer MEDICARE, MEDICAID ==
--- NOTE | 2024-01-11 13:46 | ED Physician Documentation ---
PD HPI ALTERED MENTAL STATUS - Stated complaint Stated Complaint: ALOC - History obtained from History obtained from: EMS - Additional information Additional information: 88-year-old gentleman presents from SNF where he is a long-term resident. He has a history of A-fib, dementia, type 2 diabetes, CHF, CAD, PVD, HTN, hypercholesterolemia. Reportedly was his normal self at 7 AM and then they noticed him just prior to arrival to be obtunded. Prehospital he was bradycardic into the 30s in A-fib. He was given 0.5 mg of atropine with resolution of his severe bradycardia but no improvement in his mental status. He arrives with EMS. I tried calling the son shortly after initial evaluation, there was no answer and I left a voicemail for call back. It does not look like he is on any narcotics at the facility. 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: None : Benign prostate hypertrophy, Chronic bladder infection, Nocturia HEENT: Chronic vision loss, Chronic hearing loss Psych: None Musculoskeletal: Osteoarthritis Derm: Other - Past Surgical History Past Surgical History: Yes General: Cholecystectomy - Present Medications Home Medications: Ambulatory Orders Medication Instructions Recorded Confirmed Metformin HCl 500 mg PO BIDWM 02/28/18 05/08/23 cloNIDine HCL [Clonidine HCl] 0.1 mg PO BID 02/28/18 05/08/23 Aspirin [[place] Aspirin] 81 mg PO DAILY 01/09/22 05/08/23 Atorvastatin [Lipitor] 20 mg PO QPM 01/09/22 05/08/23 Telmisartan 80 mg PO DAILY 01/09/22 05/08/23 hydroCHLOROthiazide [Hydrodiuril] 25 mg PO DAILY 01/09/22 05/08/23 Metoprolol Succinate [Toprol Xl] 50 mg PO DAILY 05/08/23 05/08/23 Potassium Chloride [Klor-Con 10] 10 meq PO DAILY 05/08/23 05/08/23 Sertraline [Zoloft] 25 mg PO DAILY 05/08/23 05/08/23 Amox/Clav 875/125 [Augmentin 1 tab PO BID 7 Days #14 tab 05/10/23 875/125 Tab] cephALEXin [Keflex] 500 mg PO Q6H #24 cap 08/04/23 - Allergies Allergies/Adverse Reactions: Allergies Allergy/AdvReac Type Severity Reaction Status Date / Time No Known Drug Allergies Allergy Verified 01/11/24 13:44 - Social History Does the pt smoke?: No Smoking Status: Never smoker Does the pt drink ETOH?: Yes Does the pt have substance abuse?: No - Immunizations Immunizations are current?: No Immunizations: TDAP >10years/unknown - POLST Patient has POLST: No POLST Status: Full Code PD ED PE NORMAL - Vitals Vital signs reviewed: Yes - General General: No acute distress, Other (He is obtunded. Makes some grunting noises to painful stimulus. Does not open his eyes.) - HEENT HEENT: Other (Midpoint reactive pupils which are symmetric) - Neck Neck: Supple, no meningeal sign, No bony TTP - Cardiac Cardiac: Other (Irregularly irregular) - Respiratory Respiratory: No respiratory distress, Clear bilaterally - Abdomen Abdomen: Non tender - Neuro Eye Opening: None Motor: Withdraws to Pain Verbal: Incomprehensible GCS Score: 7 Results - Vitals Vitals: Vital Signs - 24 hr 01/11/24 01/11/24 13:44 13:48 Temperature 36.5 C Heart Rate 75 53 L Respiratory 18 18 Rate Blood Pressure 136/75 H 126/75 O2 Saturation 100 99 Oxygen O2 Source Room air - EKG (time done) 1420 EKG releavant findings:: EKG personally interpreted by author of this note. Relevant findings are: Rate: Rate (enter#) (60) Rhythm: Atrial fibrillation [place]: Normal Intervals: Other (ivcd) QRS: Low voltage Ischemia: Normal ST segments 1455 EKG releavant findings:: EKG personally interpreted by author of this note. Relevant findings are: Rate: Rate (enter#) (56) Rhythm: Atrial fibrillation [place]: Normal Intervals: Normal [place], Prolonged QT QRS: Low voltage Ischemia: Normal ST segments - Labs Labs: Laboratory Tests 01/11/24 01/11/24 01/11/24 13:50 13:50 13:52 WBC 4.2 L RBC 3.24 L Hgb 8.9 L Hct 28.5 L MCV 88.0 MCH 27.5 MCHC 31.2 L RDW 15.1 H Plt Count 164 MPV 9.7 Neut # (Auto) 2.8 Lymph # (Auto) 0.8 L [place] # (Auto) 0.3 Eos # (Auto) 0.3 Baso # (Auto) 0.0 Absolute Nucleated RBC 0.00 Nucleated RBC % 0.0 PT INR VBG pH VBG pCO2 VBG pO2 VBG HCO3 VBG Total CO2 VBG O2 Saturation VBG Base Excess Sodium 142 Potassium 3.2 L Chloride 109 Carbon Dioxide 28 Anion Gap 5.0 L BUN 31 H Creatinine 1.3 Estimated GFR (MDRD) 52 L Glucose 64 L Lactic Acid Calcium 9.1 Phosphorus 3.6 Magnesium 1.8 Total Bilirubin 0.8 AST 8 L ALT 7 L Alkaline Phosphatase 67 Ammonia Total Protein 5.6 L Albumin 3.2 Globulin 2.4 Albumin/Globulin Ratio 1.3 Urine Color Urine Clarity Urine pH Ur Specific [place] Urine Protein Urine Glucose (UA) Urine Ketones Urine Occult Blood Urine Nitrite Urine Bilirubin Urine Urobilinogen Ur Leukocyte Esterase Urine RBC Urine WBC Ur Epithelial Cells Ur Squamous Epith Cells Urine Bacteria Ur Microscopic Review Urine Culture Comments Nasal Adenovirus (PCR) NOT DETECTED Nasal B. parapertussis DNA (PCR) NOT DETECTED Nasal Coronavir 229E PCR NOT DETECTED Nasal Coronavir HKU1 PCR NOT DETECTED Nasal Coronavir NL63 PCR NOT DETECTED Nasal Coronavir OC43 PCR NOT DETECTED Nasal Enterovir/Rhinovir PCR NOT DETECTED Nasal Influenza B PCR NOT DETECTED Nasal Influenza A PCR NOT DETECTED Nasal Parainfluen 1 PCR NOT DETECTED Nasal Parainfluen 2 PCR NOT DETECTED Nasal Parainfluen 3 PCR NOT DETECTED Nasal Parainfluen 4 PCR NOT DETECTED Nasal RSV (PCR) NOT DETECTED Nasal B.pertussis DNA PCR NOT DETECTED Nasal C.pneumoniae (PCR) NOT DETECTED Kilo Human Metapneumo PCR NOT DETECTED Nasal M.pneumoniae (PCR) NOT DETECTED Nasal SARS-CoV-2 (PCR) NOT DETECTED Salicylates < 1.5 Urine Opiates Screen Ur Buprenorphine Scrn Ur Oxycodone Screen Urine Methadone Screen Acetaminophen 4.0 Ur Barbiturates Screen Ur Tricyclics Screen Ur Phencyclidine Scrn Ur Amphetamine Screen U Methamphetamines Scrn U Benzodiazepines Scrn Urine Cocaine Screen U Cannabinoids Screen Ur Drug Screen Comment Ethyl Alcohol < 10.0 01/11/24 01/11/24 01/11/24 13:56 13:56 13:56 WBC RBC Hgb Hct MCV MCH MCHC RDW Plt Count MPV Neut # (Auto) Lymph # (Auto) [place] # (Auto) Eos # (Auto) Baso # (Auto) Absolute Nucleated RBC Nucleated RBC % PT 14.5 H INR 1.3 H VBG pH 7.457 H VBG pCO2 34.4 L VBG pO2 54.8 H VBG HCO3 23.8 VBG Total CO2 24.8 VBG O2 Saturation 90.7 H VBG Base Excess 0.3 Sodium Potassium Chloride Carbon Dioxide Anion Gap BUN Creatinine Estimated GFR (MDRD) Glucose Lactic Acid 1.3 Calcium Phosphorus Magnesium Total Bilirubin AST ALT Alkaline Phosphatase Ammonia Total Protein Albumin Globulin Albumin/Globulin Ratio Urine Color Urine Clarity Urine pH Ur Specific [place] Urine Protein Urine Glucose (UA) Urine Ketones Urine Occult Blood Urine Nitrite Urine Bilirubin Urine Urobilinogen Ur Leukocyte Esterase Urine RBC Urine WBC Ur Epithelial Cells Ur Squamous Epith Cells Urine Bacteria Ur Microscopic Review Urine Culture Comments Nasal Adenovirus (PCR) Nasal B. parapertussis DNA (PCR) Nasal Coronavir 229E PCR Nasal Coronavir HKU1 PCR Nasal Coronavir NL63 PCR Nasal Coronavir OC43 PCR Nasal Enterovir/Rhinovir PCR Nasal Influenza B PCR Nasal Influenza A PCR Nasal Parainfluen 1 PCR Nasal Parainfluen 2 PCR Nasal Parainfluen 3 PCR Nasal Parainfluen 4 PCR Nasal RSV (PCR) Nasal B.pertussis DNA PCR Nasal C.pneumoniae (PCR) Kilo Human Metapneumo PCR Nasal M.pneumoniae (PCR) Nasal SARS-CoV-2 (PCR) Salicylates Urine Opiates Screen Ur Buprenorphine Scrn Ur Oxycodone Screen Urine Methadone Screen Acetaminophen Ur Barbiturates Screen Ur Tricyclics Screen Ur Phencyclidine Scrn Ur Amphetamine Screen U Methamphetamines Scrn U Benzodiazepines Scrn Urine Cocaine Screen U Cannabinoids Screen Ur Drug Screen Comment Ethyl Alcohol 01/11/24 01/11/24 14:26 14:50 WBC RBC Hgb Hct MCV MCH MCHC RDW Plt Count MPV Neut # (Auto) Lymph # (Auto) [place] # (Auto) Eos # (Auto) Baso # (Auto) Absolute Nucleated RBC Nucleated RBC % PT INR VBG pH VBG pCO2 VBG pO2 VBG HCO3 VBG Total CO2 VBG O2 Saturation VBG Base Excess Sodium Potassium Chloride Carbon Dioxide Anion Gap BUN Creatinine Estimated GFR (MDRD) Glucose Lactic Acid Calcium Phosphorus Magnesium Total Bilirubin AST ALT Alkaline Phosphatase Ammonia 20.8 Total Protein Albumin Globulin Albumin/Globulin Ratio Urine Color YELLOW Urine Clarity HAZY Urine pH 6.0 Ur Specific [place] 1.020 Urine Protein TRACE Urine Glucose (UA) NEGATIVE Urine Ketones NEGATIVE Urine Occult Blood TRACE-INTA Urine Nitrite POSITIVE H Urine Bilirubin NEGATIVE Urine Urobilinogen 0.2 (NORMAL) Ur Leukocyte Esterase MODERATE H Urine RBC 11-25 H Urine WBC >25 H Ur Epithelial Cells RARE Renal Tubular Ur Squamous Epith Cells RARE Squamous Urine Bacteria Many H Ur Microscopic Review INDICATED Urine Culture Comments INDICATED Nasal Adenovirus (PCR) Nasal B. parapertussis DNA (PCR) Nasal Coronavir 229E PCR Nasal Coronavir HKU1 PCR Nasal Coronavir NL63 PCR Nasal Coronavir OC43 PCR Nasal Enterovir/Rhinovir PCR Nasal Influenza B PCR Nasal Influenza A PCR Nasal Parainfluen 1 PCR Nasal Parainfluen 2 PCR Nasal Parainfluen 3 PCR Nasal Parainfluen 4 PCR Nasal RSV (PCR) Nasal B.pertussis DNA PCR Nasal C.pneumoniae (PCR) Kilo Human Metapneumo PCR Nasal M.pneumoniae (PCR) Nasal SARS-CoV-2 (PCR) Salicylates Urine Opiates Screen NEGATIVE Ur Buprenorphine Scrn NEGATIVE Ur Oxycodone Screen NEGATIVE Urine Methadone Screen NEGATIVE Acetaminophen Ur Barbiturates Screen NEGATIVE Ur Tricyclics Screen NEGATIVE Ur Phencyclidine Scrn NEGATIVE Ur Amphetamine Screen NEGATIVE U Methamphetamines Scrn NEGATIVE U Benzodiazepines Scrn NEGATIVE Urine Cocaine Screen NEGATIVE U Cannabinoids Screen NEGATIVE Ur Drug Screen Comment CUTOFF CONC BELOW: Ethyl Alcohol - Rads (name of study) CT of the head is showing periventricular white matter disease, but no acute abnormality. Relevant Findings:: Final report received, EMP independent interpretation of test Single view chest x-ray is unremarkable Relevant Findings:: Final report received, EMP independent interpretation of test PD Medical Decision Making - ED course ED course: 88-year-old gentleman presents with an acute altered mental status with GCS of 7. He does not appear narcotized per se. He was bradycardic prior to arrival but that has resolved. There is no report of hypoxemia and his prehospital blood sugar was in the normal range. Spoke with son Rashad at approximately 2:15 PM. Confirmed DNR and DNI goals of care. Discussed with Rashad that we are working on "the why" of his father's obtundation. And I promised I would call back when I knew more. I called back and discussed results which included no response to a trial of Narcan, he is anemic, has an unremarkable blood gas, chemistries notable for mild hypokalemia, normal ammonia, normal lactate. He does have pyuria which we will treat given the circumstances and lack of alternative cause for his acute, with Rocephin. The son would like him admitted to the hospital with a time trial and I set expectations that if he does not improve over the next 48 to 72 hours that it is reasonable to expect that he may be at the end of his life. Spoke with Dr. Dacosta for admission at 3:34 PM. Departure - Departure Disposition: 66 [facility] DC/Xfer Clinical Impression: Type II diabetes mellitus, DNR (do not resuscitate), DNI (do not intubate), Coma, UTI (urinary tract infection) Condition: Serious
[2024-01-11 13:59] LABS: VBG PH 7.457 (7.31-7.41)
[2024-01-11 14:00] LABS: VBG BASE EXCESS 0.3 mmol/L (-2 - +2); VBG HCO3 23.8 mmol/L (23-28); VBG OXYGEN SATURATION 90.7 % (60-80); VBG PCO2 34.4 mmHg (41-51); VBG PO2 54.8 mmHg (25-47); VBG TOTAL CO2 24.8 mmol/L (24-29)
[2024-01-11 14:01] LABS: BASOPHILS % (AUTO) 0.7 %; EOSINOPHILS # (AUTO) 0.3 10^3/uL (0.0-0.7); EOSINOPHILS % (AUTO) 6.4 %; HCT - HEMATOCRIT 28.5 % (42.0-52.0); HGB - HEMOGLOBIN 8.9 g/dL (14.0-18.0); LYMPHOCYTES # (AUTO) 0.8 10^3/uL (1.5-3.5); LYMPHOCYTES % (AUTO) 19.6 %; MEAN CORPUSCULAR HEMOGLOBIN 27.5 pg (27.0-31.0); MEAN CORPUSCULAR HGB CONC 31.2 g/dL (32.0-36.0); MEAN PLATELET VOLUME 9.7 fL (7.4-11.4); MONOCYTES # (AUTO) 0.3 10^3/uL (0.0-1.0); NEUTROPHILS # (AUTO) 2.8 10^3/uL (1.5-6.6); NEUTROPHILS % (AUTO) 64.8 %; PLT - PLATELET COUNT 164 10^3/uL (130-450); RED BLOOD COUNT 3.24 10^6/uL (4.70-6.10); RED CELL DISTRIBUTION WIDTH 15.1 % (12.0-15.0); WHITE BLOOD COUNT 4.2 x10^3/uL (4.8-10.8)
[2024-01-11 14:14] LABS: ALBUMIN 3.2 g/dL (3.2-5.5); ALBUMIN/GLOBULIN RATIO 1.3 (1.0-2.2); ALKALINE PHOSPHATASE 67 IU/L (42-121); ALT ALANINE AMINOTRANSFERASE 7 IU/L (10-60); AST ASPARTATE AMINOTRANSFERASE 8 IU/L (10-42); BILIRUBIN,TOTAL 0.8 mg/dL (0.2-1.0); BUN - BLOOD UREA NITROGEN 31 mg/dL (6-20); CALCIUM 9.1 mg/dL (8.5-10.3); CARBON DIOXIDE - CO2 28 mmol/L (21-32); CHLORIDE 109 mmol/L (101-111); CREATININE 1.3 mg/dL (0.6-1.3); ETOH - ETHANOL < 10.0 mg/dL; GFR - MDRD 52 (>89); GLUCOSE 64 mg/dL (74-104); MAGNESIUM 1.8 mg/dL (1.7-2.3); PHOSPHORUS 3.6 mg/dL (2.5-5.0); POTASSIUM 3.2 mmol/L (3.5-4.5); SODIUM 142 mmol/L (135-145); TOTAL PROTEIN 5.6 g/dL (6.4-8.9)
[2024-01-11 14:16] LABS: INR 1.3 (0.8-1.2); PT - PROTHROMBIN TIME 14.5 secs (9.9-12.6)
[2024-01-11 14:17] LABS: SALICYLATE < 1.5 mg/dL
--- NOTE | 2024-01-11 14:25 | CT Report ---
PROCEDURE: Head WO INDICATIONS: ams TECHNIQUE: Noncontrast 4.5 mm thick angled axial sections acquired from the foramen magnum to the vertex. For r adiation dose reduction, the following was used: automated exposure control, adjustment of mA and/or kV according to patient size. COMPARISON: 07/02/2023 FINDINGS: Image quality: Diagnostic CSF spaces: Basal cisterns are patent. Lateral ventricles are symmetric. Volume: Vascular calcifications. 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 Volume loss is present. These findings are moderate to severe. Brain: No intracranial hemorrhage. Black-white differentiation is grossly maintained. Craniofacial structures: No acute abnormality in the partially visualized craniofacial structures. IMPRESSION: No acute intracranial abnormality. Reviewed by: Donnie Lopez MD on 01/11/2024 2:23 PM PDT Approved by: Donnie Lopez MD on 01/11/2024 2:23 PM PDT Station ID: [id number]
[2024-01-11] MEDS: NALOXONE 0.4 MG/ML VIAL IVP STA (14:43)
--- NOTE | 2024-01-11 15:00 | XRAY Report ---
PROCEDURE: Chest 1V INDICATIONS: ams TECHNIQUE: One view of the chest was acquired. COMPARISON: 05/07/2023. FINDINGS: Surgical changes and devices: None. Lungs and pleura: No pleural effusions or pneumothorax. Lungs are clear. Mediastinum: Mildly tortuous thoracic aorta is seen. Heart size is normal. Bones and chest wall: No suspicious bony lesions. Overlying soft tissues appear unremarkable. IMPRESSION: No acute cardiopulmonary process. Reviewed by: Bc Robb MD on 01/11/2024 2:59 PM PDT Approved by: Bc Robb MD on 01/11/2024 2:59 PM PDT Station ID: [id number]
[2024-01-11 15:11] LABS: BILIRUBIN,URINE NEGATIVE (NEGATIVE); GLUCOSE, URINE (UA) NEGATIVE (NEGATIVE); KETONES,URINE (UA) NEGATIVE (NEGATIVE); LEUKOCYTE ESTERASE, URINE MODERATE (NEGATIVE); NITRITE,URINE POSITIVE (NEGATIVE); OCCULT BLOOD,URINE TRACE-INTA (NEGATIVE); PROTEIN,URINE TRACE mg/dL (NEGATIVE); UROBILINOGEN,URINE 0.2 (NORMAL) E.U./dL (NORMAL)
[2024-01-11 15:21] LABS: CLARITY,URINE HAZY (CLEAR)
[2024-01-11] MEDS: D5.45NS W/20 MEQ KCL 1,000 ML IV STA ×2 (15:33→17:21)
[2024-01-11] MEDS: cefTRIAXone 1 GM VIAL IVP STA (15:33)
[2024-01-11] MEDS: POTASSIUM CHLOR 10 MEQ/100 ML 10 MEQ/100 ML BAG IV ONE (15:39)
[2024-01-11 15:42] LABS: AMPHETAMINE SCREEN,URINE NEGATIVE (NEGATIVE); BARBITURATE SCREEN,UR NEGATIVE (NEGATIVE); BENZODIAZEPINES SCREEN, URINE NEGATIVE (NEGATIVE); BUPRENORPHINE SCREEN, URINE NEGATIVE (NEGATIVE); COCAINE SCREEN URINE NEGATIVE (NEGATIVE); METHADONE SCREEN, URINE NEGATIVE (NEGATIVE); METHAMPHETAMINES SCREEN, URINE NEGATIVE (NEGATIVE); OPIATE SCREEN, URINE NEGATIVE (NEGATIVE); OXYCODONE SCREEN, URINE NEGATIVE (NEGATIVE); THC CANNABINOID SCREEN, URINE NEGATIVE (NEGATIVE); TRICYCLIC ANTIDEPRESSANT,URINE NEGATIVE (NEGATIVE)
[2024-01-11 15:43] LABS: B. PARAPERTUSSIS- RESP PCR PAN NOT DETECTED; B. PERTUSSIS- RESP PCR PANEL NOT DETECTED; C. PNEUMONIAE- RESP PCR PANEL NOT DETECTED; CORONAVIRUS 229E-RESP PCR NOT DETECTED; CORONAVIRUS HKU1-RESP PCR NOT DETECTED; CORONAVIRUS NL63-RESP PCR NOT DETECTED; CORONAVIRUS OC43-RESP PCR NOT DETECTED; HUMAN METAPNEUMOVIRUS NOT DETECTED; INFLUENZA A- RESP PCR PANEL NOT DETECTED; INFLUENZA B - RESP PCR PANEL NOT DETECTED; M. PNEUMONIAE- RESP PCR PANEL NOT DETECTED; PARAINFLUENZA VIRUS 1 NOT DETECTED; PARAINFLUENZA VIRUS 2 NOT DETECTED; PARAINFLUENZA VIRUS 3 NOT DETECTED; PARAINFLUENZA VIRUS 4 NOT DETECTED; RHINOVIRUS/ENTEROVIRUS NOT DETECTED; RSV- RESP PCR PANEL NOT DETECTED; SARS-CoV-2 -RESP PCR PANEL NOT DETECTED
[2024-01-11 15:51] LABS: BACTERIA,URINE Many /HPF (None Seen); EPITHELIAL CELLS,UR RARE Renal Tubular /HPF (<= Few); SQUAMOUS EPITHELIAL CELL,UR RARE Squamous (<= Few); WBC,URINE >25 /HPF (0-3)
[2024-01-11] MEDS ORDERED: SODIUM CHLORIDE FLUSH 0.9% 10 ML SYRINGE IVP PRN (16:27)
[2024-01-11] MEDS: SODIUM CHLORIDE FLUSH 0.9% 10 ML SYRINGE IVP SCH (17:21)
--- NOTE | 2024-01-11 17:27 | HISTORY & PHYSICAL EXAMINATION ---
Chief Complaint - Chief Complaint Chief Complaint: Coma History of Present Illness - Admitted From Admitted From:: Emergency Room - History Obtained From Records Reviewed: Yes History obtained from: Emergency Room Physician and son Rashad - History of Present Illness HPI Comment/Other: Mr. Serrano is a 88-year-old man with past medical history significant for atrial fibrillation, dementia, type 2 diabetes mellitus, congestive heart failure, coronary artery disease, peripheral vascular disease, hypertension and hypercholesterolemia. Per staff had his [facility] facility the patient was his normal self at 7 AM and in the afternoon he was found comatose with bradycardia in the 30s. Patient was given 0.5 mg of atropine with resolution of his severe bradycardia but no improvement in his mental status. Patient was given Narcan in the em ergency room with no improvement. CT scan of the head did not reveal any acute abnormalities.Laboratory studies revealed a creatinine of 1.3, BUN of 31, glucose of 64, anion gap of 5, potassium 3.2, lactic acid of 1.3. 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 Pt unable to recollect for how long. Pt has lived on [facility] for the past 25 years and lived in [facility] prior to that. Pt lived with until her 5 months ago. Pt has four kids, two boys and two girls. Both sons and one daughter live on [facility]. The other daughter lives on the [facility]. 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 - Substance History Use: Uses substance without health or social issues: NONE - POLST Patient has POLST: Yes POLST Status: DNR (DNR and limited interventions) Meds/Allgy - Home Medications Home Medications: Ambulatory Orders Medication Instructions Recorded Confirmed Metformin HCl 500 mg PO DAILYWM 02/28/18 01/12/24 cloNIDine HCL [Clonidine HCl] 0.1 mg PO BID 02/28/18 01/12/24 Aspirin [[place] Aspirin] 81 mg PO DAILY 01/09/22 01/12/24 Atorvastatin [Lipitor] 20 mg PO HS 01/09/22 01/12/24 Telmisartan 80 mg PO DAILY 01/09/22 01/12/24 hydroCHLOROthiazide [Hydrodiuril] 12.5 mg PO DAILY 01/09/22 01/12/24 Potassium Chloride [Klor-Con 10] 10 meq PO TID 05/08/23 01/12/24 Sertraline [Zoloft] 12.5 mg PO DAILY 05/08/23 01/12/24 Calcium Carbonate [Tums (Calcium 500 mg PO QID 01/11/24 01/12/24 Carbonate 500mg)] Ferrous Sulfate [Feosol] 325 mg PO DAILY 01/11/24 01/12/24 Tamsulosin [Flomax] 0.4 mg PO HS 01/11/24 01/12/24 Acetaminophen [Aphen] 325 mg PO Q8H PRN 01/12/24 01/12/24 Cholecalciferol [Vitamin D3] 50 mcg PO DAILY 01/12/24 01/12/24 - Allergies Allergies/Adverse Reactions: Allergies Allergy/AdvReac Type Severity Reaction Status Date / Time No Known Drug Allergies Allergy Verified 01/11/24 13:44 Review of Systems - Constitutional Constitutional: reports: Other (Unable to obtain review of systems because patient is comatose.) Exam - Vital Signs Vital Signs: Vital Signs x48h Temp Pulse Pulse Resp BP BP Pulse Ox 01/11/24 17:00 34.7 C L 45 L 12 148/73 H 100 01/11/24 16:30 45 L 14 144/65 H 100 01/11/24 16:00 50 L 14 126/78 100 01/11/24 15:30 48 L 14 128/77 99 01/11/24 15:00 49 L 12 140/78 H 99 01/11/24 14:48 55 L 12 128/77 100 01/11/24 14:18 71 12 126/75 100 01/11/24 13:48 53 L 18 126/75 99 04/30/24 13:44 36.5 C 75 18 136/75 H 100 - Physical Exam General Appearance: positive: Other (Call most ptosis with [place] Coma Scale of 7) Eyes Bilateral: positive: PERRL, No scleral icterus ENT: positive: Pharynx nml Neck: positive: Thyroid nml, No JVD, Trachea midline Respiratory: positive: Other (Good air exchange in all lung carlos no wheezing no crackles.) Cardiovascular: positive: Other (Positive S1-S2 no extra heart sounds.) Abdomen: positive: Other (Soft nontender nondistended positive bowel sounds no hepatosplenomegaly) Skin: positive: No rash Extremities: positive: No pedal edema Neurologic/Psychiatric: positive: Other (Comatose) Conclusion/Plan - Problem List (1) Coma Conclusion/Plan: Etiology of, is not clear. Differential diagnosis would include infection, stroke and cardiac dysfunction. Patient to be admitted to the intensive care unit for close hemodynamic monitoring of neurologic status and heart rate. (2) UTI (urinary tract infection) Conclusion/Plan: Continue ceftriaxone 1 g daily intravenously. (3) LYLE (acute kidney injury) Conclusion/Plan: Patient has a creatinine that is mildly elevated. Treatment initiated with IV fluids. Continue to monitor BUNs/creatinine (4) Bradycardia Conclusion/Plan: Etiology bradycardia is not clear but most likely is related to medications. Patient takes clonidine. Continue to monitor heart rate with telemetry. Patient has a excellent blood pressure and I do not feel there is a need to increase patient's heart rate at this time. If patient has a sustained heart rate in the 30s, consider repeating 0.5 mg of atropine. Simply stimulating the patient may increase his heart rate. May also consider a trial of dopamine. (5) Goals of care, counseling/discussion Conclusion/Plan: Goals of care discussed with patient's son, Rashad Serrano. Mr. Serrano is DO NOT RESUSCITATE with limited interventions. The son feels he would not want to escalate care to a central line. Pressors through a peripheral line if necessa ry would be okay. Patient has a life-threatening condition requiring monitoring in the intensive care unit setting. Total time spent discussing case with the emergency room physician, examining the patient, reviewing labs and imaging studies and discussing goals of care with patient's family is 40 minutes. - Lab Results Fish Bones: 01/12/24 05:32 01/12/24 05:32
[2024-01-11 19:34] LABS: VBG PH 7.381 (7.31-7.41)
[2024-01-11 19:35] LABS: CALCIUM, IONIZED 1.13 mmol/L (1.15-1.33)
[2024-01-11 19:42] LABS: MAGNESIUM 1.8 mg/dL (1.7-2.3); POTASSIUM 3.5 mmol/L (3.5-4.5)
[2024-01-11] MEDS: MAGNESIUM SULFATE 2 GRAM 2 GM/50 ML BAG IV ONE (21:02)
[2024-01-11] MEDS: HEPARIN 5,000 UNIT/ML VIAL SUBQ SCH (21:06)
[2024-01-11] MEDS: POTASSIUM CHLOR 10 MEQ/100 ML 10 MEQ/100 ML BAG IV SCH (21:07)
[2024-01-11] MEDS: ethyl alcohoL 62% SWAB AMPULE NAS SCH (21:20)
[2024-01-12 05:48] LABS: BASOPHILS # (AUTO) 0.1 10^3/uL (0.0-0.1); BASOPHILS % (AUTO) 0.7 %; EOSINOPHILS # (AUTO) 0.4 10^3/uL (0.0-0.7); EOSINOPHILS % (AUTO) 4.7 %; HCT - HEMATOCRIT 36.1 % (42.0-52.0); HGB - HEMOGLOBIN 11.3 g/dL (14.0-18.0); MEAN CORPUSCULAR HGB CONC 31.3 g/dL (32.0-36.0); MEAN CORPUSCULAR VOLUME 89.4 fL (80.0-94.0); MEAN PLATELET VOLUME 9.4 fL (7.4-11.4); MONOCYTES # (AUTO) 0.5 10^3/uL (0.0-1.0); MONOCYTES % (AUTO) 7.1 %; NEUTROPHILS # (AUTO) 5.7 10^3/uL (1.5-6.6); NEUTROPHILS % (AUTO) 74.2 %; PLT - PLATELET COUNT 166 10^3/uL (130-450); RED BLOOD COUNT 4.04 10^6/uL (4.70-6.10); RED CELL DISTRIBUTION WIDTH 15.3 % (12.0-15.0); WHITE BLOOD COUNT 7.6 x10^3/uL (4.8-10.8)
[2024-01-12 06:07] LABS: CALCIUM 9.4 mg/dL (8.5-10.3); CREATININE 1.2 mg/dL (0.6-1.3); MAGNESIUM 2.3 mg/dL (1.7-2.3); PHOSPHORUS 3.3 mg/dL (2.5-5.0); POTASSIUM 4.2 mmol/L (3.5-4.5)
[2024-01-12 06:19] LABS: THYROID STIMULATING HORMONE 1.81 uIU/mL (0.34-5.60)
[2024-01-12] MEDS ORDERED: ASPIRIN 300 MG SUPP PR SCH (09:00)
[2024-01-12] MEDS: ZINC OXIDE 12% OINT 57 GM TUBE TOP PRN (09:00)
[2024-01-12] MEDS: LOSARTAN 50 MG TABLET PO SCH (10:04)
--- NOTE | 2024-01-12 12:19 | PROVIDER PROGRESS NOTE ---
Assessment/Plan - Problem List (1) Coma Assessment/Plan: Coma has resolved. Patient is alert and answering questions appropriately. Continue to monitor mental status. Patient is stable for transfer to the medical floor. (2) UTI (urinary tract infection) Conclusion/Plan: Continue ceftriaxone 1 g daily intravenously.Urine culture is pending. (3) LYLE (acute kidney injury) Conclusion/Plan: Resolving. Continue to monitor. (4) Bradycardia Conclusion/Plan: Etiology bradycardia is not clear but most likely is related to medications. Patient takes clonidine and metoprolol. Continue to monitor heart rate. (5) Goals of care, counseling/discussion Conclusion/Plan: Goals of care discussed with patient's son, Rashad Serrano. Mr. Serrano is DO NOT RESUSCITATE with limited interventions. The son feels he would not want to escalate care to a central line. Pressors through a peripheral line if necessary would be okay. - Current Meds Current Meds: Current Medications Generic Name Dose Route Start Last Admin Trade Name Freq PRN Reason Stop Dose Admin Alcohol 1 amp 01/11/24 21:00 01/12/24 10:04 Ethyl Alcohol 62% Swab Ampule JENNIFER 1 amp BID CASANDRA Administration Heparin Sodium (Porcine) 5,000 unit 01/11/24 21:00 01/12/24 10:04 Heparin 5,000 Unit/Ml Vial SUBQ 5,000 unit BID CASANDRA Administration Losartan Potassium 50 mg 01/12/24 07:11 01/12/24 10:04 Losartan 50 Mg Tablet PO 50 mg DAILY CASANDRA Administration Sodium Chloride 10 ml 01/11/24 17:00 01/12/24 00:14 Sodium Chloride Flush 0.9% 10 Ml Syringe IVP Not Given 0100,0900,1700 CASANDRA - Lab Result Fish Bone Diagrams: 01/12/24 05:32 01/12/24 05:32 - Additional Planning My Orders: My Active Orders 01/11/24 16:27 Activity Orders (ICU) [RC] Q2HR Daily Weight [RC] 0600 IO [RC] Q1HR Initiate Bowel Care Protocol [RC] QSHIFT Initiate ICU Electrolyte Prot. [RC] .protocol Initiate Line Care Protocol [RC] .protocol Initiate Personal Care Protoco [RC] .protocol Initiate Progressive Mobility Protocol [RC] 0800,2000 Vital Signs [RC] Q1HR Sodium Chloride Flush 0.9% [Normal Saline Flush 0.9%] 10 ml IVP PRN PRN Code Status [OTHERS] Routine Condition of Patient [OTHERS] Routine DVT Prophylaxis [OTHERS] Routine 01/11/24 16:31 NPO [DIET] 01/11/24 16:33 Telemetry- [RC] Q4HR 01/11/24 17:00 Sodium Chloride Flush 0.9% [Normal Saline Flush 0.9%] 10 ml IVP 0100,0900,1700 01/11/24 18:09 Neuro Check [RC] Q2H 01/11/24 20:24 Zinc Oxide [Enoch Protect] 1 applic TOP PRN PRN 01/11/24 21:00 Heparin [Heparin Sodium (Porcine)] 5,000 unit SUBQ BID ethyl alcohoL 62% swab [NoZin] 1 amp JENNIFER BID 01/12/24 07:11 Losartan [Cozaar] 50 mg PO DAILY 01/12/24 13:00 cloNIDine [Catapres] 0.1 mg PO BID 01/12/24 16:00 cefTRIAXone [Rocephin] 1 gm Sodium Chloride 0.9% Minibag [Normal Saline 0.9% Minibag] 100 ml IV DAILY 01/12/24 Dinner DIET [Carb-controlled Diet] [DIET] 01/13/24 09:00 Aspirin EC [Ecotrin] 81 mg PO DAILY Subjective - Subjective Patient Reports: Other (Patient alert this morning. He is having trouble hearing but is answering questions appropriately. He denies chest pain, shortness of breath and abdominal pain. He has no other complaints at this time.) Objective Vital Signs: Vital Signs - 24 hr 01/11/24 01/11/24 01/11/24 13:44 13:48 14:18 Temperature 36.5 C Heart Rate 75 53 L 71 Heart Rate [ Monitoring electrodes] Respiratory 18 18 12 Rate Blood Pressure 136/75 H 126/75 126/75 Blood Pressure [Left Brachial artery] O2 Saturation 100 99 100 01/11/24 01/11/24 01/11/24 14:48 15:00 15:30 Temperature Heart Rate 55 L 49 L 48 L Heart Rate [ Monitoring electrodes] Respiratory 12 12 14 Rate Blood Pressure 128/77 140/78 H 128/77 Blood Pressure [Left Brachial artery] O2 Saturation 100 99 99 01/11/24 01/11/24 01/11/24 16:00 16:30 17:00 Temperature 34.7 C L Heart Rate 50 L 45 L Heart Rate [ 45 L Monitoring electrodes] Respiratory 14 14 12 Rate Blood Pressure 126/78 144/65 H Blood Pressure 148/73 H [Left Brachial artery] O2 Saturation 100 100 100 01/11/24 01/11/24 01/11/24 18:00 19:00 20:00 Temperature 34.7 C L Heart Rate Heart Rate [ 50 L 39 L 51 L Monitoring electrodes] Respiratory 14 12 15 Rate Blood Pressure Blood Pressure 153/58 H 131/65 H 165/75 H [Left Brachial artery] O2 Saturation 100 100 100 01/11/24 01/11/24 01/11/24 21:00 22:00 23:00 Temperature Heart Rate Heart Rate [ 47 L 44 L 71 Monitoring electrodes] Respiratory 10 L 15 17 Rate Blood Pressure Blood Pressure 164/75 H 142/76 H 171/97 H [Left Brachial artery] O2 Saturation 100 100 100 01/12/24 01/12/24 01/12/24 00:00 01:00 02:00 Temperature 36.3 C L Heart Rate Heart Rate [ 58 L 75 59 L Monitoring electrodes] Respiratory 13 19 15 Rate Blood Pressure Blood Pressure 158/83 H 159/91 H 185/90 H [Left Brachial artery] O2 Saturation 98 95 92 01/12/24 01/12/24 01/12/24 03:00 04:00 05:00 Temperature 36.6 C Heart Rate Heart Rate [ 44 L 46 L 46 L Monitoring electrodes] Respiratory 20 12 16 Rate Blood Pressure Blood Pressure 166/58 H 179/98 H 172/90 H [Left Brachial artery] O2 Saturation 92 100 100 01/12/24 01/12/24 01/12/24 06:00 07:00 08:00 Temperature Heart Rate Heart Rate [ 72 57 L 58 L Monitoring electrodes] Respiratory 16 12 17 Rate Blood Pressure Blood Pressure 187/80 H 153/108 H 171/87 H [Left Brachial artery] O2 Saturation 96 100 100 01/12/24 01/12/24 01/12/24 09:00 10:00 11:00 Temperature Heart Rate Heart Rate [ 60 70 63 Monitoring electrodes] Respiratory 18 17 13 Rate Blood Pressure Blood Pressure 164/81 H 163/76 H 166/89 H [Left Brachial artery] O2 Saturation 100 100 100 01/12/24 12:00 Temperature Heart Rate Heart Rate [ 69 Monitoring electrodes] Respiratory 17 Rate Blood Pressure Blood Pressure 173/128 H [Left Brachial artery] O2 Saturation 99 Oxygen O2 Source Room air I&O (Last 24 Hrs): Intake and Output Totals x24h 01/10/24 01/11/24 01/12/24 23:59 23:59 23:59 Intake Total 200 2590 Output Total 0 0 Balance 200 2590 General: Alert HEENT: Atraumatic Neck: No JVD Lymphatic: no adenopathy Neuro: Alert, Non Focal Cardiovascular: Other (Positive S1-S2 no extra heart sounds.) Respiratory: Other (Good air exchange in all lung carlos no wheezing no crackles.) Abdomen: Other (Soft nondistended positive bowel sounds) Extremities: No clubbing, No cyanosis Skin: No rashes - Results Results: Laboratory Results WBC 7.6 x10^3/uL (4.8-10.8) 01/12/24 05:32 RBC 4.04 10^6/uL (4.70-6.10) L 01/12/24 05:32 Hgb 11.3 g/dL (14.0-18.0) L 01/12/24 05:32 Hct 36.1 % (42.0-52.0) L 01/12/24 05:32 MCV 89.4 fL (80.0-94.0) 01/12/24 05:32 MCH 28.0 pg (27.0-31.0) 01/12/24 05:32 MCHC 31.3 g/dL (32.0-36.0) L 01/12/24 05:32 RDW 15.3 % (12.0-15.0) H 01/12/24 05:32 Plt Count 166 10^3/uL (130-450) 01/12/24 05:32 MPV 9.4 fL (7.4-11.4) 01/12/24 05:32 Neut # (Auto) 5.7 10^3/uL (1.5-6.6) 01/12/24 05:32 Lymph # (Auto) 1.0 10^3/uL (1.5-3.5) L 01/12/24 05:32 [place] # (Auto) 0.5 10^3/uL (0.0-1.0) 01/12/24 05:32 Eos # (Auto) 0.4 10^3/uL (0.0-0.7) 01/12/24 05:32 Baso # (Auto) 0.1 10^3/uL (0.0-0.1) 01/12/24 05:32 Absolute Nucleated RBC 0.00 x10^3/uL 01/12/24 05:32 Nucleated RBC % 0.0 /100WBC 01/12/24 05:32 PT 14.5 secs (9.9-12.6) H 01/11/24 13:56 INR 1.3 (0.8-1.2) H 01/11/24 13:56 VBG pH 7.381 (7.31-7.41) 01/11/24 19:29 VBG pCO2 34.4 mmHg (41-51) L 01/11/24 13:56 VBG pO2 54.8 mmHg (25-47) H 01/11/24 13:56 VBG HCO3 23.8 mmol/L (23-28) 01/11/24 13:56 VBG Total CO2 24.8 mmol/L (24-29) 01/11/24 13:56 VBG O2 Saturation 90.7 % (60-80) H 01/11/24 13:56 VBG Base Excess 0.3 mmol/L (-2 - +2) 01/11/24 13:56 Ionized Calcium 1.13 mmol/L (1.15-1.33) L 01/11/24 19:29 Sodium 142 mmol/L (135-145) 01/12/24 05:32 Potassium 4.2 mmol/L (3.5-4.5) 01/12/24 05:32 Chloride 109 mmol/L (101-111) 01/12/24 05:32 Carbon Dioxide 26 mmol/L (21-32) 01/12/24 05:32 Anion Gap 7.0 (6-13) 01/12/24 05:32 BUN 27 mg/dL (6-20) H 01/12/24 05:32 Creatinine 1.2 mg/dL (0.6-1.3) 01/12/24 05:32 Estimated GFR (MDRD) 57 (>89) L 01/12/24 05:32 Glucose 110 mg/dL (74-104) H 01/12/24 05:32 POC Whole Bld Glucose 97 mg/dL (70 - 100) 01/12/24 08:36 Lactic Acid 1.3 mmol/L (0.5-2.2) 01/11/24 13:56 Calcium 9.4 mg/dL (8.5-10.3) 01/12/24 05:32 Phosphorus 3.3 mg/dL (2.5-5.0) 01/12/24 05:32 Magnesium 2.3 mg/dL (1.7-2.3) 01/12/24 05:32 Total Bilirubin 0.8 mg/dL (0.2-1.0) 01/11/24 13:50 AST 8 IU/L (10-42) L 01/11/24 13:50 ALT 7 IU/L (10-60) L 01/11/24 13:50 Alkaline Phosphatase 67 IU/L (42-121) 01/11/24 13:50 Ammonia 20.8 umol/L (18-72) 01/11/24 14:26 Total Protein 5.6 g/dL (6.4-8.9) L 01/11/24 13:50 Albumin 3.2 g/dL (3.2-5.5) 01/11/24 13:50 Globulin 2.4 g/dL (2.1-4.2) 01/11/24 13:50 Albumin/Globulin Ratio 1.3 (1.0-2.2) 01/11/24 13:50 TSH 1.81 uIU/mL (0.34-5.60) 01/12/24 05:32 Urine Color YELLOW 01/11/24 14:50 Urine Clarity HAZY (CLEAR) 01/11/24 14:50 Urine pH 6.0 PH (5.0-7.5) 01/11/24 14:50 Ur Specific [place] 1.020 (1.002-1.030) 01/11/24 14:50 Urine Protein TRACE mg/dL (NEGATIVE) 01/11/24 14:50 Urine Glucose (UA) NEGATIVE mg/dL (NEGATIVE) 01/11/24 14:50 Urine Ketones NEGATIVE mg/dL (NEGATIVE) 01/11/24 14:50 Urine Occult Blood TRACE-INTA (NEGATIVE) 01/11/24 14:50 Urine Nitrite POSITIVE (NEGATIVE) H 01/11/24 14:50 Urine Bilirubin NEGATIVE (NEGATIVE) 01/11/24 14:50 Urine Urobilinogen 0.2 (NORMAL) E.U./dL (NORMAL) 01/11/24 14:50 Ur Leukocyte Esterase MODERATE (NEGATIVE) H 01/11/24 14:50 Urine RBC 11-25 /HPF (0-5) H 01/11/24 14:50 Urine WBC >25 /HPF (0-3) H 01/11/24 14:50 Ur Epithelial Cells RARE Renal Tubular /HPF (<= Few) 01/11/24 14:50 Ur Squamous Epith Cells RARE Squamous (<= Few) 01/11/24 14:50 Urine Bacteria Many /HPF (None Seen) H 01/11/24 14:50 Ur Microscopic Review INDICATED 01/11/24 14:50 Urine Culture Comments INDICATED 01/11/24 14:50 Nasal Adenovirus (PCR) NOT DETECTED 01/11/24 13:52 Nasal B. parapertussis DNA (PCR) NOT DETECTED 01/11/24 13:52 Nasal Coronavir 229E PCR NOT DETECTED 01/11/24 13:52 Nasal Coronavir HKU1 PCR NOT DETECTED 01/11/24 13:52 Nasal Coronavir NL63 PCR NOT DETECTED 01/11/24 13:52 Nasal Coronavir OC43 PCR NOT DETECTED 01/11/24 13:52 Nasal Enterovir/Rhinovir PCR NOT DETECTED 01/11/24 13:52 Nasal Influenza B PCR NOT DETECTED 01/11/24 13:52 Nasal Influenza A PCR NOT DETECTED 01/11/24 13:52 Nasal Parainfluen 1 PCR NOT DETECTED 01/11/24 13:52 Nasal Parainfluen 2 PCR NOT DETECTED 01/11/24 13:52 Nasal Parainfluen 3 PCR NOT DETECTED 01/11/24 13:52 Nasal Parainfluen 4 PCR NOT DETECTED 01/11/24 13:52 Nasal RSV (PCR) NOT DETECTED 01/11/24 13:52 Nasal Screen MRSA (PCR) POSITIVE (NEGATIVE) A* 01/11/24 17:15 Nasal B.pertussis DNA PCR NOT DETECTED 01/11/24 13:52 Nasal C.pneumoniae (PCR) NOT DETECTED 01/11/24 13:52 Jennifer Human Metapneumo PCR NOT DETECTED 01/11/24 13:52 Nasal M.pneumoniae (PCR) NOT DETECTED 01/11/24 13:52 Nasal SARS-CoV-2 (PCR) NOT DETECTED 01/11/24 13:52 Salicylates < 1.5 mg/dL 01/11/24 13:50 Urine Opiates Screen NEGATIVE (NEGATIVE) 01/11/24 14:50 Ur Buprenorphine Scrn NEGATIVE (NEGATIVE) 01/11/24 14:50 Ur Oxycodone Screen NEGATIVE (NEGATIVE) 01/11/24 14:50 Urine Methadone Screen NEGATIVE (NEGATIVE) 01/11/24 14:50 Acetaminophen 4.0 ug/mL 01/11/24 13:50 Ur Barbiturates Screen NEGATIVE (NEGATIVE) 01/11/24 14:50 Ur Tricyclics Screen NEGATIVE (NEGATIVE) 01/11/24 14:50 Ur Phencyclidine Scrn NEGATIVE (NEGATIVE) 01/11/24 14:50 Ur Amphetamine Screen NEGATIVE (NEGATIVE) 01/11/24 14:50 U Methamphetamines Scrn NEGATIVE (NEGATIVE) 01/11/24 14:50 U Benzodiazepines Scrn NEGATIVE (NEGATIVE) 01/11/24 14:50 Urine Cocaine Screen NEGATIVE (NEGATIVE) 01/11/24 14:50 U Cannabinoids Screen NEGATIVE (NEGATIVE) 01/11/24 14:50 Ur Drug Screen Comment CUTOFF CONC BELOW: 01/11/24 14:50 Ethyl Alcohol < 10.0 mg/dL 01/11/24 13:50 - Procedures Procedures: Procedures (05/07/23)
--- NOTE | 2024-01-12 12:35 | PHARMACY PROGRESS NOTE ---
- Best Possible Medication History Admit Date and Time: 01/11/24 1627 Processed by: Pharmacy Medications reviewed in ED?: No Medication History completed: Yes Patient Interview: Pt unable to participate Secondary Source(s): Insurance records, Facility MAR as ONLY source As the person ultimately responsible for medication therapy, providers are able to order a medication from an existing home medication list in [facility] via the "Reconcile Routine" prior to Confirmation of that medication by instructional support specialist. Such practice is discouraged except when the physician, in their clinical judgment, deems that a medical need exists for a medication without regard to previous use.
[2024-01-12] MEDS: cloNIDine 0.1 MG TABLET PO SCH (13:28)
[2024-01-12] MEDS: cefTRIAXone 1 GM in SODIUM CHLORIDE 0.9% MINIBAG 100 ML IV SCH (16:25)
[2024-01-12] MEDS: hydrOXYzine PAMOATE 25 MG CAPSULE PO PRN (20:20)
[2024-01-12] MEDS: EMOLLIENT CREAM 57 GM TUBE TOP SCH (22:21)
[2024-01-13 04:57] LABS: CALCIUM 9.1 mg/dL (8.5-10.3); CREATININE 1.3 mg/dL (0.6-1.3); MAGNESIUM 2.1 mg/dL (1.7-2.3); POTASSIUM 4.1 mmol/L (3.5-4.5)
[2024-01-13] MEDS: ASPIRIN EC 81 MG TABLET PO SCH (08:30)
[2024-01-13] MEDS: cloNIDine 0.1 MG TABLET PO SCH (08:32)
--- NOTE | 2024-01-13 19:54 | PROVIDER PROGRESS NOTE ---
Assessment/Plan - Problem List (1) Bradycardia Assessment/Plan: Etiology bradycardia is not clear but most likely is related to medications. Patient was taking clonidine and metoprolol. Metoprolol has been discontinued and clonidine has been reinitiated. Patient has not demonstrated any significant bradycardia.Anticipate transfer back to nursing facility if patient's heart rate remained stable overnight. (2) UTI (urinary tract infection) Conclusion/Plan: Continue ceftriaxone 1 g daily intravenously.Urine culture grew Klebsiella that is sensitive to ceftriaxone and cefazolin. (3) LYLE (acute kidney injury) Conclusion/Plan: Resolved. Continue to monitor intermittently. (4) Coma Assessment/Plan: Coma has resolved. Patient is alert and answering questions appropriately. C ontinue to monitor mental status. (5) Goals of care, counseling/discussion Conclusion/Plan: Goals of care discussed with patient's son, aRshad Serrano. Mr. Serrano is DO NOT RESUSCITATE with limited interventions. The son feels he would not want to escalate care to a central line. Pressors through a peripheral line if necessary would be okay. - Current Meds Current Meds: Current Medications Generic Name Dose Route Start Last Admin Trade Name Freq PRN Reason Stop Dose Admin Alcohol 1 amp 01/11/24 21:00 01/13/24 08:40 Ethyl Alcohol 62% Swab Ampule JENNIFER 1 amp BID CASANDRA Administration Aspirin 81 mg 01/13/24 09:00 01/13/24 08:30 Aspirin Ec 81 Mg Tablet PO 81 mg DAILY CASANDRA Administration Clonidine HCl 0.1 mg 01/13/24 09:00 01/13/24 08:32 Clonidine 0.1 Mg Tablet PO 0.1 mg BID CASANDRA Administration Heparin Sodium (Porcine) 5,000 unit 01/11/24 21:00 01/13/24 09:11 Heparin 5,000 Unit/Ml Vial SUBQ 5,000 unit BID CASANDRA Administration Hydroxyzine Pamoate 25 mg 01/12/24 15:02 01/12/24 20:20 Hydroxyzine Pamoate 25 Mg Capsule PO 25 mg QPM PRN Administration ITCHING Ceftriaxone Sodium 1 gm/ 100 mls @ 200 mls/hr 01/12/24 16:00 01/13/24 09:00 Sodium Chloride IV Infused DAILY CASANDRA Infusion Multi-Ingredient Ointment 1 applic 01/11/24 20:24 01/12/24 09:00 Zinc Oxide 12% Oint 57 Gm Tube TOP 1 applic PRN PRN Administration Skin Care Multi-Ingredient Ointment 1 applic 01/12/24 21:00 01/13/24 08:39 Emollient Cream 57 Gm Tube TOP 1 applic BID CASANDRA Administration Sodium Chloride 10 ml 01/11/24 17:00 01/13/24 09:10 Sodium Chloride Flush 0.9% 10 Ml Syringe IVP 10 ml 0100,0900,1700 CASANDRA Administration - Lab Result Fish Bone Diagrams: 01/12/24 05:32 01/13/24 04:17 - Additional Planning My Orders: My Active Orders 01/12/24 21:00 Emollient Cream [Eucerin] 1 applic TOP BID 01/13/24 09:00 Aspirin EC [Ecotrin] 81 mg PO DAILY cloNIDine [Catapres] 0.1 mg PO BID 01/13/24 21:00 Losartan [Cozaar] 50 mg PO BID Subjective - Subjective Patient Reports: Other (Alert. Denies chest pain, shortness of breath and abdominal pain. No other complaints at this time.) Objective Vital Signs: Vital Signs - 24 hr 01/12/24 01/12/24 01/12/24 20:00 21:00 22:00 Temperature Heart Rate [ 46 L 43 L 62 Monitoring electrodes] Respiratory 15 14 18 Rate Blood Pressure 112/48 L 106/56 L 160/103 H [Left Brachial artery] O2 Saturation 99 100 96 01/13/24 01/13/24 01/13/24 02:48 06:00 10:00 Temperature 37.2 C 36.7 C 36.8 C Heart Rate [ 50 L 68 53 L Monitoring electrodes] Respiratory 16 14 18 Rate Blood Pressure 143/72 H 177/71 H 181/94 H [Left Brachial artery] O2 Saturation 98 95 100 01/13/24 01/13/24 13:59 16:54 Temperature 36.9 C 36.5 C Heart Rate [ 49 L 90 Monitoring electrodes] Respiratory 17 18 Rate Blood Pressure 114/82 H 137/69 H [Left Brachial artery] O2 Saturation 99 98 Oxygen O2 Source Room air I&O (Last 24 Hrs): Intake and Output Totals x24h 01/11/24 01/12/24 01/13/24 23:59 23:59 23:59 Intake Total 200 3410 940 Output Total 0 0 Balance 200 3410 940 General: Alert Neck: Supple, No thyromegaly Neuro: Alert, Non Focal Cardiovascular: Other (Positive S1-S2 no extra heart sounds.) Respiratory: Other Abdomen: Other (Soft nondistended positive bowel sounds) Extremities: No cyanosis, No edema Skin: No rashes - Results Results: Laboratory Results WBC 7.6 x10^3/uL (4.8-10.8) 01/12/24 05:32 RBC 4.04 10^6/uL (4.70-6.10) L 01/12/24 05:32 Hgb 11.3 g/dL (14.0-18.0) L 01/12/24 05:32 Hct 36.1 % (42.0-52.0) L 01/12/24 05:32 MCV 89.4 fL (80.0-94.0) 01/12/24 05:32 MCH 28.0 pg (27.0-31.0) 01/12/24 05:32 MCHC 31.3 g/dL (32.0-36.0) L 01/12/24 05:32 RDW 15.3 % (12.0-15.0) H 01/12/24 05:32 Plt Count 166 10^3/uL (130-450) 01/12/24 05:32 MPV 9.4 fL (7.4-11.4) 01/12/24 05:32 Neut # (Auto) 5.7 10^3/uL (1.5-6.6) 01/12/24 05:32 Lymph # (Auto) 1.0 10^3/uL (1.5-3.5) L 01/12/24 05:32 [place] # (Auto) 0.5 10^3/uL (0.0-1.0) 01/12/24 05:32 Eos # (Auto) 0.4 10^3/uL (0.0-0.7) 01/12/24 05:32 Baso # (Auto) 0.1 10^3/uL (0.0-0.1) 01/12/24 05:32 Absolute Nucleated RBC 0.00 x10^3/uL 01/12/24 05:32 Nucleated RBC % 0.0 /100WBC 01/12/24 05:32 PT 14.5 secs (9.9-12.6) H 01/11/24 13:56 INR 1.3 (0.8-1.2) H 01/11/24 13:56 VBG pH 7.381 (7.31-7.41) 01/11/24 19:29 VBG pCO2 34.4 mmHg (41-51) L 01/11/24 13:56 VBG pO2 54.8 mmHg (25-47) H 01/11/24 13:56 VBG HCO3 23.8 mmol/L (23-28) 01/11/24 13:56 VBG Total CO2 24.8 mmol/L (24-29) 01/11/24 13:56 VBG O2 Saturation 90.7 % (60-80) H 01/11/24 13:56 VBG Base Excess 0.3 mmol/L (-2 - +2) 01/11/24 13:56 Ionized Calcium 1.13 mmol/L (1.15-1.33) L 01/11/24 19:29 Sodium 140 mmol/L (135-145) 01/13/24 04:17 Potassium 4.1 mmol/L (3.5-4.5) 01/13/24 04:17 Chloride 109 mmol/L (101-111) 01/13/24 04:17 Carbon Dioxide 25 mmol/L (21-32) 01/13/24 04:17 Anion Gap 6.0 (6-13) 01/13/24 04:17 BUN 28 mg/dL (6-20) H 01/13/24 04:17 Creatinine 1.3 mg/dL (0.6-1.3) 01/13/24 04:17 Estimated GFR (MDRD) 52 (>89) L 01/13/24 04:17 Glucose 123 mg/dL (74-104) H 01/13/24 04:17 POC Whole Bld Glucose 97 mg/dL (70 - 100) 01/12/24 08:36 Lactic Acid 1.3 mmol/L (0.5-2.2) 01/11/24 13:56 Calcium 9.1 mg/dL (8.5-10.3) 01/13/24 04:17 Phosphorus 3.3 mg/dL (2.5-5.0) 01/12/24 05:32 Magnesium 2.1 mg/dL (1.7-2.3) 01/13/24 04:17 Total Bilirubin 0.8 mg/dL (0.2-1.0) 01/11/24 13:50 AST 8 IU/L (10-42) L 01/11/24 13:50 ALT 7 IU/L (10-60) L 01/11/24 13:50 Alkaline Phosphatase 67 IU/L (42-121) 01/11/24 13:50 Ammonia 20.8 umol/L (18-72) 01/11/24 14:26 Total Protein 5.6 g/dL (6.4-8.9) L 01/11/24 13:50 Albumin 3.2 g/dL (3.2-5.5) 01/11/24 13:50 Globulin 2.4 g/dL (2.1-4.2) 01/11/24 13:50 Albumin/Globulin Ratio 1.3 (1.0-2.2) 01/11/24 13:50 TSH 1.81 uIU/mL (0.34-5.60) 01/12/24 05:32 Urine Color YELLOW 01/11/24 14:50 Urine Clarity HAZY (CLEAR) 01/11/24 14:50 Urine pH 6.0 PH (5.0-7.5) 01/11/24 14:50 Ur Specific [place] 1.020 (1.002-1.030) 01/11/24 14:50 Urine Protein TRACE mg/dL (NEGATIVE) 01/11/24 14:50 Urine Glucose (UA) NEGATIVE mg/dL (NEGATIVE) 01/11/24 14:50 Urine Ketones NEGATIVE mg/dL (NEGATIVE) 01/11/24 14:50 Urine Occult Blood TRACE-INTA (NEGATIVE) 01/11/24 14:50 Urine Nitrite POSITIVE (NEGATIVE) H 01/11/24 14:50 Urine Bilirubin NEGATIVE (NEGATIVE) 01/11/24 14:50 Urine Urobilinogen 0.2 (NORMAL) E.U./dL (NORMAL) 01/11/24 14:50 Ur Leukocyte Esterase MODERATE (NEGATIVE) H 01/11/24 14:50 Urine RBC 11-25 /HPF (0-5) H 01/11/24 14:50 Urine WBC >25 /HPF (0-3) H 01/11/24 14:50 Ur Epithelial Cells RARE Renal Tubular /HPF (<= Few) 01/11/24 14:50 Ur Squamous Epith Cells RARE Squamous (<= Few) 01/11/24 14:50 Urine Bacteria Many /HPF (None Seen) H 01/11/24 14:50 Ur Microscopic Review INDICATED 01/11/24 14:50 Urine Culture Comments INDICATED 01/11/24 14:50 Nasal Adenovirus (PCR) NOT DETECTED 01/11/24 13:52 Nasal B. parapertussis DNA (PCR) NOT DETECTED 01/11/24 13:52 Nasal Coronavir 229E PCR NOT DETECTED 01/11/24 13:52 Nasal Coronavir HKU1 PCR NOT DETECTED 01/11/24 13:52 Nasal Coronavir NL63 PCR NOT DETECTED 01/11/24 13:52 Nasal Coronavir OC43 PCR NOT DETECTED 01/11/24 13:52 Nasal Enterovir/Rhinovir PCR NOT DETECTED 01/11/24 13:52 Nasal Influenza B PCR NOT DETECTED 01/11/24 13:52 Nasal Influenza A PCR NOT DETECTED 01/11/24 13:52 Nasal Parainfluen 1 PCR NOT DETECTED 01/11/24 13:52 Nasal Parainfluen 2 PCR NOT DETECTED 01/11/24 13:52 Nasal Parainfluen 3 PCR NOT DETECTED 01/11/24 13:52 Nasal Parainfluen 4 PCR NOT DETECTED 01/11/24 13:52 Nasal RSV (PCR) NOT DETECTED 01/11/24 13:52 Nasal Screen MRSA (PCR) POSITIVE (NEGATIVE) A* 01/11/24 17:15 Nasal B.pertussis DNA PCR NOT DETECTED 01/11/24 13:52 Nasal C.pneumoniae (PCR) NOT DETECTED 01/11/24 13:52 Jennifer Human Metapneumo PCR NOT DETECTED 01/11/24 13:52 Nasal M.pneumoniae (PCR) NOT DETECTED 01/11/24 13:52 Nasal SARS-CoV-2 (PCR) NOT DETECTED 01/11/24 13:52 Salicylates < 1.5 mg/dL 01/11/24 13:50 Urine Opiates Screen NEGATIVE (NEGATIVE) 01/11/24 14:50 Ur Buprenorphine Scrn NEGATIVE (NEGATIVE) 01/11/24 14:50 Ur Oxycodone Screen NEGATIVE (NEGATIVE) 01/11/24 14:50 Urine Methadone Screen NEGATIVE (NEGATIVE) 01/11/24 14:50 Acetaminophen 4.0 ug/mL 01/11/24 13:50 Ur Barbiturates Screen NEGATIVE (NEGATIVE) 01/11/24 14:50 Ur Tricyclics Screen NEGATIVE (NEGATIVE) 01/11/24 14:50 Ur Phencyclidine Scrn NEGATIVE (NEGATIVE) 01/11/24 14:50 Ur Amphetamine Screen NEGATIVE (NEGATIVE) 01/11/24 14:50 U Methamphetamines Scrn NEGATIVE (NEGATIVE) 01/11/24 14:50 U Benzodiazepines Scrn NEGATIVE (NEGATIVE) 01/11/24 14:50 Urine Cocaine Screen NEGATIVE (NEGATIVE) 01/11/24 14:50 U Cannabinoids Screen NEGATIVE (NEGATIVE) 01/11/24 14:50 Ur Drug Screen Comment CUTOFF CONC BELOW: 01/11/24 14:50 Ethyl Alcohol < 10.0 mg/dL 01/11/24 13:50 - Procedures Procedures: Procedures (05/07/23)
[2024-01-13] MEDS: LOSARTAN 50 MG TABLET PO SCH (21:47)
[2024-01-14 06:51] LABS: CALCIUM 9.7 mg/dL (8.5-10.3); CREATININE 1.3 mg/dL (0.6-1.3); PHOSPHORUS 3.6 mg/dL (2.5-5.0); POTASSIUM 4.2 mmol/L (3.5-4.5)
--- NOTE | 2024-01-14 12:05 | Discharge Plan ---
"Discharge Plan for SNF / [facility] - Discharge Plan And Transition Orders Problem Reviewed?: Yes Disposition: 03 SNF DC/Xfer Condition: Stable Allergies and Adverse Reactions: Allergies Allergy/AdvReac Type Severity Reaction Status Date / Time No Known Drug Allergies Allergy Verified 01/11/24 13:44 Health Concerns: History of Present Illness: Mr. Serrano is a 88-year-old man with past medical history significant for atrial fibrillation, dementia, type 2 diabetes mellitus, congestive heart failure, coronary artery disease, peripheral vascular disease, hypertension and hypercholesterolemia. Per staff had his long term facility the patient was his normal self at 7 AM and in the afternoon he was found comatose with bradycardia in the 30s. Patient was given 0.5 mg of atropine with resolution of his severe bradycardia but no improvement in his mental status. Patient was given Narcan in the emergency room with no improvement. CT scan of the head did not reveal any acute abnormalities.Laboratory studies revealed a creatinine of 1.3, BUN of 31, glucose of 64, anion gap of 5, potassium 3.2, lactic acid of 1.3. Hospital Course: Mr. Serrano was admitted as an inpatient to the intensive care unit.He was placed on telemetry treatment was initiated for a urinary tract infection with ceftriaxone. His outpatient medications were withheld. During his hospitalization, patient received 2 days of IV antibiotics with ceftriaxone. Urine culture grew Klebsiella that was sensitive to cephalexin. Patient to complete course of antibiotics with cephalexin for total of 7 days of antibiotics. The following morning, patient was alert and opening eyes spontaneously and to voice. He appeared to be at his baseline from a mental status. His heart rate increased to the 6080 range and treatment was reinitiated with clonidine. Metoprolol was withheld. He was observed in the hospital for the next 24 hours while on clonidine 0.1 mg twice daily with no significant episodes or sustained episodes of bradycardia. Recommend not initiating AV laura blocking agents. Metoprolol has been discontinued. Hydrochlorothiazide and potassium was also discontinued during this hospitalization. Patient is now stable for discharge. CODE STATUS: DO NOT RESUSCITATE Plan of Treatment: 1. Continue all medications as prescribed. 2. Follow-up with primary care provider as needed. Care Goals: Goal of care is to continue her present level of functioning. Assessment: (1) Bradycardia Assessment/Plan: Etiology bradycardia is not clear but most likely is related to medications. Patient was taking clonidine and metoprolol. Metoprolol has been discontinued and clonidine has been reinitiated. Patient has not demonstrated any significant bradycardia.Anticipate transfer back to nursing facility if patient's heart rate remained stable. Recommend not initiating any other AV laura blocking agents. (2) UTI (urinary tract infection) Conclusion/Plan: Patient transition to cefazolin and should complete a total of 7 days of treatment with antibiotics. (3) LYLE (acute kidney injury) Conclusion/Plan: Resolved. Continue to monitor intermittently. (4) Coma Assessment/Plan: Coma has resolved. Patient is alert and answering questions appropriately. Continue to monitor mental status. (5) Goals of care, counseling/discussion Conclusion/Plan: Goals of care discussed with patient's son, Rashad Serrano. Mr. Serrano is DO NOT RESUSCITATE with limited interventions. The son feels he would not want to escalate care to a central line. Pressors through a peripheral line if necessary would be okay. - SNF / [facility] Transition Orders Admit to (Facility): [facility] Discharge Diagnosis: (1) Bradycardia (2) UTI (urinary tract infection) (3) LYLE (acute kidney injury) (4) Coma Medicare Certification Statement: I certify that [facility] care is medically necessary on a continuing basis for any of the conditions for which she/he is receiving care during hospitalization. Notify PCP of admission and forward orders to primary provider for signature. Weight on admission and: Monthly Other Notification Orders: Call PCP immediately if patient develops dyspnea, chest pain/tightness or edema. House Bowel Program: Yes Additional Bowel Program Orders: If no BM after 2 days, nurse may give M.O.M. 30ml PO PRN and/or ducolax Supp 1 DE and/or MAYI 250mg P.O., and/or senna 1-2 tabs PO. On day 3 nurse may give repeat above order until residents constipation is resolved. Annual Influenza Vaccine (between May 14 and December 11): Yes Two-step PPD per [facility] [id number] or approved exception documents: Yes Medication Orders: PLEASE REFER TO THE DISCHARGE MEDICATION LIST. - Medications New Prescriptions: Losartan [Cozaar] 50 mg PO BID #60 tab cephALEXin [Keflex] 500 mg PO BID 5 Days #10 cap - Diet Type: No added sugar Texture: Regular Liquids: Thin May have monthly special meal: Yes - Therapies | Activity Rehabilitation Potential: Maintain present ADL Functional Activity: Activity as Tolerated Weight Bearing: Full Weight Follow Up: Follow-up with Dr. Ochoa as needed."
--- NOTE | 2024-01-14 12:05 | DISCHARGE SUMMARY ---
Discharge Summary Admit Date: 01/11/24 Discharge Date: 01/14/24 Discharging Provider: Bravo Luo MD Code Status: Do Not Attempt Resuscitation Condition at Discharge: Stable Discharge Disposition: SNF DC/Xfer Discharge Facility Name: [facility] - DIAGNOSES Admission Diagnoses: (1) Coma (2) UTI (urinary tract infection) (3) LYLE (acute kidney injury) (4) Bradycardia (5) Goals of care, counseling/discussion Discharge Diagnoses with Status of Each Condition: (1) Bradycardia (2) UTI (urinary tract infection) (3) LYLE (acute kidney injury) (4) Coma (5) Goals of care, counseling/discussion - HPI History of Present Illness: History of Present Illness: Mr. Serrano is a 88-year-old man with past medical history significant for atrial fibrillation, dementia, type 2 diabetes mellitus, congestive heart failure, coronary artery disease, peripheral vascular disease, hypertension and hypercholesterolemia. Per staff had his assisted facility the patient was his normal self at 7 AM and in the afternoon he was found comatose with bradycardia in the 30s. Patient was given 0.5 mg of atropine with resolution of his severe bradycardia but no improvement in his mental status. Patient was given Narcan in the emergency room with no improvement. CT scan of the head did not reveal any acute abnormalities.Laboratory studies revealed a creatinine of 1.3, BUN of 31, glucose of 64, anion gap of 5, potassium 3.2, lactic acid of 1.3. - HOSPITAL COURSE Hospital Course: Hospital Course: Mr. Serrano was admitted as an inpatient to the intensive care unit.He was placed on telemetry treatment was initiated for a urinary tract infection with ceftriaxone. His outpatient medications were withheld. During his hospitalization, patient received 2 days of IV antibiotics with ceftriaxone. Urine culture grew Klebsiella that was sensitive to cephalexin. Patient to complete course of antibiotics with cephalexin for total of 7 days of antibiotics. The following morning, patient was alert and opening eyes spontaneously and to voice. He appeared to be at his baseline from a mental status. His heart rate increased to the 6080 range and treatment was reinitiated with clonidine. Metoprolol was withheld. He was observed in the hospital for the next 24 hours while on clonidine 0.1 mg twice daily with no significant episodes or sustained episodes of bradycardia. Recommend not initiating AV laura blocking agents. Metoprolol has been discontinued. Hydrochlorothiazide and potassium was also discontinued during this hospitalization. Patient is now stable for discharge. CODE STATUS: DO NOT RESUSCITATE - ALLERGIES Allergies/Adverse Reactions: Allergies Allergy/AdvReac Type Severity Reaction Status Date / Time No Known Drug Allergies Allergy Verified 01/11/24 13:44 - MEDICATIONS Home Medications: Ambulatory Orders Medication Instructions Recorded Confirmed Metformin HCl 500 mg PO DAILYWM 02/28/18 01/12/24 cloNIDine HCL [Clonidine HCl] 0.1 mg PO BID 02/28/18 01/12/24 Aspirin [[place] Aspirin] 81 mg PO DAILY 01/09/22 01/12/24 Atorvastatin [Lipitor] 20 mg PO HS 01/09/22 01/12/24 Sertraline [Zoloft] 12.5 mg PO DAILY 05/08/23 01/12/24 Calcium Carbonate [Tums (Calcium 500 mg PO QID 01/11/24 01/12/24 Carbonate 500mg)] Ferrous Sulfate [Feosol] 325 mg PO DAILY 01/11/24 01/12/24 Tamsulosin [Flomax] 0.4 mg PO HS 01/11/24 01/12/24 Acetaminophen [Aphen] 325 mg PO Q8H PRN 01/12/24 01/12/24 Cholecalciferol [Vitamin D3] 50 mcg PO DAILY 01/12/24 01/12/24 Losartan [Cozaar] 50 mg PO BID #60 tab 01/14/24 cephALEXin [Keflex] 500 mg PO BID 5 Days #10 cap 01/14/24 - PHYSICAL EXAM AT DISCHARGE General Appearance: positive: Alert Eyes Bilateral: positive: Conjunctivae nml, No scleral icterus Neck: positive: Thyroid nml, No JVD, Trachea midline Respiratory: positive: No respiratory distress, Breath sounds nml Cardiovascular: positive: Regular rate & rhythm Abdomen: positive: Nml bowel sounds, No distention Skin: positive: No rash - LABS Result Diagrams: 01/12/24 05:32 01/14/24 06:27 - FOLLOW UP Follow Up: Follow-up with Dr. Ochoa as needed. - TIME SPENT Time Spent in Discharge (Minutes): 25
[2024-01-14 14:12] VITALS: BP 136/71; O2SAT 97
== END 2024-01-14 14:20 | DRG 81 ==
LOC: EDUNIT# → ED 13:43 → ICU 16:27 → MS2 01-13 18:19
PROVIDERS: ADMIT Internal Medicine; ATTEND Internal Medicine
DX: R40.20 Unspecified coma (principal); N39.0 Urinary tract infection, site not specified; E87.6 Hypokalemia; N17.9 Acute kidney failure, unspecified; F03.90 Unspecified dementia, unspecified severity, without behavioral disturbance, psychotic disturbance, mood disturbance, and anxiety; E11.9 Type 2 diabetes mellitus without complications; I11.0 Hypertensive heart disease with heart failure; I48.91 Unspecified atrial fibrillation; I50.9 Heart failure, unspecified; D64.9 Anemia, unspecified; Z11.52 Encounter for screening for COVID-19; I25.10 Atherosclerotic heart disease of native coronary artery without angina pectoris; E11.51 Type 2 diabetes mellitus with diabetic peripheral angiopathy without gangrene; E78.00 Pure hypercholesterolemia, unspecified; J44.9 Chronic obstructive pulmonary disease, unspecified; N40.1 Benign prostatic hyperplasia with lower urinary tract symptoms; R35.1 Nocturia; H54.7 Unspecified visual loss; H91.90 Unspecified hearing loss, unspecified ear; M19.90 Unspecified osteoarthritis, unspecified site; R00.1 Bradycardia, unspecified; Z66 Do not resuscitate; Z79.82 Long term (current) use of aspirin; Z79.84 Long term (current) use of oral hypoglycemic drugs; Z79.899 Other long term (current) drug therapy
CPT/HCPCS: 36415; 70450; 71045; 80048; 80053; 80143; 80306; 81001; 82140; 82330; 82803; 83605; 83735; 84100; 84132; 84443; 85025; 85610; 87077; 87086; 87150; 87181; 87633; 93005; 96365; 96375; 99285; A9270; G0480; P9612; 51701; 80179; 81003; 82077

== ENCOUNTER 2024-01-26 16:15 | Outpatient (CLI) | payer MEDICARE, MEDICAID | END 2024-01-26 23:59 | disposition critical access hospital (66) | LOC: EMS 16:15 | DX: R41.0 Disorientation, unspecified (principal); R03.0 Elevated blood-pressure reading, without diagnosis of hypertension; I48.91 Unspecified atrial fibrillation | CPT/HCPCS: A0425; A0429 ==

== ENCOUNTER 2024-01-26 16:19 | Emergency (ER) | payer MEDICARE, MEDICAID ==
--- NOTE | 2024-01-26 16:28 | ED Physician Documentation ---
PD HPI ALTERED MENTAL STATUS - Stated complaint Stated Complaint: CODE STROKE - History obtained from History obtained from: EMS - Additional information Additional information: 88-year-old gentleman with history of dementia, UTI, bradycardia, A-fib, type II DM, CHF, CAD, PVD, hypertension, hypercholesterolemia. I admitted him here on January 10 for altered mental status. He was found to have a UTI and actually improved pretty significantly given that he was obtunded with a GCS of 7 on admission. Other than a UTI really no cause for his obtundation was found at that time. It is unclear when he took a turn for the worse today. Nobody is able to really tell me the time of onset. At some point "earlier" in the day, where not sure when, he was noted to have elevated blood pressure. It is unclear why it was not documented or what time was. The daughter found him about 330 this afternoon with altered mental status. There was a concern for stroke and some left-sided deficits although I am not really seeing that. The patient is unable to give any history. PD PAST MEDICAL HISTORY - Past Medical History Cardiovascular: Congestive heart failure, Hypertension, High cholesterol, Coronary artery disease, Peripheral Vascular Disease, Atrial fibrillation Respiratory: COPD Endocrine/Autoimmune: Type 2 diabetes GI: GERD, C.difficile [employer]: None : Benign prostate hypertrophy, Chronic bladder infection, Nocturia HEENT: Chronic vision loss, Chronic hearing loss Psych: None Musculoskeletal: Osteoarthritis Derm: Other - Past Surgical History Past Surgical History: Yes General: Cholecystectomy - Present Medications Home Medications: Ambulatory Orders Medication Instructions Recorded Confirmed Metformin HCl 500 mg PO DAILYWM 02/28/18 01/12/24 cloNIDine HCL [Clonidine HCl] 0.1 mg PO BID 02/28/18 01/12/24 Aspirin [[place] Aspirin] 81 mg PO DAILY 01/09/22 01/12/24 Atorvastatin [Lipitor] 20 mg PO HS 01/09/22 01/12/24 Sertraline [Zoloft] 12.5 mg PO DAILY 05/08/23 01/12/24 Calcium Carbonate [Tums (Calcium 500 mg PO QID 01/11/24 01/12/24 Carbonate 500mg)] Ferrous Sulfate [Feosol] 325 mg PO DAILY 01/11/24 01/12/24 Tamsulosin [Flomax] 0.4 mg PO HS 01/11/24 01/12/24 Acetaminophen [Aphen] 325 mg PO Q8H PRN 01/12/24 01/12/24 Cholecalciferol [Vitamin D3] 50 mcg PO DAILY 01/12/24 01/12/24 Losartan [Cozaar] 50 mg PO BID #60 tab 01/14/24 cephALEXin [Keflex] 500 mg PO BID 5 Days #10 cap 01/14/24 - Allergies Allergies/Adverse Reactions: Allergies Allergy/AdvReac Type Severity Reaction Status Date / Time No Known Drug Allergies Allergy Verified 01/26/24 16:44 - Social History Does the pt smoke?: No Smoking Status: Unknown if ever smoked Does the pt drink ETOH?: Yes Does the pt have substance abuse?: No - Immunizations Immunizations are current?: No Immunizations: TDAP >10years/unknown - POLST Patient has POLST: Yes POLST Status: DNR (DNR and limited interventions) PD ED PE NORMAL - Vitals Vital signs reviewed: Yes - General General: Other (He is alert and mumbling nonsensically. He will follow simple commands.) - HEENT HEENT: PERRL (Small but reactive pupils) - Cardiac Cardiac: RRR, No murmur - Respiratory Respiratory: No respiratory distress, Clear bilaterally - Abdomen Abdomen: Non tender - Extremities Extremities: No edema, No calf tenderness / cord - Neuro Neuro: Other (He does withdraw to pain and say ouch to painful stimulus in all 4 extremities. I am not seeing an obvious facial droop but he does not respond to commands to smile. There may be a slightly diminished response to visual threat to the right field.) Eye Opening: Spontaneous Motor: Obeys Commands Verbal: Inappropriate GCS Score: 13 NIHSS - Time Time: 16:25 - Level of Consciousness Level of consciousness: (0) Alert, Keenly responsive LOC Questions: (2) Answers neither correct LOC Commands: (1) Performs one correctly - Gaze Best Gaze: (0) Normal - Visual Visual: (1) Partial hemianopia (possibly?) - Facial Palsy Facial Palsy: (0) Normal, symmetrical movement (not obvious) - Motor Arms (both separate) Motor Arm (right): (2) Some effort against gravity Motor Arm (left): (2) Some effort against gravity - Motor Legs (both separate) Motor Leg (right): (2) Some effort against gravity Motor Leg (left): (2) Some effort against gravity - Limb Ataxia Limb Ataxia: (0) Absent - Sensory Sensory: (0) Normal - Best Language Best Language: (2) Severe aphasia - Dysarthria Dysarthria: (0) Normal - Extinction and Inattention (formally neg Extinction and inattention: (0) No abnormality - Total Score/Results Total Score/Result: 14 Results - Vitals Vitals: Vital Signs - 24 hr 01/26/24 01/26/24 01/26/24 16:40 16:43 17:13 Temperature 36.7 C Heart Rate 60 59 L 61 Respiratory 16 16 16 Rate Blood Pressure 173/64 H 184/109 H 171/95 H O2 Saturation 100 99 99 Oxygen O2 Source Room air - EKG (time done) 1700 EKG releavant findings:: EKG personally interpreted by author of this note. Relevant findings are: Rate: Rate (enter#) (53) Rhythm: Atrial fibrillation [place]: LAD QRS: Normal Ischemia: Normal ST segments - Labs Labs: Laboratory Tests 01/26/24 01/26/24 01/26/24 16:48 16:48 16:48 WBC 6.5 RBC 3.73 L Hgb 10.1 L Hct 33.0 L MCV 88.5 MCH 27.1 MCHC 30.6 L RDW 15.3 H Plt Count 224 MPV 9.5 Neut # (Auto) 4.7 Lymph # (Auto) 1.0 L [place] # (Auto) 0.5 Eos # (Auto) 0.3 Baso # (Auto) 0.0 Absolute Nucleated RBC 0.00 Nucleated RBC % 0.0 PT 12.6 INR 1.2 Sodium 138 Potassium 3.4 L Chloride 105 Carbon Dioxide 26 Anion Gap 7.0 BUN 26 H Creatinine 1.1 Estimated GFR (MDRD) 63 L Glucose 108 H Calcium 8.7 Total Bilirubin 0.8 AST 11 ALT 7 L Alkaline Phosphatase 62 Total Protein 5.4 L Albumin 3.2 Globulin 2.2 Albumin/Globulin Ratio 1.5 Lipase 45 - Rads (name of study) CT head Relevant Findings:: Final report received, EMP independent interpretation of test (CT of the head demonstrates a moderate-sized subacute left posterior frontal parietal cortical infarct with possible petechial hemorrhage and cytotoxic edema.) CTA head Relevant Findings:: Final report received, EMP independent interpretation of test PD Medical Decision Making - ED course ED course: 88-year-old gentleman presents today with altered mental status. No clear stroke syndrome but exam is difficult. Daughter at the bedside and we discussed the finding of the MCA stroke with petechial hemorrhage and carotid artery disease. We discussed goals of care, especially with note of whether or not she would want him transferred for carotid intervention and the answer was clearly no. Spoke with Dr. William, telestroke neurologist who does agree with aspirin even with a small petechial hemorrhage and admission for MRI. Consideration for restarting anticoagulation in a week or 2 depending on stroke-volume and goals of care and fall risk. Subsequently I made a phone call to admit him to the hospitalist. I was notified at that time that there were no beds left in the hospital. I discussed this with the daughter who at that point preferred to take him home noting we really would not be doing much active in the hospital other than getting the MRI. He was able to tolerate liquids here without aspirating, "passed bedside swallow evaluation." Departure - Departure Disposition: Home, Self Care Clinical Impression: Chronic atrial fibrillation Cerebrovascular accident (CVA) Qualifiers: CVA mechanism: unspecified Qualified Code(s): I63.9 - Cerebral infarction, unspecified Condition: Good Record reviewed to determine appropriate education?: Yes Instructions: ED Stroke Completed Comments: He was seen today and did have a left MCA stroke. There is also a tight carotid artery on that same side which the daughter feels would not necessarily be addressed with current goals of care. He should take a baby aspirin a day. He does have A-fib and is not clear why he is not anticoagulated. If there is an excellent reason for him not to be anticoagulated, then continue with aspirin only. If he is a candidate for anticoagulation the treating physician at the facility should consider starting a DOAC in 2 weeks. He will likely need higher level of care than the SNF is accustomed. Specifically he may need help more than normal bathing and toileting, and he should be prompted to drink water several times a day and he may need help with eating it and cutting up foods. Thickened liquids should also be considered. Return if worse. Forms: PCP List
[2024-01-26] MEDS ORDERED: iohexoL-300 100 ML VIAL ONE (16:39)
--- NOTE | 2024-01-26 16:45 | CT Report ---
PROCEDURE: Head W/O Stroke Protocol INDICATIONS: Neuro deficit, acute, stroke suspected TECHNIQUE: Noncontrast 4.5 mm thick angled axial sections acquired from the foramen magnum to the vertex, with c oronal reformats. For radiation dose reduction, the following was used: automated exposure control, adjustment of mA and/or kV according to patient size. COMPARISON: 01/11/2024. FINDINGS: Image quality: Excellent. CSF spaces: Basal cisterns are patent. No extra-axial fluid collections. Ventricles are normal in size and shape. Brain: No midline shift. No intracranial masses or hemorrhage. Intracranial carotid calcifications . Age-related volume loss and moderate to severe small vessel ischemic change. Subacute moderate size d left posterior frontoparietal cortical infarct with possible petechial hemorrhage and cytotoxic mynor ma. Skull and face: Calvarium and visualized facial bones are intact, without suspicious lesions. Sinuses: Visualized sinuses and mastoids are clear. IMPRESSION: 1. Moderate sized subacute left posterior frontoparietal cortical infarct with possible petechial hem orrhage and cytotoxic edema.. Above discussed with Dequan Tubbs MD at the time of dictation on 01/26/2024 at 1642 hours. This study fulfills neurological imaging criteria for inclusion or exclusion of acute stroke therapie s based on available published neurological imaging guidelines. Reviewed by: Alok Garrett MD on 01/26/2024 4:44 PM PDT Approved by: Alok Garrett MD on 01/26/2024 4:44 PM PDT Station ID: [id number]
[2024-01-26] MEDS: SODIUM CHLORIDE 0.9% 1,000 ML IV STA (16:55)
[2024-01-26 16:58] LABS: BASOPHILS % (AUTO) 0.6 %; EOSINOPHILS # (AUTO) 0.3 10^3/uL (0.0-0.7); EOSINOPHILS % (AUTO) 4.2 %; HGB - HEMOGLOBIN 10.1 g/dL (14.0-18.0); LYMPHOCYTES % (AUTO) 15.7 %; MEAN CORPUSCULAR HEMOGLOBIN 27.1 pg (27.0-31.0); MEAN CORPUSCULAR HGB CONC 30.6 g/dL (32.0-36.0); MEAN CORPUSCULAR VOLUME 88.5 fL (80.0-94.0); MEAN PLATELET VOLUME 9.5 fL (7.4-11.4); MONOCYTES # (AUTO) 0.5 10^3/uL (0.0-1.0); MONOCYTES % (AUTO) 7.6 %; NEUTROPHILS # (AUTO) 4.7 10^3/uL (1.5-6.6); NEUTROPHILS % (AUTO) 71.7 %; PLT - PLATELET COUNT 224 10^3/uL (130-450); RED BLOOD COUNT 3.73 10^6/uL (4.70-6.10); RED CELL DISTRIBUTION WIDTH 15.3 % (12.0-15.0); WHITE BLOOD COUNT 6.5 x10^3/uL (4.8-10.8)
--- NOTE | 2024-01-26 17:02 | CT Report ---
PROCEDURE: Angio Head/Neck INDICATIONS: cva sx TECHNIQUE: After the administration of intravenous contrast, 1 mm thick sections acquired from the aortic arch t hrough the [place] of [place]. 3-dimensional objeqyl-ofzkqkcii-ypstfocfgj (MIP) and/or volume renderin g reformats were acquired of the central intracranial vasculature and neck separately. For radiation dose reduction, the following was used: automated exposure control, adjustment of mA and/or kV acco rding to patient size. CONTRAST: Omni 300 80ml COMPARISON: CT head from the same day. FINDINGS: Image quality: Diagnostic. HEAD CT: CSF Spaces: Basal cisterns are patent. No extra-axial fluid collections. Ventricles are normal in size and shape. Brain: Subacute moderate posterior left frontoparietal infarct with possible associated petechial hem orrhage Skull and face: Calvarium and visualized facial bones appear intact, without suspicious lesions. Sinuses: Visualized sinuses and mastoids are clear. HEAD CT ANGIOGRAPHY: Anterior circulation: Intracranial internal carotid arteries are normal in size and flow. The flow within the paired anterior cerebral arteries is normal and symmetric. The flow within the middle cer ebral arteries is normal and symmetric. The anterior communicating artery is seen. No aneurysms are seen. Posterior circulation: Visualized portions of the vertebral arteries demonstrate normal caliber, and join to form a normal appearing basilar artery. Flow within the posterior cerebral arteries is norm al and symmetric. No aneurysms are seen. NECK CT ANGIOGRAPHY: Carotid system: The great vessels demonstrate a conventional anatomy as they arise from the aortic a rch. The origins of the common carotid arteries appear patent. The common carotid arteries demonstr ate normal caliber and courses. The bifurcation regions are both widely patent. There is a severe de nsely calcified proximal left internal carotid artery stenosis, with blooming artifact from calcifica tion, likely greater than 70%. There is right carotid bifurcation calcification without hemodynamical ly significant stenosis. Stenosis is less than 50%. Posterior circulation: The origins of the verteb ral arteries both appear widely patent. The more superior extracranial portions of both vertebral ar teries also demonstrate normal courses and calibers. They join to form a normal appearing basilar ar [place]. Soft tissues: Visualized neck soft tissues demonstrate no suspicious abnormalities. Mild ascending aortic aneurysm measuring 4.4 cm. Moderately large bilateral pleural effusions. Severe coronary arter y calcifications. Cardiomegaly with left atrial enlargement. Most of heart not included on the images . Bones: No suspicious bony lesions. Visualized cervical spine appears normally aligned. IMPRESSION: 1. There is a subacute moderate left MCA distribution infarct in the posterior left frontal parietal cortical region with possible associated petechial hemorrhage. 2. There is a densely calcified severe proximal left internal carotid artery stenosis, likely greater than 70%. Stenosis is difficult to quantify secondary to extensive calcification with blooming artif act. There is also a less than 50% proximal right internal carotid artery stenosis. 3. No identification of an embolic lesion or vascular cut off in the arterial circulation in the head . 4. Cardiomegaly, severe coronary artery calcifications. 5. Ascending aortic aneurysm. 6. Moderately large bilateral pleural effusions. The estimate of stenosis included in the report of the imaging study was calculated using the NASCET method Reviewed by: Alok Garrett MD on 01/26/2024 5:01 PM PDT Approved by: Alok Garrett MD on 01/26/2024 5:01 PM PDT Station ID: [id number]
[2024-01-26 17:03] LABS: INR 1.2 (0.8-1.2); PT - PROTHROMBIN TIME 12.6 secs (9.9-12.6)
[2024-01-26 17:08] LABS: ALBUMIN 3.2 g/dL (3.2-5.5); ALBUMIN/GLOBULIN RATIO 1.5 (1.0-2.2); BILIRUBIN,TOTAL 0.8 mg/dL (0.2-1.0); CALCIUM 8.7 mg/dL (8.5-10.3); CREATININE 1.1 mg/dL (0.6-1.3); POTASSIUM 3.4 mmol/L (3.5-4.5); TOTAL PROTEIN 5.4 g/dL (6.4-8.9)
[2024-01-26] MEDS: iohexoL-300 100 ML VIAL IVP ONE (17:24)
[2024-01-26] MEDS: ASPIRIN CHEW 81 MG TABLET PO STA (17:44)
[2024-01-26 18:32] VITALS: O2SAT 98
[2024-01-26 19:30] VITALS: BP 180/88
== END 2024-01-26 19:16 | disposition home or self-care (01) ==
LOC: EDUNIT# → ED 16:19
DX: I63.9 Cerebral infarction, unspecified (principal); I48.20 Chronic atrial fibrillation, unspecified; F03.90 Unspecified dementia, unspecified severity, without behavioral disturbance, psychotic disturbance, mood disturbance, and anxiety; I11.0 Hypertensive heart disease with heart failure; I50.9 Heart failure, unspecified; I25.10 Atherosclerotic heart disease of native coronary artery without angina pectoris; E78.00 Pure hypercholesterolemia, unspecified; E11.42 Type 2 diabetes mellitus with diabetic polyneuropathy; Z79.84 Long term (current) use of oral hypoglycemic drugs; Z79.82 Long term (current) use of aspirin; Z79.899 Other long term (current) drug therapy
CPT/HCPCS: 36415; 80053; 83690; 85025; 85610; 93005; 96360; 96361; 99284

== ENCOUNTER 2024-01-26 19:11 | Outpatient (CLI) | payer MEDICARE, MEDICAID | END 2024-01-26 23:59 | LOC: EMS 19:11 | PROVIDERS: ATTEND Emergency Medicine | DX: F03.90 Unspecified dementia, unspecified severity, without behavioral disturbance, psychotic disturbance, mood disturbance, and anxiety (principal); R41.0 Disorientation, unspecified; I63.9 Cerebral infarction, unspecified | CPT/HCPCS: A0425; A0428 ==

== ENCOUNTER 2024-02-02 08:00 | Outpatient (CLI) | payer MEDICARE, MEDICAID ==
[2024-02-02 23:18] LABS: CALCIUM 9.3 mg/dL (8.5-10.3); CREATININE 1.3 mg/dL (0.6-1.3); POTASSIUM 3.6 mmol/L (3.5-4.5)
[2024-02-03 08:46] LABS: ESTIMATED AVERAGE GLUCOSE 123 mg/dL (70-100); HEMOGLOBIN A1c% 5.9 % (4.27-6.07)
== END 2024-02-02 23:59 | disposition home or self-care (01) ==
LOC: LAB.R 08:00
PROVIDERS: ATTEND Registered Nurse
DX: J44.9 Chronic obstructive pulmonary disease, unspecified (principal); E11.621 Type 2 diabetes mellitus with foot ulcer
CPT/HCPCS: 80048; 83036

== ENCOUNTER 2024-02-03 14:35 | Outpatient (CLI) | payer MEDICARE, MEDICAID ==
[2024-02-03 15:23] LABS: CALCIUM 8.8 mg/dL (8.5-10.3); CREATININE 1.1 mg/dL (0.6-1.3); POTASSIUM 3.4 mmol/L (3.5-4.5)
[2024-02-03 20:36] LABS: ESTIMATED AVERAGE GLUCOSE 123 mg/dL (70-100); HEMOGLOBIN A1c% 5.9 % (4.27-6.07)
== END 2024-02-03 14:36 | disposition home or self-care (01) ==
LOC: LAB.R 14:35
PROVIDERS: ATTEND Registered Nurse
DX: E11.621 Type 2 diabetes mellitus with foot ulcer (principal); E11.42 Type 2 diabetes mellitus with diabetic polyneuropathy
CPT/HCPCS: 80048; 83036

== ENCOUNTER 2024-02-24 14:34 | Outpatient (CLI) | payer MEDICARE, MEDICAID ==
[2024-02-24 14:45] LABS: BASOPHILS # (AUTO) 0.1 10^3/uL (0.0-0.1); EOSINOPHILS # (AUTO) 0.2 10^3/uL (0.0-0.7); EOSINOPHILS % (AUTO) 2.5 %; HCT - HEMATOCRIT 34.8 % (42.0-52.0); HGB - HEMOGLOBIN 10.7 g/dL (14.0-18.0); LYMPHOCYTES # (AUTO) 0.9 10^3/uL (1.5-3.5); LYMPHOCYTES % (AUTO) 13.8 %; MEAN CORPUSCULAR HGB CONC 30.7 g/dL (32.0-36.0); MEAN CORPUSCULAR VOLUME 87.9 fL (80.0-94.0); MEAN PLATELET VOLUME 9.4 fL (7.4-11.4); MONOCYTES # (AUTO) 0.5 10^3/uL (0.0-1.0); MONOCYTES % (AUTO) 7.9 %; NEUTROPHILS # (AUTO) 4.7 10^3/uL (1.5-6.6); NEUTROPHILS % (AUTO) 74.3 %; PLT - PLATELET COUNT 276 10^3/uL (130-450); RED BLOOD COUNT 3.96 10^6/uL (4.70-6.10); RED CELL DISTRIBUTION WIDTH 14.3 % (12.0-15.0); WHITE BLOOD COUNT 6.3 x10^3/uL (4.8-10.8)
== END 2024-02-24 14:35 | disposition home or self-care (01) ==
LOC: LAB.R 14:34
PROVIDERS: ATTEND Registered Nurse
DX: Z13.0 Encounter for screening for diseases of the blood and blood-forming organs and certain disorders involving the immune mechanism (principal)
CPT/HCPCS: 85025

== ENCOUNTER 2024-03-04 08:00 | Outpatient (CLI) | payer MEDICARE, MEDICAID ==
[2024-03-04 16:15] LABS: BASOPHILS % (AUTO) 0.7 %; EOSINOPHILS # (AUTO) 0.2 10^3/uL (0.0-0.7); EOSINOPHILS % (AUTO) 3.5 %; HCT - HEMATOCRIT 32.1 % (42.0-52.0); HGB - HEMOGLOBIN 10.1 g/dL (14.0-18.0); LYMPHOCYTES # (AUTO) 0.8 10^3/uL (1.5-3.5); LYMPHOCYTES % (AUTO) 12.7 %; MEAN CORPUSCULAR HEMOGLOBIN 27.4 pg (27.0-31.0); MEAN CORPUSCULAR HGB CONC 31.5 g/dL (32.0-36.0); MEAN PLATELET VOLUME 9.8 fL (7.4-11.4); MONOCYTES # (AUTO) 0.5 10^3/uL (0.0-1.0); MONOCYTES % (AUTO) 7.5 %; NEUTROPHILS # (AUTO) 4.5 10^3/uL (1.5-6.6); NEUTROPHILS % (AUTO) 75.1 %; PLT - PLATELET COUNT 259 10^3/uL (130-450); RED BLOOD COUNT 3.69 10^6/uL (4.70-6.10)
[2024-03-04 16:22] LABS: CALCIUM 9.2 mg/dL (8.5-10.3); POTASSIUM 3.5 mmol/L (3.5-4.5)
== END 2024-03-04 23:59 | disposition home or self-care (01) ==
LOC: LAB.R 08:00
PROVIDERS: ATTEND Family Medicine
DX: I10 Essential (primary) hypertension (principal); I48.20 Chronic atrial fibrillation, unspecified
CPT/HCPCS: 80048; 85025

== ENCOUNTER 2024-03-07 14:44 | Outpatient (CLI) | payer MEDICARE, MEDICAID ==
[2024-03-07 15:02] LABS: BILIRUBIN,URINE NEGATIVE (NEGATIVE); GLUCOSE, URINE (UA) NEGATIVE (NEGATIVE); KETONES,URINE (UA) NEGATIVE (NEGATIVE); LEUKOCYTE ESTERASE, URINE LARGE (NEGATIVE); NITRITE,URINE POSITIVE (NEGATIVE); OCCULT BLOOD,URINE LARGE (NEGATIVE); PH,URINE 6.5 PH (5.0-7.5); PROTEIN,URINE TRACE mg/dL (NEGATIVE); UROBILINOGEN,URINE 1 (NORMAL) E.U./dL (NORMAL)
[2024-03-07 15:17] LABS: CLARITY,URINE CLOUDY (CLEAR)
[2024-03-07 15:18] LABS: BACTERIA,URINE Many /HPF (None Seen); SQUAMOUS EPITHELIAL CELL,UR NONE SEEN (<= Few); WBC,URINE >25 /HPF (0-3)
== END 2024-03-07 14:45 | disposition home or self-care (01) ==
LOC: LAB.R 14:44
PROVIDERS: ATTEND Family Medicine
DX: N39.0 Urinary tract infection, site not specified (principal)
CPT/HCPCS: 81001; 81003